=== PATIENT | male | born 1990 | race Caucasian/White ===

== ENCOUNTER 2019-05-28 01:06 | Inpatient (IN) | payer MEDICAID, OTHER ==
[2019-05-28] VITALS (7 sets, daily range): BP systolic 110–136; BP diastolic 67–98
[~2019-05-28] VITALS: Ht 157.5 cm; Wt 55.6 kg
[~2019-05-28 01:06] MED LIST: NOCURR
[2019-05-28 01:55] LABS: BASOPHILS % (AUTO) 0.8 % (0.0-2.0); EOSINOPHILS % (AUTO) 2.9 % (1.0-6.0); HEMATOCRIT 43.3 % (41-53); HEMOGLOBIN 15.1 g/dL (13.5-17.5); LYMPHOCYTES # (AUTO) 4.1 K/uL (1.0-4.8); MEAN CORPUSCULAR HEMOGLOBIN 33.1 pg (26.0-34.0); MEAN CORPUSCULAR HGB CONC 34.8 G/dL (31.0-37.0); MEAN CORPUSCULAR VOLUME 95 fL (80-100); MONOCYTES # (AUTO) 0.7 K/uL (0.1-1.0); MONOCYTES % (AUTO) 7.6 % (2.0-9.0); NEUTROPHILS # (AUTO) 4.2 K/uL (1.8-7.7); NEUTROPHILS % (AUTO) 44.7 % (40.0-70.0); PLATELET COUNT (AUTO) 283 K/uL (150-450); RED BLOOD CELL COUNT(AUTO) 4.55 MIL/uL (4.50-5.90); RED CELL DISTRIBUTION WIDTH 12.2 % (11.5-14.5)
[2019-05-28 01:57] LABS: APPEARANCE,URINE CLEAR (CLEAR); BILIRUBIN,URINE NEGATIVE (NEGATIVE); GLUCOSE, URINE (UA) >=1000 mg/dL (NEGATIVE); KETONES,URINE NEGATIVE (NEGATIVE); LEUKOCYTE ESTERASE ,URINE NEGATIVE (NEGATIVE); NITRATE,URINE NEGATIVE (NEGATIVE); OCCULT BLOOD,URINE NEGATIVE (NEGATIVE); PROTEIN,URINE NEGATIVE (NEGATIVE); UROBILINOGEN,URINE 0.2 mg/dL (<=1.0)
[2019-05-28 02:02] LABS: BACTERIA,URINE None Seen /HPF (None Seen); RBC,URINE 0-2 /HPF (0-2); SQUAMOUS EPITHELIAL CELL,UR Rare /LPF (None Seen); WBC,URINE 0-2 /HPF (0-5)
[2019-05-28 02:11] LABS: ALANINE AMINOTRANSFERASE 86 U/L (12-78); ALKALINE PHOSPHATASE 242 U/L (46-116); ANION GAP 15 mmol/L (8-16); ASPARTATE AMINOTRANSFERASE 95 U/L (15-37); BILIRUBIN,TOTAL 0.5 mg/dL (0.1-1.0); CALCIUM, TOTAL 9.3 mg/dL (8.8-10.5); CARBON DIOXIDE 27 mmol/L (22-29); CHLORIDE 94 mmol/L (98-107); CREATININE 0.71 mg/dL (0.60-1.30); GLOMERULAR FILTR. RATE CALC > 60 mL/min (>60); SODIUM SERUM 136 mmol/L (136-145); TOTAL PROTEIN, SERUM 8.5 g/dL (6.4-8.2); UREA NITROGEN, BLOOD 2 mg/dL (7-18)
[2019-05-28 02:21] LABS: GLUCOSE,RANDOM 516 mg/dL (70-110); POTASSIUM 2.9 mmol/L (3.5-5.1)
[2019-05-28] MEDS ORDERED: SODIUM CHLORIDE 0.9% 1,000 ML IV ONE (02:30)
[2019-05-28] MEDS ORDERED: POTASSIUM CHLORIDE 20 MEQ ER TABLET PO ONE (02:30)
[2019-05-28 02:31] LABS: GLUCOSE,POINT OF CARE 487 MG/DL (70-110)
[2019-05-28] MEDS ORDERED: ASPIRIN 325 MG TABLET PO ONE (02:45)
[2019-05-28] MEDS ORDERED: 0.9% SODIUM CHLORIDE 10 ML SYRINGE IVP PRN ×3 (03:15→06:15)
[2019-05-28] MEDS ORDERED: ACETAMINOPHEN 325 MG TABLET PO PRN ×2 (03:15→06:15)
[2019-05-28] MEDS ORDERED: ONDANSETRON HCL 4 MG/2 ML VIAL IVP PRN ×3 (03:15→06:15)
[2019-05-28] MEDS ORDERED: POTASSIUM CHL 10 MEQ/WATER 50 ML IV PRN ×2 (05:30→06:15)
[2019-05-28] MEDS ORDERED: INFLUENZA VIRUS VACCINE QVS 2019-20 (3YR+)/PF 60 MCG/0.5 ML SYRINGE IM ONE (05:30)
[2019-05-28] MEDS ORDERED: DEXTROSE 50%-WATER 25 GM/50 ML SYRINGE IVP PRN ×2 (05:30→06:30)
[2019-05-28] MEDS ORDERED: POTASSIUM CHLORIDE 20 MEQ ER TABLET PO PRN ×2 (05:30→06:15)
[2019-05-28] MEDS ORDERED: INSULIN LISPRO 100 UNITS/ML SQ PRN (05:30)
[2019-05-28] MEDS ORDERED: OxyCODONE HCL/ACETAMINOPHEN 5-325 MG TABLET PO PRN ×4 (05:45→06:15)
[2019-05-28] MEDS ORDERED: MAGNESIUM HYDROXIDE SUSPENSION 30 ML UDCUP PO PRN ×2 (05:45→06:15)
[2019-05-28] MEDS ORDERED: ChlordiazePOXIDE HCL 25 MG CAPSULE PO PRN (05:45)
[2019-05-28] MEDS: MULTIVITAMINS, THERAPEUTIC TABLET PO SCH (08:10)
[2019-05-28] MEDS: DOCUSATE SODIUM 100 MG CAPSULE PO SCH ×2 (08:10→20:36)
[2019-05-28] MEDS: ASPIRIN 325 MG TABLET PO SCH (08:10)
[2019-05-28] MEDS: FAMOTIDINE 10 MG/ML 2 ML VIAL IVP SCH (08:11)
[2019-05-28] MEDS: THIAMINE HCL 100 MG/ML 2ML VIAL IM SCH (08:12)
[2019-05-28] MEDS: INSULIN GLARGINE,HUM.REC.ANLOG 100 UNITS/ML SQ SCH (08:15)
[2019-05-28] MEDS ORDERED: DOCUSATE SODIUM 100 MG CAPSULE PO SCH (09:00)
[2019-05-28 12:06] LABS: ANION GAP 11 mmol/L (8-16); CALCIUM, TOTAL 8.8 mg/dL (8.8-10.5); CARBON DIOXIDE 27 mmol/L (22-29); CHLORIDE 102 mmol/L (98-107); GLOMERULAR FILTR. RATE CALC > 60 mL/min (>60); GLUCOSE,RANDOM 222 mg/dL (70-110); POTASSIUM 3.9 mmol/L (3.5-5.1); SODIUM SERUM 140 mmol/L (136-145); UREA NITROGEN, BLOOD 3 mg/dL (7-18)
[2019-05-28] MEDS: INSULIN LISPRO 100 UNITS/ML SQ PRN ×3 (12:15→21:36)
[2019-05-28] MEDS: ACETAMINOPHEN 325 MG TABLET PO PRN (17:09)
[2019-05-29] MEDS: ACETAMINOPHEN 325 MG TABLET PO PRN (03:19)
[2019-05-29 04:43] VITALS: BP 114/78
[2019-05-29] MEDS: INSULIN LISPRO 100 UNITS/ML SQ PRN ×4 (05:54→20:55)
[2019-05-29 06:54] LABS: BASOPHILS % (AUTO) 0.5 % (0.0-2.0); EOSINOPHILS % (AUTO) 1.9 % (1.0-6.0); HEMATOCRIT 38.7 % (41-53); HEMOGLOBIN 13.5 g/dL (13.5-17.5); LYMPHOCYTES # (AUTO) 1.7 K/uL (1.0-4.8); LYMPHOCYTES % (AUTO) 20.5 % (22.0-44.0); MEAN CORPUSCULAR HEMOGLOBIN 33.1 pg (26.0-34.0); MEAN CORPUSCULAR HGB CONC 34.8 G/dL (31.0-37.0); MEAN CORPUSCULAR VOLUME 95 fL (80-100); MONOCYTES # (AUTO) 0.8 K/uL (0.1-1.0); MONOCYTES % (AUTO) 9.2 % (2.0-9.0); NEUTROPHILS # (AUTO) 5.7 K/uL (1.8-7.7); NEUTROPHILS % (AUTO) 67.9 % (40.0-70.0); PLATELET COUNT (AUTO) 223 K/uL (150-450); RED BLOOD CELL COUNT(AUTO) 4.07 MIL/uL (4.50-5.90); RED CELL DISTRIBUTION WIDTH 12.4 % (11.5-14.5)
[2019-05-29] MEDS ORDERED: ChlordiazePOXIDE HCL 25 MG CAPSULE PO PRN (07:00)
[2019-05-29 07:25] LABS: ALANINE AMINOTRANSFERASE 62 U/L (12-78); ALBUMIN 3.1 g/dL (3.4-5.0); ALKALINE PHOSPHATASE 167 U/L (46-116); ANION GAP 9 mmol/L (8-16); ASPARTATE AMINOTRANSFERASE 67 U/L (15-37); BILIRUBIN,TOTAL 0.7 mg/dL (0.1-1.0); CALCIUM, TOTAL 8.9 mg/dL (8.8-10.5); CARBON DIOXIDE 29 mmol/L (22-29); CHLORIDE 101 mmol/L (98-107); CREATININE 0.49 mg/dL (0.60-1.30); GLOMERULAR FILTR. RATE CALC > 60 mL/min (>60); GLUCOSE,RANDOM 266 mg/dL (70-110); POTASSIUM 4.2 mmol/L (3.5-5.1); SODIUM SERUM 139 mmol/L (136-145); UREA NITROGEN, BLOOD 14 mg/dL (7-18)
[2019-05-29 07:36] LABS: GLUCOMETER DEV NAME(LOC) 5N.1; GLUCOSE,POINT OF CARE 192 MG/DL (70-110)
[2019-05-29 07:36] LABS: GLUCOMETER DEV NAME(LOC) 5N.2; GLUCOSE,POINT OF CARE 146 MG/DL (70-110)
[2019-05-29 07:36] LABS: GLUCOMETER DEV NAME(LOC) 5N.1; GLUCOSE,POINT OF CARE 297 MG/DL (70-110)
[2019-05-29 07:36] LABS: GLUCOMETER DEV NAME(LOC) 5N.2; GLUCOSE,POINT OF CARE 238 MG/DL (70-110)
[2019-05-29 07:37] LABS: GLUCOMETER DEV NAME(LOC) 5N.2; GLUCOSE,POINT OF CARE 264 MG/DL (70-110)
[2019-05-29 08:01] VITALS: BP_SYST 109; BP_SYST 74; BP_DIAS 109; BP_DIAS 74
[2019-05-29 10:50] LABS: CHOL/HDL RATIO 1.7 (4.2-7.3); CHOLESTEROL 140 mg/dL (131-200); HDL CHOLESTEROL 81 mg/dL (40-60); LDL CHOL (CALC.) 45 mg/dL (0-130); TRIGLYCERIDES 68 mg/dL (15-150)
[2019-05-29] MEDS: FAMOTIDINE 10 MG/ML 2 ML VIAL IVP SCH (11:00)
[2019-05-29] MEDS: DOCUSATE SODIUM 100 MG CAPSULE PO SCH ×2 (11:00→20:11)
[2019-05-29] MEDS: THIAMINE HCL 100 MG/ML 2ML VIAL IM SCH (11:00)
[2019-05-29] MEDS: ChlordiazePOXIDE HCL 25 MG CAPSULE PO SCH ×4 (11:00→20:11)
[2019-05-29] MEDS: MULTIVITAMINS, THERAPEUTIC TABLET PO SCH (11:00)
[2019-05-29] MEDS: ASPIRIN 325 MG TABLET PO SCH (11:01)
[2019-05-29] MEDS: INSULIN GLARGINE,HUM.REC.ANLOG 100 UNITS/ML SQ SCH ×2 (11:03→14:45)
[2019-05-29 11:23] VITALS: BP 125/80
[2019-05-29 11:57] LABS: GLUCOMETER DEV NAME(LOC) 5N.1; GLUCOSE,POINT OF CARE 358 MG/DL (70-110)
[2019-05-29 14:51] LABS: GLUCOMETER DEV NAME(LOC) 5N.2; GLUCOSE,POINT OF CARE 178 MG/DL (70-110)
[2019-05-29 15:08] VITALS: BP 127/84
[2019-05-29 17:01] LABS: GLUCOMETER DEV NAME(LOC) 5N.1; GLUCOSE,POINT OF CARE 215 MG/DL (70-110)
[2019-05-29 20:02] VITALS: BP 112/74
[2019-05-29 22:55] LABS: AMPHET/METH SCREEN,URINE NEGATIVE (NEGATIVE); BARBITURATE SCREEN, URINE NEGATIVE (NEGATIVE); BENZODIAZEPINES SCREEN,URINE NEGATIVE (NEGATIVE); CANNABINOID SCREEN,URINE NEGATIVE (NEGATIVE); COCAINE SCREEN,URINE NEGATIVE (NEGATIVE); METHADONE SCREEN, URINE NEGATIVE (NEGATIVE); OPIATE SCREEN,URINE NEGATIVE (NEGATIVE); PHENCYCLIDINE SCREEN,URINE NEGATIVE (NEGATIVE)
[2019-05-29 23:18] VITALS: BP 119/86
[2019-05-30 01:17] LABS: GLUCOMETER DEV NAME(LOC) 5N.1; GLUCOSE,POINT OF CARE 216 MG/DL (70-110)
[2019-05-30 04:45] VITALS: BP 111/80
[2019-05-30] MEDS: INSULIN LISPRO 100 UNITS/ML SQ PRN ×4 (05:58→23:06)
[2019-05-30 07:20] VITALS: BP 118/64
[2019-05-30 07:55] LABS: GLUCOMETER DEV NAME(LOC) 5N.1; GLUCOSE,POINT OF CARE 165 MG/DL (70-110)
[2019-05-30] MEDS: ChlordiazePOXIDE HCL 25 MG CAPSULE PO SCH ×4 (08:28→20:41)
[2019-05-30] MEDS: MULTIVITAMINS, THERAPEUTIC TABLET PO SCH (08:28)
[2019-05-30] MEDS: THIAMINE HCL 100 MG/ML 2ML VIAL IM SCH (08:28)
[2019-05-30] MEDS: FAMOTIDINE 10 MG/ML 2 ML VIAL IVP SCH (08:28)
[2019-05-30] MEDS: DOCUSATE SODIUM 100 MG CAPSULE PO SCH ×2 (08:29→20:41)
[2019-05-30] MEDS: ASPIRIN 325 MG TABLET PO SCH (08:29)
[2019-05-30] MEDS: INSULIN GLARGINE,HUM.REC.ANLOG 100 UNITS/ML SQ SCH (08:29)
[2019-05-30] MEDS ORDERED: INSULIN GLARGINE,HUM.REC.ANLOG 100 UNITS/ML SQ SCH (09:00)
[2019-05-30 11:24] VITALS: BP 121/81
[2019-05-30 11:52] LABS: GLUCOMETER DEV NAME(LOC) 5N.1; GLUCOSE,POINT OF CARE 245 MG/DL (70-110)
[2019-05-30] MEDS ORDERED: LORazepam 2 MG/ML VIAL IVP PRN (12:00)
[2019-05-30 15:33] VITALS: BP 116/76
[2019-05-30 19:18] VITALS: BP 109/73
[2019-05-31 00:29] VITALS: BP 115/56
[2019-05-31 04:42] VITALS: BP 102/65
[2019-05-31] MEDS: ACETAMINOPHEN 325 MG TABLET PO PRN (04:52)
[2019-05-31] MEDS: INSULIN LISPRO 100 UNITS/ML SQ PRN ×2 (06:27→11:37)
[2019-05-31] MEDS ORDERED: ChlordiazePOXIDE HCL 10 MG CAPSULE PO PRN (07:00)
[2019-05-31 07:46] LABS: ALANINE AMINOTRANSFERASE 52 U/L (12-78); ALBUMIN 3.5 g/dL (3.4-5.0); ALKALINE PHOSPHATASE 163 U/L (46-116); ANION GAP 10 mmol/L (8-16); ASPARTATE AMINOTRANSFERASE 60 U/L (15-37); BILIRUBIN,TOTAL 0.7 mg/dL (0.1-1.0); CALCIUM, TOTAL 9.1 mg/dL (8.8-10.5); CARBON DIOXIDE 26 mmol/L (22-29); CHLORIDE 100 mmol/L (98-107); CREATININE 0.53 mg/dL (0.60-1.30); GLOMERULAR FILTR. RATE CALC > 60 mL/min (>60); GLUCOSE,RANDOM 179 mg/dL (70-110); POTASSIUM 3.8 mmol/L (3.5-5.1); SODIUM SERUM 136 mmol/L (136-145); THYROID STIMULATING HORMONE 2.44 uIU/mL (0.36-3.74); TOTAL PROTEIN, SERUM 7.6 g/dL (6.4-8.2); UREA NITROGEN, BLOOD 10 mg/dL (7-18)
[2019-05-31 08:05] VITALS: BP 100/70
[2019-05-31 08:13] LABS: BASOPHILS % (AUTO) 0.6 % (0.0-2.0); EOSINOPHILS % (AUTO) 2.5 % (1.0-6.0); HEMATOCRIT 38.9 % (41-53); HEMOGLOBIN 13.4 g/dL (13.5-17.5); LYMPHOCYTES # (AUTO) 2.4 K/uL (1.0-4.8); LYMPHOCYTES % (AUTO) 25.7 % (22.0-44.0); MEAN CORPUSCULAR HEMOGLOBIN 33.2 pg (26.0-34.0); MEAN CORPUSCULAR HGB CONC 34.5 G/dL (31.0-37.0); MEAN CORPUSCULAR VOLUME 96 fL (80-100); MONOCYTES # (AUTO) 0.8 K/uL (0.1-1.0); MONOCYTES % (AUTO) 8.4 % (2.0-9.0); NEUTROPHILS # (AUTO) 5.9 K/uL (1.8-7.7); NEUTROPHILS % (AUTO) 62.8 % (40.0-70.0); PLATELET COUNT (AUTO) 239 K/uL (150-450); RED BLOOD CELL COUNT(AUTO) 4.04 MIL/uL (4.50-5.90); RED CELL DISTRIBUTION WIDTH 12.5 % (11.5-14.5)
[2019-05-31] MEDS: DOCUSATE SODIUM 100 MG CAPSULE PO SCH (08:52)
[2019-05-31] MEDS: MULTIVITAMINS, THERAPEUTIC TABLET PO SCH (08:52)
[2019-05-31] MEDS: THIAMINE HCL 100 MG/ML 2ML VIAL IM SCH (08:54)
[2019-05-31] MEDS: FAMOTIDINE 10 MG/ML 2 ML VIAL IVP SCH (08:54)
[2019-05-31] MEDS: INSULIN GLARGINE,HUM.REC.ANLOG 100 UNITS/ML SQ SCH (09:00)
[2019-05-31] MEDS ORDERED: ChlordiazePOXIDE HCL 10 MG CAPSULE PO SCH (09:00)
[2019-05-31] MEDS ORDERED: ASPIRIN 81 MG CHEWABLE TABLET PO SCH (09:00)
[2019-05-31 09:31] LABS: GLUCOMETER DEV NAME(LOC) 5N.1; GLUCOSE,POINT OF CARE 202 MG/DL (70-110)
[2019-05-31 09:31] LABS: GLUCOMETER DEV NAME(LOC) 5N.1; GLUCOSE,POINT OF CARE 194 MG/DL (70-110)
[2019-05-31 09:31] LABS: GLUCOMETER DEV NAME(LOC) 5N.1; GLUCOSE,POINT OF CARE 231 MG/DL (70-110)
[2019-05-31 11:22] LABS: HEMOGLOBIN A1C 11.3 % (4.5-6.2)
[2019-05-31 12:01] VITALS: BP 96/62
[2019-05-31] MEDS ORDERED: INSLAN SQ (14:05)
[2019-05-31] MEDS ORDERED: INSU100V SQ (14:15)
[2019-05-31 17:47] LABS: GLUCOMETER DEV NAME(LOC) 5N.1; GLUCOSE,POINT OF CARE 322 MG/DL (70-110)
[2019-06-01] MEDS ORDERED: ChlordiazePOXIDE HCL 10 MG CAPSULE PO PRN (07:00)
== END 2019-05-31 15:00 | disposition home or self-care (01) | DRG 47 ==
LOC: EMS 01:06 → 5S 03:26
PROVIDERS: ADMIT Internal Medicine; ATTEND Internal Medicine
DX: G45.9 Transient cerebral ischemic attack, unspecified (principal); E11.65 Type 2 diabetes mellitus with hyperglycemia; R81 Glycosuria; E87.6 Hypokalemia; F17.210 Nicotine dependence, cigarettes, uncomplicated; F41.9 Anxiety disorder, unspecified; F10.20 Alcohol dependence, uncomplicated; G43.909 Migraine, unspecified, not intractable, without status migrainosus; R74.8 Abnormal levels of other serum enzymes
CPT/HCPCS: 70450; 70551; 76700; 80307; 82948; 83036; 84439; 84443; 87081; 92523; 93005; 93306; 93880; 93970; 97116; 97161; 97165; 97530; 97535; 99291; J1815; J3411; J3490; J7030

== ENCOUNTER 2019-06-25 15:15 | Emergency (ER) | payer MEDICAID ==
[~2019-06-25] VITALS: Ht 165.1 cm; Wt 59.1 kg
[~2019-06-25 15:15] MED LIST changes: +INSLAN SQ; +INSU100V SQ; -NOCURR
[2019-06-25 16:40] LABS: BASOPHILS % (AUTO) 0.9 % (0.0-2.0); EOSINOPHILS % (AUTO) 3.2 % (1.0-6.0); HEMATOCRIT 41.7 % (41-53); HEMOGLOBIN 14.2 g/dL (13.5-17.5); LYMPHOCYTES # (AUTO) 3.2 K/uL (1.0-4.8); LYMPHOCYTES % (AUTO) 35.4 % (22.0-44.0); MEAN CORPUSCULAR HEMOGLOBIN 32.9 pg (26.0-34.0); MEAN CORPUSCULAR HGB CONC 34.2 G/dL (31.0-37.0); MEAN CORPUSCULAR VOLUME 96 fL (80-100); MONOCYTES # (AUTO) 0.6 K/uL (0.1-1.0); MONOCYTES % (AUTO) 6.1 % (2.0-9.0); NEUTROPHILS % (AUTO) 54.4 % (40.0-70.0); PLATELET COUNT (AUTO) 352 K/uL (150-450); RED BLOOD CELL COUNT(AUTO) 4.33 MIL/uL (4.50-5.90); RED CELL DISTRIBUTION WIDTH 12.7 % (11.5-14.5)
[2019-06-25 16:52] LABS: ANION GAP 12 mmol/L (8-16); CALCIUM, TOTAL 9.2 mg/dL (8.8-10.5); CARBON DIOXIDE 26 mmol/L (22-29); CHLORIDE 105 mmol/L (98-107); CREATININE 0.58 mg/dL (0.60-1.30); GLOMERULAR FILTR. RATE CALC > 60 mL/min (>60); GLUCOSE,RANDOM 169 mg/dL (70-110); POTASSIUM 3.5 mmol/L (3.5-5.1); SODIUM SERUM 143 mmol/L (136-145); UREA NITROGEN, BLOOD 6 mg/dL (7-18)
[2019-06-25 16:59] LABS: ALANINE AMINOTRANSFERASE 40 U/L (12-78); ALBUMIN 3.7 g/dL (3.4-5.0); ALKALINE PHOSPHATASE 173 U/L (46-116); ASPARTATE AMINOTRANSFERASE 41 U/L (15-37); BILIRUBIN,TOTAL 0.2 mg/dL (0.1-1.0); TOTAL PROTEIN, SERUM 8.1 g/dL (6.4-8.2)
[2019-06-25] MEDS ORDERED: SODIUM CHLORIDE 0.9% 1,000 ML IV ONE (17:30)
[2019-06-25 17:55] LABS: AMPHET/METH SCREEN,URINE NEGATIVE (NEGATIVE); BARBITURATE SCREEN, URINE NEGATIVE (NEGATIVE); BENZODIAZEPINES SCREEN,URINE NEGATIVE (NEGATIVE); CANNABINOID SCREEN,URINE NEGATIVE (NEGATIVE); COCAINE SCREEN,URINE NEGATIVE (NEGATIVE); METHADONE SCREEN, URINE NEGATIVE (NEGATIVE); OPIATE SCREEN,URINE NEGATIVE (NEGATIVE)
[2019-06-25 17:56] LABS: PHENCYCLIDINE SCREEN,URINE NEGATIVE (NEGATIVE)
[2019-06-25 19:46] VITALS: BP 103/72
== END 2019-06-25 20:34 | disposition home or self-care (01) ==
LOC: EMS 15:16
DX: F10.129 Alcohol abuse with intoxication, unspecified (principal); E11.9 Type 2 diabetes mellitus without complications; G43.909 Migraine, unspecified, not intractable, without status migrainosus; F41.9 Anxiety disorder, unspecified; Z79.4 Long term (current) use of insulin; Y90.8 Blood alcohol level of 240 mg/100 ml or more
CPT/HCPCS: 36415; 80053; 80307; 85025; 99283; G0480

== ENCOUNTER 2019-10-11 22:39 | Emergency (ER) | payer MEDICAID ==
[~2019-10-11] VITALS: Ht 157.5 cm; Wt 54.5 kg
[2019-10-12] MEDS ORDERED: GELATIN SPONGE,ABSORBABLE 12-7 MM TP ONE (00:45)
[2019-10-12] MEDS ORDERED: PENICILLIN V POTASSIUM 500 MG TABLET PO ONE (00:45)
[2019-10-12] MEDS ORDERED: INSULIN REGULAR, HUMAN 100 UNITS/ML SQ ONE (00:45)
[2019-10-12 01:01] LABS: BASOPHILS % (AUTO) 0.5 % (0.0-2.0); EOSINOPHILS % (AUTO) 1.5 % (1.0-6.0); HEMOGLOBIN 14.9 g/dL (13.5-17.5); LYMPHOCYTES # (AUTO) 2.7 K/uL (1.0-4.8); LYMPHOCYTES % (AUTO) 25.5 % (22.0-44.0); MEAN CORPUSCULAR HEMOGLOBIN 31.3 pg (26.0-34.0); MEAN CORPUSCULAR HGB CONC 33.8 G/dL (31.0-37.0); MEAN CORPUSCULAR VOLUME 93 fL (80-100); MONOCYTES # (AUTO) 0.6 K/uL (0.1-1.0); MONOCYTES % (AUTO) 5.2 % (2.0-9.0); NEUTROPHILS # (AUTO) 7.1 K/uL (1.8-7.7); NEUTROPHILS % (AUTO) 67.3 % (40.0-70.0); PLATELET COUNT (AUTO) 347 K/uL (150-450); RED BLOOD CELL COUNT(AUTO) 4.75 MIL/uL (4.50-5.90); RED CELL DISTRIBUTION WIDTH 13.1 % (11.5-14.5)
[2019-10-12 01:11] LABS: ANION GAP 10 mmol/L (8-16); CARBON DIOXIDE 28 mmol/L (22-29); CHLORIDE 102 mmol/L (98-107); CREATININE 0.66 mg/dL (0.60-1.30); GLOMERULAR FILTR. RATE CALC > 60 mL/min (>60); GLUCOSE,RANDOM 337 mg/dL (70-110); POTASSIUM 3.6 mmol/L (3.5-5.1); SODIUM SERUM 140 mmol/L (136-145); UREA NITROGEN, BLOOD 4 mg/dL (7-18)
[2019-10-12] MEDS ORDERED: GELATIN SPONGE,ABSORBABLE 100 MM TP ONE (02:00)
[2019-10-12 03:00] VITALS: BP 116/78
== END 2019-10-12 03:00 | disposition home or self-care (01) ==
LOC: EMS 22:41
DX: K06.8 Other specified disorders of gingiva and edentulous alveolar ridge (principal); K02.9 Dental caries, unspecified; E11.65 Type 2 diabetes mellitus with hyperglycemia; Z86.73 Personal history of transient ischemic attack (TIA), and cerebral infarction without residual deficits; Z79.899 Other long term (current) drug therapy; Z79.4 Long term (current) use of insulin
CPT/HCPCS: 36415; 80048; 82962; 85025; 96372; 99284; J1815

== ENCOUNTER 2019-10-30 18:36 | Emergency (ER) | payer MEDICAID ==
[~2019-10-30] VITALS: Ht 162.6 cm; Wt 59.1 kg
[2019-10-30 18:41] VITALS: BP 125/75
== END 2019-10-30 21:00 | disposition left against medical advice (07) ==
LOC: EMS 18:36
DX: Z53.21 Procedure and treatment not carried out due to patient leaving prior to being seen by health care provider (principal)

== ENCOUNTER 2019-11-11 15:44 | Emergency (ER) | payer MEDICAID ==
[~2019-11-11] VITALS: Ht 167.6 cm; Wt 75.0 kg
[2019-11-11 16:13] LABS: BASOPHILS % (AUTO) 0.9 % (0.0-2.0); EOSINOPHILS % (AUTO) 1.9 % (1.0-6.0); HEMATOCRIT 44.6 % (41-53); LYMPHOCYTES # (AUTO) 4.6 K/uL (1.0-4.8); LYMPHOCYTES % (AUTO) 49.1 % (22.0-44.0); MEAN CORPUSCULAR HEMOGLOBIN 31.2 pg (26.0-34.0); MEAN CORPUSCULAR HGB CONC 33.6 G/dL (31.0-37.0); MEAN CORPUSCULAR VOLUME 93 fL (80-100); MONOCYTES # (AUTO) 0.7 K/uL (0.1-1.0); MONOCYTES % (AUTO) 7.6 % (2.0-9.0); NEUTROPHILS # (AUTO) 3.8 K/uL (1.8-7.7); NEUTROPHILS % (AUTO) 40.5 % (40.0-70.0); PLATELET COUNT (AUTO) 341 K/uL (150-450); RED BLOOD CELL COUNT(AUTO) 4.81 MIL/uL (4.50-5.90); RED CELL DISTRIBUTION WIDTH 13.2 % (11.5-14.5)
[2019-11-11] MEDS ORDERED: SODIUM CHLORIDE 0.9% 2,000 ML IV ONE (16:15)
[2019-11-11] MEDS ORDERED: INSULIN REGULAR, HUMAN 100 UNITS/ML IVP ONE (16:15)
[2019-11-11 16:29] LABS: ACETONE,BLOOD NEGATIVE (NEGATIVE); ALANINE AMINOTRANSFERASE 105 U/L (12-78); ALBUMIN 4.6 g/dL (3.4-5.0); ALKALINE PHOSPHATASE 273 U/L (46-116); ANION GAP 15 mmol/L (8-16); ASPARTATE AMINOTRANSFERASE 102 U/L (15-37); BILIRUBIN,TOTAL 0.2 mg/dL (0.1-1.0); CALCIUM, TOTAL 9.3 mg/dL (8.8-10.5); CARBON DIOXIDE 26 mmol/L (22-29); CHLORIDE 89 mmol/L (98-107); CREATININE 0.85 mg/dL (0.60-1.30); GLOMERULAR FILTR. RATE CALC > 60 mL/min (>60); LIPASE 87 U/L (73-393); POTASSIUM 3.5 mmol/L (3.5-5.1); SODIUM SERUM 130 mmol/L (136-145); TOTAL PROTEIN, SERUM 9.3 g/dL (6.4-8.2); UREA NITROGEN, BLOOD 1 mg/dL (7-18)
[2019-11-11 16:34] LABS: GLUCOSE,RANDOM 573 mg/dL (70-110)
[2019-11-11 16:42] LABS: B-TYPE NATRIURETIC PEPTIDE 7 pg/mL (0-100); LACTIC ACID 6.6 mmol/L (0.4-2.0)
[2019-11-11 17:05] LABS: GLUCOSE,POINT OF CARE 335 MG/DL (70-110)
[2019-11-11 17:45] LABS: GLUCOSE,POINT OF CARE 162 MG/DL (70-110)
[2019-11-11 20:30] VITALS: BP 121/68
== END 2019-11-11 21:11 | disposition home or self-care (01) ==
LOC: EDUNIT# 15:44 → EDBD 15:48 → EMS 15:48
DX: E11.65 Type 2 diabetes mellitus with hyperglycemia (principal); K70.30 Alcoholic cirrhosis of liver without ascites; F10.129 Alcohol abuse with intoxication, unspecified; Y90.8 Blood alcohol level of 240 mg/100 ml or more; Z79.4 Long term (current) use of insulin; Z79.84 Long term (current) use of oral hypoglycemic drugs
CPT/HCPCS: 36415; 80053; 82009; 82962; 83605; 83690; 83880; 85025; 96361; 96374; 99285; G0480; J1815; J7030

== ENCOUNTER 2019-11-22 12:53 | Emergency (ER) | payer MEDICAID ==
[~2019-11-22] VITALS: Ht 172.7 cm; Wt 70.5 kg
[2019-11-22] MEDS ORDERED: SODIUM CHLORIDE 0.9% 1,000 ML IV ONE ×2 (14:15→16:00)
[2019-11-22 14:38] LABS: BASOPHILS % (AUTO) 0.5 % (0.0-2.0); EOSINOPHILS % (AUTO) 1.7 % (1.0-6.0); HEMATOCRIT 40.9 % (41-53); HEMOGLOBIN 13.9 g/dL (13.5-17.5); LYMPHOCYTES # (AUTO) 2.3 K/uL (1.0-4.8); LYMPHOCYTES % (AUTO) 34.2 % (22.0-44.0); MEAN CORPUSCULAR HEMOGLOBIN 31.4 pg (26.0-34.0); MEAN CORPUSCULAR HGB CONC 33.9 G/dL (31.0-37.0); MEAN CORPUSCULAR VOLUME 93 fL (80-100); MONOCYTES # (AUTO) 0.5 K/uL (0.1-1.0); MONOCYTES % (AUTO) 6.6 % (2.0-9.0); NEUTROPHILS # (AUTO) 3.9 K/uL (1.8-7.7); PLATELET COUNT (AUTO) 333 K/uL (150-450); RED BLOOD CELL COUNT(AUTO) 4.42 MIL/uL (4.50-5.90); RED CELL DISTRIBUTION WIDTH 12.9 % (11.5-14.5)
[2019-11-22 15:00] LABS: ALANINE AMINOTRANSFERASE 95 U/L (12-78); ALBUMIN 3.8 g/dL (3.4-5.0); ALKALINE PHOSPHATASE 205 U/L (46-116); ANION GAP 16 mmol/L (8-16); ASPARTATE AMINOTRANSFERASE 63 U/L (15-37); BILIRUBIN,TOTAL 0.2 mg/dL (0.1-1.0); CALCIUM, TOTAL 9.2 mg/dL (8.8-10.5); CARBON DIOXIDE 24 mmol/L (22-29); CHLORIDE 97 mmol/L (98-107); CREATININE 0.64 mg/dL (0.60-1.30); GLOMERULAR FILTR. RATE CALC > 60 mL/min (>60); POTASSIUM 3.3 mmol/L (3.5-5.1); SODIUM SERUM 137 mmol/L (136-145); TOTAL PROTEIN, SERUM 8.2 g/dL (6.4-8.2); UREA NITROGEN, BLOOD 3 mg/dL (7-18)
[2019-11-22 15:31] LABS: GLUCOSE,RANDOM 483 mg/dL (70-110)
[2019-11-22 15:48] LABS: GLUCOSE,POINT OF CARE 368 MG/DL (70-110)
[2019-11-22 15:51] LABS: ACETONE,BLOOD NEGATIVE (NEGATIVE)
[2019-11-22] MEDS ORDERED: INSULIN REGULAR, HUMAN 100 UNITS/ML SQ ONE (16:00)
[2019-11-22] MEDS ORDERED: POTASSIUM CHLORIDE 20 MEQ ER TABLET PO ONE (16:00)
[2019-11-22 17:09] VITALS: BP 132/109
[2019-11-22 17:16] LABS: GLUCOSE,POINT OF CARE 228 MG/DL (70-110)
== END 2019-11-22 17:51 | disposition home or self-care (01) ==
LOC: EMS 12:58
DX: F10.129 Alcohol abuse with intoxication, unspecified (principal); E11.65 Type 2 diabetes mellitus with hyperglycemia; G40.909 Epilepsy, unspecified, not intractable, without status epilepticus; Z79.4 Long term (current) use of insulin; Z86.73 Personal history of transient ischemic attack (TIA), and cerebral infarction without residual deficits; Z79.899 Other long term (current) drug therapy; Y90.6 Blood alcohol level of 120-199 mg/100 ml
CPT/HCPCS: 36415; 80053; 81002; 82009; 82962; 85025; 96360; 96361; 96372; 99285; G0480; J1815; J7030

== ENCOUNTER 2020-01-17 10:11 | Emergency (ER) | payer MEDICAID ==
[~2020-01-17] VITALS: Ht 162.6 cm; Wt 63.6 kg
[2020-01-17] MEDS ORDERED: SODIUM CHLORIDE 0.9% 1,000 ML IV ONE (10:45)
[2020-01-17 11:10] LABS: BASOPHILS % (AUTO) 1.1 % (0.0-2.0); HEMATOCRIT 32.1 % (41-53); LYMPHOCYTES # (AUTO) 1.8 K/uL (1.0-4.8); LYMPHOCYTES % (AUTO) 37.8 % (22.0-44.0); MEAN CORPUSCULAR HEMOGLOBIN 29.5 pg (26.0-34.0); MEAN CORPUSCULAR HGB CONC 34.2 G/dL (31.0-37.0); MEAN CORPUSCULAR VOLUME 86 fL (80-100); MONOCYTES # (AUTO) 0.5 K/uL (0.1-1.0); MONOCYTES % (AUTO) 9.6 % (2.0-9.0); NEUTROPHILS # (AUTO) 2.4 K/uL (1.8-7.7); NEUTROPHILS % (AUTO) 49.5 % (40.0-70.0); PLATELET COUNT (AUTO) 319 K/uL (150-450); RED BLOOD CELL COUNT(AUTO) 3.72 MIL/uL (4.50-5.90)
[2020-01-17 11:28] LABS: ALANINE AMINOTRANSFERASE 86 U/L (12-78); ALBUMIN 3.8 g/dL (3.4-5.0); ALKALINE PHOSPHATASE 152 U/L (46-116); ANION GAP 17 mmol/L (8-16); ASPARTATE AMINOTRANSFERASE 74 U/L (15-37); BILIRUBIN,TOTAL 0.2 mg/dL (0.1-1.0); CALCIUM, TOTAL 8.8 mg/dL (8.8-10.5); CARBON DIOXIDE 23 mmol/L (22-29); CHLORIDE 100 mmol/L (98-107); GLOMERULAR FILTR. RATE CALC > 60 mL/min (>60); GLUCOSE,RANDOM 376 mg/dL (70-110); SODIUM SERUM 140 mmol/L (136-145); TOTAL PROTEIN, SERUM 7.8 g/dL (6.4-8.2); UREA NITROGEN, BLOOD 3 mg/dL (7-18)
[2020-01-17 11:30] LABS: POTASSIUM 2.6 mmol/L (3.5-5.1)
[2020-01-17] MEDS: POTASSIUM CHL 10 MEQ/WATER 50 ML IV SCH ×4 (12:06→15:00)
[2020-01-17] MEDS ORDERED: SODIUM CHLORIDE 0.9% 500 ML IV ONE ×2 (12:08→13:56)
[2020-01-17] MEDS ORDERED: POTASSIUM CHLORIDE 20 MEQ ER TABLET PO ONE (12:15)
[2020-01-17 13:58] LABS: GLUCOSE,POINT OF CARE 247 MG/DL (70-110)
[2020-01-17 14:57] LABS: GLUCOSE,POINT OF CARE 193 MG/DL (70-110)
[2020-01-17 16:43] LABS: ANION GAP 14 mmol/L (8-16); CALCIUM, TOTAL 7.5 mg/dL (8.8-10.5); CARBON DIOXIDE 23 mmol/L (22-29); CHLORIDE 105 mmol/L (98-107); CREATININE 0.35 mg/dL (0.60-1.30); GLOMERULAR FILTR. RATE CALC > 60 mL/min (>60); GLUCOSE,RANDOM 194 mg/dL (70-110); POTASSIUM 3.1 mmol/L (3.5-5.1); SODIUM SERUM 142 mmol/L (136-145); UREA NITROGEN, BLOOD 4 mg/dL (7-18)
[2020-01-17 16:55] LABS: GLUCOSE,POINT OF CARE 204 MG/DL (70-110)
[2020-01-17] MEDS ORDERED: INSULIN LISPRO 100 UNITS/ML SQ ONE (17:00)
[2020-01-17 17:34] VITALS: BP 100/56
[2020-01-17 19:20] LABS: GLUCOSE,POINT OF CARE 201 MG/DL (70-110)
== END 2020-01-17 17:25 | disposition home or self-care (01) ==
LOC: EMS 10:12
DX: E87.6 Hypokalemia (principal); J02.8 Acute pharyngitis due to other specified organisms; B97.89 Other viral agents as the cause of diseases classified elsewhere; R05 Cough; F10.129 Alcohol abuse with intoxication, unspecified; E11.9 Type 2 diabetes mellitus without complications; G43.909 Migraine, unspecified, not intractable, without status migrainosus; Z20.828 Contact with and (suspected) exposure to other viral communicable diseases; Z86.73 Personal history of transient ischemic attack (TIA), and cerebral infarction without residual deficits; Z79.4 Long term (current) use of insulin; Y90.8 Blood alcohol level of 240 mg/100 ml or more
CPT/HCPCS: 36415; 71045; 80048; 80053; 82962; 85025; 96372; 99285; G0480; J3480; J7040; U0003; J1815

== ENCOUNTER 2020-02-03 17:59 | Emergency (ER) | payer MEDICAID ==
[~2020-02-03] VITALS: Ht 165.1 cm; Wt 59.1 kg
[2020-02-03 18:53] LABS: GLUCOSE,POINT OF CARE 352 MG/DL (70-110)
[2020-02-03] MEDS ORDERED: SODIUM CHLORIDE 0.9% 1,000 ML IV ONE (19:00)
[2020-02-03 19:05] LABS: BASOPHILS % (AUTO) 1.3 % (0.0-2.0); EOSINOPHILS % (AUTO) 2.9 % (1.0-6.0); HEMATOCRIT 31.9 % (41-53); HEMOGLOBIN 10.5 g/dL (13.5-17.5); LYMPHOCYTES # (AUTO) 1.7 K/uL (1.0-4.8); LYMPHOCYTES % (AUTO) 28.1 % (22.0-44.0); MEAN CORPUSCULAR HEMOGLOBIN 27.5 pg (26.0-34.0); MEAN CORPUSCULAR HGB CONC 32.9 G/dL (31.0-37.0); MEAN CORPUSCULAR VOLUME 84 fL (80-100); MONOCYTES # (AUTO) 0.5 K/uL (0.1-1.0); MONOCYTES % (AUTO) 8.2 % (2.0-9.0); NEUTROPHILS # (AUTO) 3.5 K/uL (1.8-7.7); NEUTROPHILS % (AUTO) 59.5 % (40.0-70.0); PLATELET COUNT (AUTO) 321 K/uL (150-450); RED BLOOD CELL COUNT(AUTO) 3.82 MIL/uL (4.50-5.90); RED CELL DISTRIBUTION WIDTH 16.3 % (11.5-14.5)
[2020-02-03 19:22] LABS: ANION GAP 13 mmol/L (8-16); CARBON DIOXIDE 24 mmol/L (22-29); CHLORIDE 103 mmol/L (98-107); GLOMERULAR FILTR. RATE CALC > 60 mL/min (>60); GLUCOSE,RANDOM 370 mg/dL (70-110); POTASSIUM 3.5 mmol/L (3.5-5.1); SODIUM SERUM 140 mmol/L (136-145); UREA NITROGEN, BLOOD 7 mg/dL (7-18)
[2020-02-03 19:29] LABS: ALANINE AMINOTRANSFERASE 85 U/L (12-78); ALBUMIN 3.6 g/dL (3.4-5.0); ALKALINE PHOSPHATASE 151 U/L (46-116); ASPARTATE AMINOTRANSFERASE 151 U/L (15-37); BILIRUBIN,TOTAL 0.2 mg/dL (0.1-1.0); TOTAL PROTEIN, SERUM 7.9 g/dL (6.4-8.2)
[2020-02-03 19:45] LABS: ACETONE,BLOOD NEGATIVE (NEGATIVE)
[2020-02-03 20:30] VITALS: BP 129/74
== END 2020-02-03 20:37 | disposition home or self-care (01) ==
LOC: EMS 18:01
DX: E11.65 Type 2 diabetes mellitus with hyperglycemia (principal); F10.129 Alcohol abuse with intoxication, unspecified; Y90.8 Blood alcohol level of 240 mg/100 ml or more
CPT/HCPCS: 36415; 80053; 82009; 82962; 85025; 96360; 99283; G0480

== ENCOUNTER 2020-02-06 14:54 | Emergency (ER) | payer MEDICAID ==
[~2020-02-06] VITALS: Ht 165.1 cm; Wt 58.5 kg
[2020-02-06 16:13] LABS: BASOPHILS % (AUTO) 0.7 % (0.0-2.0); EOSINOPHILS % (AUTO) 2.1 % (1.0-6.0); HEMATOCRIT 34.4 % (41-53); HEMOGLOBIN 11.2 g/dL (13.5-17.5); LYMPHOCYTES % (AUTO) 27.3 % (22.0-44.0); MEAN CORPUSCULAR HEMOGLOBIN 27.1 pg (26.0-34.0); MEAN CORPUSCULAR HGB CONC 32.5 G/dL (31.0-37.0); MEAN CORPUSCULAR VOLUME 83 fL (80-100); MONOCYTES # (AUTO) 0.5 K/uL (0.1-1.0); NEUTROPHILS # (AUTO) 4.6 K/uL (1.8-7.7); NEUTROPHILS % (AUTO) 62.9 % (40.0-70.0); PLATELET COUNT (AUTO) 315 K/uL (150-450); RED BLOOD CELL COUNT(AUTO) 4.13 MIL/uL (4.50-5.90); RED CELL DISTRIBUTION WIDTH 17.1 % (11.5-14.5)
[2020-02-06 16:23] LABS: ANION GAP 18 mmol/L (8-16); CALCIUM, TOTAL 8.8 mg/dL (8.8-10.5); CARBON DIOXIDE 20 mmol/L (22-29); CHLORIDE 100 mmol/L (98-107); CREATININE 0.57 mg/dL (0.60-1.30); GLOMERULAR FILTR. RATE CALC > 60 mL/min (>60); GLUCOSE,RANDOM 230 mg/dL (70-110); POTASSIUM 3.6 mmol/L (3.5-5.1); SODIUM SERUM 138 mmol/L (136-145); UREA NITROGEN, BLOOD 3 mg/dL (7-18)
[2020-02-06 16:28] LABS: ALANINE AMINOTRANSFERASE 85 U/L (12-78); ALBUMIN 3.7 g/dL (3.4-5.0); ALKALINE PHOSPHATASE 172 U/L (46-116); ASPARTATE AMINOTRANSFERASE 131 U/L (15-37); BILIRUBIN,TOTAL 0.1 mg/dL (0.1-1.0); TOTAL PROTEIN, SERUM 8.4 g/dL (6.4-8.2)
[2020-02-06] MEDS ORDERED: ONDANSETRON HCL 4 MG TABLET PO ONE (17:00)
[2020-02-06] MEDS ORDERED: MAG HYDROX/AL HYDROX/SIMETH ES 30 ML SUSPENSION UDCUP PO ONE (17:00)
[2020-02-06] MEDS ORDERED: ACETAMINOPHEN 500 MG TABLET PO ONE ×2 (17:00→17:45)
[2020-02-06 18:00] VITALS: BP 137/81
== END 2020-02-06 18:09 | disposition home or self-care (01) ==
LOC: EMS 14:55
DX: F10.129 Alcohol abuse with intoxication, unspecified (principal); E11.65 Type 2 diabetes mellitus with hyperglycemia; K70.30 Alcoholic cirrhosis of liver without ascites; R07.89 Other chest pain; Z86.73 Personal history of transient ischemic attack (TIA), and cerebral infarction without residual deficits; Z79.4 Long term (current) use of insulin
CPT/HCPCS: 36415; 80053; 85025; 93005; 99284; G0480; Q0162

== ENCOUNTER 2020-02-08 02:14 | Emergency (ER) | payer MEDICAID ==
[~2020-02-08] VITALS: Ht 165.1 cm; Wt 59.1 kg
[2020-02-08 03:22] LABS: GLUCOSE,POINT OF CARE 271 MG/DL (70-110)
[2020-02-08 04:07] LABS: BASOPHILS % (AUTO) 0.9 % (0.0-2.0); EOSINOPHILS % (AUTO) 1.7 % (1.0-6.0); HEMATOCRIT 35.7 % (41-53); HEMOGLOBIN 11.6 g/dL (13.5-17.5); LYMPHOCYTES % (AUTO) 30.7 % (22.0-44.0); MEAN CORPUSCULAR HEMOGLOBIN 26.9 pg (26.0-34.0); MEAN CORPUSCULAR HGB CONC 32.3 G/dL (31.0-37.0); MEAN CORPUSCULAR VOLUME 83 fL (80-100); MONOCYTES # (AUTO) 0.6 K/uL (0.1-1.0); MONOCYTES % (AUTO) 10.1 % (2.0-9.0); NEUTROPHILS # (AUTO) 3.6 K/uL (1.8-7.7); NEUTROPHILS % (AUTO) 56.6 % (40.0-70.0); PLATELET COUNT (AUTO) 312 K/uL (150-450); RED CELL DISTRIBUTION WIDTH 17.1 % (11.5-14.5)
[2020-02-08 04:17] LABS: ANION GAP 16 mmol/L (8-16); CARBON DIOXIDE 22 mmol/L (22-29); CHLORIDE 100 mmol/L (98-107); CREATININE 0.68 mg/dL (0.60-1.30); GLOMERULAR FILTR. RATE CALC > 60 mL/min (>60); GLUCOSE,RANDOM 251 mg/dL (70-110); POTASSIUM 3.9 mmol/L (3.5-5.1); SODIUM SERUM 138 mmol/L (136-145); UREA NITROGEN, BLOOD 5 mg/dL (7-18)
[2020-02-08 04:23] LABS: ALANINE AMINOTRANSFERASE 69 U/L (12-78); ALBUMIN 3.9 g/dL (3.4-5.0); ALKALINE PHOSPHATASE 193 U/L (46-116); ASPARTATE AMINOTRANSFERASE 80 U/L (15-37); BILIRUBIN,TOTAL 0.2 mg/dL (0.1-1.0)
[2020-02-08 05:52] VITALS: BP 106/66
== END 2020-02-08 07:09 | disposition home or self-care (01) ==
LOC: EMS 02:15
DX: F41.9 Anxiety disorder, unspecified (principal); F32.9 Major depressive disorder, single episode, unspecified; F10.129 Alcohol abuse with intoxication, unspecified; F17.210 Nicotine dependence, cigarettes, uncomplicated; Z86.73 Personal history of transient ischemic attack (TIA), and cerebral infarction without residual deficits; Z79.4 Long term (current) use of insulin; Y90.8 Blood alcohol level of 240 mg/100 ml or more
CPT/HCPCS: 36415; 80053; 82962; 85025; 99284; 99406; G0480

== ENCOUNTER 2020-02-15 23:29 | Emergency (ER) | payer MEDICAID ==
[~2020-02-15] VITALS: Ht 165.1 cm; Wt 5.9 kg
[2020-02-16 02:25] LABS: BASOPHILS % (AUTO) 1.7 % (0.0-2.0); EOSINOPHILS % (AUTO) 4.9 % (1.0-6.0); HEMATOCRIT 31.9 % (41-53); HEMOGLOBIN 10.3 g/dL (13.5-17.5); LYMPHOCYTES # (AUTO) 2.7 K/uL (1.0-4.8); LYMPHOCYTES % (AUTO) 48.1 % (22.0-44.0); MEAN CORPUSCULAR HEMOGLOBIN 26.3 pg (26.0-34.0); MEAN CORPUSCULAR HGB CONC 32.2 G/dL (31.0-37.0); MEAN CORPUSCULAR VOLUME 82 fL (80-100); MONOCYTES # (AUTO) 0.6 K/uL (0.1-1.0); MONOCYTES % (AUTO) 10.7 % (2.0-9.0); NEUTROPHILS # (AUTO) 1.9 K/uL (1.8-7.7); NEUTROPHILS % (AUTO) 34.6 % (40.0-70.0); PLATELET COUNT (AUTO) 336 K/uL (150-450); RED BLOOD CELL COUNT(AUTO) 3.91 MIL/uL (4.50-5.90); RED CELL DISTRIBUTION WIDTH 16.6 % (11.5-14.5)
[2020-02-16 02:34] LABS: ANION GAP 15 mmol/L (8-16); CALCIUM, TOTAL 8.7 mg/dL (8.8-10.5); CARBON DIOXIDE 22 mmol/L (22-29); CHLORIDE 99 mmol/L (98-107); CREATININE 0.66 mg/dL (0.60-1.30); GLOMERULAR FILTR. RATE CALC > 60 mL/min (>60); GLUCOSE,RANDOM 237 mg/dL (70-110); POTASSIUM 3.4 mmol/L (3.5-5.1); SODIUM SERUM 136 mmol/L (136-145); UREA NITROGEN, BLOOD 4 mg/dL (7-18)
[2020-02-16 02:40] LABS: ALANINE AMINOTRANSFERASE 73 U/L (12-78); ALBUMIN 3.5 g/dL (3.4-5.0); ALKALINE PHOSPHATASE 170 U/L (46-116); ASPARTATE AMINOTRANSFERASE 91 U/L (15-37); BILIRUBIN,TOTAL 0.2 mg/dL (0.1-1.0); TOTAL PROTEIN, SERUM 8.1 g/dL (6.4-8.2)
[2020-02-16 03:36] LABS: AMPHET/METH SCREEN,URINE NEGATIVE (NEGATIVE); BARBITURATE SCREEN, URINE NEGATIVE (NEGATIVE); BENZODIAZEPINES SCREEN,URINE NEGATIVE (NEGATIVE); CANNABINOID SCREEN,URINE NEGATIVE (NEGATIVE); COCAINE SCREEN,URINE NEGATIVE (NEGATIVE); METHADONE SCREEN, URINE NEGATIVE (NEGATIVE); OPIATE SCREEN,URINE NEGATIVE (NEGATIVE)
[2020-02-16 03:37] LABS: PHENCYCLIDINE SCREEN,URINE NEGATIVE (NEGATIVE)
[2020-02-16 05:15] VITALS: BP 124/79
== END 2020-02-16 05:30 | disposition home or self-care (01) ==
LOC: EMS 23:29
DX: F32.9 Major depressive disorder, single episode, unspecified (principal); F10.129 Alcohol abuse with intoxication, unspecified; E11.9 Type 2 diabetes mellitus without complications; I10 Essential (primary) hypertension; F17.210 Nicotine dependence, cigarettes, uncomplicated; Z79.899 Other long term (current) drug therapy; Y90.8 Blood alcohol level of 240 mg/100 ml or more
CPT/HCPCS: 36415; 80053; 80307; 82962; 85025; 93005; 99285; G0480

== ENCOUNTER 2020-02-19 22:02 | Emergency (ER) | payer MEDICAID ==
[~2020-02-19] VITALS: Ht 165.1 cm; Wt 59.1 kg
[2020-02-19 23:00] VITALS: BP 110/63
== END 2020-02-20 00:34 | disposition home or self-care (01) ==
LOC: EMS 22:04
DX: S50.01XA Contusion of right elbow, initial encounter (principal); F41.9 Anxiety disorder, unspecified; F32.9 Major depressive disorder, single episode, unspecified; E11.9 Type 2 diabetes mellitus without complications; G43.909 Migraine, unspecified, not intractable, without status migrainosus; F17.210 Nicotine dependence, cigarettes, uncomplicated; Z86.73 Personal history of transient ischemic attack (TIA), and cerebral infarction without residual deficits; Z79.4 Long term (current) use of insulin; X58.XXXA Exposure to other specified factors, initial encounter; Y93.89 Activity, other specified; Y92.89 Other specified places as the place of occurrence of the external cause; Y99.8 Other external cause status
CPT/HCPCS: 99406; Z7502

== ENCOUNTER 2020-11-30 05:28 | Emergency (ER) | payer MEDICAID ==
[~2020-11-30] VITALS: Ht 167.6 cm; Wt 108.0 kg
[~2020-11-30 05:28] MED LIST changes: +LIB10 PO
[2020-11-30] MEDS ORDERED: ACETAMINOPHEN 500 MG TABLET PO ONE (06:30)
[2020-11-30] MEDS ORDERED: IBUPROFEN 600 MG TABLET PO ONE (06:30)
[2020-11-30 06:40] VITALS: BP 115/70
== END 2020-11-30 06:48 | disposition home or self-care (01) ==
LOC: EMS 05:29
DX: S76.112A Strain of left quadriceps muscle, fascia and tendon, initial encounter (principal); F17.210 Nicotine dependence, cigarettes, uncomplicated; F32.9 Major depressive disorder, single episode, unspecified; E11.9 Type 2 diabetes mellitus without complications; X58.XXXA Exposure to other specified factors, initial encounter; Y93.89 Activity, other specified; Y92.89 Other specified places as the place of occurrence of the external cause; Y99.8 Other external cause status
CPT/HCPCS: 99283

== ENCOUNTER 2020-12-02 01:39 | Emergency (ER) | payer MEDICAID ==
[~2020-12-02] VITALS: Ht 165.1 cm; Wt 50.0 kg
[2020-12-02 02:14] LABS: GLUCOSE,POINT OF CARE 355 MG/DL (70-110)
[2020-12-02] MEDS ORDERED: IBUPROFEN 800 MG TABLET PO ONE (03:00)
[2020-12-02 05:30] VITALS: BP 121/70
== END 2020-12-02 06:03 | disposition home or self-care (01) ==
LOC: EMS 01:41
DX: G89.29 Other chronic pain (principal); M79.605 Pain in left leg; F10.10 Alcohol abuse, uncomplicated; F41.9 Anxiety disorder, unspecified; F32.9 Major depressive disorder, single episode, unspecified; E11.9 Type 2 diabetes mellitus without complications; G43.909 Migraine, unspecified, not intractable, without status migrainosus; F17.210 Nicotine dependence, cigarettes, uncomplicated; Z86.73 Personal history of transient ischemic attack (TIA), and cerebral infarction without residual deficits; Z79.4 Long term (current) use of insulin
CPT/HCPCS: 36415; 82962; 99283; G0480

== ENCOUNTER 2020-12-13 05:41 | Emergency (ER) | payer MEDICAID ==
[~2020-12-13] VITALS: Ht 154.9 cm; Wt 55.8 kg
[2020-12-13] MEDS ORDERED: SODIUM CHLORIDE 0.9% 1,000 ML IV ONE (06:30)
[2020-12-13] MEDS ORDERED: INSULIN REGULAR, HUMAN 100 UNITS/ML IVP ONE (06:30)
[2020-12-13 06:43] LABS: EOSINOPHILS % (AUTO) 2.8 % (1.0-6.0); HEMATOCRIT 40.7 % (41-53); HEMOGLOBIN 13.9 g/dL (13.5-17.5); LYMPHOCYTES # (AUTO) 1.3 K/uL (1.0-4.8); LYMPHOCYTES % (AUTO) 33.4 % (22.0-44.0); MEAN CORPUSCULAR HEMOGLOBIN 32.9 pg (26.0-34.0); MEAN CORPUSCULAR HGB CONC 34.3 G/dL (31.0-37.0); MEAN CORPUSCULAR VOLUME 96 fL (80-100); MONOCYTES # (AUTO) 0.5 K/uL (0.1-1.0); MONOCYTES % (AUTO) 11.5 % (2.0-9.0); NEUTROPHILS # (AUTO) 2.1 K/uL (1.8-7.7); NEUTROPHILS % (AUTO) 51.3 % (40.0-70.0); PLATELET COUNT (AUTO) 220 K/uL (150-450); RED BLOOD CELL COUNT(AUTO) 4.24 MIL/uL (4.50-5.90); RED CELL DISTRIBUTION WIDTH 13.4 % (11.5-14.5)
[2020-12-13 07:01] LABS: ALANINE AMINOTRANSFERASE 73 U/L (12-78); ALBUMIN 4.2 g/dL (3.4-5.0); ALKALINE PHOSPHATASE 252 U/L (46-116); ANION GAP 14 mmol/L (8-16); ASPARTATE AMINOTRANSFERASE 66 U/L (15-37); BILIRUBIN,TOTAL 0.3 mg/dL (0.1-1.0); CALCIUM, TOTAL 9.2 mg/dL (8.8-10.5); CARBON DIOXIDE 26 mmol/L (22-29); CHLORIDE 98 mmol/L (98-107); CREATININE 0.64 mg/dL (0.60-1.30); GLOMERULAR FILTR. RATE CALC > 60 mL/min (>60); LIPASE 60 U/L (73-393); POTASSIUM 3.4 mmol/L (3.5-5.1); SODIUM SERUM 138 mmol/L (136-145); TOTAL PROTEIN, SERUM 7.8 g/dL (6.4-8.2); UREA NITROGEN, BLOOD 3 mg/dL (7-18)
[2020-12-13 07:06] LABS: ACETONE,BLOOD NEGATIVE (NEGATIVE)
[2020-12-13 07:19] LABS: GLUCOSE,RANDOM 445 mg/dL (70-110); LACTIC ACID 3.9 mmol/L (0.4-2.0)
[2020-12-13 07:30] LABS: GLUCOSE,POINT OF CARE 316 MG/DL (70-110)
[2020-12-13 08:35] VITALS: BP 103/86
== END 2020-12-13 09:34 | disposition home or self-care (01) ==
LOC: EMS 05:43
DX: E11.65 Type 2 diabetes mellitus with hyperglycemia (principal); F10.129 Alcohol abuse with intoxication, unspecified; E87.6 Hypokalemia; M25.562 Pain in left knee; F41.9 Anxiety disorder, unspecified; F32.9 Major depressive disorder, single episode, unspecified; G43.909 Migraine, unspecified, not intractable, without status migrainosus; F17.210 Nicotine dependence, cigarettes, uncomplicated; Z79.4 Long term (current) use of insulin; Y90.8 Blood alcohol level of 240 mg/100 ml or more
CPT/HCPCS: 36415; 80053; 82009; 82962; 83605; 83690; 84484; 85025; 93005; 96361; 96374; 99284; G0480; J1815; J7030

== ENCOUNTER 2020-12-16 20:30 | Emergency (ER) | payer MEDICAID ==
[~2020-12-16] VITALS: Ht 165.1 cm; Wt 55.4 kg
[~2020-12-16 20:30] MED LIST changes: -LIB10 PO
[2020-12-16] MEDS ORDERED: GABAPENTIN 100 MG CAPSULE PO ONE (22:30)
[2020-12-16] MEDS ORDERED: SODIUM CHLORIDE 0.9% 1,000 ML IV ONE ×2 (22:30→23:00)
[2020-12-16] MEDS ORDERED: ACETAMINOPHEN 500 MG TABLET PO ONE (22:30)
[2020-12-16 22:37] LABS: BASOPHILS % (AUTO) 0.6 % (0.0-2.0); EOSINOPHILS % (AUTO) 1.9 % (1.0-6.0); HEMATOCRIT 43.1 % (41-53); HEMOGLOBIN 14.5 g/dL (13.5-17.5); LYMPHOCYTES # (AUTO) 3.3 K/uL (1.0-4.8); LYMPHOCYTES % (AUTO) 42.4 % (22.0-44.0); MEAN CORPUSCULAR HEMOGLOBIN 32.5 pg (26.0-34.0); MEAN CORPUSCULAR HGB CONC 33.7 G/dL (31.0-37.0); MEAN CORPUSCULAR VOLUME 97 fL (80-100); MONOCYTES # (AUTO) 0.6 K/uL (0.1-1.0); MONOCYTES % (AUTO) 7.2 % (2.0-9.0); NEUTROPHILS # (AUTO) 3.8 K/uL (1.8-7.7); NEUTROPHILS % (AUTO) 47.9 % (40.0-70.0); PLATELET COUNT (AUTO) 273 K/uL (150-450); RED BLOOD CELL COUNT(AUTO) 4.46 MIL/uL (4.50-5.90); RED CELL DISTRIBUTION WIDTH 13.6 % (11.5-14.5)
[2020-12-16 22:47] LABS: ANION GAP 18 mmol/L (8-16); CALCIUM, TOTAL 8.5 mg/dL (8.8-10.5); CARBON DIOXIDE 21 mmol/L (22-29); CHLORIDE 99 mmol/L (98-107); CREATININE 0.66 mg/dL (0.60-1.30); GLOMERULAR FILTR. RATE CALC > 60 mL/min (>60); GLUCOSE,RANDOM 294 mg/dL (70-110); SODIUM SERUM 138 mmol/L (136-145); UREA NITROGEN, BLOOD 8 mg/dL (7-18)
[2020-12-16 22:53] LABS: ALANINE AMINOTRANSFERASE 75 U/L (12-78); ALBUMIN 4.5 g/dL (3.4-5.0); ALKALINE PHOSPHATASE 206 U/L (46-116); ASPARTATE AMINOTRANSFERASE 73 U/L (15-37); BILIRUBIN,TOTAL 0.2 mg/dL (0.1-1.0); TOTAL PROTEIN, SERUM 8.2 g/dL (6.4-8.2)
[2020-12-16 22:56] LABS: LACTIC ACID 2.6 mmol/L (0.4-2.0)
[2020-12-17 00:29] VITALS: BP 102/72
[2020-12-17 00:45] LABS: GLUCOSE,POINT OF CARE 214 MG/DL (70-110)
== END 2020-12-17 01:00 | disposition home or self-care (01) ==
LOC: EMS 20:32
DX: F10.129 Alcohol abuse with intoxication, unspecified (principal); E11.65 Type 2 diabetes mellitus with hyperglycemia; F17.210 Nicotine dependence, cigarettes, uncomplicated; F32.9 Major depressive disorder, single episode, unspecified; F41.9 Anxiety disorder, unspecified; Z79.4 Long term (current) use of insulin; Y90.8 Blood alcohol level of 240 mg/100 ml or more
CPT/HCPCS: 36415; 80053; 82009; 82962; 83605; 83735; 85025; 96360; 96361; 99283; G0480

== ENCOUNTER 2020-12-27 04:25 | Emergency (ER) | payer MEDICAID ==
[~2020-12-27] VITALS: Ht 165.1 cm; Wt 55.4 kg
[2020-12-27 04:50] LABS: GLUCOSE,POINT OF CARE 320 MG/DL (70-110)
[2020-12-27 05:12] LABS: BASOPHILS % (AUTO) 0.8 % (0.0-2.0); EOSINOPHILS % (AUTO) 2.3 % (1.0-6.0); HEMATOCRIT 41.7 % (41-53); HEMOGLOBIN 14.3 g/dL (13.5-17.5); LYMPHOCYTES # (AUTO) 2.7 K/uL (1.0-4.8); LYMPHOCYTES % (AUTO) 42.1 % (22.0-44.0); MEAN CORPUSCULAR HEMOGLOBIN 32.9 pg (26.0-34.0); MEAN CORPUSCULAR HGB CONC 34.2 G/dL (31.0-37.0); MEAN CORPUSCULAR VOLUME 96 fL (80-100); MONOCYTES # (AUTO) 0.5 K/uL (0.1-1.0); MONOCYTES % (AUTO) 8.4 % (2.0-9.0); NEUTROPHILS # (AUTO) 2.9 K/uL (1.8-7.7); NEUTROPHILS % (AUTO) 46.4 % (40.0-70.0); PLATELET COUNT (AUTO) 233 K/uL (150-450); RED BLOOD CELL COUNT(AUTO) 4.34 MIL/uL (4.50-5.90); RED CELL DISTRIBUTION WIDTH 13.1 % (11.5-14.5)
[2020-12-27 05:20] LABS: ANION GAP 17 mmol/L (8-16); CALCIUM, TOTAL 8.8 mg/dL (8.8-10.5); CARBON DIOXIDE 24 mmol/L (22-29); CHLORIDE 99 mmol/L (98-107); CREATININE 0.64 mg/dL (0.60-1.30); GLOMERULAR FILTR. RATE CALC > 60 mL/min (>60); GLUCOSE,RANDOM 309 mg/dL (70-110); POTASSIUM 3.8 mmol/L (3.5-5.1); SODIUM SERUM 140 mmol/L (136-145); UREA NITROGEN, BLOOD 4 mg/dL (7-18)
[2020-12-27 05:26] LABS: ALANINE AMINOTRANSFERASE 104 U/L (12-78); ALBUMIN 4.5 g/dL (3.4-5.0); ALKALINE PHOSPHATASE 214 U/L (46-116); ASPARTATE AMINOTRANSFERASE 152 U/L (15-37); BILIRUBIN,TOTAL 0.3 mg/dL (0.1-1.0); TOTAL PROTEIN, SERUM 8.2 g/dL (6.4-8.2)
[2020-12-27 09:16] VITALS: BP 122/76
== END 2020-12-27 09:18 | disposition home or self-care (01) ==
LOC: EMS 04:27
DX: F10.129 Alcohol abuse with intoxication, unspecified (principal); E11.65 Type 2 diabetes mellitus with hyperglycemia; K70.30 Alcoholic cirrhosis of liver without ascites; R41.82 Altered mental status, unspecified; Y90.8 Blood alcohol level of 240 mg/100 ml or more
CPT/HCPCS: 36415; 80053; 82962; 85025; 99285; G0480

== ENCOUNTER 2021-01-04 19:44 | Emergency (ER) | payer MEDICAID ==
[~2021-01-04] VITALS: Ht 165.1 cm; Wt 49.1 kg
[2021-01-04] MEDS ORDERED: SODIUM CHLORIDE 0.9% 1,000 ML IV ONE (20:15)
[2021-01-04 20:29] LABS: GLUCOSE,POINT OF CARE 387 MG/DL (70-110)
[2021-01-04] MEDS ORDERED: LIB10 PO (20:29)
[2021-01-04] MEDS ORDERED: IBUP-2076 PO (20:29)
[2021-01-04] MEDS ORDERED: HYD25 PO (20:29)
[2021-01-04 20:34] LABS: BASOPHILS % (AUTO) 0.7 % (0.0-2.0); EOSINOPHILS % (AUTO) 1.2 % (1.0-6.0); HEMATOCRIT 37.7 % (41-53); HEMOGLOBIN 12.9 g/dL (13.5-17.5); LYMPHOCYTES # (AUTO) 1.7 K/uL (1.0-4.8); LYMPHOCYTES % (AUTO) 37.8 % (22.0-44.0); MEAN CORPUSCULAR HEMOGLOBIN 32.8 pg (26.0-34.0); MEAN CORPUSCULAR HGB CONC 34.1 G/dL (31.0-37.0); MEAN CORPUSCULAR VOLUME 96 fL (80-100); MONOCYTES # (AUTO) 0.4 K/uL (0.1-1.0); MONOCYTES % (AUTO) 9.6 % (2.0-9.0); NEUTROPHILS # (AUTO) 2.3 K/uL (1.8-7.7); NEUTROPHILS % (AUTO) 50.7 % (40.0-70.0); PLATELET COUNT (AUTO) 197 K/uL (150-450); RED BLOOD CELL COUNT(AUTO) 3.92 MIL/uL (4.50-5.90); RED CELL DISTRIBUTION WIDTH 12.8 % (11.5-14.5)
[2021-01-04 20:43] LABS: ANION GAP 15 mmol/L (8-16); CALCIUM, TOTAL 7.8 mg/dL (8.8-10.5); CARBON DIOXIDE 22 mmol/L (22-29); CHLORIDE 100 mmol/L (98-107); CREATININE 0.67 mg/dL (0.60-1.30); GLOMERULAR FILTR. RATE CALC > 60 mL/min (>60); GLUCOSE,RANDOM 373 mg/dL (70-110); POTASSIUM 3.2 mmol/L (3.5-5.1); SODIUM SERUM 137 mmol/L (136-145); UREA NITROGEN, BLOOD 5 mg/dL (7-18)
[2021-01-04 20:49] LABS: ALANINE AMINOTRANSFERASE 110 U/L (12-78); ALBUMIN 3.9 g/dL (3.4-5.0); ALKALINE PHOSPHATASE 230 U/L (46-116); ASPARTATE AMINOTRANSFERASE 142 U/L (15-37); BILIRUBIN,TOTAL 0.3 mg/dL (0.1-1.0); TOTAL PROTEIN, SERUM 7.4 g/dL (6.4-8.2)
[2021-01-04] MEDS ORDERED: INSULIN REGULAR, HUMAN 100 UNITS/ML IVP ONE (21:00)
[2021-01-04] MEDS ORDERED: POTASSIUM CHLORIDE 20 MEQ ER TABLET PO ONE (21:00)
[2021-01-04] MEDS ORDERED: MAGNESIUM SULFATE 2 GM, MVI, ADULT NO.1 WITH VIT K 10 ML, THIAMINE 100 MG, FOLIC ACID 1... IV ONE ×5 (21:00)
[2021-01-04] MEDS: POTASSIUM CHL 10 MEQ/WATER 50 ML IV SCH ×2 (21:07→22:16)
[2021-01-04 22:06] LABS: AMPHET/METH SCREEN,URINE NEGATIVE (NEGATIVE); BARBITURATE SCREEN, URINE NEGATIVE (NEGATIVE); BENZODIAZEPINES SCREEN,URINE NEGATIVE (NEGATIVE); CANNABINOID SCREEN,URINE NEGATIVE (NEGATIVE); COCAINE SCREEN,URINE NEGATIVE (NEGATIVE); METHADONE SCREEN, URINE NEGATIVE (NEGATIVE); OPIATE SCREEN,URINE NEGATIVE (NEGATIVE)
[2021-01-04 22:10] LABS: PHENCYCLIDINE SCREEN,URINE NEGATIVE (NEGATIVE)
[2021-01-05 03:18] VITALS: BP 121/76
[2021-01-05 03:51] LABS: GLUCOSE,POINT OF CARE 175 MG/DL (70-110)
== END 2021-01-05 03:41 | disposition home or self-care (01) ==
LOC: EMS 19:47
DX: E11.65 Type 2 diabetes mellitus with hyperglycemia (principal); E87.6 Hypokalemia; F10.129 Alcohol abuse with intoxication, unspecified; F41.9 Anxiety disorder, unspecified; F17.210 Nicotine dependence, cigarettes, uncomplicated; G43.909 Migraine, unspecified, not intractable, without status migrainosus; Z86.73 Personal history of transient ischemic attack (TIA), and cerebral infarction without residual deficits
CPT/HCPCS: 36415; 80053; 80307; 82962; 85025; 96361; 96365; 96366 ×2; 96368; 96375; 99285; G0480; J1815; J3411; J3475; J3480; J3490 ×2; J7030

== ENCOUNTER 2021-03-10 05:18 | Inpatient (IN) | payer MEDICAID ==
[~2021-03-10] VITALS: Ht 165.1 cm; Wt 55.1 kg
[~2021-03-10 05:18] MED LIST changes: +HYD25 PO; +IBUP-2076 PO; +LIB10 PO
[2021-03-10] MEDS ORDERED: 0.9% SODIUM CHLORIDE 10 ML SYRINGE IVP PRN ×2 (05:45→06:45)
[2021-03-10] MEDS ORDERED: SODIUM CHLORIDE 0.9% 2,000 ML IV ONE (05:45)
[2021-03-10 05:47] LABS: BASOPHILS % (AUTO) 0.5 % (0.0-2.0); EOSINOPHILS % (AUTO) 0.9 % (1.0-6.0); HEMATOCRIT 40.2 % (41-53); HEMOGLOBIN 13.9 g/dL (13.5-17.5); LYMPHOCYTES # (AUTO) 2.3 K/uL (1.0-4.8); LYMPHOCYTES % (AUTO) 28.4 % (22.0-44.0); MEAN CORPUSCULAR HEMOGLOBIN 33.2 pg (26.0-34.0); MEAN CORPUSCULAR HGB CONC 34.5 G/dL (31.0-37.0); MEAN CORPUSCULAR VOLUME 96 fL (80-100); MONOCYTES % (AUTO) 12.6 % (2.0-9.0); NEUTROPHILS # (AUTO) 4.6 K/uL (1.8-7.7); NEUTROPHILS % (AUTO) 57.6 % (40.0-70.0); PLATELET COUNT (AUTO) 241 K/uL (150-450); RED BLOOD CELL COUNT(AUTO) 4.17 MIL/uL (4.50-5.90); RED CELL DISTRIBUTION WIDTH 12.7 % (11.5-14.5)
[2021-03-10 06:08] LABS: PROTHROMBIN TIME 10.3 SEC (9.4-11.6)
[2021-03-10 06:10] LABS: COVID AG,FIA SOURCE NASOPHARYNGEAL
[2021-03-10 06:22] LABS: ALANINE AMINOTRANSFERASE 83 U/L (12-78); ALBUMIN 3.7 g/dL (3.4-5.0); ALKALINE PHOSPHATASE 209 U/L (46-116); ANION GAP 15 mmol/L (8-16); ASPARTATE AMINOTRANSFERASE 55 U/L (15-37); BILIRUBIN,TOTAL 0.3 mg/dL (0.1-1.0); CALCIUM, TOTAL 9.7 mg/dL (8.8-10.5); CARBON DIOXIDE 24 mmol/L (22-29); CHLORIDE 96 mmol/L (98-107); CREATINE KINASE, TOTAL ONLY 473 U/L (39-308); CREATININE 0.73 mg/dL (0.60-1.30); GLOMERULAR FILTR. RATE CALC > 60 mL/min (>60); SODIUM SERUM 135 mmol/L (136-145); TOTAL PROTEIN, SERUM 7.5 g/dL (6.4-8.2); UREA NITROGEN, BLOOD 3 mg/dL (7-18)
[2021-03-10 06:22] LABS: APPEARANCE,URINE CLEAR (CLEAR); BILIRUBIN,URINE NEGATIVE (NEGATIVE); GLUCOSE, URINE (UA) >=1000 mg/dL (NEGATIVE); KETONES,URINE TRACE mg/dL (NEGATIVE); LEUKOCYTE ESTERASE ,URINE NEGATIVE (NEGATIVE); NITRATE,URINE NEGATIVE (NEGATIVE); OCCULT BLOOD,URINE NEGATIVE (NEGATIVE); PH,URINE 6.5 (5.0-8.0); PROTEIN,URINE NEGATIVE (NEGATIVE); UROBILINOGEN,URINE 0.2 mg/dL (<=1.0)
[2021-03-10 06:24] LABS: POTASSIUM 2.8 mmol/L (3.5-5.1)
[2021-03-10 06:26] LABS: GLUCOSE,RANDOM 619 mg/dL (70-110)
[2021-03-10 06:27] LABS: AMPHET/METH SCREEN,URINE NEGATIVE (NEGATIVE); BARBITURATE SCREEN, URINE NEGATIVE (NEGATIVE); BENZODIAZEPINES SCREEN,URINE NEGATIVE (NEGATIVE); CANNABINOID SCREEN,URINE NEGATIVE (NEGATIVE); COCAINE SCREEN,URINE NEGATIVE (NEGATIVE); METHADONE SCREEN, URINE NEGATIVE (NEGATIVE); OPIATE SCREEN,URINE NEGATIVE (NEGATIVE)
[2021-03-10] MEDS ORDERED: POTASSIUM CHL 10 MEQ/WATER 50 ML IV ONE (06:30)
[2021-03-10] MEDS ORDERED: POTASSIUM CHLORIDE 10% 40 MEQ/30 ML LIQUID UDCUP PO ONE (06:30)
[2021-03-10] MEDS ORDERED: INSULIN REGULAR, HUMAN 100 UNITS/ML IVP ONE (06:30)
[2021-03-10 06:35] LABS: LACTIC ACID 4.1 mmol/L (0.4-2.0)
[2021-03-10 06:36] LABS: PHENCYCLIDINE SCREEN,URINE NEGATIVE (NEGATIVE)
[2021-03-10] MEDS ORDERED: CefTRIAXone 1 GM/DEXTROSE 50 ML IV ONE (06:45)
[2021-03-10] MEDS ORDERED: AZITHROMYCIN 500 MG/NS 250 ML IV ONE (06:45)
[2021-03-10] MEDS ORDERED: ONDANSETRON HCL 4 MG/2 ML VIAL IVP PRN ×2 (06:45→09:45)
[2021-03-10] MEDS ORDERED: ACETAMINOPHEN 325 MG TABLET PO PRN ×2 (06:45→09:45)
[2021-03-10 06:46] LABS: BACTERIA,URINE None Seen /HPF (None Seen); RBC,URINE 0-2 /HPF (0-2); WBC,URINE 0-2 /HPF (0-5)
[2021-03-10 07:02] LABS: ABG A-A DIFF O2 20.2 mmHg (10-20.0); ABG BASE EXCESS -5.1 mmol/L (-2.0-3.0); ABG CARBOXYHEMOGLOBIN 0.3 % (0.0-1.5); ABG HCO3 21.1 mmol/L (22.0-26.0); ABG METHEMOGLOBIN 0.2 % (0.0-1.5); ABG OXYGEN SATURATION 96.5 % (95.0-98.0); ABG PCO2 31 mmHg (35-45); ABG PH 7.414 (7.350-7.450); ABG TOTAL HEMOGLOBIN 13.3 G/dL (12.0-18.0); PO2, ARTERIAL BG 92.2 mmHg (92.0-100.0); SITE, BLOOD GAS RT RADIAL; SOURCE, BLOOD GAS ARTERIAL; TEMPERATURE, FAHRENHEIT, BG 98.6 FAHREN (96.0-98.6)
[2021-03-10 07:04] LABS: GLUCOSE,POINT OF CARE 419 MG/DL (70-110)
[2021-03-10 07:14] LABS: ACETONE,BLOOD NEGATIVE (NEGATIVE)
[2021-03-10 08:50] LABS: GLUCOSE,POINT OF CARE 153 MG/DL (70-110)
[2021-03-10] MEDS ORDERED: POTASSIUM CHLORIDE 20 MEQ ER TABLET PO PRN (09:45)
[2021-03-10] MEDS ORDERED: LORazepam 2 MG/ML VIAL IVP PRN (09:45)
[2021-03-10] MEDS ORDERED: DEXTROSE 50%-WATER 25 GM/50 ML SYRINGE IVP PRN (09:45)
[2021-03-10] MEDS: SODIUM CHLORIDE 0.9% 1,000 ML IV SCH ×2 (09:57→19:57)
[2021-03-10] MEDS: MULTIVITAMINS WITH MINERALS, THERAPEUTIC TABLET PO SCH (09:57)
[2021-03-10 10:11] LABS: ANION GAP 14 mmol/L (8-16); CALCIUM, TOTAL 7.7 mg/dL (8.8-10.5); CARBON DIOXIDE 21 mmol/L (22-29); CHLORIDE 106 mmol/L (98-107); CREATININE 0.39 mg/dL (0.60-1.30); GLOMERULAR FILTR. RATE CALC > 60 mL/min (>60); GLUCOSE,RANDOM 183 mg/dL (70-110); SODIUM SERUM 141 mmol/L (136-145); UREA NITROGEN, BLOOD 3 mg/dL (7-18)
[2021-03-10 10:14] LABS: POTASSIUM 2.9 mmol/L (3.5-5.1)
[2021-03-10 10:20] LABS: GLUCOSE,POINT OF CARE 187 MG/DL (70-110)
[2021-03-10] MEDS: INSULIN GLARGINE,HUM.REC.ANLOG 100 UNITS/ML SQ SCH ×2 (10:39→20:00)
[2021-03-10] MEDS: POTASSIUM CHL 10 MEQ/WATER 50 ML IV PRN ×3 (10:39→13:53)
[2021-03-10 14:52] LABS: GLUCOSE,POINT OF CARE 261 MG/DL (70-110)
[2021-03-10 17:07] LABS: GLUCOSE,POINT OF CARE 211 MG/DL (70-110)
[2021-03-10 19:23] VITALS: BP 123/88
[2021-03-10] MEDS: INSULIN LISPRO 100 UNITS/ML SQ PRN (19:52)
[2021-03-10] MEDS: DOCUSATE SODIUM 100 MG CAPSULE PO SCH (19:57)
[2021-03-10 23:37] VITALS: BP 98/62
[2021-03-10 23:55] LABS: GLUCOMETER DEV NAME(LOC) 5N.3; GLUCOSE,POINT OF CARE 270 MG/DL (70-110)
[2021-03-11 04:18] VITALS: BP 105/71
[2021-03-11] MEDS: INSULIN LISPRO 100 UNITS/ML SQ PRN ×2 (05:12→11:22)
[2021-03-11] MEDS: SODIUM CHLORIDE 0.9% 1,000 ML IV SCH (05:12)
[2021-03-11 06:25] VITALS: BP 111/77
[2021-03-11 06:26] LABS: BASOPHILS % (AUTO) 0.5 % (0.0-2.0); EOSINOPHILS % (AUTO) 1.7 % (1.0-6.0); HEMATOCRIT 42.2 % (41-53); HEMOGLOBIN 14.2 g/dL (13.5-17.5); LYMPHOCYTES # (AUTO) 1.8 K/uL (1.0-4.8); LYMPHOCYTES % (AUTO) 25.3 % (22.0-44.0); MEAN CORPUSCULAR HEMOGLOBIN 32.5 pg (26.0-34.0); MEAN CORPUSCULAR HGB CONC 33.6 G/dL (31.0-37.0); MEAN CORPUSCULAR VOLUME 97 fL (80-100); MONOCYTES # (AUTO) 0.7 K/uL (0.1-1.0); MONOCYTES % (AUTO) 10.3 % (2.0-9.0); NEUTROPHILS # (AUTO) 4.5 K/uL (1.8-7.7); NEUTROPHILS % (AUTO) 62.2 % (40.0-70.0); PLATELET COUNT (AUTO) 239 K/uL (150-450); RED BLOOD CELL COUNT(AUTO) 4.37 MIL/uL (4.50-5.90); RED CELL DISTRIBUTION WIDTH 12.9 % (11.5-14.5)
[2021-03-11 07:09] LABS: ALANINE AMINOTRANSFERASE 69 U/L (12-78); ALBUMIN 3.1 g/dL (3.4-5.0); ALKALINE PHOSPHATASE 143 U/L (46-116); ANION GAP 10 mmol/L (8-16); ASPARTATE AMINOTRANSFERASE 86 U/L (15-37); BILIRUBIN,TOTAL 0.4 mg/dL (0.1-1.0); CALCIUM, TOTAL 8.5 mg/dL (8.8-10.5); CARBON DIOXIDE 23 mmol/L (22-29); CHLORIDE 102 mmol/L (98-107); CREATININE 0.41 mg/dL (0.60-1.30); GLOMERULAR FILTR. RATE CALC > 60 mL/min (>60); GLUCOSE,RANDOM 284 mg/dL (70-110); POTASSIUM 3.6 mmol/L (3.5-5.1); SODIUM SERUM 135 mmol/L (136-145); TOTAL PROTEIN, SERUM 6.7 g/dL (6.4-8.2); UREA NITROGEN, BLOOD 7 mg/dL (7-18)
[2021-03-11] MEDS: DOCUSATE SODIUM 100 MG CAPSULE PO SCH (08:07)
[2021-03-11] MEDS: MULTIVITAMINS WITH MINERALS, THERAPEUTIC TABLET PO SCH (08:08)
[2021-03-11] MEDS: INSULIN GLARGINE,HUM.REC.ANLOG 100 UNITS/ML SQ SCH (08:10)
[2021-03-11 08:16] VITALS: BP 94/61
[2021-03-11] MEDS ORDERED: FAMOTIDINE 20 MG TABLET PO SCH (09:00)
[2021-03-11 11:50] LABS: GLUCOMETER DEV NAME(LOC) 5N.3; GLUCOSE,POINT OF CARE 287 MG/DL (70-110)
[2021-03-11 12:44] LABS: GLUCOMETER DEV NAME(LOC) 6S.1; GLUCOSE,POINT OF CARE 247 MG/DL (70-110)
[2021-03-11] MEDS ORDERED: INSLAN SQ (13:52)
== END 2021-03-11 14:47 | disposition home or self-care (01) | DRG 420 ==
LOC: EMS 05:18 → 5S 16:44 → 6N 03-11 04:50
PROVIDERS: ADMIT Internal Medicine; ATTEND Internal Medicine
DX: E11.65 Type 2 diabetes mellitus with hyperglycemia (principal); N17.9 Acute kidney failure, unspecified; E44.0 Moderate protein-calorie malnutrition; E11.40 Type 2 diabetes mellitus with diabetic neuropathy, unspecified; E11.649 Type 2 diabetes mellitus with hypoglycemia without coma; Z20.822 Contact with and (suspected) exposure to COVID-19; E87.6 Hypokalemia; F41.9 Anxiety disorder, unspecified; F32.9 Major depressive disorder, single episode, unspecified; G43.909 Migraine, unspecified, not intractable, without status migrainosus; F17.210 Nicotine dependence, cigarettes, uncomplicated; F10.139 Alcohol abuse with withdrawal, unspecified; K70.9 Alcoholic liver disease, unspecified; F10.129 Alcohol abuse with intoxication, unspecified; Y90.9 Presence of alcohol in blood, level not specified; Z91.19 Patient's noncompliance with other medical treatment and regimen; Z79.4 Long term (current) use of insulin; Z86.73 Personal history of transient ischemic attack (TIA), and cerebral infarction without residual deficits; Z68.20 Body mass index [BMI] 20.0-20.9, adult; Z91.14 Patient's other noncompliance with medication regimen
CPT/HCPCS: 36600; 71045; 80048; 80053; 81001; 82009; 82550; 82805; 82962; 83605; 83735; 84132; 84484; 85025; 85610; 87040; 93005; 99291; G0378; G0480; J0456; J0696; J1815; J3480; J7030; 36415-L1; 36415-TC

== ENCOUNTER 2021-03-21 18:26 | Emergency (ER) | payer MEDICAID ==
[~2021-03-21] VITALS: Ht 160 cm; Wt 59.2 kg
[~2021-03-21 18:26] MED LIST changes: -HYD25 PO; -IBUP-2076 PO; -LIB10 PO
[2021-03-21] MEDS ORDERED: INSULIN REGULAR, HUMAN 100 UNITS/ML IVP ONE (21:30)
[2021-03-21] MEDS ORDERED: SODIUM CHLORIDE 0.9% 1,000 ML IV ONE (21:30)
[2021-03-21 21:38] LABS: EOSINOPHILS % (AUTO) 1.5 % (1.0-6.0); HEMATOCRIT 41.2 % (41-53); HEMOGLOBIN 14.1 g/dL (13.5-17.5); LYMPHOCYTES # (AUTO) 2.6 K/uL (1.0-4.8); LYMPHOCYTES % (AUTO) 38.9 % (22.0-44.0); MEAN CORPUSCULAR HEMOGLOBIN 32.7 pg (26.0-34.0); MEAN CORPUSCULAR HGB CONC 34.2 G/dL (31.0-37.0); MEAN CORPUSCULAR VOLUME 96 fL (80-100); MONOCYTES # (AUTO) 0.5 K/uL (0.1-1.0); MONOCYTES % (AUTO) 6.8 % (2.0-9.0); NEUTROPHILS # (AUTO) 3.5 K/uL (1.8-7.7); NEUTROPHILS % (AUTO) 51.8 % (40.0-70.0); PLATELET COUNT (AUTO) 330 K/uL (150-450); RED BLOOD CELL COUNT(AUTO) 4.31 MIL/uL (4.50-5.90)
[2021-03-21 22:07] LABS: ANION GAP 14 mmol/L (8-16); CALCIUM, TOTAL 9.1 mg/dL (8.8-10.5); CARBON DIOXIDE 23 mmol/L (22-29); CHLORIDE 100 mmol/L (98-107); CREATININE 0.54 mg/dL (0.60-1.30); GLOMERULAR FILTR. RATE CALC > 60 mL/min (>60); GLUCOSE,RANDOM 322 mg/dL (70-110); POTASSIUM 3.3 mmol/L (3.5-5.1); SODIUM SERUM 137 mmol/L (136-145); UREA NITROGEN, BLOOD 5 mg/dL (7-18)
[2021-03-21 22:13] LABS: ALANINE AMINOTRANSFERASE 69 U/L (12-78); ALKALINE PHOSPHATASE 187 U/L (46-116); ASPARTATE AMINOTRANSFERASE 45 U/L (15-37); BILIRUBIN,TOTAL 0.2 mg/dL (0.1-1.0); LIPASE 67 U/L (73-393)
[2021-03-21 22:52] VITALS: BP 106/59
[2021-03-21 23:15] LABS: GLUCOMETER DEV NAME(LOC) ERT.5; GLUCOSE,POINT OF CARE 181 MG/DL (70-110)
== END 2021-03-21 23:12 | disposition home or self-care (01) ==
LOC: EMS 18:32
DX: E11.65 Type 2 diabetes mellitus with hyperglycemia (principal); M25.551 Pain in right hip; F10.129 Alcohol abuse with intoxication, unspecified; G89.29 Other chronic pain; F41.9 Anxiety disorder, unspecified; F32.9 Major depressive disorder, single episode, unspecified; E11.9 Type 2 diabetes mellitus without complications; G43.909 Migraine, unspecified, not intractable, without status migrainosus; F17.210 Nicotine dependence, cigarettes, uncomplicated; Z86.73 Personal history of transient ischemic attack (TIA), and cerebral infarction without residual deficits; Z79.4 Long term (current) use of insulin; Y90.6 Blood alcohol level of 120-199 mg/100 ml
CPT/HCPCS: 80053; 82962; 83690; 85025; 96361; 96374; 99283; G0480; J1815; J7030

== ENCOUNTER 2021-04-15 15:43 | Emergency (ER) | payer MEDICAID ==
[~2021-04-15] VITALS: Ht 157.5 cm; Wt 52.3 kg
[2021-04-15 19:51] VITALS: BP 118/68
== END 2021-04-15 20:03 | disposition home or self-care (01) ==
LOC: EMS 15:46
DX: F10.129 Alcohol abuse with intoxication, unspecified (principal); F32.9 Major depressive disorder, single episode, unspecified; F41.9 Anxiety disorder, unspecified; E11.9 Type 2 diabetes mellitus without complications; F17.210 Nicotine dependence, cigarettes, uncomplicated; Y90.9 Presence of alcohol in blood, level not specified
CPT/HCPCS: 82962; 99283

== ENCOUNTER 2021-04-16 20:37 | Emergency (ER) | payer MEDICAID ==
[~2021-04-16] VITALS: Ht 149.9 cm; Wt 49.1 kg
[2021-04-16] MEDS ORDERED: KETOROLAC TROMETHAMINE 30 MG/ML VIAL IVP ONE (21:45)
[2021-04-16] MEDS ORDERED: ONDANSETRON HCL 4 MG/2 ML VIAL IVP ONE (21:45)
[2021-04-17 04:45] VITALS: BP 102/54
== END 2021-04-17 04:40 | disposition home or self-care (01) ==
LOC: EMS 20:39
DX: S09.90XA Unspecified injury of head, initial encounter (principal); F10.129 Alcohol abuse with intoxication, unspecified; F32.9 Major depressive disorder, single episode, unspecified; E11.9 Type 2 diabetes mellitus without complications; G43.909 Migraine, unspecified, not intractable, without status migrainosus; F17.210 Nicotine dependence, cigarettes, uncomplicated; W19.XXXA Unspecified fall, initial encounter; Y93.89 Activity, other specified; Y92.89 Other specified places as the place of occurrence of the external cause; Y99.8 Other external cause status
CPT/HCPCS: 36415; 70450; 72125; 82962; 96374; 96375; 99285; G0480; J1885; J2405

== ENCOUNTER 2021-06-13 18:55 | Emergency (ER) | payer MEDICAID ==
[~2021-06-13] VITALS: Ht 165.1 cm; Wt 53.0 kg
[2021-06-13] MEDS ORDERED: SODIUM CHLORIDE 0.9% 1,000 ML IV ONE (21:00)
[2021-06-13] MEDS ORDERED: INSULIN REGULAR, HUMAN 100 UNITS/ML IVP ONE (21:00)
[2021-06-13 21:19] LABS: GLUCOMETER DEV NAME(LOC) ERT.5; GLUCOSE,POINT OF CARE 335 MG/DL (70-110)
[2021-06-13 21:24] LABS: BASOPHILS % (AUTO) 0.8 % (0.0-2.0); EOSINOPHILS % (AUTO) 2.1 % (1.0-6.0); HEMATOCRIT 42.3 % (41-53); HEMOGLOBIN 14.4 g/dL (13.5-17.5); LYMPHOCYTES # (AUTO) 2.3 K/uL (1.0-4.8); LYMPHOCYTES % (AUTO) 43.5 % (22.0-44.0); MEAN CORPUSCULAR HEMOGLOBIN 33.1 pg (26.0-34.0); MEAN CORPUSCULAR HGB CONC 34.1 G/dL (31.0-37.0); MEAN CORPUSCULAR VOLUME 97 fL (80-100); MONOCYTES # (AUTO) 0.3 K/uL (0.1-1.0); MONOCYTES % (AUTO) 6.7 % (2.0-9.0); NEUTROPHILS # (AUTO) 2.5 K/uL (1.8-7.7); NEUTROPHILS % (AUTO) 46.9 % (40.0-70.0); PLATELET COUNT (AUTO) 256 K/uL (150-450); RED BLOOD CELL COUNT(AUTO) 4.36 MIL/uL (4.50-5.90)
[2021-06-13 21:33] LABS: ANION GAP 15 mmol/L (8-16); CALCIUM, TOTAL 9.2 mg/dL (8.8-10.5); CARBON DIOXIDE 26 mmol/L (22-29); CHLORIDE 102 mmol/L (98-107); CREATININE 0.63 mg/dL (0.60-1.30); GLOMERULAR FILTR. RATE CALC > 60 mL/min (>60); GLUCOSE,RANDOM 351 mg/dL (70-110); POTASSIUM 3.6 mmol/L (3.5-5.1); SODIUM SERUM 143 mmol/L (136-145); UREA NITROGEN, BLOOD 4 mg/dL (7-18)
[2021-06-13 22:28] VITALS: BP 104/68
[2021-06-13 22:37] LABS: GLUCOMETER DEV NAME(LOC) ERT.5; GLUCOSE,POINT OF CARE 122 MG/DL (70-110)
[2021-07-01] MEDS ORDERED: INSLAN SQ (12:03)
[2021-07-01] MEDS ORDERED: LEVO750T68 PO (12:07)
== END 2021-06-13 23:10 | disposition home or self-care (01) ==
LOC: EMS 18:55
DX: E11.65 Type 2 diabetes mellitus with hyperglycemia (principal); M54.2 Cervicalgia; F10.129 Alcohol abuse with intoxication, unspecified; Y90.8 Blood alcohol level of 240 mg/100 ml or more
CPT/HCPCS: 36415; 80048; 82962; 85025; 96361; 96374; 99283; G0480; J1815; J7030

== ENCOUNTER 2021-08-31 21:26 | Inpatient (IN) | payer MEDICAID ==
[~2021-08-31] VITALS: Ht 154.9 cm; Wt 47.1 kg
[~2021-08-31 21:26] MED LIST changes: +LEVO750T68 PO
[2021-08-31 22:02] LABS: HEMATOCRIT 40.6 % (41-53); HEMOGLOBIN 13.9 g/dL (13.5-17.5); MEAN CORPUSCULAR HEMOGLOBIN 31.5 pg (26.0-34.0); MEAN CORPUSCULAR HGB CONC 34.2 G/dL (31.0-37.0); MEAN CORPUSCULAR VOLUME 92 fL (80-100); PLATELET COUNT (AUTO) 273 K/uL (150-450); RED BLOOD CELL COUNT(AUTO) 4.41 MIL/uL (4.50-5.90); RED CELL DISTRIBUTION WIDTH 14.7 % (11.5-14.5)
[2021-08-31 22:17] LABS: ALANINE AMINOTRANSFERASE 58 U/L (12-78); ALBUMIN 4.1 g/dL (3.4-5.0); ALKALINE PHOSPHATASE 240 U/L (46-116); ANION GAP 16 mmol/L (8-16); ASPARTATE AMINOTRANSFERASE 38 U/L (15-37); BILIRUBIN,TOTAL 0.2 mg/dL (0.1-1.0); CALCIUM, TOTAL 9.5 mg/dL (8.8-10.5); CARBON DIOXIDE 24 mmol/L (22-29); CHLORIDE 90 mmol/L (98-107); CREATININE 0.74 mg/dL (0.60-1.30); GLOMERULAR FILTR. RATE CALC > 60 mL/min (>60); SODIUM SERUM 130 mmol/L (136-145); TOTAL PROTEIN, SERUM 8.4 g/dL (6.4-8.2); UREA NITROGEN, BLOOD 4 mg/dL (7-18)
[2021-08-31 22:21] LABS: POTASSIUM 2.9 mmol/L (3.5-5.1)
[2021-08-31 22:22] LABS: GLUCOSE,RANDOM 643 mg/dL (70-110)
[2021-08-31] MEDS ORDERED: POTASSIUM CHLORIDE 20 MEQ ER TABLET PO ONE (22:30)
[2021-08-31 23:05] LABS: BAND NEUTROPHILS % (MANUAL) 2 % (0-5); LYMPHOCYTES % (MANUAL) 34 % (22-44); MONOCYTES % (MANUAL) 12 % (2-9); SEGMENTED NEUTROPHILS % 52 % (40-70)
[2021-08-31] MEDS: POTASSIUM CHL 10 MEQ/WATER 50 ML IV SCH (23:14)
[2021-08-31] MEDS ORDERED: DEXTROSE 50%-WATER 25 GM/50 ML SYRINGE IVP PRN (23:15)
[2021-08-31] MEDS ORDERED: ZOLPIDEM TARTRATE 5 MG TABLET PO PRN (23:15)
[2021-08-31] MEDS ORDERED: ONDANSETRON HCL 4 MG/2 ML VIAL IVP PRN (23:15)
[2021-08-31] MEDS ORDERED: SODIUM CHLORIDE 0.9% 1,000 ML IV ONE (23:15)
[2021-08-31] MEDS ORDERED: POTASSIUM CHLORIDE 20 MEQ ER TABLET PO PRN (23:15)
[2021-08-31] MEDS ORDERED: POTASSIUM CHL 10 MEQ/WATER 50 ML IV PRN (23:15)
[2021-08-31] MEDS ORDERED: KETOROLAC TROMETHAMINE 30 MG/ML VIAL IVP ONE (23:15)
[2021-08-31] MEDS ORDERED: ACETAMINOPHEN 500 MG TABLET PO ONE (23:15)
[2021-08-31] MEDS ORDERED: MAGNESIUM HYDROXIDE SUSPENSION 30 ML UDCUP PO PRN (23:15)
[2021-08-31] MEDS ORDERED: ACETAMINOPHEN 325 MG TABLET PO PRN (23:15)
[2021-08-31] MEDS: INSULIN GLARGINE,HUM.REC.ANLOG 100 UNITS/ML SQ SCH (23:37)
[2021-09-01 00:05] LABS: APPEARANCE,URINE CLEAR (CLEAR); BILIRUBIN,URINE NEGATIVE (NEGATIVE); GLUCOSE, URINE (UA) >=1000 mg/dL (NEGATIVE); KETONES,URINE 15 mg/dL (NEGATIVE); LEUKOCYTE ESTERASE ,URINE NEGATIVE (NEGATIVE); NITRATE,URINE NEGATIVE (NEGATIVE); OCCULT BLOOD,URINE NEGATIVE (NEGATIVE); PH,URINE 6.5 (5.0-8.0); PROTEIN,URINE NEGATIVE (NEGATIVE); UROBILINOGEN,URINE 0.2 mg/dL (<=1.0)
[2021-09-01 00:10] LABS: AMPHET/METH SCREEN,URINE NEGATIVE (NEGATIVE); BARBITURATE SCREEN, URINE NEGATIVE (NEGATIVE); BENZODIAZEPINES SCREEN,URINE NEGATIVE (NEGATIVE); CANNABINOID SCREEN,URINE NEGATIVE (NEGATIVE); COCAINE SCREEN,URINE NEGATIVE (NEGATIVE); METHADONE SCREEN, URINE NEGATIVE (NEGATIVE); OPIATE SCREEN,URINE NEGATIVE (NEGATIVE)
[2021-09-01] MEDS: POTASSIUM CHL 10 MEQ/WATER 50 ML IV SCH ×3 (00:17→02:50)
[2021-09-01 00:28] LABS: PHENCYCLIDINE SCREEN,URINE NEGATIVE (NEGATIVE)
[2021-09-01 00:29] LABS: BACTERIA,URINE Rare /HPF (None Seen); RBC,URINE 0-2 /HPF (0-2); WBC,URINE 0-2 /HPF (0-5)
[2021-09-01] MEDS: OxyCODONE HCL/ACETAMINOPHEN 5-325 MG TABLET PO PRN ×2 (02:21→22:49)
[2021-09-01 02:40] LABS: ALANINE AMINOTRANSFERASE 53 U/L (12-78); ALBUMIN 3.5 g/dL (3.4-5.0); ALKALINE PHOSPHATASE 192 U/L (46-116); ANION GAP 13 mmol/L (8-16); ASPARTATE AMINOTRANSFERASE 35 U/L (15-37); BILIRUBIN,TOTAL 0.2 mg/dL (0.1-1.0); CALCIUM, TOTAL 8.7 mg/dL (8.8-10.5); CARBON DIOXIDE 25 mmol/L (22-29); CHLORIDE 97 mmol/L (98-107); CREATININE 0.65 mg/dL (0.60-1.30); GLOMERULAR FILTR. RATE CALC > 60 mL/min (>60); POTASSIUM 3.8 mmol/L (3.5-5.1); SODIUM SERUM 135 mmol/L (136-145); TOTAL PROTEIN, SERUM 6.7 g/dL (6.4-8.2); UREA NITROGEN, BLOOD 5 mg/dL (7-18)
[2021-09-01 02:43] LABS: GLUCOSE,RANDOM 444 mg/dL (70-110)
[2021-09-01 06:56] LABS: GLUCOSE,POINT OF CARE 382 MG/DL (70-110)
[2021-09-01] MEDS: INSULIN LISPRO 100 UNITS/ML SQ PRN ×2 (07:02→22:50)
[2021-09-01] MEDS: FAMOTIDINE 20 MG TABLET PO SCH (08:15)
[2021-09-01] MEDS: INSULIN GLARGINE,HUM.REC.ANLOG 100 UNITS/ML SQ SCH ×2 (09:14→22:51)
[2021-09-01 09:37] LABS: GLUCOSE,POINT OF CARE 342 MG/DL (70-110)
[2021-09-01 09:55] LABS: ALANINE AMINOTRANSFERASE 50 U/L (12-78); ALBUMIN 3.3 g/dL (3.4-5.0); ALKALINE PHOSPHATASE 183 U/L (46-116); ANION GAP 5 mmol/L (8-16); ASPARTATE AMINOTRANSFERASE 48 U/L (15-37); BILIRUBIN,TOTAL 0.2 mg/dL (0.1-1.0); CARBON DIOXIDE 29 mmol/L (22-29); CHLORIDE 98 mmol/L (98-107); CREATININE 0.56 mg/dL (0.60-1.30); GLOMERULAR FILTR. RATE CALC > 60 mL/min (>60); GLUCOSE,RANDOM 237 mg/dL (70-110); POTASSIUM 4.2 mmol/L (3.5-5.1); SODIUM SERUM 132 mmol/L (136-145); TOTAL PROTEIN, SERUM 6.8 g/dL (6.4-8.2); UREA NITROGEN, BLOOD 6 mg/dL (7-18)
[2021-09-01 10:27] LABS: COVID AG,FIA SOURCE NASOPHARYNGEAL
[2021-09-01 17:16] LABS: GLUCOMETER DEV NAME(LOC) ERT.5; GLUCOSE,POINT OF CARE 201 MG/DL (70-110)
[2021-09-01 22:32] VITALS: BP 105/81
[2021-09-02 00:46] LABS: GLUCOMETER DEV NAME(LOC) 6N.2; GLUCOSE,POINT OF CARE 298 MG/DL (70-110)
[2021-09-02 05:10] VITALS: BP_SYST 117; BP_SYST 177; BP_DIAS 72
[2021-09-02 07:55] LABS: GLUCOMETER DEV NAME(LOC) 6N.2; GLUCOSE,POINT OF CARE 115 MG/DL (70-110)
[2021-09-02 08:15] VITALS: BP 100/58
[2021-09-02] MEDS: FAMOTIDINE 20 MG TABLET PO SCH (09:00)
[2021-09-02] MEDS: INSULIN GLARGINE,HUM.REC.ANLOG 100 UNITS/ML SQ SCH (09:07)
[2021-09-02] MEDS: OxyCODONE HCL/ACETAMINOPHEN 5-325 MG TABLET PO PRN (10:58)
[2021-09-02] MEDS: INSULIN LISPRO 100 UNITS/ML SQ PRN (11:18)
[2021-09-02 12:36] LABS: GLUCOMETER DEV NAME(LOC) 6N.1; GLUCOSE,POINT OF CARE 339 MG/DL (70-110)
== END 2021-09-02 13:00 | disposition home or self-care (01) | DRG 420 ==
LOC: EMS 21:28 → 6N 09-01 20:05
PROVIDERS: ADMIT Internal Medicine; ATTEND Internal Medicine
DX: E11.65 Type 2 diabetes mellitus with hyperglycemia (principal); E87.6 Hypokalemia; F10.10 Alcohol abuse, uncomplicated; Z91.19 Patient's noncompliance with other medical treatment and regimen; Z79.4 Long term (current) use of insulin; Z79.899 Other long term (current) drug therapy; Z20.822 Contact with and (suspected) exposure to COVID-19
CPT/HCPCS: 80053; 81001; 82962; 84484; 85007; 85027; 93005; 99285; G0480; J1815; J1885; J2405; J3480; J7030

== ENCOUNTER 2021-09-18 02:02 | Inpatient (IN) | payer MEDICAID ==
[2021-09-18] VITALS (7 sets, daily range): BP systolic 102–137; BP diastolic 62–97
[~2021-09-18] VITALS: Ht 162.6 cm; Wt 51.0 kg
[~2021-09-18 02:02] MED LIST changes: -LEVO750T68 PO
[2021-09-18] MEDS ORDERED: SODIUM CHLORIDE 0.9% 1,000 ML IV ONE (02:30)
[2021-09-18] MEDS ORDERED: ONDANSETRON HCL 4 MG/2 ML VIAL IVP ONE (02:30)
[2021-09-18 02:36] LABS: GLUCOSE,POINT OF CARE 428 MG/DL (70-110)
[2021-09-18 02:43] LABS: BASOPHILS % (AUTO) 0.6 % (0.0-2.0); EOSINOPHILS % (AUTO) 1.2 % (1.0-6.0); HEMATOCRIT 38.4 % (41-53); HEMOGLOBIN 13.1 g/dL (13.5-17.5); LYMPHOCYTES # (AUTO) 2.7 K/uL (1.0-4.8); LYMPHOCYTES % (AUTO) 37.3 % (22.0-44.0); MEAN CORPUSCULAR HEMOGLOBIN 30.8 pg (26.0-34.0); MEAN CORPUSCULAR HGB CONC 34.2 G/dL (31.0-37.0); MEAN CORPUSCULAR VOLUME 90 fL (80-100); MONOCYTES # (AUTO) 0.6 K/uL (0.1-1.0); MONOCYTES % (AUTO) 8.9 % (2.0-9.0); NEUTROPHILS # (AUTO) 3.7 K/uL (1.8-7.7); PLATELET COUNT (AUTO) 256 K/uL (150-450); RED BLOOD CELL COUNT(AUTO) 4.26 MIL/uL (4.50-5.90)
[2021-09-18 02:52] LABS: PROTHROMBIN TIME 10.7 SEC (9.4-11.6)
[2021-09-18 02:53] LABS: ALANINE AMINOTRANSFERASE 68 U/L (12-78); ALBUMIN 3.9 g/dL (3.4-5.0); ALKALINE PHOSPHATASE 215 U/L (46-116); ANION GAP 15 mmol/L (8-16); ASPARTATE AMINOTRANSFERASE 44 U/L (15-37); BILIRUBIN,TOTAL 0.2 mg/dL (0.1-1.0); CALCIUM, TOTAL 8.7 mg/dL (8.8-10.5); CARBON DIOXIDE 20 mmol/L (22-29); CHLORIDE 98 mmol/L (98-107); CREATINE KINASE, TOTAL ONLY 43 U/L (39-308); CREATININE 0.62 mg/dL (0.60-1.30); GLOMERULAR FILTR. RATE CALC > 60 mL/min (>60); LIPASE 71 U/L (73-393); PHOSPHORUS 3.4 mg/dL (2.5-4.9); POTASSIUM 3.4 mmol/L (3.5-5.1); SODIUM SERUM 133 mmol/L (136-145); TOTAL PROTEIN, SERUM 7.7 g/dL (6.4-8.2); UREA NITROGEN, BLOOD 9 mg/dL (7-18)
[2021-09-18 02:56] LABS: GLUCOSE,RANDOM 451 mg/dL (70-110)
[2021-09-18 02:57] LABS: B-TYPE NATRIURETIC PEPTIDE 18 pg/mL (0-100)
[2021-09-18] MEDS ORDERED: INSULIN REGULAR, HUMAN 100 UNITS/ML IVP ONE (03:15)
[2021-09-18 03:18] LABS: APPEARANCE,URINE CLEAR (CLEAR); BILIRUBIN,URINE NEGATIVE (NEGATIVE); GLUCOSE, URINE (UA) >=1000 mg/dL (NEGATIVE); KETONES,URINE 15 mg/dL (NEGATIVE); LEUKOCYTE ESTERASE ,URINE NEGATIVE (NEGATIVE); NITRATE,URINE NEGATIVE (NEGATIVE); OCCULT BLOOD,URINE TRACE (NEGATIVE); PROTEIN,URINE NEGATIVE (NEGATIVE); UROBILINOGEN,URINE 0.2 mg/dL (<=1.0)
[2021-09-18 03:21] LABS: COVID AG,FIA SOURCE NASOPHARYNGEAL
[2021-09-18 03:26] LABS: AMPHET/METH SCREEN,URINE NEGATIVE (NEGATIVE); BARBITURATE SCREEN, URINE NEGATIVE (NEGATIVE); BENZODIAZEPINES SCREEN,URINE NEGATIVE (NEGATIVE); CANNABINOID SCREEN,URINE NEGATIVE (NEGATIVE); COCAINE SCREEN,URINE NEGATIVE (NEGATIVE); METHADONE SCREEN, URINE NEGATIVE (NEGATIVE); OPIATE SCREEN,URINE NEGATIVE (NEGATIVE); PHENCYCLIDINE SCREEN,URINE NEGATIVE (NEGATIVE)
[2021-09-18] MEDS ORDERED: POTASSIUM CHLORIDE 10% 40 MEQ/30 ML LIQUID UDCUP PO ONE ×2 (03:30→06:30)
[2021-09-18] MEDS ORDERED: RINGERS SOLUTION,LACTATED 1,000 ML IV SCH (03:30)
[2021-09-18] MEDS ORDERED: INSULIN REGULAR, HUMAN 100 UNITS/ML SQ ONE (03:30)
[2021-09-18] MEDS ORDERED: ONDANSETRON HCL 4 MG/2 ML VIAL IVP PRN (03:30)
[2021-09-18] MEDS ORDERED: RINGERS SOLUTION,LACTATED 1,500 ML IV ONE (03:30)
[2021-09-18 03:31] LABS: RBC,URINE 0-2 /HPF (0-2)
[2021-09-18 03:32] LABS: BACTERIA,URINE None Seen /HPF (None Seen); SQUAMOUS EPITHELIAL CELL,UR Few /LPF (None Seen); WBC,URINE 0-2 /HPF (0-5); YEAST,URINE Few /HPF (None Seen)
[2021-09-18] MEDS: POTASSIUM CHL 10 MEQ/WATER 50 ML IV SCH ×4 (03:43→07:00)
[2021-09-18 05:16] LABS: GLUCOSE,POINT OF CARE 215 MG/DL (70-110)
[2021-09-18 05:20] LABS: ANION GAP 19 mmol/L (8-16); CALCIUM, TOTAL 7.6 mg/dL (8.8-10.5); CARBON DIOXIDE 18 mmol/L (22-29); CHLORIDE 104 mmol/L (98-107); CREATININE 0.53 mg/dL (0.60-1.30); GLUCOSE,RANDOM 227 mg/dL (70-110); SODIUM SERUM 141 mmol/L (136-145); UREA NITROGEN, BLOOD 7 mg/dL (7-18)
[2021-09-18 05:32] LABS: GLOMERULAR FILTR. RATE CALC > 60 mL/min (>60); POTASSIUM 2.6 mmol/L (3.5-5.1)
[2021-09-18] MEDS ORDERED: POTASSIUM CHLORIDE 20 MEQ ER TABLET PO ONE (05:45)
[2021-09-18] MEDS ORDERED: SODIUM CHLORIDE 0.45% 1,000 ML IV PRN (06:30)
[2021-09-18] MEDS ORDERED: POTASSIUM CHLORIDE 40 MEQ in SODIUM CHLORIDE 0.45% 1,000 ML IV PRN (06:30)
[2021-09-18] MEDS ORDERED: INSULIN REGULAR, HUMAN 100 UNITS/ML IVP PRN (06:30)
[2021-09-18] MEDS ORDERED: INSULIN REGULAR, HUMAN 100 UNITS in SODIUM CHLORIDE 0.9% 99 ML IV PRN ×2 (06:30)
[2021-09-18] MEDS ORDERED: DEXTROSE 5%-0.45% SODIUM CHL 1,000 ML IV PRN (06:30)
[2021-09-18] MEDS ORDERED: POTASSIUM CHL 20 MEQ/0.45% NS 1,000 ML IV PRN (06:30)
[2021-09-18] MEDS ORDERED: DEXTROSE 50%-WATER 25 GM/50 ML SYRINGE IVP PRN ×2 (06:30→11:30)
[2021-09-18] MEDS ORDERED: SODIUM CHLORIDE 0.9% 1,000 ML IV SCH (06:30)
[2021-09-18] MEDS ORDERED: LORazepam 2 MG TABLET PO PRN (06:45)
[2021-09-18 08:36] LABS: GLUCOSE,POINT OF CARE 148 MG/DL (70-110)
[2021-09-18] MEDS: HEPARIN SODIUM,PORCINE 5,000 UNITS/ML VIAL SQ SCH ×2 (08:48→16:59)
[2021-09-18 08:51] LABS: GLUCOSE,POINT OF CARE 103 MG/DL (70-110)
[2021-09-18 09:43] LABS: BASOPHILS % (AUTO) 0.7 % (0.0-2.0); EOSINOPHILS % (AUTO) 1.6 % (1.0-6.0); HEMATOCRIT 39.3 % (41-53); HEMOGLOBIN 13.5 g/dL (13.5-17.5); LYMPHOCYTES # (AUTO) 2.1 K/uL (1.0-4.8); MEAN CORPUSCULAR HEMOGLOBIN 30.7 pg (26.0-34.0); MEAN CORPUSCULAR HGB CONC 34.3 G/dL (31.0-37.0); MEAN CORPUSCULAR VOLUME 89 fL (80-100); MONOCYTES # (AUTO) 0.7 K/uL (0.1-1.0); MONOCYTES % (AUTO) 10.7 % (2.0-9.0); NEUTROPHILS # (AUTO) 3.3 K/uL (1.8-7.7); PLATELET COUNT (AUTO) 269 K/uL (150-450)
[2021-09-18 09:50] LABS: ANION GAP 18 mmol/L (8-16); CALCIUM, TOTAL 7.5 mg/dL (8.8-10.5); CARBON DIOXIDE 20 mmol/L (22-29); CHLORIDE 102 mmol/L (98-107); CREATININE 0.48 mg/dL (0.60-1.30); GLUCOSE,RANDOM 121 mg/dL (70-110); POTASSIUM 3.1 mmol/L (3.5-5.1); SODIUM SERUM 140 mmol/L (136-145); UREA NITROGEN, BLOOD 5 mg/dL (7-18)
[2021-09-18 09:51] LABS: GLOMERULAR FILTR. RATE CALC > 60 mL/min (>60)
[2021-09-18] MEDS ORDERED: POTASSIUM CHL 10 MEQ/WATER 50 ML IV PRN (11:30)
[2021-09-18] MEDS ORDERED: POTASSIUM CHLORIDE 20 MEQ ER TABLET PO PRN (11:30)
[2021-09-18] MEDS: ACETAMINOPHEN 325 MG TABLET PO PRN ×2 (11:42→17:12)
[2021-09-18 11:56] LABS: GLUCOSE,POINT OF CARE 135 MG/DL (70-110)
[2021-09-18] MEDS: INSULIN LISPRO 100 UNITS/ML SQ PRN ×3 (13:04→21:09)
[2021-09-18] MEDS ORDERED: DENTURE ADHESIVE 68 GM CREAM DT PRN (14:00)
[2021-09-18 17:16] LABS: GLUCOSE,POINT OF CARE 159 MG/DL (70-110)
[2021-09-18 17:16] LABS: GLUCOSE,POINT OF CARE 118 MG/DL (70-110)
[2021-09-18 17:21] LABS: GLUCOMETER DEV NAME(LOC) 6N.1; GLUCOSE,POINT OF CARE 399 MG/DL (70-110)
[2021-09-18] MEDS: INSULIN GLARGINE,HUM.REC.ANLOG 100 UNITS/ML SQ SCH (21:07)
[2021-09-18 21:32] LABS: GLUCOMETER DEV NAME(LOC) 6N.1; GLUCOSE,POINT OF CARE 345 MG/DL (70-110)
[2021-09-19 04:52] VITALS: BP 116/88
[2021-09-19] MEDS: INSULIN LISPRO 100 UNITS/ML SQ PRN ×4 (06:44→20:09)
[2021-09-19 06:51] LABS: GLUCOMETER DEV NAME(LOC) 6N.2; GLUCOSE,POINT OF CARE 322 MG/DL (70-110)
[2021-09-19] MEDS ORDERED: LORazepam 2 MG TABLET PO PRN (07:00)
[2021-09-19 07:10] LABS: ALANINE AMINOTRANSFERASE 52 U/L (12-78); ALBUMIN 3.3 g/dL (3.4-5.0); ALKALINE PHOSPHATASE 184 U/L (46-116); ANION GAP 12 mmol/L (8-16); ASPARTATE AMINOTRANSFERASE 43 U/L (15-37); BILIRUBIN,TOTAL 0.2 mg/dL (0.1-1.0); CALCIUM, TOTAL 9.3 mg/dL (8.8-10.5); CARBON DIOXIDE 23 mmol/L (22-29); CHLORIDE 98 mmol/L (98-107); GLUCOSE,RANDOM 370 mg/dL (70-110); POTASSIUM 3.8 mmol/L (3.5-5.1); SODIUM SERUM 133 mmol/L (136-145); TOTAL PROTEIN, SERUM 6.7 g/dL (6.4-8.2); UREA NITROGEN, BLOOD 9 mg/dL (7-18)
[2021-09-19 07:18] LABS: GLOMERULAR FILTR. RATE CALC > 60 mL/min (>60)
[2021-09-19] MEDS: FOLIC ACID 1 MG TABLET PO SCH (07:38)
[2021-09-19] MEDS: THIAMINE 100 MG TABLET PO SCH (07:38)
[2021-09-19] MEDS: HEPARIN SODIUM,PORCINE 5,000 UNITS/ML VIAL SQ SCH ×4 (07:38→23:03)
[2021-09-19] MEDS: LORazepam 2 MG TABLET PO SCH ×4 (07:39→20:06)
[2021-09-19] MEDS: ACETAMINOPHEN 325 MG TABLET PO PRN (07:39)
[2021-09-19 07:57] VITALS: BP 134/67
[2021-09-19] MEDS: INSULIN GLARGINE,HUM.REC.ANLOG 100 UNITS/ML SQ SCH ×2 (09:41→20:08)
[2021-09-19 09:47] LABS: GLUCOMETER DEV NAME(LOC) 4E.2; GLUCOSE,POINT OF CARE 384 MG/DL (70-110)
[2021-09-19 13:21] LABS: GLUCOMETER DEV NAME(LOC) 6N.1; GLUCOSE,POINT OF CARE 325 MG/DL (70-110)
[2021-09-19 17:07] LABS: GLUCOMETER DEV NAME(LOC) 6N.2; GLUCOSE,POINT OF CARE 338 MG/DL (70-110)
[2021-09-19 20:21] LABS: GLUCOMETER DEV NAME(LOC) 4E.2; GLUCOSE,POINT OF CARE 322 MG/DL (70-110)
[2021-09-19 21:00] VITALS: BP 116/72
[2021-09-20] MEDS: ACETAMINOPHEN 325 MG TABLET PO PRN ×3 (03:38→17:46)
[2021-09-20 04:40] VITALS: BP 99/69
[2021-09-20] MEDS: INSULIN LISPRO 100 UNITS/ML SQ PRN ×4 (06:09→21:41)
[2021-09-20 06:21] LABS: GLUCOMETER DEV NAME(LOC) 4E.2; GLUCOSE,POINT OF CARE 320 MG/DL (70-110)
[2021-09-20] MEDS: HEPARIN SODIUM,PORCINE 5,000 UNITS/ML VIAL SQ SCH ×2 (08:06→15:58)
[2021-09-20] MEDS: THIAMINE 100 MG TABLET PO SCH (08:07)
[2021-09-20] MEDS: LORazepam 2 MG TABLET PO SCH (08:07)
[2021-09-20] MEDS: FOLIC ACID 1 MG TABLET PO SCH (08:07)
[2021-09-20] MEDS: INSULIN GLARGINE,HUM.REC.ANLOG 100 UNITS/ML SQ SCH ×2 (08:08→21:40)
[2021-09-20 09:23] VITALS: BP 102/71
[2021-09-20] MEDS ORDERED: LORazepam 2 MG/ML VIAL IVP PRN (11:00)
[2021-09-20 12:01] LABS: GLUCOMETER DEV NAME(LOC) 4E.2; GLUCOSE,POINT OF CARE 298 MG/DL (70-110)
[2021-09-20 17:11] LABS: GLUCOMETER DEV NAME(LOC) 6N.2; GLUCOSE,POINT OF CARE 248 MG/DL (70-110)
[2021-09-20 20:48] VITALS: BP 89/63
[2021-09-20 22:21] LABS: GLUCOMETER DEV NAME(LOC) 6N.2; GLUCOSE,POINT OF CARE 359 MG/DL (70-110)
[2021-09-21] MEDS: ACETAMINOPHEN 325 MG TABLET PO PRN ×2 (00:53→05:21)
[2021-09-21] MEDS: HEPARIN SODIUM,PORCINE 5,000 UNITS/ML VIAL SQ SCH ×2 (00:53→08:13)
[2021-09-21 01:16] LABS: GLUCOMETER DEV NAME(LOC) 6N.2; GLUCOSE,POINT OF CARE 125 MG/DL (70-110)
[2021-09-21 04:56] VITALS: BP 88/63
[2021-09-21] MEDS ORDERED: LORazepam 1 MG TABLET PO PRN (07:00)
[2021-09-21 07:53] VITALS: BP 100/71
[2021-09-21] MEDS: INSULIN GLARGINE,HUM.REC.ANLOG 100 UNITS/ML SQ SCH (08:10)
[2021-09-21] MEDS: INSULIN LISPRO 100 UNITS/ML SQ PRN (08:12)
[2021-09-21] MEDS: THIAMINE 100 MG TABLET PO SCH (08:13)
[2021-09-21] MEDS: FOLIC ACID 1 MG TABLET PO SCH (08:13)
[2021-09-21] MEDS ORDERED: LORazepam 1 MG TABLET PO SCH (09:00)
[2021-09-21 10:51] LABS: GLUCOMETER DEV NAME(LOC) 6N.2; GLUCOSE,POINT OF CARE 189 MG/DL (70-110)
[2021-09-22] MEDS ORDERED: LORazepam 1 MG TABLET PO PRN (07:00)
== END 2021-09-21 11:10 | disposition home or self-care (01) | DRG 420 ==
LOC: EMS 02:08 → 5S 04:16 → ICU 08:35 → 6N 09:32
PROVIDERS: ADMIT Internal Medicine; ATTEND Internal Medicine
DX: E11.10 Type 2 diabetes mellitus with ketoacidosis without coma (principal); G92.8 Other toxic encephalopathy; E43 Unspecified severe protein-calorie malnutrition; E11.40 Type 2 diabetes mellitus with diabetic neuropathy, unspecified; Z20.822 Contact with and (suspected) exposure to COVID-19; F10.129 Alcohol abuse with intoxication, unspecified; Y90.9 Presence of alcohol in blood, level not specified; E87.6 Hypokalemia; F10.139 Alcohol abuse with withdrawal, unspecified; Z79.4 Long term (current) use of insulin; Z91.19 Patient's noncompliance with other medical treatment and regimen; Z68.1 Body mass index [BMI] 19.9 or less, adult
CPT/HCPCS: 71045; 80048; 80053; 81001; 81003; 82009; 82550; 82962; 83690; 83735; 83880; 84100; 84132; 84484; 85025; 85610; 85730; 87081; 93005; 99285; G0480; J1644; J1815; J2405; J3480; J7030; J7050; J7120; 36415-L1; 36415-TC

== ENCOUNTER 2021-09-22 02:02 | Emergency (ER) | payer MEDICAID ==
[~2021-09-22] VITALS: Ht 162.6 cm; Wt 51.0 kg
[2021-09-22 02:31] LABS: GLUCOSE,POINT OF CARE 323 MG/DL (70-110)
[2021-09-22] MEDS ORDERED: MAGNESIUM SULFATE 2 GM, MVI, ADULT NO.1 WITH VIT K 10 ML, THIAMINE 100 MG, FOLIC ACID 1... IV ONE ×5 (03:15)
[2021-09-22] MEDS ORDERED: SODIUM CHLORIDE 0.9% 1,000 ML IV ONE (03:15)
[2021-09-22 03:56] LABS: BASOPHILS % (AUTO) 0.5 % (0.0-2.0); EOSINOPHILS % (AUTO) 0.8 % (1.0-6.0); HEMATOCRIT 41.6 % (41-53); HEMOGLOBIN 13.9 g/dL (13.5-17.5); LYMPHOCYTES # (AUTO) 1.7 K/uL (1.0-4.8); LYMPHOCYTES % (AUTO) 41.6 % (22.0-44.0); MEAN CORPUSCULAR HEMOGLOBIN 31.1 pg (26.0-34.0); MEAN CORPUSCULAR HGB CONC 33.4 G/dL (31.0-37.0); MEAN CORPUSCULAR VOLUME 93 fL (80-100); MONOCYTES # (AUTO) 0.4 K/uL (0.1-1.0); MONOCYTES % (AUTO) 8.8 % (2.0-9.0); NEUTROPHILS % (AUTO) 48.3 % (40.0-70.0); PLATELET COUNT (AUTO) 273 K/uL (150-450); RED BLOOD CELL COUNT(AUTO) 4.47 MIL/uL (4.50-5.90); RED CELL DISTRIBUTION WIDTH 15.3 % (11.5-14.5)
[2021-09-22 04:54] LABS: ANION GAP 14 mmol/L (8-16); CALCIUM, TOTAL 8.8 mg/dL (8.8-10.5); CARBON DIOXIDE 22 mmol/L (22-29); CHLORIDE 107 mmol/L (98-107); CREATININE 0.52 mg/dL (0.60-1.30); GLUCOSE,RANDOM 314 mg/dL (70-110); POTASSIUM 4.1 mmol/L (3.5-5.1); SODIUM SERUM 143 mmol/L (136-145); UREA NITROGEN, BLOOD 7 mg/dL (7-18)
[2021-09-22 04:56] LABS: COVID AG,FIA SOURCE NASOPHARYNGEAL
[2021-09-22 04:57] LABS: GLOMERULAR FILTR. RATE CALC > 60 mL/min (>60)
[2021-09-22 04:59] LABS: ALANINE AMINOTRANSFERASE 61 U/L (12-78); ALBUMIN 3.7 g/dL (3.4-5.0); ALKALINE PHOSPHATASE 144 U/L (46-116); ASPARTATE AMINOTRANSFERASE 60 U/L (15-37); BILIRUBIN,TOTAL 0.1 mg/dL (0.1-1.0); TOTAL PROTEIN, SERUM 7.2 g/dL (6.4-8.2)
[2021-09-22 05:36] LABS: APPEARANCE,URINE CLEAR (CLEAR); BILIRUBIN,URINE NEGATIVE (NEGATIVE); GLUCOSE, URINE (UA) >=1000 mg/dL (NEGATIVE); KETONES,URINE 15 mg/dL (NEGATIVE); LEUKOCYTE ESTERASE ,URINE NEGATIVE (NEGATIVE); NITRATE,URINE NEGATIVE (NEGATIVE); OCCULT BLOOD,URINE MODERATE (NEGATIVE); PROTEIN,URINE NEGATIVE (NEGATIVE); UROBILINOGEN,URINE 0.2 mg/dL (<=1.0)
[2021-09-22 05:37] LABS: BACTERIA,URINE Rare /HPF (None Seen); WBC,URINE 0-2 /HPF (0-5)
[2021-09-22 05:39] VITALS: BP 105/71
[2021-09-22 05:41] LABS: GLUCOSE,POINT OF CARE 231 MG/DL (70-110)
== END 2021-09-22 06:14 | disposition home or self-care (01) ==
LOC: EMS 02:03
DX: E11.65 Type 2 diabetes mellitus with hyperglycemia (principal); F10.229 Alcohol dependence with intoxication, unspecified; R51.9 Headache, unspecified; Z20.822 Contact with and (suspected) exposure to COVID-19; Z79.4 Long term (current) use of insulin; Y90.7 Blood alcohol level of 200-239 mg/100 ml; Z79.899 Other long term (current) drug therapy
CPT/HCPCS: 36415; 70450; 72125; 80053; 81001; 82962; 85025; 87426; 96365; 96366; 99284; G0480; J3411; J3475; J3490 ×2; J7030

== ENCOUNTER 2021-10-07 17:26 | Inpatient (IN) | payer MEDICAID ==
[~2021-10-07] VITALS: Ht 157.5 cm; Wt 53.6 kg
[2021-10-07] MEDS ORDERED: SODIUM CHLORIDE 0.9% 1,000 ML IV ONE ×2 (18:00→19:15)
[2021-10-07] MEDS ORDERED: INSULIN REGULAR, HUMAN 100 UNITS/ML IVP ONE ×2 (18:00→19:00)
[2021-10-07 18:10] LABS: BASOPHILS % (AUTO) 0.8 % (0.0-2.0); EOSINOPHILS % (AUTO) 1.2 % (1.0-6.0); HEMATOCRIT 37.8 % (41-53); HEMOGLOBIN 12.8 g/dL (13.5-17.5); LYMPHOCYTES # (AUTO) 2.6 K/uL (1.0-4.8); LYMPHOCYTES % (AUTO) 41.8 % (22.0-44.0); MEAN CORPUSCULAR HEMOGLOBIN 30.9 pg (26.0-34.0); MEAN CORPUSCULAR VOLUME 91 fL (80-100); MONOCYTES # (AUTO) 0.4 K/uL (0.1-1.0); MONOCYTES % (AUTO) 7.1 % (2.0-9.0); NEUTROPHILS % (AUTO) 49.1 % (40.0-70.0); PLATELET COUNT (AUTO) 313 K/uL (150-450); RED BLOOD CELL COUNT(AUTO) 4.15 MIL/uL (4.50-5.90); RED CELL DISTRIBUTION WIDTH 14.6 % (11.5-14.5)
[2021-10-07 18:32] LABS: LACTIC ACID 6.3 mmol/L (0.4-2.0)
[2021-10-07 18:44] LABS: ALANINE AMINOTRANSFERASE 93 U/L (12-78); ALKALINE PHOSPHATASE 275 U/L (46-116); ANION GAP 18 mmol/L (8-16); ASPARTATE AMINOTRANSFERASE 70 U/L (15-37); BILIRUBIN,TOTAL 0.2 mg/dL (0.1-1.0); CALCIUM, TOTAL 9.1 mg/dL (8.8-10.5); CARBON DIOXIDE 21 mmol/L (22-29); CHLORIDE 88 mmol/L (98-107); CREATINE KINASE, TOTAL ONLY 84 U/L (39-308); CREATININE 0.68 mg/dL (0.60-1.30); GLOMERULAR FILTR. RATE CALC > 60 mL/min (>60); LIPASE 81 U/L (73-393); SODIUM SERUM 127 mmol/L (136-145); TOTAL PROTEIN, SERUM 7.8 g/dL (6.4-8.2); UREA NITROGEN, BLOOD 5 mg/dL (7-18)
[2021-10-07 18:49] LABS: GLUCOSE,RANDOM 736 mg/dL (70-110); POTASSIUM 2.9 mmol/L (3.5-5.1)
[2021-10-07] MEDS: POTASSIUM CHL 10 MEQ/WATER 50 ML IV SCH ×2 (19:03→20:51)
[2021-10-07 19:31] LABS: AMPHET/METH SCREEN,URINE NEGATIVE (NEGATIVE); BARBITURATE SCREEN, URINE NEGATIVE (NEGATIVE); BENZODIAZEPINES SCREEN,URINE NEGATIVE (NEGATIVE); CANNABINOID SCREEN,URINE NEGATIVE (NEGATIVE); COCAINE SCREEN,URINE NEGATIVE (NEGATIVE); METHADONE SCREEN, URINE NEGATIVE (NEGATIVE); OPIATE SCREEN,URINE NEGATIVE (NEGATIVE); PHENCYCLIDINE SCREEN,URINE NEGATIVE (NEGATIVE)
[2021-10-07 19:35] LABS: GLUCOSE,POINT OF CARE 370 MG/DL (70-110)
[2021-10-07 20:53] LABS: APPEARANCE,URINE CLEAR (CLEAR); BILIRUBIN,URINE NEGATIVE (NEGATIVE); GLUCOSE, URINE (UA) >=1000 mg/dL (NEGATIVE); LEUKOCYTE ESTERASE ,URINE NEGATIVE (NEGATIVE); NITRATE,URINE NEGATIVE (NEGATIVE); OCCULT BLOOD,URINE NEGATIVE (NEGATIVE); PH,URINE 6.5 (5.0-8.0); PROTEIN,URINE NEGATIVE (NEGATIVE); SPECIFIC GRAVITIY, URINE 1.021 (1.003-1.030); UROBILINOGEN,URINE <=1.0 mg/dL (<=1.0)
[2021-10-07 21:06] LABS: BACTERIA,URINE None Seen /HPF (None Seen); RBC,URINE None Seen /HPF (0-2); WBC,URINE 0-2 /HPF (0-5)
[2021-10-07 21:07] LABS: YEAST,URINE Rare /HPF (None Seen)
[2021-10-07 21:09] LABS: ANION GAP 16 mmol/L (8-16); CARBON DIOXIDE 23 mmol/L (22-29); CHLORIDE 97 mmol/L (98-107); CREATININE 0.56 mg/dL (0.60-1.30); GLOMERULAR FILTR. RATE CALC > 60 mL/min (>60); GLUCOSE,RANDOM 326 mg/dL (70-110); POTASSIUM 3.4 mmol/L (3.5-5.1); SODIUM SERUM 136 mmol/L (136-145); UREA NITROGEN, BLOOD 4 mg/dL (7-18)
[2021-10-07 21:21] LABS: GLUCOSE,POINT OF CARE 297 MG/DL (70-110)
[2021-10-07] MEDS ORDERED: FAMOTIDINE 10 MG/ML 2 ML VIAL IVP ONE (21:45)
[2021-10-07] MEDS ORDERED: ACETAMINOPHEN 325 MG TABLET PO ONE (22:15)
[2021-10-07 22:39] LABS: COVID AG,FIA SOURCE NASAL SWAB
[2021-10-07 22:40] LABS: GLUCOSE,POINT OF CARE 343 MG/DL (70-110)
[2021-10-07] MEDS ORDERED: MAGNESIUM HYDROXIDE SUSPENSION 30 ML UDCUP PO PRN (23:00)
[2021-10-07] MEDS ORDERED: BISACODYL 10 MG RECTAL RECTAL SUPPOSITORY PR PRN (23:00)
[2021-10-07] MEDS ORDERED: MORPHINE SULFATE 2 MG/ML SYRINGE IVP PRN (23:00)
[2021-10-07] MEDS ORDERED: ACETAMINOPHEN 325 MG TABLET PO PRN (23:00)
[2021-10-07] MEDS ORDERED: MAGNESIUM SULFATE 2 GM, MVI, ADULT NO.1 WITH VIT K 10 ML, THIAMINE 100 MG, FOLIC ACID 1... IV ONE ×5 (23:00)
[2021-10-07] MEDS ORDERED: ZOLPIDEM TARTRATE 5 MG TABLET PO PRN (23:00)
[2021-10-07] MEDS ORDERED: ONDANSETRON HCL 4 MG/2 ML VIAL IVP PRN (23:00)
[2021-10-07] MEDS ORDERED: DEXTROSE 50%-WATER 25 GM/50 ML SYRINGE IVP PRN (23:00)
[2021-10-07 23:30] VITALS: BP 118/80
[2021-10-08] MEDS: HEPARIN SODIUM,PORCINE 5,000 UNITS/ML VIAL SQ SCH ×3 (00:19→15:51)
[2021-10-08] MEDS: GABAPENTIN 300 MG CAPSULE PO SCH ×2 (00:19→20:32)
[2021-10-08 05:17] VITALS: BP 112/77
[2021-10-08] MEDS: INSULIN LISPRO 100 UNITS/ML SQ PRN ×4 (06:31→20:36)
[2021-10-08 06:59] LABS: BASOPHILS % (AUTO) 0.8 % (0.0-2.0); EOSINOPHILS % (AUTO) 0.9 % (1.0-6.0); HEMOGLOBIN 13.7 g/dL (13.5-17.5); LYMPHOCYTES # (AUTO) 1.6 K/uL (1.0-4.8); LYMPHOCYTES % (AUTO) 24.7 % (22.0-44.0); MEAN CORPUSCULAR HEMOGLOBIN 31.1 pg (26.0-34.0); MEAN CORPUSCULAR HGB CONC 34.3 G/dL (31.0-37.0); MEAN CORPUSCULAR VOLUME 91 fL (80-100); MONOCYTES # (AUTO) 0.6 K/uL (0.1-1.0); MONOCYTES % (AUTO) 8.9 % (2.0-9.0); NEUTROPHILS # (AUTO) 4.2 K/uL (1.8-7.7); NEUTROPHILS % (AUTO) 64.7 % (40.0-70.0); PLATELET COUNT (AUTO) 256 K/uL (150-450); RED BLOOD CELL COUNT(AUTO) 4.41 MIL/uL (4.50-5.90); RED CELL DISTRIBUTION WIDTH 14.7 % (11.5-14.5)
[2021-10-08 07:05] LABS: ANION GAP 12 mmol/L (8-16); CALCIUM, TOTAL 7.9 mg/dL (8.8-10.5); CARBON DIOXIDE 22 mmol/L (22-29); CHLORIDE 96 mmol/L (98-107); CREATININE 0.38 mg/dL (0.60-1.30); GLOMERULAR FILTR. RATE CALC > 60 mL/min (>60); GLUCOSE,RANDOM 237 mg/dL (70-110); POTASSIUM 3.1 mmol/L (3.5-5.1); SODIUM SERUM 130 mmol/L (136-145); UREA NITROGEN, BLOOD 3 mg/dL (7-18)
[2021-10-08 07:52] VITALS: BP 118/85
[2021-10-08] MEDS: HYDROCODONE/ACETAMINOPHEN 5-325 MG TABLET PO PRN ×2 (08:20→15:25)
[2021-10-08] MEDS: DOCUSATE SODIUM 100 MG CAPSULE PO SCH ×2 (08:21→20:31)
[2021-10-08] MEDS: PANTOPRAZOLE SODIUM 40 MG DR TABLET PO SCH (08:21)
[2021-10-08 09:16] LABS: GLUCOMETER DEV NAME(LOC) 5S.1B; GLUCOSE,POINT OF CARE 216 MG/DL (70-110)
[2021-10-08 11:32] VITALS: BP 103/74
[2021-10-08] MEDS ORDERED: MAGNESIUM SULFATE 4 GM/WATER 100 ML IV PRN (12:00)
[2021-10-08] MEDS ORDERED: POTASSIUM CHL 10 MEQ/WATER 50 ML IV PRN (12:00)
[2021-10-08] MEDS ORDERED: MAGNESIUM SULFATE 2 GM/WATER 50 ML IV PRN (12:00)
[2021-10-08] MEDS ORDERED: MAGNESIUM OXIDE 400 MG TABLET PO PRN (12:00)
[2021-10-08] MEDS: POTASSIUM CHLORIDE 20 MEQ ER TABLET PO PRN ×2 (12:18→20:32)
[2021-10-08 12:25] LABS: ALBUMIN 3.8 g/dL (3.4-5.0)
[2021-10-08 15:51] LABS: GLUCOMETER DEV NAME(LOC) 5S.2B; GLUCOSE,POINT OF CARE 268 MG/DL (70-110)
[2021-10-08 16:02] VITALS: BP 121/87
[2021-10-08 18:46] LABS: GLUCOMETER DEV NAME(LOC) 5S.2B; GLUCOSE,POINT OF CARE 314 MG/DL (70-110)
[2021-10-08 19:56] LABS: GLUCOMETER DEV NAME(LOC) 5S.2B; GLUCOSE,POINT OF CARE 316 MG/DL (70-110)
[2021-10-08 20:15] VITALS: BP 114/68
[2021-10-08] MEDS: INSULIN GLARGINE,HUM.REC.ANLOG 100 UNITS/ML SQ SCH (20:36)
[2021-10-08] MEDS ORDERED: GABAPENTIN 100 MG CAPSULE PO SCH (21:00)
[2021-10-09] MEDS: HEPARIN SODIUM,PORCINE 5,000 UNITS/ML VIAL SQ SCH ×4 (00:17→23:36)
[2021-10-09 00:30] VITALS: BP 116/72
[2021-10-09 04:20] VITALS: BP 107/78
[2021-10-09] MEDS: LORazepam 2 MG/ML VIAL IVP PRN (04:57)
[2021-10-09 06:17] LABS: BASOPHILS % (AUTO) 0.5 % (0.0-2.0); HEMATOCRIT 40.3 % (41-53); HEMOGLOBIN 13.9 g/dL (13.5-17.5); LYMPHOCYTES # (AUTO) 1.4 K/uL (1.0-4.8); LYMPHOCYTES % (AUTO) 22.6 % (22.0-44.0); MEAN CORPUSCULAR HEMOGLOBIN 31.3 pg (26.0-34.0); MEAN CORPUSCULAR HGB CONC 34.6 G/dL (31.0-37.0); MEAN CORPUSCULAR VOLUME 90 fL (80-100); MONOCYTES # (AUTO) 0.5 K/uL (0.1-1.0); MONOCYTES % (AUTO) 8.1 % (2.0-9.0); NEUTROPHILS # (AUTO) 4.1 K/uL (1.8-7.7); NEUTROPHILS % (AUTO) 67.8 % (40.0-70.0); PLATELET COUNT (AUTO) 249 K/uL (150-450); RED BLOOD CELL COUNT(AUTO) 4.45 MIL/uL (4.50-5.90); RED CELL DISTRIBUTION WIDTH 14.9 % (11.5-14.5)
[2021-10-09 06:19] LABS: HEMOGLOBIN A1C 13.4 % (3.8-5.6)
[2021-10-09 06:25] LABS: ANION GAP 7 mmol/L (8-16); CALCIUM, TOTAL 9.1 mg/dL (8.8-10.5); CARBON DIOXIDE 27 mmol/L (22-29); CHLORIDE 99 mmol/L (98-107); CREATININE 0.44 mg/dL (0.60-1.30); GLUCOSE,RANDOM 124 mg/dL (70-110); POTASSIUM 3.6 mmol/L (3.5-5.1); SODIUM SERUM 133 mmol/L (136-145); UREA NITROGEN, BLOOD 4 mg/dL (7-18)
[2021-10-09 06:39] LABS: GLOMERULAR FILTR. RATE CALC > 60 mL/min (>60)
[2021-10-09] MEDS ORDERED: MAGNESIUM SULFATE 2 GM, MVI, ADULT NO.1 WITH VIT K 10 ML, THIAMINE 100 MG, FOLIC ACID 1... IV SCH ×5 (07:30)
[2021-10-09 08:56] LABS: GLUCOMETER DEV NAME(LOC) 5S.2B; GLUCOSE,POINT OF CARE 113 MG/DL (70-110)
[2021-10-09] MEDS: DOCUSATE SODIUM 100 MG CAPSULE PO SCH ×2 (09:00→20:14)
[2021-10-09] MEDS: PANTOPRAZOLE SODIUM 40 MG DR TABLET PO SCH (09:46)
[2021-10-09] MEDS: HYDROCODONE/ACETAMINOPHEN 5-325 MG TABLET PO PRN (09:46)
[2021-10-09] MEDS: MAGNESIUM OXIDE 400 MG TABLET PO SCH ×3 (09:47→20:14)
[2021-10-09 09:48] VITALS: BP 118/62
[2021-10-09] MEDS: 1: MAGNESIUM SULFATE 2 GM, MVI, ADULT NO.1 WITH VIT K 10 ML, THIAMINE 100 MG, FOLIC ACID IV SCH ×10 (09:48→21:35)
[2021-10-09] MEDS: INSULIN LISPRO 100 UNITS/ML SQ PRN ×3 (11:59→20:14)
[2021-10-09 13:19] VITALS: BP 105/73
[2021-10-09 16:46] VITALS: BP 128/68
[2021-10-09 18:01] LABS: GLUCOMETER DEV NAME(LOC) 5S.2B; GLUCOSE,POINT OF CARE 316 MG/DL (70-110)
[2021-10-09 20:11] LABS: GLUCOMETER DEV NAME(LOC) 5S.2B; GLUCOSE,POINT OF CARE 247 MG/DL (70-110)
[2021-10-09] MEDS: INSULIN GLARGINE,HUM.REC.ANLOG 100 UNITS/ML SQ SCH (20:13)
[2021-10-09] MEDS: GABAPENTIN 300 MG CAPSULE PO SCH (20:14)
[2021-10-09 20:26] VITALS: BP 110/87
[2021-10-10] MEDS: HYDROCODONE/ACETAMINOPHEN 5-325 MG TABLET PO PRN ×2 (02:46→06:50)
[2021-10-10 04:00] VITALS: BP 115/80
[2021-10-10] MEDS: INSULIN LISPRO 100 UNITS/ML SQ PRN ×2 (05:58→11:50)
[2021-10-10 06:06] LABS: GLUCOMETER DEV NAME(LOC) 5S.2B; GLUCOSE,POINT OF CARE 301 MG/DL (70-110)
[2021-10-10 06:56] LABS: BASOPHILS % (AUTO) 0.3 % (0.0-2.0); HEMATOCRIT 39.6 % (41-53); HEMOGLOBIN 13.5 g/dL (13.5-17.5); LYMPHOCYTES # (AUTO) 1.8 K/uL (1.0-4.8); LYMPHOCYTES % (AUTO) 25.7 % (22.0-44.0); MEAN CORPUSCULAR HEMOGLOBIN 31.3 pg (26.0-34.0); MEAN CORPUSCULAR VOLUME 92 fL (80-100); MONOCYTES # (AUTO) 0.5 K/uL (0.1-1.0); MONOCYTES % (AUTO) 7.4 % (2.0-9.0); NEUTROPHILS # (AUTO) 4.7 K/uL (1.8-7.7); NEUTROPHILS % (AUTO) 65.6 % (40.0-70.0); PLATELET COUNT (AUTO) 232 K/uL (150-450); RED CELL DISTRIBUTION WIDTH 14.6 % (11.5-14.5)
[2021-10-10 07:00] LABS: ANION GAP 11 mmol/L (8-16); CALCIUM, TOTAL 9.2 mg/dL (8.8-10.5); CARBON DIOXIDE 29 mmol/L (22-29); CHLORIDE 95 mmol/L (98-107); CREATININE 0.54 mg/dL (0.60-1.30); GLUCOSE,RANDOM 257 mg/dL (70-110); POTASSIUM 4.3 mmol/L (3.5-5.1); SODIUM SERUM 135 mmol/L (136-145); UREA NITROGEN, BLOOD 7 mg/dL (7-18)
[2021-10-10 07:04] LABS: GLOMERULAR FILTR. RATE CALC > 60 mL/min (>60)
[2021-10-10 07:46] LABS: GLUCOMETER DEV NAME(LOC) 5S.1B; GLUCOSE,POINT OF CARE 218 MG/DL (70-110)
[2021-10-10 09:00] VITALS: BP 109/85
[2021-10-10] MEDS: HEPARIN SODIUM,PORCINE 5,000 UNITS/ML VIAL SQ SCH (09:22)
[2021-10-10] MEDS: DOCUSATE SODIUM 100 MG CAPSULE PO SCH (09:22)
[2021-10-10] MEDS: PANTOPRAZOLE SODIUM 40 MG DR TABLET PO SCH (09:22)
[2021-10-10] MEDS: LORazepam 2 MG/ML VIAL IVP PRN (09:22)
[2021-10-10] MEDS ORDERED: GABA-1181 PO (11:25)
[2021-10-10] MEDS ORDERED: INSLAN SQ (11:25)
[2021-10-10 12:26] LABS: GLUCOMETER DEV NAME(LOC) 5S.2B; GLUCOSE,POINT OF CARE 192 MG/DL (70-110)
== END 2021-10-10 13:06 | disposition home or self-care (01) | DRG 420 ==
LOC: EMS 17:41 → 5N 21:50
PROVIDERS: ADMIT Internal Medicine; ATTEND Internal Medicine
DX: E11.10 Type 2 diabetes mellitus with ketoacidosis without coma (principal); G92.8 Other toxic encephalopathy; D64.9 Anemia, unspecified; E11.65 Type 2 diabetes mellitus with hyperglycemia; E86.0 Dehydration; E87.6 Hypokalemia; E11.40 Type 2 diabetes mellitus with diabetic neuropathy, unspecified; F10.129 Alcohol abuse with intoxication, unspecified; Y90.9 Presence of alcohol in blood, level not specified; Z20.822 Contact with and (suspected) exposure to COVID-19
CPT/HCPCS: 80048; 80053; 81001; 81003; 82040; 82550; 82948; 82962; 83036; 83605; 83690; 83735; 84132; 84484; 85025; 93005; 97162; 99291; G0480; J1644; J1815; J2060; J2405; J3411; J3475; J3480; J3490; J7030

== ENCOUNTER 2021-10-11 04:28 | Emergency (ER) | payer MEDICAID ==
[~2021-10-11] VITALS: Ht 162.6 cm; Wt 53.6 kg
[~2021-10-11 04:28] MED LIST changes: +GABA-1181 PO
[2021-10-11] MEDS ORDERED: SODIUM CHLORIDE 0.9% 1,000 ML IV ONE (04:45)
[2021-10-11] MEDS ORDERED: INSULIN REGULAR, HUMAN 100 UNITS/ML IVP ONE (04:45)
[2021-10-11 05:06] LABS: BASOPHILS % (AUTO) 0.2 % (0.0-2.0); EOSINOPHILS % (AUTO) 0.8 % (1.0-6.0); HEMATOCRIT 36.2 % (41-53); LYMPHOCYTES # (AUTO) 1.6 K/uL (1.0-4.8); MEAN CORPUSCULAR HGB CONC 33.1 G/dL (31.0-37.0); MEAN CORPUSCULAR VOLUME 94 fL (80-100); MONOCYTES # (AUTO) 0.4 K/uL (0.1-1.0); MONOCYTES % (AUTO) 11.1 % (2.0-9.0); NEUTROPHILS # (AUTO) 1.9 K/uL (1.8-7.7); NEUTROPHILS % (AUTO) 46.9 % (40.0-70.0); PLATELET COUNT (AUTO) 212 K/uL (150-450); RED BLOOD CELL COUNT(AUTO) 3.85 MIL/uL (4.50-5.90); RED CELL DISTRIBUTION WIDTH 14.4 % (11.5-14.5)
[2021-10-11 05:13] LABS: ALANINE AMINOTRANSFERASE 56 U/L (12-78); ALBUMIN 3.7 g/dL (3.4-5.0); ALKALINE PHOSPHATASE 211 U/L (46-116); ANION GAP 10 mmol/L (8-16); ASPARTATE AMINOTRANSFERASE 31 U/L (15-37); BILIRUBIN,TOTAL 0.2 mg/dL (0.1-1.0); CALCIUM, TOTAL 8.8 mg/dL (8.8-10.5); CARBON DIOXIDE 25 mmol/L (22-29); CHLORIDE 97 mmol/L (98-107); CREATININE 0.67 mg/dL (0.60-1.30); GLOMERULAR FILTR. RATE CALC > 60 mL/min (>60); LIPASE 69 U/L (73-393); POTASSIUM 3.9 mmol/L (3.5-5.1); SODIUM SERUM 132 mmol/L (136-145); TOTAL PROTEIN, SERUM 7.1 g/dL (6.4-8.2); UREA NITROGEN, BLOOD 4 mg/dL (7-18)
[2021-10-11 05:15] LABS: GLUCOSE,RANDOM 637 mg/dL (70-110)
[2021-10-11 05:24] LABS: COVID AG,FIA SOURCE NASAL SWAB
[2021-10-11 05:47] LABS: ACETONE,BLOOD NEGATIVE (NEGATIVE)
[2021-10-11 06:00] LABS: ABG PCO2 39 mmHg (35-45); SITE, BLOOD GAS RT RADIAL; SOURCE, BLOOD GAS ARTERIAL; TEMPERATURE, FAHRENHEIT, BG 98.6 FAHREN (96.0-98.6)
[2021-10-11 06:01] LABS: ABG BASE EXCESS -4.1 mmol/L (-2.0-3.0); ABG HCO3 21.4 mmol/L (22.0-26.0); ABG TOTAL HEMOGLOBIN 12.2 G/dL (12.0-18.0)
[2021-10-11 06:02] LABS: ABG CARBOXYHEMOGLOBIN 0.1 % (0.0-1.5); ABG METHEMOGLOBIN 0.2 % (0.0-1.5); ABG OXYGEN CONTENT 16.2 mL/dL (15.0-23.0)
[2021-10-11 06:05] VITALS: BP 96/67
[2021-10-11] MEDS ORDERED: POTASSIUM CHLORIDE 20 MEQ ER TABLET PO ONE (06:15)
[2021-10-11 06:51] LABS: GLUCOSE,POINT OF CARE 283 MG/DL (70-110)
[2021-10-11] MEDS ORDERED: KETOROLAC TROMETHAMINE 30 MG/ML VIAL IVP ONE (07:00)
[2021-10-11 08:03] LABS: APPEARANCE,URINE CLEAR (CLEAR); BILIRUBIN,URINE NEGATIVE (NEGATIVE); GLUCOSE, URINE (UA) >=1000 mg/dL (NEGATIVE); KETONES,URINE TRACE mg/dL (NEGATIVE); LEUKOCYTE ESTERASE ,URINE NEGATIVE (NEGATIVE); NITRATE,URINE NEGATIVE (NEGATIVE); OCCULT BLOOD,URINE NEGATIVE (NEGATIVE); PH,URINE 5.5 (5.0-8.0); PROTEIN,URINE NEGATIVE (NEGATIVE); SPECIFIC GRAVITIY, URINE 1.026 (1.003-1.030); UROBILINOGEN,URINE <=1.0 mg/dL (<=1.0)
[2021-10-11 08:09] LABS: AMPHET/METH SCREEN,URINE NEGATIVE (NEGATIVE); BARBITURATE SCREEN, URINE NEGATIVE (NEGATIVE); BENZODIAZEPINES SCREEN,URINE NEGATIVE (NEGATIVE); CANNABINOID SCREEN,URINE NEGATIVE (NEGATIVE); COCAINE SCREEN,URINE NEGATIVE (NEGATIVE); METHADONE SCREEN, URINE NEGATIVE (NEGATIVE); OPIATE SCREEN,URINE NEGATIVE (NEGATIVE)
[2021-10-11 08:10] LABS: PHENCYCLIDINE SCREEN,URINE NEGATIVE (NEGATIVE)
[2021-10-11 08:18] LABS: BACTERIA,URINE None Seen /HPF (None Seen); RBC,URINE None Seen /HPF (0-2); WBC,URINE 0-2 /HPF (0-5)
== END 2021-10-11 08:18 | disposition home or self-care (01) ==
LOC: EMS 04:29
DX: F10.229 Alcohol dependence with intoxication, unspecified (principal); E11.65 Type 2 diabetes mellitus with hyperglycemia; Z79.899 Other long term (current) drug therapy; Z79.4 Long term (current) use of insulin; Z20.822 Contact with and (suspected) exposure to COVID-19; Y90.8 Blood alcohol level of 240 mg/100 ml or more
CPT/HCPCS: 36415; 36600; 80053; 80307; 81001; 82009; 82805; 82962; 83690; 85025; 87426; 93005; 96361; 96374; 96375; 99284; G0480; J1815; J1885; 82948

== ENCOUNTER 2021-10-14 01:49 | Inpatient (IN) | payer MEDICAID ==
[~2021-10-14] VITALS: Ht 160 cm; Wt 50.7 kg
[2021-10-14] MEDS ORDERED: SODIUM CHLORIDE 0.9% 1,000 ML IV ONE (02:00)
[2021-10-14 02:15] LABS: BASOPHILS % (AUTO) 0.4 % (0.0-2.0); EOSINOPHILS % (AUTO) 0.9 % (1.0-6.0); HEMATOCRIT 34.4 % (41-53); HEMOGLOBIN 11.7 g/dL (13.5-17.5); LYMPHOCYTES # (AUTO) 3.1 K/uL (1.0-4.8); LYMPHOCYTES % (AUTO) 45.2 % (22.0-44.0); MEAN CORPUSCULAR HEMOGLOBIN 31.2 pg (26.0-34.0); MEAN CORPUSCULAR HGB CONC 34.1 G/dL (31.0-37.0); MEAN CORPUSCULAR VOLUME 92 fL (80-100); MONOCYTES # (AUTO) 0.9 K/uL (0.1-1.0); MONOCYTES % (AUTO) 13.4 % (2.0-9.0); NEUTROPHILS # (AUTO) 2.7 K/uL (1.8-7.7); NEUTROPHILS % (AUTO) 40.1 % (40.0-70.0); PLATELET COUNT (AUTO) 257 K/uL (150-450); RED BLOOD CELL COUNT(AUTO) 3.75 MIL/uL (4.50-5.90); RED CELL DISTRIBUTION WIDTH 14.2 % (11.5-14.5)
[2021-10-14 02:56] LABS: ALANINE AMINOTRANSFERASE 46 U/L (12-78); ALBUMIN 3.8 g/dL (3.4-5.0); ALKALINE PHOSPHATASE 207 U/L (46-116); ANION GAP 21 mmol/L (8-16); ASPARTATE AMINOTRANSFERASE 31 U/L (15-37); BILIRUBIN,TOTAL 0.3 mg/dL (0.1-1.0); CALCIUM, TOTAL 8.8 mg/dL (8.8-10.5); CARBON DIOXIDE 20 mmol/L (22-29); CHLORIDE 91 mmol/L (98-107); CREATINE KINASE, TOTAL ONLY 76 U/L (39-308); CREATININE 0.62 mg/dL (0.60-1.30); GLOMERULAR FILTR. RATE CALC > 60 mL/min (>60); PHOSPHORUS 3.2 mg/dL (2.5-4.9); POTASSIUM 3.4 mmol/L (3.5-5.1); SODIUM SERUM 132 mmol/L (136-145); TOTAL PROTEIN, SERUM 7.5 g/dL (6.4-8.2); UREA NITROGEN, BLOOD 6 mg/dL (7-18)
[2021-10-14] MEDS ORDERED: POTASSIUM CHLORIDE 20 MEQ ER TABLET PO ONE (03:15)
[2021-10-14] MEDS ORDERED: INSULIN REGULAR, HUMAN 100 UNITS/ML IVP ONE ×2 (03:15→04:15)
[2021-10-14] MEDS: POTASSIUM CHL 10 MEQ/WATER 50 ML IV SCH ×2 (03:25→04:21)
[2021-10-14 03:31] LABS: GLUCOSE,POINT OF CARE 538 MG/DL (70-110)
[2021-10-14] MEDS ORDERED: DEXTROSE 50%-WATER 25 GM/50 ML SYRINGE IVP PRN ×4 (03:45→12:00)
[2021-10-14] MEDS ORDERED: POTASSIUM CHL 20 MEQ/0.45% NS 1,000 ML IV PRN ×2 (03:45→04:15)
[2021-10-14] MEDS ORDERED: POTASSIUM CHLORIDE 40 MEQ in SODIUM CHLORIDE 0.45% 1,000 ML IV PRN ×2 (03:45→04:15)
[2021-10-14] MEDS ORDERED: INSULIN REGULAR, HUMAN 100 UNITS in SODIUM CHLORIDE 0.9% 99 ML IV PRN ×4 (03:45→04:15)
[2021-10-14] MEDS ORDERED: INSULIN REGULAR, HUMAN 100 UNITS/ML IVP PRN ×2 (03:45→04:15)
[2021-10-14] MEDS ORDERED: SODIUM CHLORIDE 0.9% 1,000 ML IV SCH ×2 (03:45→04:15)
[2021-10-14] MEDS ORDERED: DEXTROSE 5%-0.45% SODIUM CHL 1,000 ML IV PRN ×2 (03:45→04:15)
[2021-10-14] MEDS ORDERED: SODIUM CHLORIDE 0.45% 1,000 ML IV PRN ×2 (03:45→04:15)
[2021-10-14] MEDS ORDERED: ONDANSETRON HCL 4 MG/2 ML VIAL IVP PRN (04:15)
[2021-10-14 04:16] LABS: GLUCOSE,POINT OF CARE 346 MG/DL (70-110)
[2021-10-14 04:55] LABS: ANION GAP 14 mmol/L (8-16); CARBON DIOXIDE 21 mmol/L (22-29); CHLORIDE 102 mmol/L (98-107); CREATININE 0.57 mg/dL (0.60-1.30); GLUCOSE,RANDOM 331 mg/dL (70-110); POTASSIUM 3.8 mmol/L (3.5-5.1); SODIUM SERUM 137 mmol/L (136-145); UREA NITROGEN, BLOOD 5 mg/dL (7-18)
[2021-10-14 04:59] LABS: GLOMERULAR FILTR. RATE CALC > 60 mL/min (>60); PHOSPHORUS 1.7 mg/dL (2.5-4.9)
[2021-10-14 05:09] LABS: GLUCOSE,RANDOM 587 mg/dL (70-110)
[2021-10-14] MEDS ORDERED: LORazepam 2 MG TABLET PO PRN (05:30)
[2021-10-14] MEDS ORDERED: SODIUM,POTASSIUM PHOSPHATES POWDER PACKET PO ONE (05:30)
[2021-10-14] MEDS ORDERED: MAGNESIUM SULFATE 2 GM/WATER 50 ML IV PRN (05:30)
[2021-10-14] MEDS ORDERED: POTASSIUM CHLORIDE 20 MEQ ER TABLET PO PRN (05:30)
[2021-10-14] MEDS ORDERED: MAGNESIUM SULFATE 4 GM/WATER 100 ML IV PRN (05:30)
[2021-10-14] MEDS ORDERED: POTASSIUM CHL 10 MEQ/WATER 50 ML IV PRN (05:30)
[2021-10-14] MEDS ORDERED: INSULIN GLARGINE,HUM.REC.ANLOG 100 UNITS/ML SQ SCH ×2 (05:30→21:00)
[2021-10-14 05:48] LABS: ALBUMIN 3.5 g/dL (3.4-5.0)
[2021-10-14 06:31] LABS: GLUCOMETER DEV NAME(LOC) ERT.5; GLUCOSE,POINT OF CARE 267 MG/DL (70-110)
[2021-10-14] MEDS: HEPARIN SODIUM,PORCINE 5,000 UNITS/ML VIAL SQ SCH ×2 (07:24→16:13)
[2021-10-14 08:06] LABS: GLUCOSE,POINT OF CARE 311 MG/DL (70-110)
[2021-10-14] MEDS ORDERED: INSULIN LISPRO 100 UNITS/ML SQ PRN (08:15)
[2021-10-14] MEDS: 1: MAGNESIUM SULFATE 2 GM, MVI, ADULT NO.1 WITH VIT K 10 ML, THIAMINE 100 MG, FOLIC ACID IV SCH ×10 (09:22→18:12)
[2021-10-14 09:42] LABS: GLUCOSE,POINT OF CARE 323 MG/DL (70-110)
[2021-10-14] MEDS: ACETAMINOPHEN 325 MG TABLET PO PRN ×2 (10:28→16:13)
[2021-10-14 11:06] LABS: GLUCOSE,POINT OF CARE 308 MG/DL (70-110)
[2021-10-14 13:55] VITALS: BP 122/74
[2021-10-14 14:00] LABS: ANION GAP 11 mmol/L (8-16); CALCIUM, TOTAL 8.2 mg/dL (8.8-10.5); CARBON DIOXIDE 24 mmol/L (22-29); CHLORIDE 94 mmol/L (98-107); CREATININE 0.46 mg/dL (0.60-1.30); GLOMERULAR FILTR. RATE CALC > 60 mL/min (>60); GLUCOSE,RANDOM 254 mg/dL (70-110); POTASSIUM 3.5 mmol/L (3.5-5.1); SODIUM SERUM 129 mmol/L (136-145); UREA NITROGEN, BLOOD 5 mg/dL (7-18)
[2021-10-14] MEDS: INSULIN LISPRO 100 UNITS/ML SQ PRN ×2 (18:07→21:20)
[2021-10-14 20:02] VITALS: BP 119/81
[2021-10-14 20:21] LABS: GLUCOMETER DEV NAME(LOC) 5N.1C; GLUCOSE,POINT OF CARE 177 MG/DL (70-110)
[2021-10-14 20:51] LABS: GLUCOMETER DEV NAME(LOC) 5N.1C; GLUCOSE,POINT OF CARE 293 MG/DL (70-110)
[2021-10-14 22:12] LABS: AMPHET/METH SCREEN,URINE NEGATIVE (NEGATIVE); BARBITURATE SCREEN, URINE NEGATIVE (NEGATIVE); BENZODIAZEPINES SCREEN,URINE NEGATIVE (NEGATIVE); CANNABINOID SCREEN,URINE NEGATIVE (NEGATIVE); COCAINE SCREEN,URINE NEGATIVE (NEGATIVE); METHADONE SCREEN, URINE NEGATIVE (NEGATIVE); OPIATE SCREEN,URINE NEGATIVE (NEGATIVE)
[2021-10-14 22:14] LABS: PHENCYCLIDINE SCREEN,URINE NEGATIVE (NEGATIVE)
[2021-10-15] VITALS (7 sets, daily range): BP systolic 104–113; BP diastolic 66–79
[2021-10-15] MEDS: HEPARIN SODIUM,PORCINE 5,000 UNITS/ML VIAL SQ SCH ×3 (00:17→15:56)
[2021-10-15] MEDS: MAGNESIUM OXIDE 400 MG TABLET PO PRN ×3 (01:30→20:45)
[2021-10-15] MEDS ORDERED: SODIUM CHLORIDE 0.9% 1,000 ML ONE ×2 (01:35→17:53)
[2021-10-15] MEDS: 1: MAGNESIUM SULFATE 2 GM, MVI, ADULT NO.1 WITH VIT K 10 ML, THIAMINE 100 MG, FOLIC ACID IV SCH ×15 (01:41→17:55)
[2021-10-15] MEDS ORDERED: PERMETHRIN 5% 60 GM CREAM TP ONE (05:30)
[2021-10-15 06:42] LABS: BASOPHILS % (AUTO) 0.5 % (0.0-2.0); EOSINOPHILS % (AUTO) 0.7 % (1.0-6.0); HEMATOCRIT 34.2 % (41-53); HEMOGLOBIN 12.1 g/dL (13.5-17.5); LYMPHOCYTES # (AUTO) 1.6 K/uL (1.0-4.8); MEAN CORPUSCULAR HEMOGLOBIN 31.9 pg (26.0-34.0); MEAN CORPUSCULAR HGB CONC 35.3 G/dL (31.0-37.0); MEAN CORPUSCULAR VOLUME 90 fL (80-100); MONOCYTES # (AUTO) 0.6 K/uL (0.1-1.0); NEUTROPHILS # (AUTO) 3.1 K/uL (1.8-7.7); NEUTROPHILS % (AUTO) 57.8 % (40.0-70.0); PLATELET COUNT (AUTO) 248 K/uL (150-450); RED BLOOD CELL COUNT(AUTO) 3.79 MIL/uL (4.50-5.90); RED CELL DISTRIBUTION WIDTH 14.5 % (11.5-14.5)
[2021-10-15] MEDS ORDERED: LORazepam 2 MG TABLET PO PRN (07:00)
[2021-10-15 07:04] LABS: ALANINE AMINOTRANSFERASE 34 U/L (12-78); ALBUMIN 3.1 g/dL (3.4-5.0); ALKALINE PHOSPHATASE 145 U/L (46-116); ANION GAP 8 mmol/L (8-16); ASPARTATE AMINOTRANSFERASE 21 U/L (15-37); BILIRUBIN,TOTAL 0.2 mg/dL (0.1-1.0); CALCIUM, TOTAL 8.6 mg/dL (8.8-10.5); CARBON DIOXIDE 29 mmol/L (22-29); CHLORIDE 102 mmol/L (98-107); CHOL/HDL RATIO 1.4 (4.2-7.3); CHOLESTEROL 148 mg/dL (131-200); CREATININE 0.45 mg/dL (0.60-1.30); GLUCOSE,RANDOM 97 mg/dL (70-110); HDL CHOLESTEROL 105 mg/dL (40-60); LDL CHOL (CALC.) 34 mg/dL (0-130); POTASSIUM 4.1 mmol/L (3.5-5.1); SODIUM SERUM 139 mmol/L (136-145); THYROID STIMULATING HORMONE 1.06 uIU/mL (0.36-3.74); TOTAL PROTEIN, SERUM 6.4 g/dL (6.4-8.2); TRIGLYCERIDES 46 mg/dL (15-150); UREA NITROGEN, BLOOD 5 mg/dL (7-18)
[2021-10-15 07:08] LABS: HEMOGLOBIN A1C 13.5 % (3.8-5.6)
[2021-10-15 07:19] LABS: GLOMERULAR FILTR. RATE CALC > 60 mL/min (>60)
[2021-10-15] MEDS ORDERED: INSULIN GLARGINE,HUM.REC.ANLOG 100 UNITS/ML SQ SCH (09:00)
[2021-10-15] MEDS: LORazepam 2 MG TABLET PO SCH ×4 (09:05→20:45)
[2021-10-15] MEDS: INSULIN LISPRO 100 UNITS/ML SQ PRN ×3 (11:44→21:00)
[2021-10-15 12:16] LABS: GLUCOMETER DEV NAME(LOC) 5S.2B; GLUCOSE,POINT OF CARE 358 MG/DL (70-110)
[2021-10-15 12:16] LABS: GLUCOMETER DEV NAME(LOC) 5S.2B; GLUCOSE,POINT OF CARE 304 MG/DL (70-110)
[2021-10-15 14:07] LABS: GLUCOMETER DEV NAME(LOC) 5N.1C; GLUCOSE,POINT OF CARE 92 MG/DL (70-110)
[2021-10-15 18:21] LABS: GLUCOMETER DEV NAME(LOC) 5N.1C; GLUCOSE,POINT OF CARE 136 MG/DL (70-110)
[2021-10-15 23:11] LABS: GLUCOMETER DEV NAME(LOC) 5S.2B; GLUCOSE,POINT OF CARE 219 MG/DL (70-110)
[2021-10-16] MEDS: HEPARIN SODIUM,PORCINE 5,000 UNITS/ML VIAL SQ SCH ×4 (00:06→23:31)
[2021-10-16] MEDS: 1: MAGNESIUM SULFATE 2 GM, MVI, ADULT NO.1 WITH VIT K 10 ML, THIAMINE 100 MG, FOLIC ACID IV SCH ×15 (01:31→17:24)
[2021-10-16 04:40] VITALS: BP 118/89
[2021-10-16] MEDS: INSULIN LISPRO 100 UNITS/ML SQ PRN ×3 (06:18→20:48)
[2021-10-16 07:30] VITALS: BP 110/80
[2021-10-16 08:33] LABS: BASOPHILS % (AUTO) 0.6 % (0.0-2.0); HEMATOCRIT 35.4 % (41-53); HEMOGLOBIN 12.2 g/dL (13.5-17.5); LYMPHOCYTES # (AUTO) 1.6 K/uL (1.0-4.8); LYMPHOCYTES % (AUTO) 39.6 % (22.0-44.0); MEAN CORPUSCULAR HEMOGLOBIN 31.6 pg (26.0-34.0); MEAN CORPUSCULAR HGB CONC 34.6 G/dL (31.0-37.0); MEAN CORPUSCULAR VOLUME 91 fL (80-100); MONOCYTES # (AUTO) 0.7 K/uL (0.1-1.0); MONOCYTES % (AUTO) 17.1 % (2.0-9.0); NEUTROPHILS # (AUTO) 1.7 K/uL (1.8-7.7); NEUTROPHILS % (AUTO) 41.7 % (40.0-70.0); PLATELET COUNT (AUTO) 245 K/uL (150-450); RED BLOOD CELL COUNT(AUTO) 3.87 MIL/uL (4.50-5.90); RED CELL DISTRIBUTION WIDTH 14.5 % (11.5-14.5)
[2021-10-16 08:41] LABS: ALANINE AMINOTRANSFERASE 41 U/L (12-78); ALBUMIN 3.4 g/dL (3.4-5.0); ALKALINE PHOSPHATASE 159 U/L (46-116); ANION GAP 6 mmol/L (8-16); ASPARTATE AMINOTRANSFERASE 47 U/L (15-37); BILIRUBIN,TOTAL 0.2 mg/dL (0.1-1.0); CALCIUM, TOTAL 9.3 mg/dL (8.8-10.5); CARBON DIOXIDE 27 mmol/L (22-29); CHLORIDE 96 mmol/L (98-107); CREATININE 0.35 mg/dL (0.60-1.30); GLUCOSE,RANDOM 82 mg/dL (70-110); POTASSIUM 3.8 mmol/L (3.5-5.1); SODIUM SERUM 129 mmol/L (136-145); UREA NITROGEN, BLOOD 6 mg/dL (7-18)
[2021-10-16 08:48] LABS: GLOMERULAR FILTR. RATE CALC > 60 mL/min (>60)
[2021-10-16] MEDS ORDERED: INSULIN GLARGINE,HUM.REC.ANLOG 100 UNITS/ML SQ SCH (09:00)
[2021-10-16] MEDS: LORazepam 2 MG TABLET PO SCH ×4 (09:08→20:46)
[2021-10-16 10:01] LABS: GLUCOMETER DEV NAME(LOC) 5N.1C; GLUCOSE,POINT OF CARE 250 MG/DL (70-110)
[2021-10-16 11:07] VITALS: BP 113/83
[2021-10-16 16:30] VITALS: BP 116/90
[2021-10-16 17:27] LABS: GLUCOMETER DEV NAME(LOC) 5N.1C; GLUCOSE,POINT OF CARE 202 MG/DL (70-110)
[2021-10-16 18:12] LABS: GLUCOMETER DEV NAME(LOC) 5S.2B; GLUCOSE,POINT OF CARE 77 MG/DL (70-110)
[2021-10-16 20:27] VITALS: BP 123/82
[2021-10-16] MEDS ORDERED: KETOROLAC TROMETHAMINE 15 MG/ML VIAL IVP ONE (23:00)
[2021-10-17 00:06] VITALS: BP 103/71
[2021-10-17] MEDS ORDERED: SODIUM CHLORIDE 0.9% 1,000 ML ONE (01:17)
[2021-10-17] MEDS: 1: MAGNESIUM SULFATE 2 GM, MVI, ADULT NO.1 WITH VIT K 10 ML, THIAMINE 100 MG, FOLIC ACID IV SCH ×5 (01:20)
[2021-10-17 03:56] VITALS: BP 112/71
[2021-10-17 06:31] LABS: GLUCOMETER DEV NAME(LOC) 5N.1C; GLUCOSE,POINT OF CARE 383 MG/DL (70-110)
[2021-10-17 06:54] LABS: BASOPHILS % (AUTO) 0.6 % (0.0-2.0); EOSINOPHILS % (AUTO) 1.8 % (1.0-6.0); HEMATOCRIT 32.8 % (41-53); HEMOGLOBIN 11.3 g/dL (13.5-17.5); LYMPHOCYTES # (AUTO) 1.5 K/uL (1.0-4.8); LYMPHOCYTES % (AUTO) 35.6 % (22.0-44.0); MEAN CORPUSCULAR HEMOGLOBIN 31.6 pg (26.0-34.0); MEAN CORPUSCULAR HGB CONC 34.3 G/dL (31.0-37.0); MEAN CORPUSCULAR VOLUME 92 fL (80-100); MONOCYTES # (AUTO) 0.6 K/uL (0.1-1.0); MONOCYTES % (AUTO) 15.5 % (2.0-9.0); NEUTROPHILS # (AUTO) 1.9 K/uL (1.8-7.7); NEUTROPHILS % (AUTO) 46.5 % (40.0-70.0); PLATELET COUNT (AUTO) 229 K/uL (150-450); RED BLOOD CELL COUNT(AUTO) 3.57 MIL/uL (4.50-5.90); RED CELL DISTRIBUTION WIDTH 14.5 % (11.5-14.5)
[2021-10-17] MEDS ORDERED: LORazepam 1 MG TABLET PO PRN (07:00)
[2021-10-17 07:06] LABS: GLUCOMETER DEV NAME(LOC) 5S.2B; GLUCOSE,POINT OF CARE 201 MG/DL (70-110)
[2021-10-17 07:15] LABS: ALANINE AMINOTRANSFERASE 55 U/L (12-78); ALBUMIN 3.2 g/dL (3.4-5.0); ALKALINE PHOSPHATASE 149 U/L (46-116); ANION GAP 8 mmol/L (8-16); ASPARTATE AMINOTRANSFERASE 76 U/L (15-37); BILIRUBIN,TOTAL 0.2 mg/dL (0.1-1.0); CALCIUM, TOTAL 8.9 mg/dL (8.8-10.5); CARBON DIOXIDE 26 mmol/L (22-29); CHLORIDE 97 mmol/L (98-107); CREATININE 0.39 mg/dL (0.60-1.30); GLUCOSE,RANDOM 61 mg/dL (70-110); POTASSIUM 4.1 mmol/L (3.5-5.1); SODIUM SERUM 131 mmol/L (136-145); TOTAL PROTEIN, SERUM 6.5 g/dL (6.4-8.2); UREA NITROGEN, BLOOD 5 mg/dL (7-18)
[2021-10-17 07:16] LABS: GLOMERULAR FILTR. RATE CALC > 60 mL/min (>60)
[2021-10-17] MEDS ORDERED: SODIUM CHLORIDE 0.9% 1,000 ML IV SCH (09:00)
[2021-10-17] MEDS ORDERED: INSULIN GLARGINE,HUM.REC.ANLOG 100 UNITS/ML SQ SCH (09:00)
[2021-10-17 09:03] VITALS: BP 102/61
[2021-10-17] MEDS: LORazepam 1 MG TABLET PO SCH ×2 (10:29→15:14)
[2021-10-17] MEDS: HEPARIN SODIUM,PORCINE 5,000 UNITS/ML VIAL SQ SCH (10:29)
[2021-10-17 11:55] VITALS: BP 131/87
[2021-10-17] MEDS ORDERED: INSLAN SQ (12:06)
[2021-10-17] MEDS ORDERED: MULT-1203 PO (12:06)
[2021-10-17] MEDS ORDERED: FOLI0.4T6 PO (12:07)
[2021-10-17] MEDS ORDERED: THIA100V4 PO (12:08)
[2021-10-17 15:11] LABS: GLUCOMETER DEV NAME(LOC) 5S.1B; GLUCOSE,POINT OF CARE 436 MG/DL (70-110)
[2021-10-17] MEDS: INSULIN LISPRO 100 UNITS/ML SQ PRN (15:13)
[2021-10-17 15:45] VITALS: BP 119/85
[2021-10-17 16:21] LABS: GLUCOMETER DEV NAME(LOC) 5S.1B; GLUCOSE,POINT OF CARE 221 MG/DL (70-110)
[2021-10-17 18:06] LABS: GLUCOMETER DEV NAME(LOC) 5S.2B; GLUCOSE,POINT OF CARE 269 MG/DL (70-110)
[2021-10-18] MEDS ORDERED: LORazepam 1 MG TABLET PO PRN (07:00)
[2021-10-18] MEDS ORDERED: INSULIN GLARGINE,HUM.REC.ANLOG 100 UNITS/ML SQ SCH (09:00)
== END 2021-10-17 16:05 | disposition left against medical advice (07) | DRG 420 ==
LOC: EMS 01:49 → ICU 06:37 → 5S 12:41
PROVIDERS: ADMIT Internal Medicine; ATTEND Internal Medicine
DX: E11.10 Type 2 diabetes mellitus with ketoacidosis without coma (principal); G92.8 Other toxic encephalopathy; E83.39 Other disorders of phosphorus metabolism; H57.11 Ocular pain, right eye; E11.40 Type 2 diabetes mellitus with diabetic neuropathy, unspecified; M79.651 Pain in right thigh; E87.6 Hypokalemia; E83.42 Hypomagnesemia; Y90.8 Blood alcohol level of 240 mg/100 ml or more; F10.20 Alcohol dependence, uncomplicated; E86.0 Dehydration; Z79.4 Long term (current) use of insulin; Z91.19 Patient's noncompliance with other medical treatment and regimen
CPT/HCPCS: 73552; 80048; 80053; 80061; 80307; 82009; 82040; 82550; 82962; 83036; 83735; 84100; 84443; 85025; 87081; 93005; 99291; G0378; G0480; J1644; J1815; J1885; J3411; J3475; J3480; J3490; J7030; J7050

== ENCOUNTER 2021-10-18 15:59 | Emergency (ER) | payer MEDICAID ==
[~2021-10-18] VITALS: Ht 170.2 cm; Wt 65.9 kg
[~2021-10-18 15:59] MED LIST changes: +FOLI0.4T6 PO; +MULT-1203 PO; +THIA100V4 PO
[2021-10-18 16:50] LABS: BASOPHILS % (AUTO) 0.6 % (0.0-2.0); EOSINOPHILS % (AUTO) 1.1 % (1.0-6.0); HEMATOCRIT 36.5 % (41-53); HEMOGLOBIN 12.4 g/dL (13.5-17.5); LYMPHOCYTES # (AUTO) 2.2 K/uL (1.0-4.8); LYMPHOCYTES % (AUTO) 38.5 % (22.0-44.0); MEAN CORPUSCULAR HEMOGLOBIN 31.4 pg (26.0-34.0); MEAN CORPUSCULAR HGB CONC 33.9 G/dL (31.0-37.0); MEAN CORPUSCULAR VOLUME 93 fL (80-100); MONOCYTES # (AUTO) 0.7 K/uL (0.1-1.0); NEUTROPHILS # (AUTO) 2.6 K/uL (1.8-7.7); NEUTROPHILS % (AUTO) 46.8 % (40.0-70.0); PLATELET COUNT (AUTO) 305 K/uL (150-450); RED BLOOD CELL COUNT(AUTO) 3.94 MIL/uL (4.50-5.90); RED CELL DISTRIBUTION WIDTH 14.9 % (11.5-14.5)
[2021-10-18 17:06] LABS: ANION GAP 11 mmol/L (8-16); CALCIUM, TOTAL 9.3 mg/dL (8.8-10.5); CARBON DIOXIDE 25 mmol/L (22-29); CHLORIDE 102 mmol/L (98-107); CREATININE 0.51 mg/dL (0.60-1.30); GLUCOSE,RANDOM 365 mg/dL (70-110); POTASSIUM 3.6 mmol/L (3.5-5.1); SODIUM SERUM 138 mmol/L (136-145); UREA NITROGEN, BLOOD 4 mg/dL (7-18)
[2021-10-18 17:09] LABS: GLOMERULAR FILTR. RATE CALC > 60 mL/min (>60)
[2021-10-18 17:12] LABS: AMPHET/METH SCREEN,URINE NEGATIVE (NEGATIVE); BARBITURATE SCREEN, URINE NEGATIVE (NEGATIVE); BENZODIAZEPINES SCREEN,URINE NEGATIVE (NEGATIVE); CANNABINOID SCREEN,URINE NEGATIVE (NEGATIVE); COCAINE SCREEN,URINE NEGATIVE (NEGATIVE); METHADONE SCREEN, URINE NEGATIVE (NEGATIVE); OPIATE SCREEN,URINE NEGATIVE (NEGATIVE)
[2021-10-18 17:12] LABS: ALANINE AMINOTRANSFERASE 72 U/L (12-78); ALBUMIN 4.3 g/dL (3.4-5.0); ALKALINE PHOSPHATASE 212 U/L (46-116); ASPARTATE AMINOTRANSFERASE 70 U/L (15-37); BILIRUBIN,TOTAL 0.2 mg/dL (0.1-1.0); TOTAL PROTEIN, SERUM 8.2 g/dL (6.4-8.2)
[2021-10-18 17:13] LABS: PHENCYCLIDINE SCREEN,URINE NEGATIVE (NEGATIVE)
[2021-10-18 19:41] VITALS: BP 104/72
== END 2021-10-18 20:18 | disposition home or self-care (01) ==
LOC: EMS 16:11
DX: S09.90XA Unspecified injury of head, initial encounter (principal); F10.129 Alcohol abuse with intoxication, unspecified; M54.2 Cervicalgia; E11.9 Type 2 diabetes mellitus without complications; Z79.4 Long term (current) use of insulin; W19.XXXA Unspecified fall, initial encounter; Y93.89 Activity, other specified; Y92.89 Other specified places as the place of occurrence of the external cause; Y99.8 Other external cause status; Y90.8 Blood alcohol level of 240 mg/100 ml or more
CPT/HCPCS: 36415; 70450; 71045; 72125; 80053; 80307; 85025; 99285; G0480

== ENCOUNTER 2021-10-19 19:38 | Emergency (ER) | payer MEDICAID ==
[~2021-10-19] VITALS: Ht 170.2 cm; Wt 65.9 kg
[2021-10-19] MEDS ORDERED: RINGERS SOLUTION,LACTATED 1,000 ML IV ONE (20:30)
[2021-10-19 20:57] LABS: BASOPHILS % (AUTO) 0.7 % (0.0-2.0); EOSINOPHILS % (AUTO) 1.5 % (1.0-6.0); HEMATOCRIT 32.7 % (41-53); LYMPHOCYTES % (AUTO) 35.4 % (22.0-44.0); MEAN CORPUSCULAR HEMOGLOBIN 31.2 pg (26.0-34.0); MEAN CORPUSCULAR HGB CONC 33.8 G/dL (31.0-37.0); MEAN CORPUSCULAR VOLUME 92 fL (80-100); MONOCYTES # (AUTO) 0.6 K/uL (0.1-1.0); MONOCYTES % (AUTO) 11.4 % (2.0-9.0); NEUTROPHILS # (AUTO) 2.9 K/uL (1.8-7.7); PLATELET COUNT (AUTO) 280 K/uL (150-450); RED BLOOD CELL COUNT(AUTO) 3.54 MIL/uL (4.50-5.90); RED CELL DISTRIBUTION WIDTH 14.8 % (11.5-14.5)
[2021-10-19 21:02] LABS: ANION GAP 5 mmol/L (8-16); CALCIUM, TOTAL 9.1 mg/dL (8.8-10.5); CARBON DIOXIDE 30 mmol/L (22-29); CHLORIDE 99 mmol/L (98-107); CREATININE 0.59 mg/dL (0.60-1.30); GLUCOSE,RANDOM 367 mg/dL (70-110); POTASSIUM 4.4 mmol/L (3.5-5.1); SODIUM SERUM 134 mmol/L (136-145); UREA NITROGEN, BLOOD 3 mg/dL (7-18)
[2021-10-19 21:03] LABS: GLOMERULAR FILTR. RATE CALC > 60 mL/min (>60)
[2021-10-19 21:22] LABS: APPEARANCE,URINE CLEAR (CLEAR); BILIRUBIN,URINE NEGATIVE (NEGATIVE); GLUCOSE, URINE (UA) >=1000 mg/dL (NEGATIVE); KETONES,URINE NEGATIVE (NEGATIVE); LEUKOCYTE ESTERASE ,URINE NEGATIVE (NEGATIVE); NITRATE,URINE NEGATIVE (NEGATIVE); OCCULT BLOOD,URINE NEGATIVE (NEGATIVE); PROTEIN,URINE NEGATIVE (NEGATIVE); SPECIFIC GRAVITIY, URINE 1.019 (1.003-1.030); UROBILINOGEN,URINE <=1.0 mg/dL (<=1.0)
[2021-10-19 21:30] LABS: BACTERIA,URINE None Seen /HPF (None Seen); RBC,URINE 0-2 /HPF (0-2); WBC,URINE None Seen /HPF (0-5)
[2021-10-19 21:54] VITALS: BP 121/79
== END 2021-10-19 23:00 | disposition home or self-care (01) ==
LOC: EMS 19:41
DX: E11.65 Type 2 diabetes mellitus with hyperglycemia (principal); F10.10 Alcohol abuse, uncomplicated; R20.0 Anesthesia of skin; Y90.0 Blood alcohol level of less than 20 mg/100 ml
CPT/HCPCS: 36415; 80048; 81001; 82010; 82962; 85025; 96360; 99283; J7120

== ENCOUNTER 2021-10-21 13:19 | Emergency (ER) | payer MEDICAID ==
[~2021-10-21] VITALS: Ht 165.1 cm; Wt 66.0 kg
[2021-10-21 13:51] LABS: GLUCOSE,POINT OF CARE 528 MG/DL (70-110)
[2021-10-21] MEDS ORDERED: THIA100T80 PO (13:56)
[2021-10-21] MEDS ORDERED: SODIUM CHLORIDE 0.9% 2,000 ML IV ONE (14:00)
[2021-10-21] MEDS ORDERED: INSULIN REGULAR, HUMAN 100 UNITS/ML IVP ONE (14:00)
[2021-10-21 14:15] LABS: BASOPHILS % (AUTO) 0.4 % (0.0-2.0); EOSINOPHILS % (AUTO) 0.4 % (1.0-6.0); HEMATOCRIT 35.8 % (41-53); HEMOGLOBIN 12.4 g/dL (13.5-17.5); LYMPHOCYTES # (AUTO) 1.9 K/uL (1.0-4.8); LYMPHOCYTES % (AUTO) 31.2 % (22.0-44.0); MEAN CORPUSCULAR HEMOGLOBIN 31.9 pg (26.0-34.0); MEAN CORPUSCULAR HGB CONC 34.5 G/dL (31.0-37.0); MEAN CORPUSCULAR VOLUME 92 fL (80-100); MONOCYTES # (AUTO) 0.4 K/uL (0.1-1.0); MONOCYTES % (AUTO) 6.6 % (2.0-9.0); NEUTROPHILS # (AUTO) 3.7 K/uL (1.8-7.7); NEUTROPHILS % (AUTO) 61.4 % (40.0-70.0); PLATELET COUNT (AUTO) 348 K/uL (150-450); RED BLOOD CELL COUNT(AUTO) 3.88 MIL/uL (4.50-5.90); RED CELL DISTRIBUTION WIDTH 14.1 % (11.5-14.5)
[2021-10-21 14:51] LABS: ALANINE AMINOTRANSFERASE 54 U/L (12-78); ALBUMIN 3.8 g/dL (3.4-5.0); ALKALINE PHOSPHATASE 178 U/L (46-116); ANION GAP 15 mmol/L (8-16); ASPARTATE AMINOTRANSFERASE 37 U/L (15-37); BILIRUBIN,TOTAL 0.3 mg/dL (0.1-1.0); CALCIUM, TOTAL 9.4 mg/dL (8.8-10.5); CARBON DIOXIDE 23 mmol/L (22-29); CHLORIDE 91 mmol/L (98-107); CREATININE 0.67 mg/dL (0.60-1.30); GLOMERULAR FILTR. RATE CALC > 60 mL/min (>60); LIPASE 52 U/L (73-393); POTASSIUM 3.7 mmol/L (3.5-5.1); SODIUM SERUM 129 mmol/L (136-145); TOTAL PROTEIN, SERUM 7.6 g/dL (6.4-8.2); UREA NITROGEN, BLOOD 8 mg/dL (7-18)
[2021-10-21 14:54] LABS: GLUCOSE,RANDOM 583 mg/dL (70-110)
[2021-10-21 15:09] LABS: LACTIC ACID 6.1 mmol/L (0.4-2.0)
[2021-10-21 15:51] LABS: GLUCOSE,POINT OF CARE 339 MG/DL (70-110)
[2021-10-21 16:00] LABS: APPEARANCE,URINE CLEAR (CLEAR); BILIRUBIN,URINE NEGATIVE (NEGATIVE); GLUCOSE, URINE (UA) >=1000 mg/dL (NEGATIVE); KETONES,URINE NEGATIVE (NEGATIVE); LEUKOCYTE ESTERASE ,URINE NEGATIVE (NEGATIVE); NITRATE,URINE NEGATIVE (NEGATIVE); OCCULT BLOOD,URINE NEGATIVE (NEGATIVE); PROTEIN,URINE NEGATIVE (NEGATIVE); SPECIFIC GRAVITIY, URINE 1.015 (1.003-1.030); UROBILINOGEN,URINE <=1.0 mg/dL (<=1.0)
[2021-10-21 16:01] LABS: AMPHET/METH SCREEN,URINE NEGATIVE (NEGATIVE); BARBITURATE SCREEN, URINE NEGATIVE (NEGATIVE); BENZODIAZEPINES SCREEN,URINE NEGATIVE (NEGATIVE); CANNABINOID SCREEN,URINE NEGATIVE (NEGATIVE); COCAINE SCREEN,URINE NEGATIVE (NEGATIVE); METHADONE SCREEN, URINE NEGATIVE (NEGATIVE); OPIATE SCREEN,URINE NEGATIVE (NEGATIVE)
[2021-10-21 16:03] LABS: PHENCYCLIDINE SCREEN,URINE NEGATIVE (NEGATIVE)
[2021-10-21 16:04] LABS: ACETONE,BLOOD NEGATIVE (NEGATIVE)
[2021-10-21 16:08] LABS: ABG BASE EXCESS -7.9 mmol/L (-2.0-3.0); ABG CARBOXYHEMOGLOBIN 0.2 % (0.0-1.5); ABG HCO3 18.9 mmol/L (22.0-26.0); ABG METHEMOGLOBIN 0.1 % (0.0-1.5); ABG OXYGEN CONTENT 16.7 mL/dL (15.0-23.0); ABG OXYGEN SATURATION 96.7 % (95.0-98.0); ABG OXYHEMOGLOBIN 96.4 % (94.0-100.0); ABG PCO2 32 mmHg (35-45); ABG TOTAL HEMOGLOBIN 12.2 G/dL (12.0-18.0); PO2, ARTERIAL BG 104.5 mmHg (92.0-100.0); SOURCE, BLOOD GAS ARTERIAL; TEMPERATURE, FAHRENHEIT, BG 98.6 FAHREN (96.0-98.6)
[2021-10-21 16:09] LABS: SITE, BLOOD GAS RT RADIAL
[2021-10-21 16:10] LABS: ABG A-A DIFF O2 7.3 mmHg (10-20.0)
[2021-10-21 16:27] LABS: BACTERIA,URINE None Seen /HPF (None Seen); RBC,URINE None Seen /HPF (0-2); SQUAMOUS EPITHELIAL CELL,UR Few /LPF (None Seen); WBC,URINE None Seen /HPF (0-5)
[2021-10-21 17:41] LABS: GLUCOSE,POINT OF CARE 154 MG/DL (70-110)
[2021-10-21 17:44] VITALS: BP 89/51
== END 2021-10-21 17:58 | disposition left against medical advice (07) ==
LOC: EMS 13:25
DX: E11.65 Type 2 diabetes mellitus with hyperglycemia (principal); F10.229 Alcohol dependence with intoxication, unspecified; Z79.4 Long term (current) use of insulin; Z79.899 Other long term (current) drug therapy; Y90.8 Blood alcohol level of 240 mg/100 ml or more
CPT/HCPCS: 36415; 36600; 80053; 80307; 81001; 82009; 82805; 82962; 83605; 83690; 83735; 84484; 85025; 93005; 96361; 96374; 99291; G0480; J1815; J7030

== ENCOUNTER 2021-11-24 14:12 | Inpatient (IN) | payer MEDICAID ==
[~2021-11-24] VITALS: Ht 154.9 cm; Wt 46.7 kg
[~2021-11-24 14:12] MED LIST changes: +THIA100T80 PO; -THIA100V4 PO
[2021-11-24] MEDS ORDERED: SODIUM CHLORIDE 0.9% 1,000 ML IV ONE (15:00)
[2021-11-24] MEDS ORDERED: KETOROLAC TROMETHAMINE 30 MG/ML VIAL IVP ONE (15:00)
[2021-11-24] MEDS ORDERED: INSULIN REGULAR, HUMAN 100 UNITS/ML IVP ONE (15:00)
[2021-11-24 15:27] LABS: BASOPHILS % (AUTO) 0.3 % (0.0-2.0); EOSINOPHILS % (AUTO) 0.4 % (1.0-6.0); HEMATOCRIT 39.7 % (41-53); HEMOGLOBIN 13.8 g/dL (13.5-17.5); LYMPHOCYTES # (AUTO) 1.7 K/uL (1.0-4.8); LYMPHOCYTES % (AUTO) 31.2 % (22.0-44.0); MEAN CORPUSCULAR HGB CONC 34.7 G/dL (31.0-37.0); MEAN CORPUSCULAR VOLUME 92 fL (80-100); MONOCYTES # (AUTO) 0.6 K/uL (0.1-1.0); MONOCYTES % (AUTO) 11.4 % (2.0-9.0); NEUTROPHILS # (AUTO) 3.1 K/uL (1.8-7.7); NEUTROPHILS % (AUTO) 56.7 % (40.0-70.0); PLATELET COUNT (AUTO) 280 K/uL (150-450); RED BLOOD CELL COUNT(AUTO) 4.29 MIL/uL (4.50-5.90); RED CELL DISTRIBUTION WIDTH 13.7 % (11.5-14.5)
[2021-11-24 15:45] LABS: ALANINE AMINOTRANSFERASE 45 U/L (12-78); ALBUMIN 3.9 g/dL (3.4-5.0); ALKALINE PHOSPHATASE 175 U/L (46-116); ANION GAP 14 mmol/L (8-16); ASPARTATE AMINOTRANSFERASE 34 U/L (15-37); BILIRUBIN,TOTAL 0.2 mg/dL (0.1-1.0); CALCIUM, TOTAL 8.6 mg/dL (8.8-10.5); CARBON DIOXIDE 24 mmol/L (22-29); CHLORIDE 100 mmol/L (98-107); CREATININE 0.53 mg/dL (0.60-1.30); SODIUM SERUM 138 mmol/L (136-145); TOTAL PROTEIN, SERUM 7.1 g/dL (6.4-8.2); UREA NITROGEN, BLOOD 2 mg/dL (7-18)
[2021-11-24 15:47] LABS: POTASSIUM 2.5 mmol/L (3.5-5.1)
[2021-11-24 15:48] LABS: GLOMERULAR FILTR. RATE CALC > 60 mL/min (>60); GLUCOSE,RANDOM 510 mg/dL (70-110)
[2021-11-24] MEDS ORDERED: POTASSIUM CHLORIDE 20 MEQ ER TABLET PO PRN (16:00)
[2021-11-24 16:21] LABS: GLUCOMETER DEV NAME(LOC) ERT.5; GLUCOSE,POINT OF CARE 354 MG/DL (70-110)
[2021-11-24] MEDS: POTASSIUM CHL 10 MEQ/WATER 50 ML IV PRN ×3 (16:47→19:56)
[2021-11-24] MEDS ORDERED: POTASSIUM CHLORIDE 20 MEQ ER TABLET PO ONE (17:45)
[2021-11-24] MEDS ORDERED: POTASSIUM CHL 20 MEQ/0.9% NS 1,000 ML IV ONE (18:15)
[2021-11-24] MEDS ORDERED: LIDOCAINE 5% TRANSDERMAL PATCH TD ONE (19:15)
[2021-11-24 19:26] LABS: POTASSIUM 2.5 mmol/L (3.5-5.1)
[2021-11-24 19:36] LABS: COVID AG,FIA SOURCE NASOPHARYNGEAL
[2021-11-24] MEDS ORDERED: ONDANSETRON HCL 4 MG/2 ML VIAL IVP PRN ×2 (19:45)
[2021-11-24] MEDS ORDERED: DEXTROSE 50%-WATER 25 GM/50 ML SYRINGE IVP PRN (19:45)
[2021-11-24] MEDS ORDERED: ACETAMINOPHEN 325 MG TABLET PO PRN (19:45)
[2021-11-24] MEDS: MORPHINE SULFATE 4 MG/ML SYRINGE IVP PRN (19:55)
[2021-11-24] MEDS ORDERED: IOHEXOL 350 MG/ML 100 ML VIAL ONE (20:02)
[2021-11-24] MEDS ORDERED: SODIUM CHLORIDE 0.9% 100 ML ONE (20:02)
[2021-11-24 20:28] LABS: MAGNESIUM 1.6 mg/dL (1.80-2.40)
[2021-11-24] MEDS ORDERED: MAGNESIUM SULFATE 2 GM/WATER 50 ML IV ONE (21:00)
[2021-11-24] MEDS ORDERED: LORazepam 2 MG TABLET PO PRN (21:00)
[2021-11-24 21:12] LABS: ANION GAP 14 mmol/L (8-16); CALCIUM, TOTAL 7.8 mg/dL (8.8-10.5); CARBON DIOXIDE 24 mmol/L (22-29); CHLORIDE 102 mmol/L (98-107); CREATININE 0.37 mg/dL (0.60-1.30); GLUCOSE,RANDOM 261 mg/dL (70-110); SODIUM SERUM 140 mmol/L (136-145); UREA NITROGEN, BLOOD 1 mg/dL (7-18)
[2021-11-24] MEDS: POTASSIUM CHL 20 MEQ/0.9% NS 1,000 ML IV SCH (21:12)
[2021-11-24 21:15] LABS: PHOSPHORUS 2.6 mg/dL (2.5-4.9)
[2021-11-24] MEDS: GABAPENTIN 300 MG CAPSULE PO SCH (21:15)
[2021-11-24] MEDS: ACETAMINOPHEN 325 MG TABLET PO PRN (21:15)
[2021-11-24 21:16] LABS: GLOMERULAR FILTR. RATE CALC > 60 mL/min (>60)
[2021-11-24 22:38] VITALS: BP 126/87
[2021-11-24 22:56] LABS: GLUCOMETER DEV NAME(LOC) 5N.1C; GLUCOSE,POINT OF CARE 284 MG/DL (70-110)
[2021-11-24] MEDS: HEPARIN SODIUM,PORCINE 5,000 UNITS/ML VIAL SQ SCH (23:08)
[2021-11-24] MEDS: INSULIN LISPRO 100 UNITS/ML SQ PRN (23:11)
[2021-11-25] MEDS: ACETAMINOPHEN 325 MG TABLET PO PRN (03:59)
[2021-11-25] MEDS: POTASSIUM CHL 20 MEQ/0.9% NS 1,000 ML IV SCH ×2 (04:02→15:59)
[2021-11-25 04:27] VITALS: BP 118/90
[2021-11-25] MEDS: INSULIN GLARGINE,HUM.REC.ANLOG 100 UNITS/ML SQ SCH ×2 (06:08→20:08)
[2021-11-25] MEDS: INSULIN LISPRO 100 UNITS/ML SQ PRN ×4 (06:09→20:11)
[2021-11-25 06:26] LABS: GLUCOMETER DEV NAME(LOC) 5S.2B; GLUCOSE,POINT OF CARE 249 MG/DL (70-110)
[2021-11-25] MEDS ORDERED: LORazepam 2 MG TABLET PO PRN (07:00)
[2021-11-25 07:05] VITALS: BP 101/71
[2021-11-25 07:10] LABS: CARBON DIOXIDE 28 mmol/L (22-29); CHLORIDE 98 mmol/L (98-107); POTASSIUM 3.2 mmol/L (3.5-5.1); SODIUM SERUM 133 mmol/L (136-145)
[2021-11-25 07:11] LABS: ANION GAP 7 mmol/L (8-16); CALCIUM, TOTAL 8.1 mg/dL (8.8-10.5); CREATININE 0.51 mg/dL (0.60-1.30); GLUCOSE,RANDOM 250 mg/dL (70-110); UREA NITROGEN, BLOOD 3 mg/dL (7-18)
[2021-11-25 07:14] LABS: GLOMERULAR FILTR. RATE CALC > 60 mL/min (>60)
[2021-11-25 08:00] VITALS: BP 101/60
[2021-11-25] MEDS: HEPARIN SODIUM,PORCINE 5,000 UNITS/ML VIAL SQ SCH ×3 (09:59→23:30)
[2021-11-25] MEDS: FOLIC ACID 0.4 MG TABLET PO SCH (09:59)
[2021-11-25] MEDS: THIAMINE 100 MG TABLET PO SCH (09:59)
[2021-11-25] MEDS ORDERED: POTASSIUM CHL 10 MEQ/WATER 50 ML IV PRN (12:00)
[2021-11-25 12:01] LABS: GLUCOMETER DEV NAME(LOC) 5S.2B; GLUCOSE,POINT OF CARE 215 MG/DL (70-110)
[2021-11-25] MEDS: MORPHINE SULFATE 4 MG/ML SYRINGE IVP PRN ×2 (13:17→20:20)
[2021-11-25] MEDS ORDERED: DENTURE ADHESIVE 68 GM CREAM DT PRN (14:30)
[2021-11-25] MEDS ORDERED: POTASSIUM CHLORIDE 20 MEQ ER TABLET PO ONE (15:00)
[2021-11-25 15:02] VITALS: BP 114/80
[2021-11-25 15:22] LABS: CREATINE KINASE, TOTAL ONLY 54 U/L (39-308)
[2021-11-25 17:46] LABS: GLUCOMETER DEV NAME(LOC) 5N.1C; GLUCOSE,POINT OF CARE 202 MG/DL (70-110)
[2021-11-25 19:55] VITALS: BP 114/76
[2021-11-25] MEDS: GABAPENTIN 300 MG CAPSULE PO SCH (20:07)
[2021-11-25] MEDS ORDERED: DiphenhydrAMINE HCL 25 MG CAPSULE PO ONE (22:45)
[2021-11-25 23:24] LABS: SODIUM,URINE RANDOM 84 mmol/l (20-110); UREA NITROGEN,URINE RANDOM 72 mg/dL (350-1000)
[2021-11-25 23:40] VITALS: BP 118/81
[2021-11-26] VITALS (7 sets, daily range): BP systolic 99–120; BP diastolic 58–81
[2021-11-26] MEDS: POTASSIUM CHL 20 MEQ/0.9% NS 1,000 ML IV SCH ×3 (01:44→21:28)
[2021-11-26] MEDS: INSULIN LISPRO 100 UNITS/ML SQ PRN ×4 (05:51→20:07)
[2021-11-26] MEDS: MORPHINE SULFATE 4 MG/ML SYRINGE IVP PRN ×4 (06:00→21:29)
[2021-11-26 06:01] LABS: GLUCOMETER DEV NAME(LOC) 5N.1C; GLUCOSE,POINT OF CARE 282 MG/DL (70-110)
[2021-11-26 07:40] LABS: ANION GAP 6 mmol/L (8-16); CARBON DIOXIDE 30 mmol/L (22-29); CHLORIDE 100 mmol/L (98-107); CREATININE 0.45 mg/dL (0.60-1.30); GLUCOSE,RANDOM 197 mg/dL (70-110); POTASSIUM 4.8 mmol/L (3.5-5.1); SODIUM SERUM 136 mmol/L (136-145); UREA NITROGEN, BLOOD 3 mg/dL (7-18)
[2021-11-26 07:41] LABS: CALCIUM, TOTAL 9.1 mg/dL (8.8-10.5); GLOMERULAR FILTR. RATE CALC > 60 mL/min (>60)
[2021-11-26] MEDS: FOLIC ACID 0.4 MG TABLET PO SCH (09:10)
[2021-11-26] MEDS: THIAMINE 100 MG TABLET PO SCH (09:11)
[2021-11-26] MEDS: HEPARIN SODIUM,PORCINE 5,000 UNITS/ML VIAL SQ SCH ×3 (09:11→23:50)
[2021-11-26] MEDS: INSULIN GLARGINE,HUM.REC.ANLOG 100 UNITS/ML SQ SCH ×2 (09:16→20:07)
[2021-11-26] MEDS: ACETAMINOPHEN 325 MG TABLET PO PRN ×3 (10:11→23:50)
[2021-11-26 18:11] LABS: GLUCOMETER DEV NAME(LOC) 5S.2B; GLUCOSE,POINT OF CARE 417 MG/DL (70-110)
[2021-11-26 18:11] LABS: GLUCOMETER DEV NAME(LOC) 5S.2B; GLUCOSE,POINT OF CARE 380 MG/DL (70-110)
[2021-11-26 18:11] LABS: GLUCOMETER DEV NAME(LOC) 5S.2B; GLUCOSE,POINT OF CARE 211 MG/DL (70-110)
[2021-11-26] MEDS: GABAPENTIN 300 MG CAPSULE PO SCH (20:03)
[2021-11-27] MEDS: MORPHINE SULFATE 4 MG/ML SYRINGE IVP PRN (02:40)
[2021-11-27 04:08] VITALS: BP 105/60
[2021-11-27] MEDS: INSULIN LISPRO 100 UNITS/ML SQ PRN ×3 (06:02→17:56)
[2021-11-27] MEDS ORDERED: LORazepam 1 MG TABLET PO PRN (07:00)
[2021-11-27 07:45] VITALS: BP 106/73
[2021-11-27 08:00] VITALS: BP 106/73
[2021-11-27] MEDS: LORazepam 1 MG TABLET PO SCH ×4 (09:15→20:56)
[2021-11-27] MEDS: ACETAMINOPHEN 325 MG TABLET PO PRN ×2 (09:15→21:04)
[2021-11-27] MEDS: THIAMINE 100 MG TABLET PO SCH (09:15)
[2021-11-27] MEDS: FOLIC ACID 0.4 MG TABLET PO SCH (09:15)
[2021-11-27] MEDS: HEPARIN SODIUM,PORCINE 5,000 UNITS/ML VIAL SQ SCH ×3 (09:15→23:46)
[2021-11-27] MEDS: INSULIN GLARGINE,HUM.REC.ANLOG 100 UNITS/ML SQ SCH ×2 (09:22→21:00)
[2021-11-27 11:55] VITALS: BP 99/61
[2021-11-27] MEDS ORDERED: KETOROLAC TROMETHAMINE 15 MG/ML VIAL IVP ONE (12:00)
[2021-11-27 16:20] VITALS: BP 103/64
[2021-11-27 20:07] VITALS: BP 104/67
[2021-11-27] MEDS: GABAPENTIN 300 MG CAPSULE PO SCH (20:57)
[2021-11-27 22:31] LABS: GLUCOMETER DEV NAME(LOC) 5S.1B; GLUCOSE,POINT OF CARE 248 MG/DL (70-110)
[2021-11-28 00:22] VITALS: BP 111/71
[2021-11-28] MEDS: ACETAMINOPHEN 325 MG TABLET PO PRN ×2 (03:09→10:17)
[2021-11-28 04:57] VITALS: BP 92/62
[2021-11-28] MEDS: INSULIN LISPRO 100 UNITS/ML SQ PRN ×2 (06:16→11:55)
[2021-11-28] MEDS ORDERED: LORazepam 1 MG TABLET PO PRN (07:00)
[2021-11-28 07:34] VITALS: BP 97/67
[2021-11-28] MEDS: HEPARIN SODIUM,PORCINE 5,000 UNITS/ML VIAL SQ SCH (08:42)
[2021-11-28] MEDS: THIAMINE 100 MG TABLET PO SCH (08:42)
[2021-11-28] MEDS: FOLIC ACID 0.4 MG TABLET PO SCH (08:42)
[2021-11-28] MEDS: INSULIN GLARGINE,HUM.REC.ANLOG 100 UNITS/ML SQ SCH (08:43)
[2021-11-28] MEDS ORDERED: GADOTERATE MEGLUMINE 10 MMOL/20 ML VIAL IVP ONE (09:35)
[2021-11-28 10:01] LABS: GLUCOMETER DEV NAME(LOC) 5N.3; GLUCOSE,POINT OF CARE 226 MG/DL (70-110)
[2021-11-28 10:37] VITALS: BP 115/79
[2021-11-28 12:16] LABS: GLUCOMETER DEV NAME(LOC) 5N.3; GLUCOSE,POINT OF CARE 247 MG/DL (70-110)
[2021-11-28 12:16] LABS: GLUCOMETER DEV NAME(LOC) 5N.3; GLUCOSE,POINT OF CARE 325 MG/DL (70-110)
[2021-11-28 12:17] LABS: GLUCOMETER DEV NAME(LOC) 5N.3; GLUCOSE,POINT OF CARE 292 MG/DL (70-110)
[2021-11-28 12:17] LABS: GLUCOMETER DEV NAME(LOC) 5N.3; GLUCOSE,POINT OF CARE 290 MG/DL (70-110)
[2021-11-28 12:17] LABS: GLUCOMETER DEV NAME(LOC) 5N.3; GLUCOSE,POINT OF CARE 287 MG/DL (70-110)
[2021-11-28 12:17] LABS: GLUCOMETER DEV NAME(LOC) 5N.3; GLUCOSE,POINT OF CARE 299 MG/DL (70-110)
[2021-11-28 13:01] LABS: GLUCOMETER DEV NAME(LOC) 5S.2B; GLUCOSE,POINT OF CARE 262 MG/DL (70-110)
[2021-11-28] MEDS ORDERED: BARIUM SULFATE 0.1% SUSPENSION 450 ML BOTTLE ONE (13:43)
[2021-11-28] MEDS ORDERED: SODIUM CHLORIDE 0.9% 100 ML ONE (13:43)
[2021-11-28] MEDS ORDERED: IOHEXOL 350 MG/ML 100 ML VIAL ONE (13:43)
[2021-11-28 14:41] VITALS: BP 101/60
[2021-11-28] MEDS ORDERED: INSULIN GLARGINE,HUM.REC.ANLOG 100 UNITS/ML SQ SCH (21:00)
== END 2021-11-28 15:05 | disposition left against medical advice (07) | DRG 420 ==
LOC: EMS 14:32 → 5S 19:42
PROVIDERS: ADMIT Internal Medicine; ATTEND Internal Medicine
DX: E11.10 Type 2 diabetes mellitus with ketoacidosis without coma (principal); N17.9 Acute kidney failure, unspecified; E43 Unspecified severe protein-calorie malnutrition; G62.1 Alcoholic polyneuropathy; E11.42 Type 2 diabetes mellitus with diabetic polyneuropathy; E11.21 Type 2 diabetes mellitus with diabetic nephropathy; E87.1 Hypo-osmolality and hyponatremia; E87.6 Hypokalemia; E83.42 Hypomagnesemia; F10.229 Alcohol dependence with intoxication, unspecified; Z20.822 Contact with and (suspected) exposure to COVID-19; Z53.29 Procedure and treatment not carried out because of patient's decision for other reasons; E11.65 Type 2 diabetes mellitus with hyperglycemia; M54.41 Lumbago with sciatica, right side; G89.29 Other chronic pain; Z79.4 Long term (current) use of insulin; Z91.14 Patient's other noncompliance with medication regimen; Z68.1 Body mass index [BMI] 19.9 or less, adult
CPT/HCPCS: 72132; 72158; 80048; 80053; 82043; 82550; 82570; 82948; 82962; 83735; 84100; 84132; 84300; 84540; 85025; 93005; 99285; G0378; G0480; J1644; J1815; J1885; J2270; J2405; J3475; J3480; J7030; J7050; Q9967

== ENCOUNTER 2021-12-05 22:01 | Inpatient (IN) | payer MEDICAID ==
[~2021-12-05] VITALS: Ht 157.5 cm; Wt 49.5 kg
[2021-12-05 23:05] LABS: BASOPHILS % (AUTO) 1.2 % (0.0-2.0); EOSINOPHILS % (AUTO) 1.1 % (1.0-6.0); HEMATOCRIT 36.3 % (41-53); HEMOGLOBIN 12.6 g/dL (13.5-17.5); LYMPHOCYTES # (AUTO) 2.6 K/uL (1.0-4.8); LYMPHOCYTES % (AUTO) 43.4 % (22.0-44.0); MEAN CORPUSCULAR HEMOGLOBIN 32.3 pg (26.0-34.0); MEAN CORPUSCULAR HGB CONC 34.7 G/dL (31.0-37.0); MEAN CORPUSCULAR VOLUME 93 fL (80-100); MONOCYTES # (AUTO) 0.4 K/uL (0.1-1.0); MONOCYTES % (AUTO) 6.6 % (2.0-9.0); NEUTROPHILS # (AUTO) 2.8 K/uL (1.8-7.7); NEUTROPHILS % (AUTO) 47.7 % (40.0-70.0); PLATELET COUNT (AUTO) 354 K/uL (150-450); RED CELL DISTRIBUTION WIDTH 13.2 % (11.5-14.5)
[2021-12-05] MEDS ORDERED: SODIUM CHLORIDE 0.9% 1,000 ML IV ONE ×2 (23:15→23:45)
[2021-12-05 23:20] LABS: ALANINE AMINOTRANSFERASE 62 U/L (12-78); ALKALINE PHOSPHATASE 168 U/L (46-116); ANION GAP 17 mmol/L (8-16); ASPARTATE AMINOTRANSFERASE 32 U/L (15-37); BILIRUBIN,TOTAL 0.2 mg/dL (0.1-1.0); CALCIUM, TOTAL 8.8 mg/dL (8.8-10.5); CARBON DIOXIDE 22 mmol/L (22-29); CHLORIDE 94 mmol/L (98-107); CREATINE KINASE, TOTAL ONLY 56 U/L (39-308); CREATININE 0.56 mg/dL (0.60-1.30); PHOSPHORUS 2.9 mg/dL (2.5-4.9); POTASSIUM 3.2 mmol/L (3.5-5.1); SODIUM SERUM 133 mmol/L (136-145); TOTAL PROTEIN, SERUM 7.4 g/dL (6.4-8.2); UREA NITROGEN, BLOOD 4 mg/dL (7-18)
[2021-12-05 23:21] LABS: COVID AG,FIA SOURCE NASOPHARYNGEAL
[2021-12-05 23:21] LABS: GLOMERULAR FILTR. RATE CALC > 60 mL/min (>60)
[2021-12-05 23:22] LABS: GLUCOSE,RANDOM 496 mg/dL (70-110)
[2021-12-05 23:23] LABS: B-TYPE NATRIURETIC PEPTIDE 10 pg/mL (0-100)
[2021-12-05 23:30] LABS: APPEARANCE,URINE CLEAR (CLEAR); BILIRUBIN,URINE NEGATIVE (NEGATIVE); GLUCOSE, URINE (UA) >=1000 mg/dL (NEGATIVE); KETONES,URINE TRACE mg/dL (NEGATIVE); LEUKOCYTE ESTERASE ,URINE NEGATIVE (NEGATIVE); NITRATE,URINE NEGATIVE (NEGATIVE); OCCULT BLOOD,URINE NEGATIVE (NEGATIVE); PROTEIN,URINE NEGATIVE (NEGATIVE); SPECIFIC GRAVITIY, URINE 1.035 (1.003-1.030); UROBILINOGEN,URINE <=1.0 mg/dL (<=1.0)
[2021-12-05] MEDS ORDERED: KETOROLAC TROMETHAMINE 30 MG/ML VIAL IVP ONE (23:30)
[2021-12-05 23:32] LABS: ACETONE,BLOOD NEGATIVE (NEGATIVE)
[2021-12-05 23:37] LABS: AMPHET/METH SCREEN,URINE NEGATIVE (NEGATIVE); BARBITURATE SCREEN, URINE NEGATIVE (NEGATIVE); BENZODIAZEPINES SCREEN,URINE NEGATIVE (NEGATIVE); CANNABINOID SCREEN,URINE NEGATIVE (NEGATIVE); COCAINE SCREEN,URINE NEGATIVE (NEGATIVE); METHADONE SCREEN, URINE NEGATIVE (NEGATIVE); OPIATE SCREEN,URINE NEGATIVE (NEGATIVE)
[2021-12-05 23:39] LABS: PHENCYCLIDINE SCREEN,URINE NEGATIVE (NEGATIVE)
[2021-12-05] MEDS ORDERED: POTASSIUM CHL 10 MEQ/WATER 50 ML IV PRN (23:45)
[2021-12-05] MEDS ORDERED: DEXTROSE 50%-WATER 25 GM/50 ML SYRINGE IVP PRN (23:45)
[2021-12-05] MEDS ORDERED: ONDANSETRON HCL 4 MG/2 ML VIAL IVP PRN (23:45)
[2021-12-05] MEDS ORDERED: MAGNESIUM HYDROXIDE SUSPENSION 30 ML UDCUP PO PRN (23:45)
[2021-12-05] MEDS ORDERED: POTASSIUM CHLORIDE 20 MEQ ER TABLET PO PRN (23:45)
[2021-12-05] MEDS ORDERED: MAGNESIUM SULFATE 2 GM/WATER 50 ML IV PRN (23:45)
[2021-12-05] MEDS ORDERED: MAGNESIUM OXIDE 400 MG TABLET PO PRN (23:45)
[2021-12-05] MEDS ORDERED: MAGNESIUM SULFATE 4 GM/WATER 100 ML IV PRN (23:45)
[2021-12-05] MEDS ORDERED: INSULIN GLARGINE,HUM.REC.ANLOG 100 UNITS/ML SQ SCH (23:45)
[2021-12-05 23:51] LABS: GLUCOMETER DEV NAME(LOC) ERT.5; GLUCOSE,POINT OF CARE 437 MG/DL (70-110)
[2021-12-05 23:51] LABS: BACTERIA,URINE None Seen /HPF (None Seen); RBC,URINE 0-2 /HPF (0-2); WBC,URINE 0-2 /HPF (0-5)
[2021-12-06] MEDS ORDERED: INSULIN REGULAR, HUMAN 100 UNITS/ML IVP ONE (00:30)
[2021-12-06] MEDS: POTASSIUM CHL 10 MEQ/WATER 50 ML IV SCH ×3 (00:46→11:25)
[2021-12-06 02:03] LABS: ANION GAP 10 mmol/L (8-16); CALCIUM, TOTAL 8.2 mg/dL (8.8-10.5); CARBON DIOXIDE 27 mmol/L (22-29); CHLORIDE 101 mmol/L (98-107); CREATININE 0.49 mg/dL (0.60-1.30); GLUCOSE,RANDOM 310 mg/dL (70-110); POTASSIUM 3.2 mmol/L (3.5-5.1); SODIUM SERUM 138 mmol/L (136-145); UREA NITROGEN, BLOOD 4 mg/dL (7-18)
[2021-12-06 02:05] LABS: GLOMERULAR FILTR. RATE CALC > 60 mL/min (>60)
[2021-12-06 02:06] LABS: ALBUMIN 3.8 g/dL (3.4-5.0); PHOSPHORUS 1.8 mg/dL (2.5-4.9)
[2021-12-06] MEDS ORDERED: POTASSIUM PHOS,M-BASIC-D-BASIC 30 MMOL in DEXTROSE 5%-WATER 250 ML IV ONE (02:30)
[2021-12-06 05:08] VITALS: BP 126/76
[2021-12-06] MEDS: ACETAMINOPHEN 325 MG TABLET PO PRN ×3 (05:44→18:03)
[2021-12-06] MEDS: INSULIN LISPRO 100 UNITS/ML SQ PRN ×4 (05:46→20:51)
[2021-12-06 07:36] VITALS: BP 111/81
[2021-12-06] MEDS: LORazepam 2 MG/ML VIAL IVP PRN ×2 (08:38→18:03)
[2021-12-06] MEDS: MULTIVITAMINS WITH MINERALS, THERAPEUTIC TABLET PO SCH (08:38)
[2021-12-06] MEDS: FAMOTIDINE 20 MG TABLET PO SCH ×2 (08:38→20:49)
[2021-12-06 11:08] VITALS: BP 123/86
[2021-12-06 13:41] LABS: GLUCOMETER DEV NAME(LOC) 5S.1B; GLUCOSE,POINT OF CARE 376 MG/DL (70-110)
[2021-12-06] MEDS ORDERED: DEXTROSE 50%-WATER 25 GM/50 ML SYRINGE IVP PRN (14:45)
[2021-12-06 15:26] VITALS: BP 119/84
[2021-12-06] MEDS ORDERED: POTASSIUM PHOS,M-BASIC-D-BASIC 30 MEQ in DEXTROSE 5%-WATER 150 ML IV ONE (19:15)
[2021-12-06 20:03] VITALS: BP 105/68
[2021-12-07 00:27] VITALS: BP 118/77
[2021-12-07 04:22] VITALS: BP 109/71
[2021-12-07] MEDS: ACETAMINOPHEN 325 MG TABLET PO PRN ×3 (05:30→17:13)
[2021-12-07 05:32] LABS: GLUCOMETER DEV NAME(LOC) 5N.1C; GLUCOSE,POINT OF CARE 283 MG/DL (70-110)
[2021-12-07 05:32] LABS: GLUCOMETER DEV NAME(LOC) 5N.1C; GLUCOSE,POINT OF CARE 279 MG/DL (70-110)
[2021-12-07 05:32] LABS: GLUCOMETER DEV NAME(LOC) 5N.1C; GLUCOSE,POINT OF CARE 320 MG/DL (70-110)
[2021-12-07] MEDS: INSULIN LISPRO 100 UNITS/ML SQ PRN ×3 (05:36→17:41)
[2021-12-07 07:19] LABS: ANION GAP 8 mmol/L (8-16); CALCIUM, TOTAL 9.2 mg/dL (8.8-10.5); CARBON DIOXIDE 26 mmol/L (22-29); CHLORIDE 99 mmol/L (98-107); CREATININE 0.61 mg/dL (0.60-1.30); GLOMERULAR FILTR. RATE CALC > 60 mL/min (>60); GLUCOSE,RANDOM 365 mg/dL (70-110); POTASSIUM 4.2 mmol/L (3.5-5.1); SODIUM SERUM 133 mmol/L (136-145); UREA NITROGEN, BLOOD 9 mg/dL (7-18)
[2021-12-07 07:31] VITALS: BP 125/69
[2021-12-07 08:07] LABS: GLUCOMETER DEV NAME(LOC) 5N.1C; GLUCOSE,POINT OF CARE 394 MG/DL (70-110)
[2021-12-07] MEDS: MULTIVITAMINS WITH MINERALS, THERAPEUTIC TABLET PO SCH (09:28)
[2021-12-07] MEDS: FAMOTIDINE 20 MG TABLET PO SCH (09:40)
[2021-12-07] MEDS: LORazepam 2 MG/ML VIAL IVP PRN ×2 (09:41→17:41)
[2021-12-07 10:47] VITALS: BP 114/78
[2021-12-07] MEDS ORDERED: FOLIC ACID 1 MG TABLET PO SCH (11:30)
[2021-12-07] MEDS ORDERED: THIAMINE 100 MG TABLET PO SCH (11:30)
[2021-12-07 16:03] VITALS: BP 117/89
[2021-12-07 20:26] LABS: GLUCOMETER DEV NAME(LOC) 5S.1B; GLUCOSE,POINT OF CARE 271 MG/DL (70-110)
[2021-12-07 20:27] LABS: GLUCOMETER DEV NAME(LOC) 5S.1B; GLUCOSE,POINT OF CARE 278 MG/DL (70-110)
== END 2021-12-07 18:35 | disposition left against medical advice (07) | DRG 52 ==
LOC: EMS 22:10 → 5S 12-06 01:28
PROVIDERS: ADMIT Internal Medicine; ATTEND Internal Medicine
DX: G92.9 Unspecified toxic encephalopathy (principal); E11.65 Type 2 diabetes mellitus with hyperglycemia; E87.6 Hypokalemia; F10.129 Alcohol abuse with intoxication, unspecified; Z20.822 Contact with and (suspected) exposure to COVID-19; G62.9 Polyneuropathy, unspecified; Z91.19 Patient's noncompliance with other medical treatment and regimen; Z91.14 Patient's other noncompliance with medication regimen; Z79.899 Other long term (current) drug therapy; Z79.4 Long term (current) use of insulin
CPT/HCPCS: 71045; 80048; 80053; 81001; 81003; 82009; 82040; 82550; 82962; 83735; 83880; 83930; 84100; 84132; 84484; 85025; 87081; 93005; 99291; G0378; G0480; J1815; J1885; J2060; J3475; J3480; J3490; J7030; J7060; 36415-L1; 36415-TC

== ENCOUNTER 2022-01-27 21:40 | Emergency (ER) | payer MEDICAID ==
[~2022-01-27] VITALS: Ht 154.9 cm; Wt 54.5 kg
[2022-01-28 01:22] LABS: BASOPHILS % (AUTO) 0.9 % (0.0-2.0); EOSINOPHILS % (AUTO) 2.3 % (1.0-6.0); HEMATOCRIT 39.4 % (41-53); HEMOGLOBIN 13.6 g/dL (13.5-17.5); LYMPHOCYTES # (AUTO) 2.2 K/uL (1.0-4.8); LYMPHOCYTES % (AUTO) 38.3 % (22.0-44.0); MEAN CORPUSCULAR HEMOGLOBIN 32.5 pg (26.0-34.0); MEAN CORPUSCULAR HGB CONC 34.5 G/dL (31.0-37.0); MEAN CORPUSCULAR VOLUME 94 fL (80-100); MONOCYTES # (AUTO) 0.7 K/uL (0.1-1.0); NEUTROPHILS # (AUTO) 2.6 K/uL (1.8-7.7); NEUTROPHILS % (AUTO) 45.5 % (40.0-70.0); PLATELET COUNT (AUTO) 375 K/uL (150-450); RED BLOOD CELL COUNT(AUTO) 4.18 MIL/uL (4.50-5.90); RED CELL DISTRIBUTION WIDTH 13.4 % (11.5-14.5)
[2022-01-28 01:32] LABS: ANION GAP 7 mmol/L (8-16); CALCIUM, TOTAL 8.8 mg/dL (8.8-10.5); CARBON DIOXIDE 29 mmol/L (22-29); CHLORIDE 104 mmol/L (98-107); CREATININE 0.46 mg/dL (0.60-1.30); GLUCOSE,RANDOM 183 mg/dL (70-110); POTASSIUM 3.3 mmol/L (3.5-5.1); SODIUM SERUM 140 mmol/L (136-145); UREA NITROGEN, BLOOD 7 mg/dL (7-18)
[2022-01-28 01:39] LABS: ALANINE AMINOTRANSFERASE 39 U/L (12-78); ALBUMIN 3.9 g/dL (3.4-5.0); ALKALINE PHOSPHATASE 148 U/L (46-116); ASPARTATE AMINOTRANSFERASE 39 U/L (15-37); BILIRUBIN,TOTAL 0.3 mg/dL (0.1-1.0); TOTAL PROTEIN, SERUM 7.4 g/dL (6.4-8.2)
[2022-01-28 01:41] LABS: GLOMERULAR FILTR. RATE CALC > 60 mL/min (>60)
[2022-01-28 02:55] VITALS: BP 95/55
[2022-01-28] MEDS ORDERED: IBUPROFEN 600 MG TABLET PO ONE (04:00)
== END 2022-01-28 04:52 | disposition home or self-care (01) ==
LOC: EMS 21:45
DX: E11.65 Type 2 diabetes mellitus with hyperglycemia (principal); F10.20 Alcohol dependence, uncomplicated; G62.9 Polyneuropathy, unspecified; Z86.69 Personal history of other diseases of the nervous system and sense organs
CPT/HCPCS: 80053; 85025; 99283

== ENCOUNTER 2022-02-05 21:40 | Emergency (ER) | payer MEDICAID ==
[~2022-02-05] VITALS: Ht 160 cm; Wt 49.5 kg
[2022-02-05] MEDS ORDERED: IBUP-1554 PO (22:45)
[2022-02-05] MEDS ORDERED: IBUPROFEN 600 MG TABLET PO ONE (22:45)
[2022-02-06 00:01] VITALS: BP 129/71
== END 2022-02-06 00:09 | disposition home or self-care (01) ==
LOC: EMS 21:41
DX: S63.692A Other sprain of right middle finger, initial encounter (principal); F10.229 Alcohol dependence with intoxication, unspecified; E11.9 Type 2 diabetes mellitus without complications; G62.9 Polyneuropathy, unspecified; Z86.69 Personal history of other diseases of the nervous system and sense organs; W23.0XXA Caught, crushed, jammed, or pinched between moving objects, initial encounter; Y93.89 Activity, other specified; Y92.89 Other specified places as the place of occurrence of the external cause; Y99.8 Other external cause status
CPT/HCPCS: 29280; 99283

== ENCOUNTER 2022-04-21 10:26 | Emergency (ER) | payer MEDICAID ==
[~2022-04-21] VITALS: Ht 152.4 cm; Wt 50.0 kg
[~2022-04-21 10:26] MED LIST changes: +IBUP-1554 PO
[2022-04-21 11:11] LABS: GLUCOMETER DEV NAME(LOC) ERT.5; GLUCOSE,POINT OF CARE 502 MG/DL (70-110)
[2022-04-21] MEDS ORDERED: SODIUM CHLORIDE 0.9% 1,000 ML IV ONE (11:15)
[2022-04-21 11:36] LABS: EOSINOPHILS % (AUTO) 0.4 % (1.0-6.0); HEMATOCRIT 38.1 % (41-53); HEMOGLOBIN 13.1 g/dL (13.5-17.5); LYMPHOCYTES # (AUTO) 1.6 K/uL (1.0-4.8); LYMPHOCYTES % (AUTO) 37.9 % (22.0-44.0); MEAN CORPUSCULAR HEMOGLOBIN 33.8 pg (26.0-34.0); MEAN CORPUSCULAR HGB CONC 34.4 G/dL (31.0-37.0); MEAN CORPUSCULAR VOLUME 98 fL (80-100); MONOCYTES # (AUTO) 0.4 K/uL (0.1-1.0); MONOCYTES % (AUTO) 9.6 % (2.0-9.0); NEUTROPHILS # (AUTO) 2.1 K/uL (1.8-7.7); NEUTROPHILS % (AUTO) 51.1 % (40.0-70.0); PLATELET COUNT (AUTO) 325 K/uL (150-450); RED BLOOD CELL COUNT(AUTO) 3.88 MIL/uL (4.50-5.90); RED CELL DISTRIBUTION WIDTH 14.7 % (11.5-14.5)
[2022-04-21 12:07] LABS: MAGNESIUM 2.1 mg/dL (1.80-2.40); PHOSPHORUS 3.8 mg/dL (2.5-4.9)
[2022-04-21 12:11] LABS: ALANINE AMINOTRANSFERASE 56 U/L (12-78); ALBUMIN 3.9 g/dL (3.4-5.0); ALKALINE PHOSPHATASE 167 U/L (46-116); ANION GAP 14 mmol/L (8-16); ASPARTATE AMINOTRANSFERASE 86 U/L (15-37); BILIRUBIN,TOTAL 0.7 mg/dL (0.1-1.0); CALCIUM, TOTAL 9.1 mg/dL (8.8-10.5); CARBON DIOXIDE 27 mmol/L (22-29); CHLORIDE 96 mmol/L (98-107); CREATININE 0.53 mg/dL (0.60-1.30); POTASSIUM 3.6 mmol/L (3.5-5.1); SODIUM SERUM 137 mmol/L (136-145); TOTAL PROTEIN, SERUM 7.4 g/dL (6.4-8.2); UREA NITROGEN, BLOOD 2 mg/dL (7-18)
[2022-04-21 12:12] LABS: GLOMERULAR FILTR. RATE CALC > 60 mL/min (>60)
[2022-04-21 12:13] LABS: GLUCOSE,RANDOM 498 mg/dL (70-110)
[2022-04-21] MEDS ORDERED: MAGNESIUM SULFATE 2 GM, MVI, ADULT NO.1 WITH VIT K 10 ML, THIAMINE 100 MG, FOLIC ACID 1... IV ONE ×5 (12:30)
[2022-04-21] MEDS ORDERED: INSULIN REGULAR, HUMAN 100 UNITS/ML SQ ONE (12:30)
[2022-04-21 13:53] VITALS: BP 114/82
[2022-04-21 14:11] LABS: GLUCOMETER DEV NAME(LOC) ERT.5; GLUCOSE,POINT OF CARE 333 MG/DL (70-110)
[2022-04-21] MEDS ORDERED: IBUPROFEN 600 MG TABLET PO ONE (14:30)
== END 2022-04-21 15:34 | disposition home or self-care (01) ==
LOC: EMS 10:43
DX: F10.229 Alcohol dependence with intoxication, unspecified (principal); E11.65 Type 2 diabetes mellitus with hyperglycemia; G62.9 Polyneuropathy, unspecified; Z86.69 Personal history of other diseases of the nervous system and sense organs; Z86.79 Personal history of other diseases of the circulatory system; Z20.822 Contact with and (suspected) exposure to COVID-19; Y90.8 Blood alcohol level of 240 mg/100 ml or more
CPT/HCPCS: 99284; 96365; 96361; 80053; 82009; 82962; 83735; 84100; 85025; 36415; 96372; G0480; J3490 ×2; J3411; J3475; J7030; J1815

== ENCOUNTER 2022-04-26 16:55 | Inpatient (IN) | payer MEDICAID ==
[~2022-04-26] VITALS: Ht 162.6 cm; Wt 45.5 kg
[2022-04-26] MEDS ORDERED: SODIUM CHLORIDE 0.9% 2,000 ML IV ONE (17:30)
[2022-04-26] MEDS ORDERED: BACITRACIN 28 GM OINTMENT TP ONE (17:30)
[2022-04-26] MEDS ORDERED: INSULIN REGULAR, HUMAN 100 UNITS/ML IVP ONE (17:30)
[2022-04-26 17:40] LABS: GLUCOMETER DEV NAME(LOC) ERT.5; GLUCOSE,POINT OF CARE 354 MG/DL (70-110)
[2022-04-26 18:05] LABS: BASOPHILS % (AUTO) 0.6 % (0.0-2.0); EOSINOPHILS % (AUTO) 0.7 % (1.0-6.0); HEMOGLOBIN 14.2 g/dL (13.5-17.5); LYMPHOCYTES # (AUTO) 1.5 K/uL (1.0-4.8); LYMPHOCYTES % (AUTO) 19.5 % (22.0-44.0); MEAN CORPUSCULAR HEMOGLOBIN 33.8 pg (26.0-34.0); MEAN CORPUSCULAR HGB CONC 34.6 G/dL (31.0-37.0); MEAN CORPUSCULAR VOLUME 98 fL (80-100); MONOCYTES # (AUTO) 0.4 K/uL (0.1-1.0); MONOCYTES % (AUTO) 5.9 % (2.0-9.0); NEUTROPHILS # (AUTO) 5.5 K/uL (1.8-7.7); NEUTROPHILS % (AUTO) 73.3 % (40.0-70.0); PLATELET COUNT (AUTO) 327 K/uL (150-450); RED CELL DISTRIBUTION WIDTH 14.8 % (11.5-14.5)
[2022-04-26 18:14] LABS: APPEARANCE,URINE CLEAR (CLEAR); BILIRUBIN,URINE NEGATIVE (NEGATIVE); GLUCOSE, URINE (UA) >=1000 mg/dL (NEGATIVE); KETONES,URINE 40-60 mg/dL (NEGATIVE); LEUKOCYTE ESTERASE ,URINE NEGATIVE (NEGATIVE); NITRATE,URINE NEGATIVE (NEGATIVE); OCCULT BLOOD,URINE NEGATIVE (NEGATIVE); PH,URINE 6.5 (5.0-8.0); PROTEIN,URINE NEGATIVE (NEGATIVE); SPECIFIC GRAVITIY, URINE 1.036 (1.003-1.030); UROBILINOGEN,URINE <=1.0 mg/dL (<=1.0)
[2022-04-26 18:18] LABS: ALANINE AMINOTRANSFERASE 55 U/L (12-78); ALBUMIN 4.4 g/dL (3.4-5.0); ALKALINE PHOSPHATASE 184 U/L (46-116); ANION GAP 17 mmol/L (8-16); ASPARTATE AMINOTRANSFERASE 60 U/L (15-37); BILIRUBIN,TOTAL 0.5 mg/dL (0.1-1.0); CALCIUM, TOTAL 9.1 mg/dL (8.8-10.5); CARBON DIOXIDE 24 mmol/L (22-29); CHLORIDE 100 mmol/L (98-107); CREATININE 0.63 mg/dL (0.60-1.30); GLUCOSE,RANDOM 382 mg/dL (70-110); LIPASE 25 U/L (73-393); SODIUM SERUM 141 mmol/L (136-145); TOTAL PROTEIN, SERUM 8.2 g/dL (6.4-8.2); UREA NITROGEN, BLOOD 5 mg/dL (7-18)
[2022-04-26 18:21] LABS: AMORPHOUS SEDIMENT,UR Few /LPF (None Seen); BACTERIA,URINE Few /HPF (None Seen); RBC,URINE 0-2 /HPF (0-2); SQUAMOUS EPITHELIAL CELL,UR Few /LPF (None Seen); WBC,URINE 0-2 /HPF (0-5)
[2022-04-26 18:26] LABS: GLUCOMETER DEV NAME(LOC) ERT.5; GLUCOSE,POINT OF CARE 346 MG/DL (70-110)
[2022-04-26 18:26] LABS: GLOMERULAR FILTR. RATE CALC > 60 mL/min (>60)
[2022-04-26 18:29] LABS: POTASSIUM 2.3 mmol/L (3.5-5.1)
[2022-04-26 18:30] LABS: LACTIC ACID 4.7 mmol/L (0.4-2.0)
[2022-04-26] MEDS ORDERED: ACETAMINOPHEN 325 MG TABLET PO ONE (19:00)
[2022-04-26 19:07] LABS: ABG BASE EXCESS -2.6 mmol/L (-2.0-3.0); ABG CARBOXYHEMOGLOBIN 0.3 % (0.0-1.5); ABG HCO3 22.8 mmol/L (22.0-26.0); ABG METHEMOGLOBIN 0.4 % (0.0-1.5); ABG OXYGEN CONTENT 17.7 mL/dL (15.0-23.0); ABG OXYGEN SATURATION 96.3 % (95.0-98.0); ABG OXYHEMOGLOBIN 95.6 % (94.0-100.0); ABG PCO2 33 mmHg (35-45); ABG PH 7.436 (7.350-7.450); ABG TOTAL HEMOGLOBIN 13.1 G/dL (12.0-18.0); PO2, ARTERIAL BG 89.8 mmHg (92.0-100.0); SOURCE, BLOOD GAS ARTERIAL; TEMPERATURE, FAHRENHEIT, BG 97.5 FAHREN (96.0-98.6)
[2022-04-26 19:08] LABS: SITE, BLOOD GAS RT BRACHIAL
[2022-04-26] MEDS ORDERED: POTASSIUM CHLORIDE 10% 40 MEQ/30 ML LIQUID UDCUP PO ONE ×2 (19:45→20:15)
[2022-04-26] MEDS ORDERED: PERTUSS(ACELL),DIPH,TET VAC/PF 0.5 ML SYRINGE IM. ONE (19:45)
[2022-04-26] MEDS ORDERED: POTASSIUM CHLORIDE 20 MEQ ER TABLET PO PRN (20:00)
[2022-04-26] MEDS ORDERED: ONDANSETRON HCL 4 MG/2 ML VIAL IVP PRN (20:00)
[2022-04-26] MEDS ORDERED: DEXTROSE 50%-WATER 25 GM/50 ML SYRINGE IVP PRN (20:00)
[2022-04-26] MEDS ORDERED: ACETAMINOPHEN 325 MG TABLET PO PRN (20:00)
[2022-04-26] MEDS ORDERED: MAGNESIUM SULFATE 2 GM/WATER 50 ML IV PRN (20:00)
[2022-04-26] MEDS ORDERED: MAGNESIUM OXIDE 400 MG TABLET PO PRN (20:00)
[2022-04-26] MEDS ORDERED: MAGNESIUM SULFATE 4 GM/WATER 100 ML IV PRN (20:00)
[2022-04-26] MEDS ORDERED: SODIUM CHLORIDE 0.9% 1,000 ML IV ONE (20:00)
[2022-04-26] MEDS ORDERED: ZOLPIDEM TARTRATE 5 MG TABLET PO PRN (20:00)
[2022-04-26 20:40] LABS: ACETONE,BLOOD TRACE (NEGATIVE)
[2022-04-26 21:09] LABS: ALBUMIN 4.2 g/dL (3.4-5.0); ANION GAP 16 mmol/L (8-16); CALCIUM, TOTAL 8.8 mg/dL (8.8-10.5); CARBON DIOXIDE 25 mmol/L (22-29); CHLORIDE 100 mmol/L (98-107); CREATININE 0.42 mg/dL (0.60-1.30); GLOMERULAR FILTR. RATE CALC > 60 mL/min (>60); GLUCOSE,RANDOM 331 mg/dL (70-110); SODIUM SERUM 141 mmol/L (136-145); UREA NITROGEN, BLOOD 5 mg/dL (7-18)
[2022-04-26 21:10] LABS: POTASSIUM 2.4 mmol/L (3.5-5.1)
[2022-04-26] MEDS: DOCUSATE SODIUM 100 MG CAPSULE PO SCH (21:22)
[2022-04-26] MEDS: INSULIN GLARGINE,HUM.REC.ANLOG 100 UNITS/ML SQ SCH (21:22)
[2022-04-26] MEDS: FAMOTIDINE 20 MG TABLET PO SCH (21:22)
[2022-04-26 21:33] LABS: COVID AG,FIA SOURCE NASAL SWAB
[2022-04-26] MEDS: OxyCODONE HCL/ACETAMINOPHEN 5-325 MG TABLET PO PRN (22:17)
[2022-04-26 23:15] VITALS: BP 135/95
[2022-04-27] MEDS ORDERED: PNEUMOCOCCAL VACCINE POLYVALENT 0.5 ML VIAL [PPSV23] IM. ONE (01:15)
[2022-04-27] MEDS: OxyCODONE HCL/ACETAMINOPHEN 5-325 MG TABLET PO PRN ×4 (02:35→17:57)
[2022-04-27 04:22] VITALS: BP 125/94
[2022-04-27] MEDS: LORazepam 2 MG/ML VIAL IVP PRN ×2 (04:29→20:30)
[2022-04-27 05:04] VITALS: BP 130/90
[2022-04-27 06:01] LABS: MAGNESIUM 1.4 mg/dL (1.80-2.40)
[2022-04-27] MEDS: INSULIN LISPRO 100 UNITS/ML SQ PRN ×4 (06:07→20:32)
[2022-04-27 06:11] LABS: POTASSIUM 2.9 mmol/L (3.5-5.1)
[2022-04-27] MEDS ORDERED: SODIUM CHLORIDE 0.9% 250 ML IV ONE (07:33)
[2022-04-27 07:36] LABS: GLUCOMETER DEV NAME(LOC) 6N.1; GLUCOSE,POINT OF CARE 280 MG/DL (70-110)
[2022-04-27] MEDS: DOCUSATE SODIUM 100 MG CAPSULE PO SCH ×2 (07:57→20:30)
[2022-04-27] MEDS: MULTIVITAMINS WITH MINERALS, THERAPEUTIC TABLET PO SCH (07:57)
[2022-04-27] MEDS: FAMOTIDINE 20 MG TABLET PO SCH ×2 (07:57→20:30)
[2022-04-27 08:08] VITALS: BP 126/69
[2022-04-27 12:16] LABS: GLUCOMETER DEV NAME(LOC) 6N.1; GLUCOSE,POINT OF CARE 214 MG/DL (70-110)
[2022-04-27] MEDS ORDERED: SODIUM CHLORIDE 0.9% 500 ML IV ONE (12:50)
[2022-04-27] MEDS: POTASSIUM CHL 10 MEQ/WATER 50 ML IV PRN ×4 (13:23→18:17)
[2022-04-27] MEDS: CEPHALEXIN MONOHYDRATE 500 MG CAPSULE PO SCH ×2 (16:05→23:48)
[2022-04-27 16:26] VITALS: BP 124/99
[2022-04-27 19:21] LABS: GLUCOMETER DEV NAME(LOC) 6N.2B; GLUCOSE,POINT OF CARE 268 MG/DL (70-110)
[2022-04-27 19:40] VITALS: BP 126/80
[2022-04-27] MEDS: GABAPENTIN 300 MG CAPSULE PO SCH (20:29)
[2022-04-27] MEDS: SULFAMETHOX/TRIMETH DS 800-160 MG/TABLET PO SCH (20:30)
[2022-04-27] MEDS: INSULIN GLARGINE,HUM.REC.ANLOG 100 UNITS/ML SQ SCH (20:32)
[2022-04-27 22:16] LABS: GLUCOMETER DEV NAME(LOC) 6N.2B; GLUCOSE,POINT OF CARE 166 MG/DL (70-110)
[2022-04-28 04:20] VITALS: BP 108/78
[2022-04-28] MEDS: INSULIN LISPRO 100 UNITS/ML SQ PRN ×4 (06:20→20:17)
[2022-04-28 07:06] LABS: ALANINE AMINOTRANSFERASE 44 U/L (12-78); ALBUMIN 3.3 g/dL (3.4-5.0); ALKALINE PHOSPHATASE 159 U/L (46-116); ANION GAP 4 mmol/L (8-16); ASPARTATE AMINOTRANSFERASE 53 U/L (15-37); BILIRUBIN,TOTAL 0.6 mg/dL (0.1-1.0); CALCIUM, TOTAL 9.2 mg/dL (8.8-10.5); CARBON DIOXIDE 31 mmol/L (22-29); CHLORIDE 98 mmol/L (98-107); CREATININE 0.48 mg/dL (0.60-1.30); GLUCOSE,RANDOM 144 mg/dL (70-110); POTASSIUM 4.1 mmol/L (3.5-5.1); SODIUM SERUM 133 mmol/L (136-145); TOTAL PROTEIN, SERUM 6.8 g/dL (6.4-8.2); UREA NITROGEN, BLOOD 7 mg/dL (7-18)
[2022-04-28 07:07] LABS: GLOMERULAR FILTR. RATE CALC > 60 mL/min (>60)
[2022-04-28 07:15] LABS: GLUCOMETER DEV NAME(LOC) 6N.1; GLUCOSE,POINT OF CARE 135 MG/DL (70-110)
[2022-04-28 08:17] VITALS: BP 122/85
[2022-04-28] MEDS: DOCUSATE SODIUM 100 MG CAPSULE PO SCH ×2 (08:26→20:18)
[2022-04-28] MEDS: FOLIC ACID 1 MG TABLET PO SCH (08:26)
[2022-04-28] MEDS: FAMOTIDINE 20 MG TABLET PO SCH ×2 (08:26→20:18)
[2022-04-28] MEDS: SULFAMETHOX/TRIMETH DS 800-160 MG/TABLET PO SCH ×2 (08:26→20:17)
[2022-04-28] MEDS: THIAMINE 100 MG TABLET PO SCH (08:26)
[2022-04-28] MEDS: MULTIVITAMINS WITH MINERALS, THERAPEUTIC TABLET PO SCH (08:26)
[2022-04-28] MEDS: CEPHALEXIN MONOHYDRATE 500 MG CAPSULE PO SCH ×3 (08:26→23:46)
[2022-04-28] MEDS: INSULIN GLARGINE,HUM.REC.ANLOG 100 UNITS/ML SQ SCH ×2 (08:33→20:16)
[2022-04-28] MEDS ORDERED: THIAMINE 100 MG TABLET PO SCH (09:00)
[2022-04-28] MEDS: OxyCODONE HCL/ACETAMINOPHEN 5-325 MG TABLET PO PRN ×3 (10:23→20:25)
[2022-04-28] MEDS ORDERED: SODIUM CHLORIDE 0.9% IRRIG BTL 1,000 ML IRRIG ONE (13:36)
[2022-04-28 14:01] LABS: GLUCOMETER DEV NAME(LOC) 6N.2B; GLUCOSE,POINT OF CARE 186 MG/DL (70-110)
[2022-04-28 15:00] VITALS: BP 114/76
[2022-04-28 18:16] LABS: GLUCOMETER DEV NAME(LOC) 6N.1; GLUCOSE,POINT OF CARE 131 MG/DL (70-110)
[2022-04-28 20:00] VITALS: BP 113/82
[2022-04-28] MEDS: GABAPENTIN 300 MG CAPSULE PO SCH (20:18)
[2022-04-28 21:21] LABS: GLUCOMETER DEV NAME(LOC) 6N.1; GLUCOSE,POINT OF CARE 200 MG/DL (70-110)
[2022-04-29 04:02] VITALS: BP 116/82
[2022-04-29] MEDS: OxyCODONE HCL/ACETAMINOPHEN 5-325 MG TABLET PO PRN ×3 (04:53→19:53)
[2022-04-29] MEDS: INSULIN LISPRO 100 UNITS/ML SQ PRN ×4 (05:48→20:36)
[2022-04-29 08:05] VITALS: BP 101/69
[2022-04-29] MEDS: SULFAMETHOX/TRIMETH DS 800-160 MG/TABLET PO SCH ×2 (08:10→20:32)
[2022-04-29] MEDS: CEPHALEXIN MONOHYDRATE 500 MG CAPSULE PO SCH ×3 (08:10→23:50)
[2022-04-29 08:11] LABS: GLUCOMETER DEV NAME(LOC) 6N.1; GLUCOSE,POINT OF CARE 179 MG/DL (70-110)
[2022-04-29] MEDS: FAMOTIDINE 20 MG TABLET PO SCH ×2 (08:11→19:53)
[2022-04-29] MEDS: ASCORBIC ACID 500 MG TABLET PO SCH (08:11)
[2022-04-29] MEDS: THIAMINE 100 MG TABLET PO SCH (08:11)
[2022-04-29] MEDS: FOLIC ACID 1 MG TABLET PO SCH (08:11)
[2022-04-29] MEDS: DOCUSATE SODIUM 100 MG CAPSULE PO SCH ×2 (08:11→19:52)
[2022-04-29] MEDS: INSULIN GLARGINE,HUM.REC.ANLOG 100 UNITS/ML SQ SCH ×2 (08:21→20:32)
[2022-04-29] MEDS: MULTIVITAMINS WITH MINERALS, THERAPEUTIC TABLET PO SCH (12:12)
[2022-04-29 13:06] LABS: GLUCOMETER DEV NAME(LOC) 6N.1; GLUCOSE,POINT OF CARE 194 MG/DL (70-110)
[2022-04-29 19:15] VITALS: BP 123/56
[2022-04-29] MEDS: GABAPENTIN 300 MG CAPSULE PO SCH (19:53)
[2022-04-29 23:06] LABS: GLUCOMETER DEV NAME(LOC) 6N.1; GLUCOSE,POINT OF CARE 121 MG/DL (70-110)
[2022-04-30 00:01] LABS: GLUCOMETER DEV NAME(LOC) 6N.2B; GLUCOSE,POINT OF CARE 277 MG/DL (70-110)
[2022-04-30 04:11] VITALS: BP 105/71
[2022-04-30] MEDS: INSULIN LISPRO 100 UNITS/ML SQ PRN ×2 (05:40→11:40)
[2022-04-30] MEDS: OxyCODONE HCL/ACETAMINOPHEN 5-325 MG TABLET PO PRN (06:10)
[2022-04-30 07:16] VITALS: BP 112/82
[2022-04-30 08:11] LABS: GLUCOMETER DEV NAME(LOC) 6N.1; GLUCOSE,POINT OF CARE 187 MG/DL (70-110)
[2022-04-30] MEDS: THIAMINE 100 MG TABLET PO SCH (08:49)
[2022-04-30] MEDS: CEPHALEXIN MONOHYDRATE 500 MG CAPSULE PO SCH (08:49)
[2022-04-30] MEDS: SULFAMETHOX/TRIMETH DS 800-160 MG/TABLET PO SCH (08:49)
[2022-04-30] MEDS: FOLIC ACID 1 MG TABLET PO SCH (08:49)
[2022-04-30] MEDS: MULTIVITAMINS WITH MINERALS, THERAPEUTIC TABLET PO SCH (08:49)
[2022-04-30] MEDS: ASCORBIC ACID 500 MG TABLET PO SCH (08:49)
[2022-04-30] MEDS: FAMOTIDINE 20 MG TABLET PO SCH (08:49)
[2022-04-30] MEDS: DOCUSATE SODIUM 100 MG CAPSULE PO SCH (08:50)
[2022-04-30] MEDS ORDERED: INSULIN GLARGINE,HUM.REC.ANLOG 100 UNITS/ML SQ SCH (09:00)
[2022-04-30 11:20] VITALS: BP 133/74
[2022-04-30 12:16] LABS: GLUCOMETER DEV NAME(LOC) 6N.1; GLUCOSE,POINT OF CARE 376 MG/DL (70-110)
[2022-04-30] MEDS: LORazepam 2 MG/ML VIAL IVP PRN (12:17)
[2022-04-30] MEDS ORDERED: SULF-261 PO (13:13)
[2022-04-30] MEDS ORDERED: KEFLEX PO (13:13)
[2022-04-30] MEDS ORDERED: INSLAN SQ ×2 (13:18)
[2022-04-30] MEDS ORDERED: ASCO500C6 PO (13:21)
[2022-04-30] MEDS ORDERED: GABA PO (13:25)
[2022-04-30] MEDS ORDERED: FOLIC PO (13:25)
[2022-04-30] MEDS ORDERED: GABAPENTIN PO (13:28)
[2022-04-30 14:10] VITALS: BP 90/63
== END 2022-04-30 14:00 | disposition home health service (06) | DRG 844 ==
LOC: EMS 16:55 → 6N 21:58
PROVIDERS: ADMIT Internal Medicine; ATTEND Internal Medicine
DX: T25.221A Burn of second degree of right foot, initial encounter (principal); J18.9 Pneumonia, unspecified organism; K70.30 Alcoholic cirrhosis of liver without ascites; E11.65 Type 2 diabetes mellitus with hyperglycemia; E83.42 Hypomagnesemia; E87.6 Hypokalemia; F10.229 Alcohol dependence with intoxication, unspecified; F10.239 Alcohol dependence with withdrawal, unspecified; X12.XXXA Contact with other hot fluids, initial encounter; Z20.822 Contact with and (suspected) exposure to COVID-19; Z59.00 Homelessness unspecified; Z79.4 Long term (current) use of insulin; Z91.14 Patient's other noncompliance with medication regimen; Z86.73 Personal history of transient ischemic attack (TIA), and cerebral infarction without residual deficits; Z91.19 Patient's noncompliance with other medical treatment and regimen; Y93.89 Activity, other specified; Y92.89 Other specified places as the place of occurrence of the external cause; Y99.8 Other external cause status
CPT/HCPCS: 16020; 36600; 80048; 80053; 81001; 82009; 82040; 82805; 82962; 83605; 83690; 83735; 84132; 85025; 87070; 87081; 87186; 87205; 90715; 90732; 97162; 97530; 99291; G0480; J1815; J2060; J2405; J3475; J3480; J7030; J7040; J7050

== ENCOUNTER 2022-05-11 19:05 | Emergency (ER) | payer MEDICAID ==
[~2022-05-11] VITALS: Ht 162.6 cm; Wt 51.0 kg
[~2022-05-11 19:05] MED LIST changes: +ASCO500C6 PO; +FOLIC PO; +GABAPENTIN PO; -IBUP-1554 PO; -INSU100V SQ; +KEFLEX PO; +SULF-261 PO
[2022-05-11 20:51] VITALS: BP 156/72
== END 2022-05-11 22:00 | disposition home or self-care (01) ==
LOC: EMS 19:05
DX: F10.129 Alcohol abuse with intoxication, unspecified (principal); E11.65 Type 2 diabetes mellitus with hyperglycemia
CPT/HCPCS: 82962; 99283

== ENCOUNTER 2022-05-26 07:21 | Emergency (ER) | payer MEDICAID ==
[~2022-05-26] VITALS: Ht 154.9 cm; Wt 44.9 kg
[~2022-05-26 07:21] MED LIST changes: +ASCO500 PO; -ASCO500C6 PO; +FOLI-130 PO; -FOLI0.4T6 PO; -FOLIC PO; -GABAPENTIN PO; -KEFLEX PO; +METF-445 PO; -SULF-261 PO
[2022-05-26] MEDS ORDERED: SODIUM CHLORIDE 0.9% 1,000 ML IV ONE (07:30)
[2022-05-26 07:32] VITALS: BP 121/77
[2022-05-26 07:41] LABS: BASOPHILS % (AUTO) 0.6 % (0.0-2.0); EOSINOPHILS % (AUTO) 1.7 % (1.0-6.0); HEMATOCRIT 37.8 % (41-53); HEMOGLOBIN 13.1 g/dL (13.5-17.5); LYMPHOCYTES # (AUTO) 1.6 K/uL (1.0-4.8); LYMPHOCYTES % (AUTO) 38.6 % (22.0-44.0); MEAN CORPUSCULAR HEMOGLOBIN 33.5 pg (26.0-34.0); MEAN CORPUSCULAR HGB CONC 34.6 G/dL (31.0-37.0); MEAN CORPUSCULAR VOLUME 97 fL (80-100); MONOCYTES # (AUTO) 0.6 K/uL (0.1-1.0); MONOCYTES % (AUTO) 13.3 % (2.0-9.0); NEUTROPHILS # (AUTO) 1.9 K/uL (1.8-7.7); NEUTROPHILS % (AUTO) 45.8 % (40.0-70.0); PLATELET COUNT (AUTO) 294 K/uL (150-450); RED BLOOD CELL COUNT(AUTO) 3.91 MIL/uL (4.50-5.90); RED CELL DISTRIBUTION WIDTH 13.5 % (11.5-14.5)
[2022-05-26 08:01] LABS: ALANINE AMINOTRANSFERASE 40 U/L (12-78); ALBUMIN 3.8 g/dL (3.4-5.0); ALKALINE PHOSPHATASE 109 U/L (46-116); ANION GAP 12 mmol/L (8-16); ASPARTATE AMINOTRANSFERASE 45 U/L (15-37); BILIRUBIN,TOTAL 0.3 mg/dL (0.1-1.0); CALCIUM, TOTAL 9.2 mg/dL (8.8-10.5); CARBON DIOXIDE 26 mmol/L (22-29); CHLORIDE 102 mmol/L (98-107); CREATININE 0.48 mg/dL (0.60-1.30); GLUCOSE,RANDOM 365 mg/dL (70-110); SODIUM SERUM 140 mmol/L (136-145); TOTAL PROTEIN, SERUM 7.1 g/dL (6.4-8.2); UREA NITROGEN, BLOOD 3 mg/dL (7-18)
[2022-05-26 08:03] LABS: GLOMERULAR FILTR. RATE CALC > 60 mL/min (>60); POTASSIUM 2.8 mmol/L (3.5-5.1)
[2022-05-26 08:04] LABS: APPEARANCE,URINE CLEAR (CLEAR); BILIRUBIN,URINE NEGATIVE (NEGATIVE); GLUCOSE, URINE (UA) >=1000 mg/dL (NEGATIVE); KETONES,URINE NEGATIVE (NEGATIVE); LEUKOCYTE ESTERASE ,URINE NEGATIVE (NEGATIVE); NITRATE,URINE NEGATIVE (NEGATIVE); OCCULT BLOOD,URINE NEGATIVE (NEGATIVE); PROTEIN,URINE NEGATIVE (NEGATIVE); SPECIFIC GRAVITIY, URINE 1.026 (1.003-1.030); UROBILINOGEN,URINE <=1.0 mg/dL (<=1.0)
[2022-05-26] MEDS ORDERED: ALUMINUM HYDROX CHEW ONE (08:15)
[2022-05-26] MEDS ORDERED: INSULIN REGULAR, HUMAN 100 UNITS/ML IVP ONE (08:15)
[2022-05-26] MEDS ORDERED: MAGNESIUM CARB CHEW ONE (08:15)
[2022-05-26] MEDS ORDERED: GABAPENTIN 300 MG CAPSULE PO ONE (08:15)
[2022-05-26] MEDS ORDERED: KETOROLAC TROMETHAMINE 30 MG/ML VIAL IVP ONE (08:15)
[2022-05-26] MEDS ORDERED: POTASSIUM CHLORIDE 20 MEQ ER TABLET PO ONE ×2 (08:15→09:30)
[2022-05-26 08:18] LABS: ACETONE,BLOOD NEGATIVE (NEGATIVE)
[2022-05-26 08:27] LABS: BACTERIA,URINE None Seen /HPF (None Seen); RBC,URINE None Seen /HPF (0-2); SQUAMOUS EPITHELIAL CELL,UR Few /LPF (None Seen); WBC,URINE None Seen /HPF (0-5)
[2022-05-26] MEDS ORDERED: ALUMINUM HYDROX PO ONE (09:00)
[2022-05-26] MEDS ORDERED: MAG CARB PO ONE (09:00)
[2022-05-26] MEDS ORDERED: ALGIN PO ONE (09:00)
[2022-05-26 09:06] LABS: GLUCOSE,POINT OF CARE 168 MG/DL (70-110)
== END 2022-05-26 09:45 | disposition home or self-care (01) ==
LOC: EMS 07:23
DX: G89.29 Other chronic pain (principal); M79.662 Pain in left lower leg; M79.661 Pain in right lower leg; E11.65 Type 2 diabetes mellitus with hyperglycemia; E11.40 Type 2 diabetes mellitus with diabetic neuropathy, unspecified; E87.6 Hypokalemia; F10.20 Alcohol dependence, uncomplicated; Z86.69 Personal history of other diseases of the nervous system and sense organs; Z86.79 Personal history of other diseases of the circulatory system
CPT/HCPCS: 99284; 96374; 96361; 96375; 80053; 81001; 82009; 82962; 85025; 36415; G0480; J1815; J1885; J7030

== ENCOUNTER 2022-06-05 18:37 | Emergency (ER) | payer MEDICAID ==
[~2022-06-05] VITALS: Ht 154.9 cm; Wt 46.0 kg
[2022-06-05] MEDS ORDERED: SODIUM CHLORIDE 0.9% 1,000 ML IV ONE ×3 (19:15→20:45)
[2022-06-05 19:23] LABS: HEMATOCRIT 39.3 % (41-53); HEMOGLOBIN 13.6 g/dL (13.5-17.5); LYMPHOCYTES # (AUTO) 2.4 K/uL (1.0-4.8); LYMPHOCYTES % (AUTO) 44.5 % (22.0-44.0); MEAN CORPUSCULAR HEMOGLOBIN 33.3 pg (26.0-34.0); MEAN CORPUSCULAR HGB CONC 34.6 G/dL (31.0-37.0); MEAN CORPUSCULAR VOLUME 96 fL (80-100); MONOCYTES # (AUTO) 0.4 K/uL (0.1-1.0); NEUTROPHILS # (AUTO) 2.4 K/uL (1.8-7.7); NEUTROPHILS % (AUTO) 45.5 % (40.0-70.0); PLATELET COUNT (AUTO) 342 K/uL (150-450); RED CELL DISTRIBUTION WIDTH 13.7 % (11.5-14.5)
[2022-06-05 19:46] LABS: ALANINE AMINOTRANSFERASE 35 U/L (12-78); ALBUMIN 4.2 g/dL (3.4-5.0); ALKALINE PHOSPHATASE 155 U/L (46-116); ANION GAP 17 mmol/L (8-16); ASPARTATE AMINOTRANSFERASE 34 U/L (15-37); BILIRUBIN,TOTAL 0.4 mg/dL (0.1-1.0); CALCIUM, TOTAL 9.6 mg/dL (8.8-10.5); CARBON DIOXIDE 25 mmol/L (22-29); CHLORIDE 95 mmol/L (98-107); CREATININE 0.81 mg/dL (0.60-1.30); SODIUM SERUM 137 mmol/L (136-145); UREA NITROGEN, BLOOD 8 mg/dL (7-18)
[2022-06-05 19:51] LABS: GLOMERULAR FILTR. RATE CALC > 60 mL/min (>60); GLUCOSE,RANDOM 499 mg/dL (70-110); POTASSIUM 2.8 mmol/L (3.5-5.1)
[2022-06-05] MEDS ORDERED: POTASSIUM CHLORIDE 20 MEQ ER TABLET PO ONE (20:00)
[2022-06-05] MEDS ORDERED: ACETAMINOPHEN 500 MG TABLET PO ONE (22:00)
[2022-06-05 22:48] LABS: ANION GAP 13 mmol/L (8-16); CALCIUM, TOTAL 9.2 mg/dL (8.8-10.5); CARBON DIOXIDE 27 mmol/L (22-29); CHLORIDE 100 mmol/L (98-107); CREATININE 0.63 mg/dL (0.60-1.30); GLOMERULAR FILTR. RATE CALC > 60 mL/min (>60); GLUCOSE,RANDOM 303 mg/dL (70-110); SODIUM SERUM 140 mmol/L (136-145); UREA NITROGEN, BLOOD 6 mg/dL (7-18)
[2022-06-05 22:54] LABS: ALANINE AMINOTRANSFERASE 35 U/L (12-78); ALBUMIN 4.3 g/dL (3.4-5.0); ALKALINE PHOSPHATASE 150 U/L (46-116); ASPARTATE AMINOTRANSFERASE 31 U/L (15-37); BILIRUBIN,TOTAL 0.4 mg/dL (0.1-1.0)
[2022-06-05 23:18] VITALS: BP 135/75
== END 2022-06-05 23:45 | disposition home or self-care (01) ==
LOC: EMS 20:27
DX: E11.65 Type 2 diabetes mellitus with hyperglycemia (principal); F10.229 Alcohol dependence with intoxication, unspecified; E87.6 Hypokalemia; G62.9 Polyneuropathy, unspecified; Z86.69 Personal history of other diseases of the nervous system and sense organs; Z86.79 Personal history of other diseases of the circulatory system
CPT/HCPCS: 99284; 96360; 96361; 85025; 36415; 80053; J7030; 99283

== ENCOUNTER 2022-06-30 06:40 | Emergency (ER) | payer MEDICAID ==
[~2022-06-30] VITALS: Ht 154.9 cm; Wt 46.0 kg
[2022-06-30] MEDS ORDERED: SODIUM CHLORIDE 0.9% 1,000 ML IV ONE ×2 (07:00)
[2022-06-30] MEDS ORDERED: KETOROLAC TROMETHAMINE 30 MG/ML VIAL IVP ONE (07:30)
[2022-06-30 07:50] LABS: BASOPHILS % (AUTO) 0.4 % (0.0-2.0); EOSINOPHILS % (AUTO) 0.1 % (1.0-6.0); HEMATOCRIT 44.1 % (41-53); HEMOGLOBIN 15.3 g/dL (13.5-17.5); LYMPHOCYTES # (AUTO) 1.4 K/uL (1.0-4.8); MEAN CORPUSCULAR HEMOGLOBIN 32.2 pg (26.0-34.0); MEAN CORPUSCULAR HGB CONC 34.6 G/dL (31.0-37.0); MEAN CORPUSCULAR VOLUME 93 fL (80-100); MONOCYTES # (AUTO) 0.6 K/uL (0.1-1.0); MONOCYTES % (AUTO) 7.2 % (2.0-9.0); NEUTROPHILS # (AUTO) 5.8 K/uL (1.8-7.7); NEUTROPHILS % (AUTO) 74.3 % (40.0-70.0); PLATELET COUNT (AUTO) 347 K/uL (150-450); RED BLOOD CELL COUNT(AUTO) 4.74 MIL/uL (4.50-5.90); RED CELL DISTRIBUTION WIDTH 13.2 % (11.5-14.5)
[2022-06-30 08:11] LABS: ALANINE AMINOTRANSFERASE 27 U/L (12-78); ALBUMIN 4.2 g/dL (3.4-5.0); ALKALINE PHOSPHATASE 144 U/L (46-116); ANION GAP 19 mmol/L (8-16); ASPARTATE AMINOTRANSFERASE 36 U/L (15-37); BILIRUBIN,TOTAL 0.4 mg/dL (0.1-1.0); CALCIUM, TOTAL 9.5 mg/dL (8.8-10.5); CARBON DIOXIDE 25 mmol/L (22-29); CHLORIDE 94 mmol/L (98-107); CREATININE 0.75 mg/dL (0.60-1.30); GLUCOSE,RANDOM 385 mg/dL (70-110); SODIUM SERUM 138 mmol/L (136-145); TOTAL PROTEIN, SERUM 8.5 g/dL (6.4-8.2); UREA NITROGEN, BLOOD 11 mg/dL (7-18)
[2022-06-30 08:16] LABS: GLOMERULAR FILTR. RATE CALC > 60 mL/min (>60); POTASSIUM 2.9 mmol/L (3.5-5.1)
[2022-06-30 08:28] LABS: HEMOGLOBIN A1C 10.3 % (3.8-5.6)
[2022-06-30] MEDS ORDERED: POTASSIUM CHLORIDE 10% 40 MEQ/30 ML LIQUID UDCUP PO ONE (08:45)
[2022-06-30] MEDS ORDERED: INSULIN REGULAR, HUMAN 100 UNITS/ML IVP ONE (09:00)
[2022-06-30 09:13] LABS: APPEARANCE,URINE CLEAR (CLEAR); BILIRUBIN,URINE NEGATIVE (NEGATIVE); GLUCOSE, URINE (UA) >=1000 mg/dL (NEGATIVE); KETONES,URINE 40-60 mg/dL (NEGATIVE); LEUKOCYTE ESTERASE ,URINE NEGATIVE (NEGATIVE); NITRATE,URINE NEGATIVE (NEGATIVE); OCCULT BLOOD,URINE NEGATIVE (NEGATIVE); PH,URINE 6.5 (5.0-8.0); PROTEIN,URINE TRACE mg/dL (NEGATIVE); UROBILINOGEN,URINE <=1.0 mg/dL (<=1.0)
[2022-06-30 09:19] LABS: AMPHET/METH SCREEN,URINE NEGATIVE (NEGATIVE); BARBITURATE SCREEN, URINE NEGATIVE (NEGATIVE); BENZODIAZEPINES SCREEN,URINE NEGATIVE (NEGATIVE); CANNABINOID SCREEN,URINE NEGATIVE (NEGATIVE); COCAINE SCREEN,URINE NEGATIVE (NEGATIVE); METHADONE SCREEN, URINE NEGATIVE (NEGATIVE); OPIATE SCREEN,URINE NEGATIVE (NEGATIVE)
[2022-06-30 09:24] LABS: PHENCYCLIDINE SCREEN,URINE NEGATIVE (NEGATIVE)
[2022-06-30 09:35] LABS: BACTERIA,URINE None Seen /HPF (None Seen); RBC,URINE None Seen /HPF (0-2); WBC,URINE None Seen /HPF (0-5)
[2022-06-30] MEDS ORDERED: ONDANSETRON HCL 4 MG/2 ML VIAL IVP ONE (09:45)
[2022-06-30] MEDS ORDERED: POTASSIUM CHL 10 MEQ/WATER 50 ML IV ONE (10:30)
[2022-06-30 10:46] LABS: COVID AG,FIA SOURCE NASAL SWAB
[2022-06-30 13:19] VITALS: BP 125/86
[2022-06-30] MEDS ORDERED: ChlordiazePOXIDE HCL 25 MG CAPSULE PO PRN (13:45)
[2022-06-30] MEDS ORDERED: INSULIN LISPRO 100 UNITS/ML SQ PRN (13:45)
[2022-06-30] MEDS ORDERED: LORazepam 2 MG/ML VIAL IVP PRN (13:45)
[2022-06-30] MEDS ORDERED: MORPHINE SULFATE 4 MG/ML SYRINGE IVP PRN (13:45)
[2022-06-30] MEDS ORDERED: IPRATROPIUM BROMIDE 0.5 MG/2.5 ML NEB SOLUTION NEB PRN (13:45)
[2022-06-30] MEDS ORDERED: ONDANSETRON HCL 4 MG/2 ML VIAL IVP PRN (13:45)
[2022-06-30] MEDS ORDERED: DOCUSATE SODIUM 100 MG CAPSULE PO PRN (13:45)
[2022-06-30] MEDS ORDERED: 1: MAGNESIUM SULFATE 2 GM, MVI, ADULT NO.1 WITH VIT K 10 ML, THIAMINE 100 MG, FOLIC ACID IV SCH ×5 (13:45)
[2022-06-30] MEDS ORDERED: BISACODYL 10 MG RECTAL RECTAL SUPPOSITORY PR PRN (13:45)
[2022-06-30] MEDS ORDERED: PANTOPRAZOLE SODIUM 40 MG DR TABLET PO SCH (13:45)
[2022-06-30] MEDS ORDERED: ACETAMINOPHEN 325 MG TABLET PO PRN (13:45)
[2022-06-30] MEDS ORDERED: DEXTROSE 50%-WATER 25 GM/50 ML SYRINGE IVP PRN (13:45)
[2022-06-30] MEDS ORDERED: ALBUTEROL SULFATE 2.5 MG/0.5 ML NEB SOLUTION NEB PRN (13:45)
[2022-06-30] MEDS ORDERED: HYDROCODONE/ACETAMINOPHEN 5-325 MG TABLET PO PRN (13:45)
[2022-06-30] MEDS ORDERED: INSULIN GLARGINE,HUM.REC.ANLOG 100 UNITS/ML SQ SCH (21:00)
== END 2022-06-30 14:08 | disposition left against medical advice (07) ==
LOC: EMS 06:42
DX: E11.65 Type 2 diabetes mellitus with hyperglycemia (principal); F10.129 Alcohol abuse with intoxication, unspecified; E87.6 Hypokalemia; Z20.822 Contact with and (suspected) exposure to COVID-19
CPT/HCPCS: 99285; 96365; 96375; 71045; 96361; 87426; 80053; 81001; 82009; 83036; 85025; 36415; 93005; 80307; G0480; J1815; J1885; J2405; J3480; J7030; 99284; J3411; J3475; J3490

== ENCOUNTER 2022-07-07 21:50 | Emergency (ER) | payer MEDICAID ==
[~2022-07-07] VITALS: Ht 154.9 cm; Wt 46.0 kg
[2022-07-07] MEDS ORDERED: MAGNESIUM SULFATE 2 GM, MVI, ADULT NO.1 WITH VIT K 10 ML, THIAMINE 100 MG, FOLIC ACID 1... IV ONE ×5 (22:15)
[2022-07-07] MEDS ORDERED: SODIUM CHLORIDE 0.9% 1,000 ML IV ONE (22:15)
[2022-07-07 22:52] LABS: BASOPHILS % (AUTO) 0.7 % (0.0-2.0); EOSINOPHILS % (AUTO) 1.2 % (1.0-6.0); HEMATOCRIT 33.2 % (41-53); HEMOGLOBIN 11.3 g/dL (13.5-17.5); LYMPHOCYTES # (AUTO) 2.5 K/uL (1.0-4.8); LYMPHOCYTES % (AUTO) 41.9 % (22.0-44.0); MEAN CORPUSCULAR HEMOGLOBIN 32.2 pg (26.0-34.0); MEAN CORPUSCULAR HGB CONC 34.2 G/dL (31.0-37.0); MEAN CORPUSCULAR VOLUME 94 fL (80-100); MONOCYTES % (AUTO) 17.7 % (2.0-9.0); NEUTROPHILS # (AUTO) 2.3 K/uL (1.8-7.7); NEUTROPHILS % (AUTO) 38.5 % (40.0-70.0); PLATELET COUNT (AUTO) 341 K/uL (150-450); RED BLOOD CELL COUNT(AUTO) 3.53 MIL/uL (4.50-5.90); RED CELL DISTRIBUTION WIDTH 13.4 % (11.5-14.5)
[2022-07-07 23:03] LABS: ANION GAP 11 mmol/L (8-16); CALCIUM, TOTAL 8.9 mg/dL (8.8-10.5); CARBON DIOXIDE 25 mmol/L (22-29); CHLORIDE 102 mmol/L (98-107); GLUCOSE,RANDOM 303 mg/dL (70-110); POTASSIUM 3.1 mmol/L (3.5-5.1); SODIUM SERUM 138 mmol/L (136-145); UREA NITROGEN, BLOOD 4 mg/dL (7-18)
[2022-07-07 23:09] LABS: ALANINE AMINOTRANSFERASE 27 U/L (12-78); ALBUMIN 3.2 g/dL (3.4-5.0); ALKALINE PHOSPHATASE 162 U/L (46-116); ASPARTATE AMINOTRANSFERASE 24 U/L (15-37); BILIRUBIN,TOTAL 0.1 mg/dL (0.1-1.0); TOTAL PROTEIN, SERUM 7.1 g/dL (6.4-8.2)
[2022-07-07 23:10] LABS: GLOMERULAR FILTR. RATE CALC > 60 mL/min (>60)
[2022-07-07 23:39] LABS: ACETONE,BLOOD NEGATIVE (NEGATIVE)
[2022-07-08 04:10] VITALS: BP 124/73
== END 2022-07-08 04:59 | disposition home or self-care (01) ==
LOC: EMS 21:51
DX: F10.129 Alcohol abuse with intoxication, unspecified (principal); E11.65 Type 2 diabetes mellitus with hyperglycemia; G62.9 Polyneuropathy, unspecified; Z59.00 Homelessness unspecified
CPT/HCPCS: 99284; 96365; 80053; 82009; 85025; 36415; G0480; J3490 ×2; J3411; J3475; J7030

== ENCOUNTER 2022-08-19 03:41 | Inpatient (IN) | payer MEDICAID ==
[~2022-08-19] VITALS: Ht 165.1 cm; Wt 42.0 kg
[2022-08-19 04:11] LABS: GLUCOMETER DEV NAME(LOC) ERT.5; GLUCOSE,POINT OF CARE 415 MG/DL (70-110)
[2022-08-19] MEDS ORDERED: ONDANSETRON HCL 4 MG/2 ML VIAL IVP ONE (04:15)
[2022-08-19] MEDS ORDERED: SODIUM CHLORIDE 0.9% 1,000 ML IV ONE ×3 (04:15→07:15)
[2022-08-19 05:02] LABS: COVID AG,FIA SOURCE NASOPHARYNGEAL
[2022-08-19 05:03] LABS: ABG CARBOXYHEMOGLOBIN 1.1 % (0.0-1.5); ABG HCO3 24.6 mmol/L (22.0-26.0); ABG OXYGEN CONTENT 19.6 mL/dL (15.0-23.0); ABG OXYGEN SATURATION 96.7 % (95.0-98.0); ABG OXYHEMOGLOBIN 95.6 % (94.0-100.0); ABG PCO2 37 mmHg (35-45); ABG TOTAL HEMOGLOBIN 14.5 G/dL (12.0-18.0); PO2, ARTERIAL BG 88.6 mmHg (92.0-100.0); SITE, BLOOD GAS LFT RADIAL; SOURCE, BLOOD GAS ARTERIAL; TEMPERATURE, FAHRENHEIT, BG 97.7 FAHREN (96.0-98.6)
[2022-08-19 05:04] LABS: ABG A-A DIFF O2 16.7 mmHg (10-20.0); O2 DEVICE,BLOOD GAS ROOM AIR (ROOM AIR)
[2022-08-19 05:11] LABS: BASOPHILS % (AUTO) 1.4 % (0.0-2.0); HEMATOCRIT 44.4 % (41-53); HEMOGLOBIN 15.1 g/dL (13.5-17.5); LYMPHOCYTES # (AUTO) 1.8 K/uL (1.0-4.8); LYMPHOCYTES % (AUTO) 45.6 % (22.0-44.0); MEAN CORPUSCULAR HEMOGLOBIN 32.5 pg (26.0-34.0); MEAN CORPUSCULAR HGB CONC 33.9 G/dL (31.0-37.0); MEAN CORPUSCULAR VOLUME 96 fL (80-100); MONOCYTES # (AUTO) 0.3 K/uL (0.1-1.0); MONOCYTES % (AUTO) 7.6 % (2.0-9.0); NEUTROPHILS # (AUTO) 1.7 K/uL (1.8-7.7); NEUTROPHILS % (AUTO) 44.4 % (40.0-70.0); PLATELET COUNT (AUTO) 300 K/uL (150-450); RED BLOOD CELL COUNT(AUTO) 4.63 MIL/uL (4.50-5.90); RED CELL DISTRIBUTION WIDTH 14.8 % (11.5-14.5)
[2022-08-19] MEDS ORDERED: INSULIN REGULAR, HUMAN 100 UNITS/ML IVP ONE (05:15)
[2022-08-19 05:18] LABS: ACETONE,BLOOD NEGATIVE (NEGATIVE)
[2022-08-19 05:20] LABS: ALANINE AMINOTRANSFERASE 59 U/L (12-78); ALBUMIN 4.5 g/dL (3.4-5.0); ALKALINE PHOSPHATASE 215 U/L (46-116); ANION GAP 16 mmol/L (8-16); ASPARTATE AMINOTRANSFERASE 53 U/L (15-37); BILIRUBIN,TOTAL 0.3 mg/dL (0.1-1.0); CALCIUM, TOTAL 9.3 mg/dL (8.8-10.5); CARBON DIOXIDE 30 mmol/L (22-29); CHLORIDE 96 mmol/L (98-107); CREATININE 0.66 mg/dL (0.60-1.30); LIPASE 33 U/L (73-393); SODIUM SERUM 142 mmol/L (136-145); TOTAL PROTEIN, SERUM 8.4 g/dL (6.4-8.2); UREA NITROGEN, BLOOD 7 mg/dL (7-18)
[2022-08-19 05:21] LABS: GLOMERULAR FILTR. RATE CALC > 60 mL/min (>60)
[2022-08-19 05:26] LABS: GLUCOSE,RANDOM 442 mg/dL (70-110); POTASSIUM 2.9 mmol/L (3.5-5.1)
[2022-08-19] MEDS ORDERED: MAGNESIUM SULFATE 2 GM, MVI, ADULT NO.1 WITH VIT K 10 ML, THIAMINE 100 MG, FOLIC ACID 1... IV ONE ×5 (05:30)
[2022-08-19 05:31] LABS: LACTIC ACID 3.5 mmol/L (0.4-2.0)
[2022-08-19] MEDS ORDERED: ONDANSETRON HCL 4 MG/2 ML VIAL IVP PRN ×2 (06:00→07:15)
[2022-08-19] MEDS ORDERED: LORazepam 2 MG/ML VIAL IVP ONE (06:00)
[2022-08-19] MEDS ORDERED: ACETAMINOPHEN 325 MG TABLET PO PRN (06:00)
[2022-08-19] MEDS ORDERED: POTASSIUM CHLORIDE 10% 40 MEQ/30 ML LIQUID UDCUP PO ONE (06:00)
[2022-08-19] MEDS ORDERED: 0.9% SODIUM CHLORIDE 10 ML SYRINGE IVP PRN (06:00)
[2022-08-19] MEDS ORDERED: POTASSIUM CHLORIDE 20 MEQ ER TABLET PO PRN (07:15)
[2022-08-19] MEDS ORDERED: MAGNESIUM HYDROXIDE SUSPENSION 30 ML UDCUP PO PRN (07:15)
[2022-08-19] MEDS ORDERED: DEXTROSE 50%-WATER 25 GM/50 ML SYRINGE IVP PRN (07:15)
[2022-08-19] MEDS ORDERED: POTASSIUM CHL 10 MEQ/WATER 50 ML IV PRN (07:15)
[2022-08-19 07:36] LABS: GLUCOSE,POINT OF CARE 237 MG/DL (70-110)
[2022-08-19 08:30] VITALS: BP 107/72
[2022-08-19] MEDS: MULTIVITAMINS WITH MINERALS, THERAPEUTIC TABLET PO SCH (09:58)
[2022-08-19] MEDS: PANTOPRAZOLE SODIUM 40 MG DR TABLET PO SCH (09:59)
[2022-08-19] MEDS: INSULIN GLARGINE,HUM.REC.ANLOG 100 UNITS/ML SQ SCH (10:01)
[2022-08-19] MEDS ORDERED: PNEUMOCOCCAL VACCINE POLYVALENT 0.5 ML VIAL [PPSV23] IM. ONE (11:15)
[2022-08-19] MEDS: INSULIN LISPRO 100 UNITS/ML SQ PRN ×3 (11:31→20:22)
[2022-08-19] MEDS: LORazepam 2 MG/ML VIAL IVP PRN ×2 (14:48→19:56)
[2022-08-19 15:19] VITALS: BP 125/90
[2022-08-19 16:26] LABS: GLUCOMETER DEV NAME(LOC) 6N.1; GLUCOSE,POINT OF CARE 232 MG/DL (70-110)
[2022-08-19 18:36] LABS: GLUCOMETER DEV NAME(LOC) 6N.2B; GLUCOSE,POINT OF CARE 206 MG/DL (70-110)
[2022-08-19 20:36] VITALS: BP 149/83
[2022-08-20 03:16] LABS: GLUCOMETER DEV NAME(LOC) 6N.2B; GLUCOSE,POINT OF CARE 272 MG/DL (70-110)
[2022-08-20] MEDS: LORazepam 2 MG/ML VIAL IVP PRN (03:29)
[2022-08-20] MEDS: ACETAMINOPHEN 325 MG TABLET PO PRN ×3 (03:35→23:39)
[2022-08-20 04:09] LABS: APPEARANCE,URINE CLEAR (CLEAR); BILIRUBIN,URINE NEGATIVE (NEGATIVE); GLUCOSE, URINE (UA) >=1000 mg/dL (NEGATIVE); KETONES,URINE NEGATIVE (NEGATIVE); LEUKOCYTE ESTERASE ,URINE MODERATE (NEGATIVE); NITRATE,URINE NEGATIVE (NEGATIVE); OCCULT BLOOD,URINE NEGATIVE (NEGATIVE); PROTEIN,URINE NEGATIVE (NEGATIVE); SPECIFIC GRAVITIY, URINE 1.004 (1.003-1.030); UROBILINOGEN,URINE <=1.0 mg/dL (<=1.0)
[2022-08-20 04:16] LABS: AMPHET/METH SCREEN,URINE NEGATIVE (NEGATIVE); BARBITURATE SCREEN, URINE NEGATIVE (NEGATIVE); BENZODIAZEPINES SCREEN,URINE NEGATIVE (NEGATIVE); CANNABINOID SCREEN,URINE NEGATIVE (NEGATIVE); COCAINE SCREEN,URINE NEGATIVE (NEGATIVE); METHADONE SCREEN, URINE NEGATIVE (NEGATIVE); OPIATE SCREEN,URINE NEGATIVE (NEGATIVE)
[2022-08-20 04:17] LABS: PHENCYCLIDINE SCREEN,URINE NEGATIVE (NEGATIVE)
[2022-08-20 04:19] LABS: BACTERIA,URINE None Seen /HPF (None Seen); RBC,URINE None Seen /HPF (0-2); YEAST,URINE Few /HPF (None Seen)
[2022-08-20 05:00] VITALS: BP 102/75
[2022-08-20] MEDS: INSULIN LISPRO 100 UNITS/ML SQ PRN ×4 (05:25→21:02)
[2022-08-20 05:51] LABS: GLUCOMETER DEV NAME(LOC) 6N.1; GLUCOSE,POINT OF CARE 200 MG/DL (70-110)
[2022-08-20 06:41] LABS: GLUCOMETER DEV NAME(LOC) 6N.2B; GLUCOSE,POINT OF CARE 175 MG/DL (70-110)
[2022-08-20 07:54] VITALS: BP 94/56
[2022-08-20] MEDS: INSULIN GLARGINE,HUM.REC.ANLOG 100 UNITS/ML SQ SCH (08:42)
[2022-08-20] MEDS: MULTIVITAMINS WITH MINERALS, THERAPEUTIC TABLET PO SCH (08:43)
[2022-08-20] MEDS: PANTOPRAZOLE SODIUM 40 MG DR TABLET PO SCH (08:43)
[2022-08-20 12:07] LABS: GLUCOMETER DEV NAME(LOC) 6N.2B; GLUCOSE,POINT OF CARE 210 MG/DL (70-110)
[2022-08-20 15:57] VITALS: BP 98/73
[2022-08-20 18:21] LABS: GLUCOMETER DEV NAME(LOC) 6N.2B; GLUCOSE,POINT OF CARE 182 MG/DL (70-110)
[2022-08-20 19:54] VITALS: BP 122/73
[2022-08-20 22:56] LABS: GLUCOMETER DEV NAME(LOC) 6N.2B; GLUCOSE,POINT OF CARE 337 MG/DL (70-110)
[2022-08-21 04:59] VITALS: BP 102/68
[2022-08-21] MEDS: INSULIN LISPRO 100 UNITS/ML SQ PRN ×4 (05:58→21:02)
[2022-08-21] MEDS: ACETAMINOPHEN 325 MG TABLET PO PRN ×3 (06:50→23:08)
[2022-08-21 07:23] LABS: BASOPHILS % (AUTO) 0.6 % (0.0-2.0); EOSINOPHILS % (AUTO) 0.9 % (1.0-6.0); HEMATOCRIT 41.8 % (41-53); HEMOGLOBIN 14.1 g/dL (13.5-17.5); LYMPHOCYTES # (AUTO) 1.4 K/uL (1.0-4.8); LYMPHOCYTES % (AUTO) 36.5 % (22.0-44.0); MEAN CORPUSCULAR HGB CONC 33.6 G/dL (31.0-37.0); MEAN CORPUSCULAR VOLUME 95 fL (80-100); MONOCYTES # (AUTO) 0.4 K/uL (0.1-1.0); MONOCYTES % (AUTO) 10.9 % (2.0-9.0); NEUTROPHILS % (AUTO) 51.1 % (40.0-70.0); PLATELET COUNT (AUTO) 221 K/uL (150-450); RED CELL DISTRIBUTION WIDTH 14.7 % (11.5-14.5)
[2022-08-21 07:37] LABS: ALANINE AMINOTRANSFERASE 39 U/L (12-78); ALBUMIN 3.5 g/dL (3.4-5.0); ALKALINE PHOSPHATASE 171 U/L (46-116); ANION GAP 5 mmol/L (8-16); ASPARTATE AMINOTRANSFERASE 47 U/L (15-37); BILIRUBIN,TOTAL 0.5 mg/dL (0.1-1.0); CALCIUM, TOTAL 8.8 mg/dL (8.8-10.5); CARBON DIOXIDE 30 mmol/L (22-29); CHLORIDE 93 mmol/L (98-107); CREATININE 0.57 mg/dL (0.60-1.30); GLOMERULAR FILTR. RATE CALC > 60 mL/min (>60); GLUCOSE,RANDOM 318 mg/dL (70-110); POTASSIUM 3.9 mmol/L (3.5-5.1); SODIUM SERUM 128 mmol/L (136-145); TOTAL PROTEIN, SERUM 6.8 g/dL (6.4-8.2); UREA NITROGEN, BLOOD 5 mg/dL (7-18)
[2022-08-21 08:29] VITALS: BP 99/77
[2022-08-21] MEDS: INSULIN GLARGINE,HUM.REC.ANLOG 100 UNITS/ML SQ SCH (08:45)
[2022-08-21] MEDS: PANTOPRAZOLE SODIUM 40 MG DR TABLET PO SCH (08:46)
[2022-08-21] MEDS: MULTIVITAMINS WITH MINERALS, THERAPEUTIC TABLET PO SCH (08:46)
[2022-08-21] MEDS ORDERED: SODIUM CHLORIDE 0.9% 500 ML IV ONE (09:15)
[2022-08-21 16:42] VITALS: BP 100/77
[2022-08-21 18:56] LABS: GLUCOMETER DEV NAME(LOC) 6N.1; GLUCOSE,POINT OF CARE 204 MG/DL (70-110)
[2022-08-21 18:56] LABS: GLUCOMETER DEV NAME(LOC) 6N.1; GLUCOSE,POINT OF CARE 383 MG/DL (70-110)
[2022-08-21 18:56] LABS: GLUCOMETER DEV NAME(LOC) 6N.2B; GLUCOSE,POINT OF CARE 276 MG/DL (70-110)
[2022-08-21 20:10] VITALS: BP 106/73
[2022-08-22 05:00] VITALS: BP 96/66
[2022-08-22] MEDS: INSULIN LISPRO 100 UNITS/ML SQ PRN (05:00)
[2022-08-22 05:41] LABS: GLUCOMETER DEV NAME(LOC) 6N.2B; GLUCOSE,POINT OF CARE 267 MG/DL (70-110)
[2022-08-22 06:32] LABS: GLUCOMETER DEV NAME(LOC) 6N.1; GLUCOSE,POINT OF CARE 287 MG/DL (70-110)
[2022-08-22 07:47] VITALS: BP 93/60
[2022-08-22] MEDS: PANTOPRAZOLE SODIUM 40 MG DR TABLET PO SCH (07:48)
[2022-08-22] MEDS: MULTIVITAMINS WITH MINERALS, THERAPEUTIC TABLET PO SCH (07:48)
[2022-08-22] MEDS: ACETAMINOPHEN 325 MG TABLET PO PRN (07:49)
[2022-08-22] MEDS: INSULIN GLARGINE,HUM.REC.ANLOG 100 UNITS/ML SQ SCH (08:01)
== END 2022-08-22 11:46 | disposition home or self-care (01) | DRG 52 ==
LOC: EMS 03:42 → 6S 06:53
PROVIDERS: ADMIT Internal Medicine; ATTEND Internal Medicine
DX: G92.9 Unspecified toxic encephalopathy (principal); E43 Unspecified severe protein-calorie malnutrition; E11.40 Type 2 diabetes mellitus with diabetic neuropathy, unspecified; K70.30 Alcoholic cirrhosis of liver without ascites; E87.6 Hypokalemia; I10 Essential (primary) hypertension; F10.139 Alcohol abuse with withdrawal, unspecified; F10.129 Alcohol abuse with intoxication, unspecified; E11.65 Type 2 diabetes mellitus with hyperglycemia; Z20.822 Contact with and (suspected) exposure to COVID-19; Z59.00 Homelessness unspecified; Z79.4 Long term (current) use of insulin; Z68.1 Body mass index [BMI] 19.9 or less, adult; Z79.899 Other long term (current) drug therapy; Z99.3 Dependence on wheelchair; Z86.73 Personal history of transient ischemic attack (TIA), and cerebral infarction without residual deficits; Z91.199 Patient's noncompliance with other medical treatment and regimen due to unspecified reason
CPT/HCPCS: 80053; 80307; 81001; 82009; 82805; 82962; 83605; 83690; 83735; 84132; 84484; 85025; 87086; 87186; 99285; G0480; J1815; J2060; J2405; J3411; J3475; J3490; J7030

== ENCOUNTER 2022-10-22 20:37 | Emergency (ER) | payer MEDICAID ==
[~2022-10-22] VITALS: Ht 160 cm; Wt 56.8 kg
[~2022-10-22 20:37] MED LIST changes: -ASCO500 PO; -METF-445 PO
[2022-10-22 21:23] LABS: BASOPHILS % (AUTO) 1.4 % (0.0-2.0); EOSINOPHILS % (AUTO) 0.8 % (1.0-6.0); HEMATOCRIT 32.2 % (41-53); LYMPHOCYTES # (AUTO) 2.2 K/uL (1.0-4.8); LYMPHOCYTES % (AUTO) 44.4 % (22.0-44.0); MEAN CORPUSCULAR HEMOGLOBIN 33.7 pg (26.0-34.0); MEAN CORPUSCULAR HGB CONC 34.3 G/dL (31.0-37.0); MEAN CORPUSCULAR VOLUME 98 fL (80-100); MONOCYTES # (AUTO) 0.9 K/uL (0.1-1.0); NEUTROPHILS # (AUTO) 1.7 K/uL (1.8-7.7); NEUTROPHILS % (AUTO) 35.4 % (40.0-70.0); PLATELET COUNT (AUTO) 231 K/uL (150-450); RED BLOOD CELL COUNT(AUTO) 3.28 MIL/uL (4.50-5.90); RED CELL DISTRIBUTION WIDTH 14.5 % (11.5-14.5)
[2022-10-22] MEDS ORDERED: GABAPENTIN 300 MG CAPSULE PO ONE (21:30)
[2022-10-22 21:35] LABS: ALANINE AMINOTRANSFERASE 40 U/L (12-78); ALBUMIN 3.7 g/dL (3.4-5.0); ALKALINE PHOSPHATASE 163 U/L (46-116); ANION GAP 10 mmol/L (8-16); ASPARTATE AMINOTRANSFERASE 64 U/L (15-37); BILIRUBIN,TOTAL 0.3 mg/dL (0.1-1.0); CALCIUM, TOTAL 9.2 mg/dL (8.8-10.5); CARBON DIOXIDE 28 mmol/L (22-29); CHLORIDE 102 mmol/L (98-107); CREATININE 0.44 mg/dL (0.60-1.30); GLOMERULAR FILTR. RATE CALC > 60 mL/min (>60); GLUCOSE,RANDOM 80 mg/dL (70-110); SODIUM SERUM 140 mmol/L (136-145); TOTAL PROTEIN, SERUM 6.7 g/dL (6.4-8.2); UREA NITROGEN, BLOOD 4 mg/dL (7-18)
[2022-10-22 21:41] LABS: POTASSIUM 2.3 mmol/L (3.5-5.1)
[2022-10-22] MEDS ORDERED: POTASSIUM CHLORIDE 20 MEQ ER TABLET PO ONE (22:30)
[2022-10-22 22:31] LABS: MAGNESIUM 1.9 mg/dL (1.80-2.40); PHOSPHORUS 2.4 mg/dL (2.5-4.9)
[2022-10-22] MEDS ORDERED: SODIUM CHLORIDE 0.9% 1,000 ML IV ONE (22:45)
[2022-10-22] MEDS ORDERED: ONDANSETRON HCL 4 MG/2 ML VIAL IVP ONE (22:45)
[2022-10-22] MEDS: POTASSIUM CHL 10 MEQ/WATER 50 ML IV SCH ×2 (22:49→23:50)
[2022-10-22 23:00] LABS: COVID AG,FIA SOURCE NASAL SWAB
[2022-10-22] MEDS ORDERED: MAGNESIUM SULFATE 2 GM, MVI, ADULT NO.1 WITH VIT K 10 ML, THIAMINE 100 MG, FOLIC ACID 1... IV ONE ×5 (23:15)
[2022-10-22] MEDS ORDERED: CALCIUM ACETATE 667 MG CAPSULE PO ONE (23:45)
[2022-10-23] MEDS: POTASSIUM CHL 10 MEQ/WATER 50 ML IV SCH ×2 (00:46→02:20)
[2022-10-23] MEDS ORDERED: DIAZEPAM 5 MG/ML 2 ML SYRINGE IVP ONE (09:00)
[2022-10-23 09:29] VITALS: BP 121/84
== END 2022-10-23 09:33 | disposition home or self-care (01) ==
LOC: EMS 20:38
DX: F10.129 Alcohol abuse with intoxication, unspecified (principal); E87.6 Hypokalemia; E11.9 Type 2 diabetes mellitus without complications; M54.30 Sciatica, unspecified side; F17.210 Nicotine dependence, cigarettes, uncomplicated; Z20.822 Contact with and (suspected) exposure to COVID-19; Y90.9 Presence of alcohol in blood, level not specified
CPT/HCPCS: 99285; 96365; 96361; 87426; 80053; 83735; 84100; 85025; 36415; 93005; 96367; G0480; J3490 ×2; J2405; J3411; J3480; J3475; J7030; J1885

== ENCOUNTER 2022-10-28 14:15 | Emergency (ER) | payer MEDICAID ==
[~2022-10-28] VITALS: Ht 170.2 cm; Wt 61.4 kg
[2022-10-28 15:25] LABS: BASOPHILS % (AUTO) 1.9 % (0.0-2.0); EOSINOPHILS % (AUTO) 0.7 % (1.0-6.0); HEMATOCRIT 36.4 % (41-53); HEMOGLOBIN 12.4 g/dL (13.5-17.5); LYMPHOCYTES # (AUTO) 2.9 K/uL (1.0-4.8); LYMPHOCYTES % (AUTO) 41.2 % (22.0-44.0); MEAN CORPUSCULAR HEMOGLOBIN 33.7 pg (26.0-34.0); MEAN CORPUSCULAR VOLUME 99 fL (80-100); MONOCYTES # (AUTO) 0.6 K/uL (0.1-1.0); MONOCYTES % (AUTO) 9.4 % (2.0-9.0); NEUTROPHILS # (AUTO) 3.2 K/uL (1.8-7.7); NEUTROPHILS % (AUTO) 46.8 % (40.0-70.0); PLATELET COUNT (AUTO) 354 K/uL (150-450); RED BLOOD CELL COUNT(AUTO) 3.67 MIL/uL (4.50-5.90); RED CELL DISTRIBUTION WIDTH 14.2 % (11.5-14.5)
[2022-10-28] MEDS ORDERED: MAGNESIUM SULFATE 2 GM, MVI, ADULT NO.1 WITH VIT K 10 ML, THIAMINE 100 MG, FOLIC ACID 1... IV ONE ×5 (15:45)
[2022-10-28] MEDS ORDERED: SODIUM CHLORIDE 0.9% 1,000 ML IV ONE (15:45)
[2022-10-28 15:46] LABS: GLUCOMETER DEV NAME(LOC) ERT.5; GLUCOSE,POINT OF CARE 585 MG/DL (70-110)
[2022-10-28 15:53] LABS: ALANINE AMINOTRANSFERASE 88 U/L (12-78); ALBUMIN 4.1 g/dL (3.4-5.0); ALKALINE PHOSPHATASE 252 U/L (46-116); ANION GAP 16 mmol/L (8-16); ASPARTATE AMINOTRANSFERASE 200 U/L (15-37); BILIRUBIN,TOTAL 0.4 mg/dL (0.1-1.0); CALCIUM, TOTAL 9.7 mg/dL (8.8-10.5); CARBON DIOXIDE 27 mmol/L (22-29); CHLORIDE 92 mmol/L (98-107); GLOMERULAR FILTR. RATE CALC > 60 mL/min (>60); PHOSPHORUS 3.9 mg/dL (2.5-4.9); POTASSIUM 3.2 mmol/L (3.5-5.1); SODIUM SERUM 135 mmol/L (136-145); TOTAL PROTEIN, SERUM 7.6 g/dL (6.4-8.2); UREA NITROGEN, BLOOD 8 mg/dL (7-18)
[2022-10-28 15:56] LABS: GLUCOSE,RANDOM 596 mg/dL (70-110)
[2022-10-28] MEDS ORDERED: INSULIN REGULAR, HUMAN 100 UNITS/ML IVP ONE (16:15)
[2022-10-28 16:16] LABS: ACETONE,BLOOD NEGATIVE (NEGATIVE)
[2022-10-28 18:40] VITALS: BP 116/71
[2022-10-28 18:51] LABS: GLUCOSE,POINT OF CARE 214 MG/DL (70-110)
== END 2022-10-28 20:51 | disposition home or self-care (01) ==
LOC: EMS 14:17
DX: R53.1 Weakness (principal); R42 Dizziness and giddiness; R11.0 Nausea; F10.20 Alcohol dependence, uncomplicated; E11.9 Type 2 diabetes mellitus without complications; F17.210 Nicotine dependence, cigarettes, uncomplicated
CPT/HCPCS: 99283; 96374; 96361; 80053; 82009; 82962; 83735; 84100; 85025; 36415; G0480; J1815; J7030; J3411; J3475; J3490

== ENCOUNTER 2022-11-02 17:15 | Emergency (ER) | payer MEDICAID ==
[~2022-11-02] VITALS: Ht 162.6 cm; Wt 56.0 kg
[2022-11-02] MEDS ORDERED: GABAPENTIN 300 MG CAPSULE PO ONE (18:00)
[2022-11-02 18:21] LABS: GLUCOSE,POINT OF CARE 423 MG/DL (70-110)
[2022-11-02 18:57] VITALS: BP 120/78
== END 2022-11-02 19:07 | disposition home or self-care (01) ==
LOC: EMS 17:32
DX: E11.65 Type 2 diabetes mellitus with hyperglycemia (principal); E11.40 Type 2 diabetes mellitus with diabetic neuropathy, unspecified; F10.20 Alcohol dependence, uncomplicated; F17.210 Nicotine dependence, cigarettes, uncomplicated
CPT/HCPCS: 82948; 82962; 99283

== ENCOUNTER 2022-11-03 22:51 | Inpatient (IN) | payer MEDICAID ==
[~2022-11-03] VITALS: Ht 165.1 cm; Wt 50.9 kg
[2022-11-03 23:25] LABS: GLUCOSE,POINT OF CARE 400 MG/DL (70-110)
[2022-11-04] MEDS ORDERED: KETOROLAC TROMETHAMINE 30 MG/ML VIAL IVP ONE (01:45)
[2022-11-04] MEDS ORDERED: SODIUM CHLORIDE 0.9% 1,000 ML IV ONE (01:45)
[2022-11-04] MEDS ORDERED: ONDANSETRON HCL 4 MG/2 ML VIAL IVP ONE (01:45)
[2022-11-04 02:43] LABS: BASOPHILS % (AUTO) 0.7 % (0.0-2.0); EOSINOPHILS % (AUTO) 0.7 % (1.0-6.0); HEMATOCRIT 37.5 % (41-53); HEMOGLOBIN 12.9 g/dL (13.5-17.5); LYMPHOCYTES # (AUTO) 1.9 K/uL (1.0-4.8); LYMPHOCYTES % (AUTO) 38.3 % (22.0-44.0); MEAN CORPUSCULAR HEMOGLOBIN 33.8 pg (26.0-34.0); MEAN CORPUSCULAR HGB CONC 34.4 G/dL (31.0-37.0); MEAN CORPUSCULAR VOLUME 98 fL (80-100); MONOCYTES # (AUTO) 0.5 K/uL (0.1-1.0); MONOCYTES % (AUTO) 10.8 % (2.0-9.0); NEUTROPHILS # (AUTO) 2.5 K/uL (1.8-7.7); NEUTROPHILS % (AUTO) 49.5 % (40.0-70.0); PLATELET COUNT (AUTO) 262 K/uL (150-450); RED BLOOD CELL COUNT(AUTO) 3.82 MIL/uL (4.50-5.90); RED CELL DISTRIBUTION WIDTH 13.8 % (11.5-14.5)
[2022-11-04 02:52] LABS: ALANINE AMINOTRANSFERASE 84 U/L (12-78); ALKALINE PHOSPHATASE 400 U/L (46-116); ANION GAP 17 mmol/L (8-16); ASPARTATE AMINOTRANSFERASE 93 U/L (15-37); BILIRUBIN,TOTAL 0.7 mg/dL (0.1-1.0); CALCIUM, TOTAL 8.8 mg/dL (8.8-10.5); CARBON DIOXIDE 26 mmol/L (22-29); CHLORIDE 90 mmol/L (98-107); CREATININE 0.47 mg/dL (0.60-1.30); GLOMERULAR FILTR. RATE CALC > 60 mL/min (>60); GLUCOSE,RANDOM 301 mg/dL (70-110); SODIUM SERUM 133 mmol/L (136-145); TOTAL PROTEIN, SERUM 7.4 g/dL (6.4-8.2); UREA NITROGEN, BLOOD 1 mg/dL (7-18)
[2022-11-04 03:00] LABS: POTASSIUM 2.2 mmol/L (3.5-5.1)
[2022-11-04] MEDS ORDERED: ACETAMINOPHEN 325 MG TABLET PO PRN ×2 (03:15→22:00)
[2022-11-04] MEDS ORDERED: POTASSIUM CHLORIDE 20 MEQ ER TABLET PO PRN ×3 (03:15→22:30)
[2022-11-04] MEDS ORDERED: ONDANSETRON HCL 4 MG/2 ML VIAL IVP PRN (03:15)
[2022-11-04] MEDS ORDERED: POTASSIUM CHL 10 MEQ/WATER 50 ML IV PRN ×3 (03:15→22:30)
[2022-11-04 04:56] LABS: COVID AG,FIA SOURCE NASOPHARYNGEAL
[2022-11-04 06:16] LABS: GLUCOSE,POINT OF CARE 324 MG/DL (70-110)
[2022-11-04] MEDS ORDERED: POTASSIUM CHLORIDE 20 MEQ ER TABLET PO ONE ×2 (06:30→10:00)
[2022-11-04] MEDS ORDERED: DIAZEPAM 5 MG TABLET PO ONE (06:30)
[2022-11-04] MEDS ORDERED: LORazepam 2 MG/ML VIAL IVP PRN (06:30)
[2022-11-04] MEDS ORDERED: MAGNESIUM OXIDE 400 MG TABLET PO PRN (06:30)
[2022-11-04] MEDS ORDERED: MAGNESIUM SULFATE 2 GM/WATER 50 ML IV PRN (06:30)
[2022-11-04] MEDS ORDERED: MAGNESIUM SULFATE 4 GM/WATER 100 ML IV PRN (06:30)
[2022-11-04] MEDS: POTASSIUM CHL 10 MEQ/WATER 50 ML IV PRN ×2 (06:30→07:27)
[2022-11-04] MEDS ORDERED: DEXTROSE 50%-WATER 25 GM/50 ML SYRINGE IVP PRN ×2 (06:45→22:00)
[2022-11-04] MEDS ORDERED: SODIUM CHLORIDE 0.45% 1,000 ML IV PRN (06:45)
[2022-11-04] MEDS ORDERED: DEXTROSE 5%-0.45% SODIUM CHL 1,000 ML IV PRN (06:45)
[2022-11-04] MEDS ORDERED: POTASSIUM CHLORIDE 40 MEQ in SODIUM CHLORIDE 0.45% 1,000 ML IV PRN (06:45)
[2022-11-04] MEDS ORDERED: INSULIN REGULAR, HUMAN 100 UNITS/ML IVP PRN (06:45)
[2022-11-04] MEDS ORDERED: INSULIN REGULAR, HUMAN 100 UNITS in SODIUM CHLORIDE 0.9% 99 ML IV PRN ×2 (06:45)
[2022-11-04] MEDS ORDERED: POTASSIUM CHL 20 MEQ/0.45% NS 1,000 ML IV PRN (06:45)
[2022-11-04] MEDS ORDERED: INSULIN REGULAR, HUMAN 100 UNITS/ML IVP ONE (06:45)
[2022-11-04] MEDS ORDERED: SODIUM CHLORIDE 0.9% 1,000 ML IV SCH (06:45)
[2022-11-04 07:02] LABS: BASOPHILS % (AUTO) 0.7 % (0.0-2.0); EOSINOPHILS % (AUTO) 0.8 % (1.0-6.0); HEMATOCRIT 36.4 % (41-53); HEMOGLOBIN 12.9 g/dL (13.5-17.5); LYMPHOCYTES # (AUTO) 1.3 K/uL (1.0-4.8); LYMPHOCYTES % (AUTO) 35.2 % (22.0-44.0); MEAN CORPUSCULAR HEMOGLOBIN 34.5 pg (26.0-34.0); MEAN CORPUSCULAR HGB CONC 35.4 G/dL (31.0-37.0); MEAN CORPUSCULAR VOLUME 98 fL (80-100); MONOCYTES # (AUTO) 0.3 K/uL (0.1-1.0); MONOCYTES % (AUTO) 8.5 % (2.0-9.0); NEUTROPHILS % (AUTO) 54.8 % (40.0-70.0); PLATELET COUNT (AUTO) 270 K/uL (150-450); RED BLOOD CELL COUNT(AUTO) 3.73 MIL/uL (4.50-5.90)
[2022-11-04 07:25] LABS: ALBUMIN 4.2 g/dL (3.4-5.0); ANION GAP 14 mmol/L (8-16); CALCIUM, TOTAL 8.3 mg/dL (8.8-10.5); CARBON DIOXIDE 26 mmol/L (22-29); CHLORIDE 92 mmol/L (98-107); CREATININE 0.55 mg/dL (0.60-1.30); GLOMERULAR FILTR. RATE CALC > 60 mL/min (>60); GLUCOSE,RANDOM 322 mg/dL (70-110); PHOSPHORUS 2.7 mg/dL (2.5-4.9); SODIUM SERUM 132 mmol/L (136-145); UREA NITROGEN, BLOOD 1 mg/dL (7-18)
[2022-11-04] MEDS: 1: MAGNESIUM SULFATE 2 GM, MVI, ADULT NO.1 WITH VIT K 10 ML, THIAMINE 100 MG, FOLIC ACID IV SCH ×10 (07:26→21:50)
[2022-11-04 07:31] LABS: POTASSIUM 2.7 mmol/L (3.5-5.1)
[2022-11-04 07:35] LABS: GLUCOSE,POINT OF CARE 376 MG/DL (70-110)
[2022-11-04] MEDS ORDERED: INSULIN GLARGINE,HUM.REC.ANLOG 100 UNITS/ML SQ ONE ×2 (07:45→22:00)
[2022-11-04] MEDS: ChlordiazePOXIDE HCL 25 MG CAPSULE PO SCH ×5 (08:10→23:52)
[2022-11-04] MEDS ORDERED: CHLO5CAP4 PO (10:51)
[2022-11-04 11:03] LABS: ANION GAP 12 mmol/L (8-16); CALCIUM, TOTAL 8.4 mg/dL (8.8-10.5); CARBON DIOXIDE 27 mmol/L (22-29); CHLORIDE 94 mmol/L (98-107); CREATININE 0.48 mg/dL (0.60-1.30); GLOMERULAR FILTR. RATE CALC > 60 mL/min (>60); GLUCOSE,RANDOM 377 mg/dL (70-110); POTASSIUM 3.1 mmol/L (3.5-5.1); SODIUM SERUM 133 mmol/L (136-145); UREA NITROGEN, BLOOD 1 mg/dL (7-18)
[2022-11-04 19:45] LABS: ANION GAP 12 mmol/L (8-16); CALCIUM, TOTAL 8.8 mg/dL (8.8-10.5); CARBON DIOXIDE 26 mmol/L (22-29); CHLORIDE 98 mmol/L (98-107); CREATININE 0.64 mg/dL (0.60-1.30); GLOMERULAR FILTR. RATE CALC > 60 mL/min (>60); GLUCOSE,RANDOM 194 mg/dL (70-110); POTASSIUM 3.5 mmol/L (3.5-5.1); SODIUM SERUM 136 mmol/L (136-145); UREA NITROGEN, BLOOD 4 mg/dL (7-18)
[2022-11-04 20:00] VITALS: BP 142/106
[2022-11-04] MEDS ORDERED: SODIUM CHLORIDE 0.9% 1,000 ML ONE (21:36)
[2022-11-04] MEDS ORDERED: INSULIN LISPRO 100 UNITS/ML SQ PRN (22:00)
[2022-11-04] MEDS: POTASSIUM CHLORIDE 20 MEQ ER TABLET PO PRN (22:52)
[2022-11-05] VITALS: BP 118/86
[2022-11-05 02:21] LABS: GLUCOMETER DEV NAME(LOC) 5N.2C; GLUCOSE,POINT OF CARE 177 MG/DL (70-110)
[2022-11-05 04:00] VITALS: BP 123/94
[2022-11-05] MEDS: ChlordiazePOXIDE HCL 25 MG CAPSULE PO SCH ×3 (04:30→12:21)
[2022-11-05 06:00] LABS: MAGNESIUM 2.2 mg/dL (1.80-2.40); POTASSIUM 3.1 mmol/L (3.5-5.1)
[2022-11-05 08:22] LABS: GLUCOMETER DEV NAME(LOC) 5S.2C; GLUCOSE,POINT OF CARE 100 MG/DL (70-110)
[2022-11-05 08:53] VITALS: BP 132/94
[2022-11-05] MEDS ORDERED: INSULIN GLARGINE,HUM.REC.ANLOG 100 UNITS/ML SQ SCH (09:00)
[2022-11-05] MEDS: POTASSIUM CHLORIDE 20 MEQ ER TABLET PO PRN (09:19)
[2022-11-05] MEDS ORDERED: POTASSIUM CHLORIDE 20 MEQ ER TABLET PO ONE (10:15)
[2022-11-05 11:31] VITALS: BP 99/73
[2022-11-05 12:01] LABS: GLUCOMETER DEV NAME(LOC) 5S.2C; GLUCOSE,POINT OF CARE 202 MG/DL (70-110)
== END 2022-11-05 16:00 | disposition home or self-care (01) | DRG 425 ==
LOC: EMS 22:52 → AHU 11-04 15:21 → 5N 11-04 19:19
PROVIDERS: ADMIT Hospitalist; ATTEND Hospitalist
DX: E87.6 Hypokalemia (principal); E10.10 Type 1 diabetes mellitus with ketoacidosis without coma; E43 Unspecified severe protein-calorie malnutrition; E83.42 Hypomagnesemia; Y90.8 Blood alcohol level of 240 mg/100 ml or more; F10.129 Alcohol abuse with intoxication, unspecified; Z20.822 Contact with and (suspected) exposure to COVID-19; Z68.1 Body mass index [BMI] 19.9 or less, adult; Z72.0 Tobacco use; Z79.4 Long term (current) use of insulin; Z86.73 Personal history of transient ischemic attack (TIA), and cerebral infarction without residual deficits; Z91.199 Patient's noncompliance with other medical treatment and regimen due to unspecified reason
CPT/HCPCS: 80048; 80053; 82040; 82962; 83735; 84100; 84132; 85025; 87081; 99291; G0480; J1815; J1885; J2405; J3411; J3475; J3480; J3490; J7030; J7050

== ENCOUNTER 2022-11-22 22:01 | Inpatient (IN) | payer MEDICAID ==
[~2022-11-22] VITALS: Ht 165.1 cm; Wt 53.0 kg
[~2022-11-22 22:01] MED LIST changes: +CHLO5CAP4 PO
[2022-11-22 23:48] LABS: BASOPHILS % (AUTO) 0.7 % (0.0-2.0); EOSINOPHILS % (AUTO) 0.7 % (1.0-6.0); HEMATOCRIT 38.3 % (41-53); HEMOGLOBIN 13.4 g/dL (13.5-17.5); LYMPHOCYTES # (AUTO) 2.5 K/uL (1.0-4.8); LYMPHOCYTES % (AUTO) 30.8 % (22.0-44.0); MEAN CORPUSCULAR HEMOGLOBIN 33.5 pg (26.0-34.0); MEAN CORPUSCULAR HGB CONC 35.1 G/dL (31.0-37.0); MEAN CORPUSCULAR VOLUME 96 fL (80-100); MONOCYTES # (AUTO) 0.8 K/uL (0.1-1.0); MONOCYTES % (AUTO) 9.1 % (2.0-9.0); NEUTROPHILS # (AUTO) 4.8 K/uL (1.8-7.7); NEUTROPHILS % (AUTO) 58.7 % (40.0-70.0); PLATELET COUNT (AUTO) 355 K/uL (150-450); RED BLOOD CELL COUNT(AUTO) 4.01 MIL/uL (4.50-5.90); RED CELL DISTRIBUTION WIDTH 13.9 % (11.5-14.5)
[2022-11-23 00:05] LABS: APPEARANCE,URINE CLEAR (CLEAR); BILIRUBIN,URINE NEGATIVE (NEGATIVE); GLUCOSE, URINE (UA) >=1000 mg/dL (NEGATIVE); KETONES,URINE TRACE mg/dL (NEGATIVE); LEUKOCYTE ESTERASE ,URINE NEGATIVE (NEGATIVE); NITRATE,URINE NEGATIVE (NEGATIVE); OCCULT BLOOD,URINE NEGATIVE (NEGATIVE); PROTEIN,URINE NEGATIVE (NEGATIVE); SPECIFIC GRAVITIY, URINE 1.028 (1.003-1.030); UROBILINOGEN,URINE <=1.0 mg/dL (<=1.0)
[2022-11-23 00:25] LABS: ACETONE,BLOOD TRACE (NEGATIVE)
[2022-11-23 00:25] LABS: AMPHET/METH SCREEN,URINE NEGATIVE (NEGATIVE); BARBITURATE SCREEN, URINE NEGATIVE (NEGATIVE); BENZODIAZEPINES SCREEN,URINE POSITIVE (NEGATIVE); CANNABINOID SCREEN,URINE NEGATIVE (NEGATIVE); COCAINE SCREEN,URINE NEGATIVE (NEGATIVE); METHADONE SCREEN, URINE NEGATIVE (NEGATIVE); OPIATE SCREEN,URINE NEGATIVE (NEGATIVE); PHENCYCLIDINE SCREEN,URINE NEGATIVE (NEGATIVE)
[2022-11-23 00:29] LABS: BACTERIA,URINE None Seen /HPF (None Seen); RBC,URINE None Seen /HPF (0-2); SQUAMOUS EPITHELIAL CELL,UR Few /LPF (None Seen); WBC,URINE None Seen /HPF (0-5)
[2022-11-23 00:31] LABS: ALANINE AMINOTRANSFERASE 36 U/L (12-78); ALBUMIN 4.4 g/dL (3.4-5.0); ALKALINE PHOSPHATASE 312 U/L (46-116); ANION GAP 17 mmol/L (8-16); ASPARTATE AMINOTRANSFERASE 26 U/L (15-37); BILIRUBIN,TOTAL 0.3 mg/dL (0.1-1.0); CALCIUM, TOTAL 9.6 mg/dL (8.8-10.5); CARBON DIOXIDE 28 mmol/L (22-29); CHLORIDE 95 mmol/L (98-107); CREATINE KINASE, TOTAL ONLY 103 U/L (39-308); CREATININE 0.68 mg/dL (0.60-1.30); GLOMERULAR FILTR. RATE CALC > 60 mL/min (>60); SODIUM SERUM 140 mmol/L (136-145); TOTAL PROTEIN, SERUM 8.1 g/dL (6.4-8.2); UREA NITROGEN, BLOOD 2 mg/dL (7-18)
[2022-11-23 00:33] LABS: GLUCOSE,RANDOM 413 mg/dL (70-110); POTASSIUM 2.5 mmol/L (3.5-5.1)
[2022-11-23 00:41] LABS: B-TYPE NATRIURETIC PEPTIDE 15 pg/mL (0-100)
[2022-11-23] MEDS: POTASSIUM CHL 10 MEQ/WATER 50 ML IV SCH ×2 (00:45→01:45)
[2022-11-23] MEDS ORDERED: POTASSIUM CHLORIDE 20 MEQ ER TABLET PO ONE (00:45)
[2022-11-23] MEDS ORDERED: 0.9% SODIUM CHLORIDE 10 ML SYRINGE IVP PRN (02:30)
[2022-11-23] MEDS ORDERED: ACETAMINOPHEN 325 MG TABLET PO PRN (02:30)
[2022-11-23] MEDS ORDERED: ONDANSETRON HCL 4 MG/2 ML VIAL IVP PRN ×2 (02:30→07:45)
[2022-11-23 05:16] LABS: ANION GAP 14 mmol/L (8-16); CARBON DIOXIDE 27 mmol/L (22-29); CHLORIDE 103 mmol/L (98-107); CREATININE 0.49 mg/dL (0.60-1.30); GLOMERULAR FILTR. RATE CALC > 60 mL/min (>60); GLUCOSE,RANDOM 387 mg/dL (70-110); SODIUM SERUM 144 mmol/L (136-145); UREA NITROGEN, BLOOD 2 mg/dL (7-18)
[2022-11-23] MEDS ORDERED: MAGNESIUM HYDROXIDE SUSPENSION 30 ML UDCUP PO PRN (07:45)
[2022-11-23] MEDS ORDERED: ZOLPIDEM TARTRATE 5 MG TABLET PO PRN (07:45)
[2022-11-23] MEDS ORDERED: SODIUM CHLORIDE 0.9% 1,000 ML IV ONE (07:45)
[2022-11-23] MEDS ORDERED: DEXTROSE 50%-WATER 25 GM/50 ML SYRINGE IVP PRN (07:45)
[2022-11-23] MEDS: MULTIVITAMINS WITH MINERALS, THERAPEUTIC TABLET PO SCH (08:04)
[2022-11-23] MEDS: FAMOTIDINE 20 MG TABLET PO SCH ×2 (08:04→20:42)
[2022-11-23] MEDS: INSULIN LISPRO 100 UNITS/ML SQ PRN ×2 (08:09→16:31)
[2022-11-23] MEDS ORDERED: INSULIN GLARGINE,HUM.REC.ANLOG 100 UNITS/ML SQ SCH (09:00)
[2022-11-23] MEDS: LORazepam 2 MG/ML VIAL IVP PRN ×2 (09:09→17:15)
[2022-11-23 10:57] VITALS: BP 117/91
[2022-11-23 11:47] LABS: GLUCOMETER DEV NAME(LOC) 5S.1B; GLUCOSE,POINT OF CARE 92 MG/DL (70-110)
[2022-11-23] MEDS: POTASSIUM CHLORIDE 20 MEQ ER TABLET PO PRN ×2 (14:07→20:42)
[2022-11-23] MEDS: OxyCODONE HCL/ACETAMINOPHEN 5-325 MG TABLET PO PRN ×2 (14:07→20:42)
[2022-11-23 15:35] VITALS: BP 119/91
[2022-11-23 19:31] LABS: GLUCOMETER DEV NAME(LOC) ERT.5; GLUCOSE,POINT OF CARE 313 MG/DL (70-110)
[2022-11-23 19:53] VITALS: BP 114/75
[2022-11-23] MEDS: INSULIN GLARGINE,HUM.REC.ANLOG 100 UNITS/ML SQ SCH (20:44)
[2022-11-23 21:06] LABS: GLUCOMETER DEV NAME(LOC) 5N.1C; GLUCOSE,POINT OF CARE 356 MG/DL (70-110)
[2022-11-23 21:46] LABS: GLUCOMETER DEV NAME(LOC) 5S.1B; GLUCOSE,POINT OF CARE 167 MG/DL (70-110)
[2022-11-24 03:44] VITALS: BP 112/79
[2022-11-24] MEDS: LORazepam 2 MG/ML VIAL IVP PRN (05:24)
[2022-11-24] MEDS: INSULIN LISPRO 100 UNITS/ML SQ PRN ×3 (05:25→17:24)
[2022-11-24 05:30] LABS: BASOPHILS % (AUTO) 0.5 % (0.0-2.0); EOSINOPHILS % (AUTO) 1.2 % (1.0-6.0); HEMOGLOBIN 12.1 g/dL (13.5-17.5); LYMPHOCYTES % (AUTO) 23.3 % (22.0-44.0); MEAN CORPUSCULAR HGB CONC 35.5 G/dL (31.0-37.0); MEAN CORPUSCULAR VOLUME 96 fL (80-100); MONOCYTES # (AUTO) 0.6 K/uL (0.1-1.0); NEUTROPHILS # (AUTO) 5.7 K/uL (1.8-7.7); PLATELET COUNT (AUTO) 269 K/uL (150-450); RED BLOOD CELL COUNT(AUTO) 3.54 MIL/uL (4.50-5.90); RED CELL DISTRIBUTION WIDTH 13.6 % (11.5-14.5)
[2022-11-24 05:37] LABS: GLUCOMETER DEV NAME(LOC) 5N.2C; GLUCOSE,POINT OF CARE 264 MG/DL (70-110)
[2022-11-24 05:46] LABS: ALANINE AMINOTRANSFERASE 24 U/L (12-78); ALBUMIN 3.1 g/dL (3.4-5.0); ALKALINE PHOSPHATASE 223 U/L (46-116); ANION GAP 8 mmol/L (8-16); ASPARTATE AMINOTRANSFERASE 29 U/L (15-37); BILIRUBIN,TOTAL 0.5 mg/dL (0.1-1.0); CALCIUM, TOTAL 8.3 mg/dL (8.8-10.5); CARBON DIOXIDE 28 mmol/L (22-29); CHLORIDE 96 mmol/L (98-107); CREATININE 0.49 mg/dL (0.60-1.30); GLOMERULAR FILTR. RATE CALC > 60 mL/min (>60); GLUCOSE,RANDOM 285 mg/dL (70-110); POTASSIUM 3.1 mmol/L (3.5-5.1); SODIUM SERUM 132 mmol/L (136-145); TOTAL PROTEIN, SERUM 5.9 g/dL (6.4-8.2); UREA NITROGEN, BLOOD 7 mg/dL (7-18)
[2022-11-24 08:08] VITALS: BP 121/66
[2022-11-24] MEDS: FAMOTIDINE 20 MG TABLET PO SCH ×2 (09:16→20:07)
[2022-11-24] MEDS: MULTIVITAMINS WITH MINERALS, THERAPEUTIC TABLET PO SCH (09:16)
[2022-11-24] MEDS: POTASSIUM CHL 10 MEQ/WATER 50 ML IV PRN ×3 (09:17→11:23)
[2022-11-24] MEDS: INSULIN GLARGINE,HUM.REC.ANLOG 100 UNITS/ML SQ SCH ×2 (09:17→20:08)
[2022-11-24] MEDS ORDERED: MAGNESIUM SULFATE 2 GM/WATER 50 ML IV PRN (10:45)
[2022-11-24] MEDS ORDERED: MAGNESIUM OXIDE 400 MG TABLET PO PRN (10:45)
[2022-11-24] MEDS ORDERED: MAGNESIUM SULFATE 4 GM/WATER 100 ML IV PRN (10:45)
[2022-11-24 11:33] LABS: ALBUMIN 3.1 g/dL (3.4-5.0); MAGNESIUM 1.3 mg/dL (1.80-2.40)
[2022-11-24 11:37] VITALS: BP 112/82
[2022-11-24] MEDS: OxyCODONE HCL/ACETAMINOPHEN 5-325 MG TABLET PO PRN (11:50)
[2022-11-24 15:33] VITALS: BP 103/78
[2022-11-24 16:28] LABS: APPEARANCE,URINE CLEAR (CLEAR); BILIRUBIN,URINE NEGATIVE (NEGATIVE); GLUCOSE, URINE (UA) NEGATIVE (NEGATIVE); KETONES,URINE NEGATIVE (NEGATIVE); LEUKOCYTE ESTERASE ,URINE NEGATIVE (NEGATIVE); NITRATE,URINE NEGATIVE (NEGATIVE); OCCULT BLOOD,URINE NEGATIVE (NEGATIVE); PROTEIN,URINE NEGATIVE (NEGATIVE); SPECIFIC GRAVITIY, URINE 1.006 (1.003-1.030); UROBILINOGEN,URINE <=1.0 mg/dL (<=1.0)
[2022-11-24 20:00] VITALS: BP 101/71
[2022-11-24 20:06] LABS: GLUCOMETER DEV NAME(LOC) 5S.1B; GLUCOSE,POINT OF CARE 166 MG/DL (70-110)
[2022-11-24 20:06] LABS: GLUCOMETER DEV NAME(LOC) 5S.1B; GLUCOSE,POINT OF CARE 82 MG/DL (70-110)
[2022-11-24 20:07] LABS: GLUCOMETER DEV NAME(LOC) 5S.1B; GLUCOSE,POINT OF CARE 169 MG/DL (70-110)
[2022-11-24] MEDS: ACETAMINOPHEN 325 MG TABLET PO PRN (20:07)
[2022-11-25 00:16] VITALS: BP 118/73
[2022-11-25] MEDS: LORazepam 2 MG/ML VIAL IVP PRN ×2 (00:16→11:24)
[2022-11-25] MEDS: ACETAMINOPHEN 325 MG TABLET PO PRN (02:44)
[2022-11-25 03:55] VITALS: BP 95/61
[2022-11-25 07:46] VITALS: BP 108/84
[2022-11-25 08:56] LABS: GLUCOMETER DEV NAME(LOC) 5N.1C; GLUCOSE,POINT OF CARE 204 MG/DL (70-110)
[2022-11-25] MEDS: INSULIN GLARGINE,HUM.REC.ANLOG 100 UNITS/ML SQ SCH (09:05)
[2022-11-25] MEDS: MULTIVITAMINS WITH MINERALS, THERAPEUTIC TABLET PO SCH (09:05)
[2022-11-25] MEDS: FAMOTIDINE 20 MG TABLET PO SCH (09:06)
[2022-11-25] MEDS ORDERED: MAGN200T8 PO (09:18)
[2022-11-25] MEDS ORDERED: INSLAN SQ (09:19)
[2022-11-25 11:20] VITALS: BP 104/77
[2022-11-25] MEDS: OxyCODONE HCL/ACETAMINOPHEN 5-325 MG TABLET PO PRN (11:22)
[2022-11-25] MEDS: INSULIN LISPRO 100 UNITS/ML SQ PRN (12:24)
[2022-11-25 16:07] VITALS: BP 100/72
[2022-11-25 21:21] LABS: GLUCOMETER DEV NAME(LOC) 5N.2C; GLUCOSE,POINT OF CARE 214 MG/DL (70-110)
[2022-11-27 20:16] LABS: GLUCOMETER DEV NAME(LOC) 5S.2C; GLUCOSE,POINT OF CARE 81 MG/DL (70-110)
== END 2022-11-25 17:00 | disposition home or self-care (01) | DRG 425 ==
LOC: EMS 22:04 → 5S 11-23 03:00
PROVIDERS: ADMIT Internal Medicine; ATTEND Internal Medicine
DX: E87.6 Hypokalemia (principal); E43 Unspecified severe protein-calorie malnutrition; D63.8 Anemia in other chronic diseases classified elsewhere; E11.65 Type 2 diabetes mellitus with hyperglycemia; F10.129 Alcohol abuse with intoxication, unspecified; Z79.4 Long term (current) use of insulin; Z87.891 Personal history of nicotine dependence; Z86.73 Personal history of transient ischemic attack (TIA), and cerebral infarction without residual deficits; Z91.199 Patient's noncompliance with other medical treatment and regimen due to unspecified reason; Z68.1 Body mass index [BMI] 19.9 or less, adult
CPT/HCPCS: 80048; 80053; 80307; 81001; 81003; 82009; 82040; 82550; 82962; 83735; 83880; 84132; 84484; 85025; 93005; 99291; G0378; G0480; J1815; J2060; J2405; J3480

== ENCOUNTER 2022-11-26 05:17 | Emergency (ER) | payer MEDICAID ==
[~2022-11-26] VITALS: Ht 154.9 cm; Wt 49.1 kg
[~2022-11-26 05:17] MED LIST changes: -CHLO5CAP4 PO; +MAGN200T8 PO
[2022-11-26 05:46] VITALS: BP 103/64
[2022-11-26] MEDS ORDERED: KETOROLAC TROMETHAMINE 60 MG/2 ML VIAL IM ONE (06:30)
== END 2022-11-26 07:30 | disposition home or self-care (01) ==
LOC: EMS 05:18
DX: M54.32 Sciatica, left side (principal); F10.20 Alcohol dependence, uncomplicated; E11.9 Type 2 diabetes mellitus without complications; F17.210 Nicotine dependence, cigarettes, uncomplicated; Y90.9 Presence of alcohol in blood, level not specified
CPT/HCPCS: 99283; 96372; J1885

== ENCOUNTER 2022-12-07 02:02 | Emergency (ER) | payer MEDICAID ==
[~2022-12-07] VITALS: Ht 157.5 cm; Wt 62.0 kg
[2022-12-07 02:36] LABS: BASOPHILS % (AUTO) 0.8 % (0.0-2.0); EOSINOPHILS % (AUTO) 0.6 % (1.0-6.0); HEMATOCRIT 37.1 % (41-53); LYMPHOCYTES # (AUTO) 2.6 K/uL (1.0-4.8); MEAN CORPUSCULAR HEMOGLOBIN 33.9 pg (26.0-34.0); MEAN CORPUSCULAR VOLUME 97 fL (80-100); MONOCYTES # (AUTO) 0.6 K/uL (0.1-1.0); MONOCYTES % (AUTO) 6.6 % (2.0-9.0); NEUTROPHILS # (AUTO) 5.2 K/uL (1.8-7.7); PLATELET COUNT (AUTO) 348 K/uL (150-450); RED BLOOD CELL COUNT(AUTO) 3.84 MIL/uL (4.50-5.90); RED CELL DISTRIBUTION WIDTH 13.9 % (11.5-14.5)
[2022-12-07 03:03] LABS: ALANINE AMINOTRANSFERASE 28 U/L (12-78); ALBUMIN 3.8 g/dL (3.4-5.0); ALKALINE PHOSPHATASE 234 U/L (46-116); ANION GAP 10 mmol/L (8-16); ASPARTATE AMINOTRANSFERASE 21 U/L (15-37); BILIRUBIN,TOTAL 0.2 mg/dL (0.1-1.0); CALCIUM, TOTAL 9.6 mg/dL (8.8-10.5); CARBON DIOXIDE 30 mmol/L (22-29); CHLORIDE 98 mmol/L (98-107); CREATININE 0.61 mg/dL (0.60-1.30); GLOMERULAR FILTR. RATE CALC > 60 mL/min (>60); SODIUM SERUM 138 mmol/L (136-145); TOTAL PROTEIN, SERUM 7.7 g/dL (6.4-8.2); UREA NITROGEN, BLOOD 2 mg/dL (7-18)
[2022-12-07 03:04] LABS: GLUCOSE,RANDOM 422 mg/dL (70-110); POTASSIUM 2.5 mmol/L (3.5-5.1)
[2022-12-07] MEDS ORDERED: SODIUM CHLORIDE 0.9% 1,000 ML IV ONE (03:15)
[2022-12-07] MEDS ORDERED: INSULIN REGULAR, HUMAN 100 UNITS/ML SQ ONE (03:15)
[2022-12-07] MEDS ORDERED: POTASSIUM CHLORIDE 20 MEQ ER TABLET PO ONE (03:15)
[2022-12-07] MEDS: POTASSIUM CHL 10 MEQ/WATER 50 ML IV SCH ×2 (04:36→04:41)
[2022-12-07 06:00] VITALS: BP 124/69
== END 2022-12-07 10:56 | disposition home or self-care (01) ==
LOC: EMS 02:04
DX: F10.129 Alcohol abuse with intoxication, unspecified (principal); E11.65 Type 2 diabetes mellitus with hyperglycemia; E87.6 Hypokalemia; F17.210 Nicotine dependence, cigarettes, uncomplicated
CPT/HCPCS: 99284; 96365; 96361; 80053; 85025; 93005; G0480; J3480; J7030; J1815

== ENCOUNTER 2022-12-19 13:48 | Emergency (ER) | payer MEDICAID ==
[~2022-12-19] VITALS: Ht 157.5 cm; Wt 45.7 kg
[2022-12-19] MEDS ORDERED: INSU100V SQ (14:17)
[2022-12-19] MEDS ORDERED: METF-1211 PO (14:17)
[2022-12-19] MEDS ORDERED: GABA-1181 PO (14:29)
[2022-12-19] MEDS ORDERED: CHLO5CAP3 PO (14:29)
[2022-12-19] MEDS ORDERED: SODIUM CHLORIDE 0.9% 1,000 ML IV ONE (14:30)
[2022-12-19 15:11] LABS: BASOPHILS % (AUTO) 0.6 % (0.0-2.0); EOSINOPHILS % (AUTO) 1.2 % (1.0-6.0); HEMATOCRIT 31.3 % (41-53); HEMOGLOBIN 10.8 g/dL (13.5-17.5); LYMPHOCYTES # (AUTO) 1.5 K/uL (1.0-4.8); LYMPHOCYTES % (AUTO) 27.9 % (22.0-44.0); MEAN CORPUSCULAR HEMOGLOBIN 32.8 pg (26.0-34.0); MEAN CORPUSCULAR HGB CONC 34.5 G/dL (31.0-37.0); MEAN CORPUSCULAR VOLUME 95 fL (80-100); MONOCYTES % (AUTO) 18.6 % (2.0-9.0); NEUTROPHILS # (AUTO) 2.9 K/uL (1.8-7.7); NEUTROPHILS % (AUTO) 51.7 % (40.0-70.0); PLATELET COUNT (AUTO) 255 K/uL (150-450); RED BLOOD CELL COUNT(AUTO) 3.29 MIL/uL (4.50-5.90); RED CELL DISTRIBUTION WIDTH 13.6 % (11.5-14.5)
[2022-12-19 15:26] LABS: ANION GAP 9 mmol/L (8-16); CALCIUM, TOTAL 9.5 mg/dL (8.8-10.5); CARBON DIOXIDE 28 mmol/L (22-29); CHLORIDE 101 mmol/L (98-107); CREATININE 0.59 mg/dL (0.60-1.30); GLOMERULAR FILTR. RATE CALC > 60 mL/min (>60); POTASSIUM 3.6 mmol/L (3.5-5.1); SODIUM SERUM 138 mmol/L (136-145)
[2022-12-19 15:45] LABS: GLUCOSE,RANDOM 415 mg/dL (70-110)
[2022-12-19] MEDS ORDERED: INSULIN REGULAR, HUMAN 100 UNITS/ML IVP ONE (16:00)
[2022-12-19 17:40] VITALS: BP 108/72
== END 2022-12-19 20:45 | disposition left against medical advice (07) ==
LOC: EMS 13:52
DX: R41.82 Altered mental status, unspecified (principal); F10.129 Alcohol abuse with intoxication, unspecified; E11.65 Type 2 diabetes mellitus with hyperglycemia; F17.210 Nicotine dependence, cigarettes, uncomplicated; Y90.9 Presence of alcohol in blood, level not specified
CPT/HCPCS: 99284; 96374; 96361; 80048; 82962; 85025; 36415; G0480; J1815; J7030

== ENCOUNTER 2022-12-27 18:46 | Emergency (ER) | payer MEDICAID ==
[~2022-12-27] VITALS: Ht 152.4 cm; Wt 45.5 kg
[~2022-12-27 18:46] MED LIST changes: +CHLO5CAP3 PO; +INSU100V SQ; +METF-1211 PO
[2022-12-27] MEDS ORDERED: SODIUM CHLORIDE 0.9% 1,000 ML IV ONE (19:00)
[2022-12-27 19:23] LABS: BASOPHILS % (AUTO) 0.9 % (0.0-2.0); EOSINOPHILS % (AUTO) 0.4 % (1.0-6.0); HEMATOCRIT 41.1 % (41-53); HEMOGLOBIN 13.9 g/dL (13.5-17.5); LYMPHOCYTES # (AUTO) 1.3 K/uL (1.0-4.8); LYMPHOCYTES % (AUTO) 11.3 % (22.0-44.0); MEAN CORPUSCULAR HEMOGLOBIN 31.4 pg (26.0-34.0); MEAN CORPUSCULAR HGB CONC 33.8 G/dL (31.0-37.0); MEAN CORPUSCULAR VOLUME 93 fL (80-100); MONOCYTES # (AUTO) 0.4 K/uL (0.1-1.0); MONOCYTES % (AUTO) 3.1 % (2.0-9.0); NEUTROPHILS # (AUTO) 9.6 K/uL (1.8-7.7); NEUTROPHILS % (AUTO) 84.3 % (40.0-70.0); PLATELET COUNT (AUTO) 480 K/uL (150-450); RED BLOOD CELL COUNT(AUTO) 4.42 MIL/uL (4.50-5.90); RED CELL DISTRIBUTION WIDTH 13.7 % (11.5-14.5)
[2022-12-27 19:29] LABS: ANION GAP 19 mmol/L (8-16); CARBON DIOXIDE 29 mmol/L (22-29); CHLORIDE 92 mmol/L (98-107); CREATININE 0.66 mg/dL (0.60-1.30); GLUCOSE,RANDOM 369 mg/dL (70-110); SODIUM SERUM 140 mmol/L (136-145)
[2022-12-27 19:30] LABS: CALCIUM, TOTAL 9.2 mg/dL (8.8-10.5); GLOMERULAR FILTR. RATE CALC > 60 mL/min (>60)
[2022-12-27 19:31] LABS: POTASSIUM 2.5 mmol/L (3.5-5.1)
[2022-12-27] MEDS ORDERED: POTASSIUM CHLORIDE 20 MEQ ER TABLET PO PRN (19:45)
[2022-12-27] MEDS: POTASSIUM CHL 10 MEQ/WATER 50 ML IV PRN ×4 (20:12→23:05)
[2022-12-28 03:38] LABS: APPEARANCE,URINE CLEAR (CLEAR); BILIRUBIN,URINE NEGATIVE (NEGATIVE); GLUCOSE, URINE (UA) >=1000 mg/dL (NEGATIVE); LEUKOCYTE ESTERASE ,URINE NEGATIVE (NEGATIVE); NITRATE,URINE NEGATIVE (NEGATIVE); OCCULT BLOOD,URINE NEGATIVE (NEGATIVE); PH,URINE 6.5 (5.0-8.0); PROTEIN,URINE 30-70 mg/dL (NEGATIVE); SPECIFIC GRAVITIY, URINE 1.032 (1.003-1.030); UROBILINOGEN,URINE <=1.0 mg/dL (<=1.0)
[2022-12-28 03:48] LABS: BACTERIA,URINE None Seen /HPF (None Seen); RBC,URINE None Seen /HPF (0-2); SQUAMOUS EPITHELIAL CELL,UR Moderate /LPF (None Seen); WBC,URINE None Seen /HPF (0-5)
[2022-12-28] MEDS ORDERED: LORazepam 2 MG/ML VIAL IVP ONE (05:15)
[2022-12-28 06:31] VITALS: BP 122/84
== END 2022-12-28 06:46 | disposition home or self-care (01) ==
LOC: EMS 18:46
DX: E87.6 Hypokalemia (principal); E11.40 Type 2 diabetes mellitus with diabetic neuropathy, unspecified; F10.229 Alcohol dependence with intoxication, unspecified; F17.210 Nicotine dependence, cigarettes, uncomplicated; Z79.4 Long term (current) use of insulin; Y90.9 Presence of alcohol in blood, level not specified
CPT/HCPCS: 99285; 96365; 96361; 80048; 81001; 82962; 83735; 84132; 85025; 36415; 96375; G0480; J3480; J7030; J2060

== ENCOUNTER 2023-01-28 23:06 | Emergency (ER) | payer MEDICAID ==
[~2023-01-28] VITALS: Ht 167.6 cm; Wt 47.7 kg
[~2023-01-28 23:06] MED LIST changes: -CHLO5CAP3 PO; -INSLAN SQ; -INSU100V SQ
[2023-01-28 23:18] VITALS: TEMP 98
[2023-01-28] MEDS ORDERED: SODIUM CHLORIDE 0.9% 1,000 ML IV ONE (23:30)
[2023-01-28 23:40] LABS: ABG BASE EXCESS 0.7 mmol/L (-2.0-3.0); ABG CARBOXYHEMOGLOBIN 0.3 % (0.0-1.5); ABG HCO3 25.6 mmol/L (22.0-26.0); ABG METHEMOGLOBIN 0.2 % (0.0-1.5); ABG OXYGEN CONTENT 14.7 mL/dL (15.0-23.0); ABG OXYGEN SATURATION 94.2 % (95.0-98.0); ABG OXYHEMOGLOBIN 93.7 % (94.0-100.0); ABG PCO2 30 mmHg (35-45); ABG PH 7.514 (7.350-7.450); ABG TOTAL HEMOGLOBIN 11.1 G/dL (12.0-18.0); PO2, ARTERIAL BG 78.6 mmHg (92.0-100.0); SITE, BLOOD GAS RT RADIAL; SOURCE, BLOOD GAS ARTERIAL; TEMPERATURE, FAHRENHEIT, BG 98.6 FAHREN (96.0-98.6)
[2023-01-28] MEDS ORDERED: ONDANSETRON HCL 4 MG/2 ML VIAL IVP ONE (23:45)
[2023-01-28] MEDS ORDERED: FAMOTIDINE 20 MG/2 ML VIAL IVP ONE (23:45)
[2023-01-28 23:48] LABS: BASOPHILS % (AUTO) 0.3 % (0.0-2.0); EOSINOPHILS % (AUTO) 0.8 % (1.0-6.0); HEMATOCRIT 29.8 % (41-53); HEMOGLOBIN 10.5 g/dL (13.5-17.5); LYMPHOCYTES # (AUTO) 2.2 K/uL (1.0-4.8); LYMPHOCYTES % (AUTO) 41.6 % (22.0-44.0); MEAN CORPUSCULAR HGB CONC 35.2 G/dL (31.0-37.0); MEAN CORPUSCULAR VOLUME 91 fL (80-100); MONOCYTES # (AUTO) 0.4 K/uL (0.1-1.0); MONOCYTES % (AUTO) 7.8 % (2.0-9.0); NEUTROPHILS # (AUTO) 2.7 K/uL (1.8-7.7); NEUTROPHILS % (AUTO) 49.5 % (40.0-70.0); PLATELET COUNT (AUTO) 262 K/uL (150-450); RED BLOOD CELL COUNT(AUTO) 3.28 MIL/uL (4.50-5.90); RED CELL DISTRIBUTION WIDTH 13.9 % (11.5-14.5)
[2023-01-29 00:07] LABS: ALANINE AMINOTRANSFERASE 22 U/L (12-78); ALKALINE PHOSPHATASE 127 U/L (46-116); ANION GAP 11 mmol/L (8-16); ASPARTATE AMINOTRANSFERASE 27 U/L (15-37); BILIRUBIN,TOTAL 0.1 mg/dL (0.1-1.0); CALCIUM, TOTAL 8.4 mg/dL (8.8-10.5); CARBON DIOXIDE 27 mmol/L (22-29); CHLORIDE 101 mmol/L (98-107); CREATINE KINASE, TOTAL ONLY 79 U/L (39-308); CREATININE 0.44 mg/dL (0.60-1.30); GLOMERULAR FILTR. RATE CALC > 60 mL/min (>60); GLUCOSE,RANDOM 271 mg/dL (70-110); SODIUM SERUM 139 mmol/L (136-145); TOTAL PROTEIN, SERUM 6.5 g/dL (6.4-8.2)
[2023-01-29 00:11] LABS: POTASSIUM 2.5 mmol/L (3.5-5.1)
[2023-01-29 00:15] LABS: B-TYPE NATRIURETIC PEPTIDE 72 pg/mL (0-100)
[2023-01-29 00:18] LABS: ACETONE,BLOOD NEGATIVE (NEGATIVE)
[2023-01-29] MEDS: POTASSIUM CHL 10 MEQ/WATER 50 ML IV SCH ×4 (00:55→03:57)
[2023-01-29 01:21] LABS: GLUCOMETER DEV NAME(LOC) ERT.5; GLUCOSE,POINT OF CARE 281 MG/DL (70-110)
[2023-01-29 01:24] LABS: APPEARANCE,URINE CLEAR (CLEAR); BILIRUBIN,URINE NEGATIVE (NEGATIVE); GLUCOSE, URINE (UA) >=1000 mg/dL (NEGATIVE); KETONES,URINE NEGATIVE (NEGATIVE); LEUKOCYTE ESTERASE ,URINE NEGATIVE (NEGATIVE); NITRATE,URINE NEGATIVE (NEGATIVE); OCCULT BLOOD,URINE NEGATIVE (NEGATIVE); PROTEIN,URINE NEGATIVE (NEGATIVE); UROBILINOGEN,URINE <=1.0 mg/dL (<=1.0)
[2023-01-29 01:29] LABS: AMPHET/METH SCREEN,URINE NEGATIVE (NEGATIVE); BARBITURATE SCREEN, URINE NEGATIVE (NEGATIVE); BENZODIAZEPINES SCREEN,URINE NEGATIVE (NEGATIVE); CANNABINOID SCREEN,URINE NEGATIVE (NEGATIVE); COCAINE SCREEN,URINE NEGATIVE (NEGATIVE); METHADONE SCREEN, URINE NEGATIVE (NEGATIVE); OPIATE SCREEN,URINE NEGATIVE (NEGATIVE); PHENCYCLIDINE SCREEN,URINE NEGATIVE (NEGATIVE)
[2023-01-29 01:39] LABS: BACTERIA,URINE None Seen /HPF (None Seen); RBC,URINE None Seen /HPF (0-2); SQUAMOUS EPITHELIAL CELL,UR Rare /LPF (None Seen); WBC,URINE None Seen /HPF (0-5)
[2023-01-29 05:24] VITALS: BP 115/75; PULSE 78; RESP 16
[2023-01-30] MEDS ORDERED: NALT50TA PO (00:47)
[2023-01-30] MEDS ORDERED: MELA1TAB28 PO (00:48)
[2023-01-30] MEDS ORDERED: INSLAN SQ (00:48)
[2023-01-30] MEDS ORDERED: TOPI-255 PO (00:59)
[2023-01-30] MEDS ORDERED: PANT-31 PO (00:59)
[2023-01-30] MEDS ORDERED: METF-1185 PO (00:59)
== END 2023-01-29 05:24 | disposition home or self-care (01) ==
LOC: EMS 23:07
DX: E11.65 Type 2 diabetes mellitus with hyperglycemia (principal); F10.129 Alcohol abuse with intoxication, unspecified; E87.6 Hypokalemia; M54.30 Sciatica, unspecified side; I63.9 Cerebral infarction, unspecified; G62.9 Polyneuropathy, unspecified; F17.210 Nicotine dependence, cigarettes, uncomplicated
CPT/HCPCS: 99285; 71045; 96375; 96361; 80053; 82009; 82550; 82962; 83735; 83880; 84484; 85025; 36415; 82805; 36600; 93005; 81001; 96365; 80307 ×2; G0480; J3490; J2405; J7030; J3480

== ENCOUNTER 2023-02-07 15:23 | Emergency (ER) | payer MEDICAID ==
[~2023-02-07] VITALS: Ht 152.4 cm; Wt 44.0 kg
[~2023-02-07 15:23] MED LIST changes: +INSLAN SQ; +MELA1TAB28 PO; +METF-1185 PO; +NALT50TA PO; +PANT-31 PO; +TOPI-255 PO
[2023-02-07 17:01] LABS: HEMATOCRIT 34.4 % (41-53); HEMOGLOBIN 11.7 g/dL (13.5-17.5); MEAN CORPUSCULAR VOLUME 91 fL (80-100); RED BLOOD CELL COUNT(AUTO) 3.78 MIL/uL (4.50-5.90)
[2023-02-07 17:02] LABS: BASOPHILS % (AUTO) 1.6 % (0.0-2.0); EOSINOPHILS % (AUTO) 0.2 % (1.0-6.0); LYMPHOCYTES # (AUTO) 1.6 K/uL (1.0-4.8); LYMPHOCYTES % (AUTO) 43.1 % (22.0-44.0); MEAN CORPUSCULAR HEMOGLOBIN 30.8 pg (26.0-34.0); MEAN CORPUSCULAR HGB CONC 33.9 G/dL (31.0-37.0); MONOCYTES # (AUTO) 0.3 K/uL (0.1-1.0); MONOCYTES % (AUTO) 7.5 % (2.0-9.0); NEUTROPHILS # (AUTO) 1.8 K/uL (1.8-7.7); NEUTROPHILS % (AUTO) 47.6 % (40.0-70.0); PLATELET COUNT (AUTO) 260 K/uL (150-450); RED CELL DISTRIBUTION WIDTH 15.5 % (11.5-14.5)
[2023-02-07 17:10] LABS: ANION GAP 12 mmol/L (8-16); CALCIUM, TOTAL 8.2 mg/dL (8.8-10.5); CARBON DIOXIDE 28 mmol/L (22-29); CHLORIDE 101 mmol/L (98-107); CREATININE 0.56 mg/dL (0.60-1.30); GLOMERULAR FILTR. RATE CALC > 60 mL/min (>60); GLUCOSE,RANDOM 291 mg/dL (70-110); POTASSIUM 3.1 mmol/L (3.5-5.1); SODIUM SERUM 141 mmol/L (136-145)
[2023-02-07 17:16] LABS: ALANINE AMINOTRANSFERASE 32 U/L (12-78); ALBUMIN 3.5 g/dL (3.4-5.0); ALKALINE PHOSPHATASE 262 U/L (46-116); ASPARTATE AMINOTRANSFERASE 37 U/L (15-37); BILIRUBIN,TOTAL 0.3 mg/dL (0.1-1.0); TOTAL PROTEIN, SERUM 7.2 g/dL (6.4-8.2)
[2023-02-07 17:17] LABS: PLATELET MORPHOLOGY COMMENT LARGE PLTS PRESENT
[2023-02-07 21:30] VITALS: BP 127/74; PULSE 89; RESP 16; TEMP 98.3
[2023-02-07] MEDS ORDERED: POTASSIUM CHLORIDE 20 MEQ ER TABLET PO ONE (21:30)
== END 2023-02-07 21:30 | disposition home or self-care (01) ==
LOC: EMS 15:24
DX: F10.229 Alcohol dependence with intoxication, unspecified (principal); E87.6 Hypokalemia; F31.9 Bipolar disorder, unspecified; E11.40 Type 2 diabetes mellitus with diabetic neuropathy, unspecified; Y90.9 Presence of alcohol in blood, level not specified
CPT/HCPCS: 99283; 80053; 85025; 36415; G0480

== ENCOUNTER 2023-03-03 12:48 | Emergency (ER) | payer MEDICAID ==
[~2023-03-03] VITALS: Ht 152.4 cm; Wt 47.3 kg
[~2023-03-03 12:48] MED LIST changes: -METF-1211 PO; -TOPI-255 PO; +TOPI100T37 PO
[2023-03-03 12:54] VITALS: TEMP 98.7
[2023-03-03] MEDS ORDERED: METF-1211 PO (13:07)
[2023-03-03] MEDS ORDERED: SODIUM CHLORIDE 0.9% 1,000 ML IV ONE (13:15)
[2023-03-03 16:15] VITALS: BP 154/58; PULSE 98; RESP 17
== END 2023-03-03 16:40 | disposition home or self-care (01) ==
LOC: EMS 12:52
DX: F10.229 Alcohol dependence with intoxication, unspecified (principal); F31.9 Bipolar disorder, unspecified; E11.65 Type 2 diabetes mellitus with hyperglycemia; E11.40 Type 2 diabetes mellitus with diabetic neuropathy, unspecified; Y90.8 Blood alcohol level of 240 mg/100 ml or more
CPT/HCPCS: 99283; 96360; 82962; 36415; G0480; J7030

== ENCOUNTER 2023-03-14 22:07 | Inpatient (IN) | payer MEDICAID ==
[~2023-03-14] VITALS: Ht 165.1 cm; Wt 47.3 kg
[~2023-03-14 22:07] MED LIST changes: -METF-1185 PO; +METF-1211 PO
[2023-03-14] MEDS ORDERED: SODIUM CHLORIDE 0.9% 1,000 ML IV ONE ×2 (22:15→23:30)
[2023-03-14 22:30] LABS: GLUCOMETER DEV NAME(LOC) ER.6
[2023-03-14 22:39] LABS: BASOPHILS % (AUTO) 2.1 % (0.0-2.0); EOSINOPHILS % (AUTO) 0.5 % (1.0-6.0); HEMATOCRIT 33.4 % (41-53); HEMOGLOBIN 11.3 g/dL (13.5-17.5); LYMPHOCYTES # (AUTO) 1.9 K/uL (1.0-4.8); MEAN CORPUSCULAR HEMOGLOBIN 30.1 pg (26.0-34.0); MEAN CORPUSCULAR HGB CONC 33.8 G/dL (31.0-37.0); MEAN CORPUSCULAR VOLUME 89 fL (80-100); MONOCYTES # (AUTO) 0.5 K/uL (0.1-1.0); NEUTROPHILS # (AUTO) 1.5 K/uL (1.8-7.7); NEUTROPHILS % (AUTO) 37.4 % (40.0-70.0); PLATELET COUNT (AUTO) 241 K/uL (150-450); RED BLOOD CELL COUNT(AUTO) 3.74 MIL/uL (4.50-5.90); RED CELL DISTRIBUTION WIDTH 16.4 % (11.5-14.5)
[2023-03-14 23:00] LABS: COVID AG,FIA SOURCE NASOPHARYNGEAL
[2023-03-14 23:02] LABS: ALANINE AMINOTRANSFERASE 164 U/L (12-78); ALBUMIN 3.3 g/dL (3.4-5.0); ALKALINE PHOSPHATASE 286 U/L (46-116); ANION GAP 17 mmol/L (8-16); ASPARTATE AMINOTRANSFERASE 451 U/L (15-37); BILIRUBIN,TOTAL 0.4 mg/dL (0.1-1.0); CARBON DIOXIDE 30 mmol/L (22-29); CHLORIDE 93 mmol/L (98-107); CREATININE 0.52 mg/dL (0.60-1.30); GLOMERULAR FILTR. RATE CALC > 60 mL/min (>60); GLUCOSE,RANDOM 398 mg/dL (70-110); PHOSPHORUS 3.3 mg/dL (2.5-4.9); SODIUM SERUM 140 mmol/L (136-145); TOTAL PROTEIN, SERUM 6.7 g/dL (6.4-8.2)
[2023-03-14 23:04] LABS: ACETONE,BLOOD NEGATIVE (NEGATIVE)
[2023-03-14 23:07] LABS: POTASSIUM 2.3 mmol/L (3.5-5.1)
[2023-03-14] MEDS ORDERED: MAGNESIUM SULFATE 1 GM in DEXTROSE 5%-WATER 50 ML IV ONE (23:15)
[2023-03-14] MEDS ORDERED: POTASSIUM CHLORIDE 20 MEQ ER TABLET PO ONE (23:15)
[2023-03-14] MEDS ORDERED: INSULIN GLARGINE,HUM.REC.ANLOG 100 UNITS/ML SQ SCH (23:30)
[2023-03-14] MEDS ORDERED: ONDANSETRON HCL 4 MG/2 ML VIAL IVP PRN (23:30)
[2023-03-14] MEDS ORDERED: MAGNESIUM HYDROXIDE SUSPENSION 30 ML UDCUP PO PRN (23:30)
[2023-03-14] MEDS ORDERED: DEXTROSE 50%-WATER 25 GM/50 ML SYRINGE IVP PRN (23:30)
[2023-03-14] MEDS ORDERED: POTASSIUM CHL 10 MEQ/WATER 50 ML IV PRN (23:30)
[2023-03-14] MEDS ORDERED: MAGNESIUM OXIDE 400 MG TABLET PO PRN (23:30)
[2023-03-14] MEDS ORDERED: LORazepam 2 MG/ML VIAL IVP PRN (23:30)
[2023-03-14] MEDS ORDERED: MAGNESIUM SULFATE 4 GM/WATER 100 ML IV PRN (23:30)
[2023-03-14] MEDS ORDERED: MAGNESIUM SULFATE 2 GM/WATER 50 ML IV PRN (23:30)
[2023-03-14] MEDS ORDERED: ZOLPIDEM TARTRATE 5 MG TABLET PO PRN (23:30)
[2023-03-15] MEDS: POTASSIUM CHL 10 MEQ/WATER 50 ML IV SCH ×3 (00:07→04:41)
[2023-03-15 01:43] LABS: APPEARANCE,URINE CLEAR (CLEAR); BILIRUBIN,URINE NEGATIVE (NEGATIVE); GLUCOSE, URINE (UA) >=1000 mg/dL (NEGATIVE); KETONES,URINE NEGATIVE (NEGATIVE); LEUKOCYTE ESTERASE ,URINE SMALL (NEGATIVE); NITRATE,URINE NEGATIVE (NEGATIVE); OCCULT BLOOD,URINE NEGATIVE (NEGATIVE); PROTEIN,URINE NEGATIVE (NEGATIVE); SPECIFIC GRAVITIY, URINE 1.034 (1.003-1.030); UROBILINOGEN,URINE <=1.0 mg/dL (<=1.0)
[2023-03-15] MEDS: HEPARIN SODIUM,PORCINE 5,000 UNITS/ML VIAL SQ SCH ×4 (01:45→21:56)
[2023-03-15 01:48] LABS: AMPHET/METH SCREEN,URINE NEGATIVE (NEGATIVE); BARBITURATE SCREEN, URINE NEGATIVE (NEGATIVE); BENZODIAZEPINES SCREEN,URINE POSITIVE (NEGATIVE); CANNABINOID SCREEN,URINE NEGATIVE (NEGATIVE); COCAINE SCREEN,URINE NEGATIVE (NEGATIVE); METHADONE SCREEN, URINE NEGATIVE (NEGATIVE); OPIATE SCREEN,URINE NEGATIVE (NEGATIVE); PHENCYCLIDINE SCREEN,URINE NEGATIVE (NEGATIVE)
[2023-03-15 02:03] LABS: BACTERIA,URINE None Seen /HPF (None Seen); RBC,URINE None Seen /HPF (0-2); SQUAMOUS EPITHELIAL CELL,UR Moderate /LPF (None Seen); YEAST,URINE Few /HPF (None Seen)
[2023-03-15 05:06] LABS: GLUCOMETER DEV NAME(LOC) ER.6
[2023-03-15 05:06] LABS: GLUCOMETER DEV NAME(LOC) ER.6
[2023-03-15 05:06] LABS: GLUCOMETER DEV NAME(LOC) ER.6
[2023-03-15] MEDS ORDERED: SODIUM CHLORIDE 0.9% 1,000 ML IV ONE (05:15)
[2023-03-15 07:35] LABS: ANION GAP 10 mmol/L (8-16); CALCIUM, TOTAL 7.4 mg/dL (8.8-10.5); CARBON DIOXIDE 29 mmol/L (22-29); CHLORIDE 99 mmol/L (98-107); CREATININE 0.42 mg/dL (0.60-1.30); GLOMERULAR FILTR. RATE CALC > 60 mL/min (>60); GLUCOSE,RANDOM 245 mg/dL (70-110); POTASSIUM 3.3 mmol/L (3.5-5.1); SODIUM SERUM 138 mmol/L (136-145)
[2023-03-15 07:44] LABS: ALANINE AMINOTRANSFERASE 162 U/L (12-78); ALBUMIN 3.6 g/dL (3.4-5.0); ALKALINE PHOSPHATASE 295 U/L (46-116); ASPARTATE AMINOTRANSFERASE 271 U/L (15-37); BILIRUBIN,TOTAL 0.5 mg/dL (0.1-1.0); TOTAL PROTEIN, SERUM 7.3 g/dL (6.4-8.2)
[2023-03-15 09:14] VITALS: BP 132/92; PULSE 88; RESP 19; TEMP 98.2
[2023-03-15] MEDS: MULTIVITAMINS WITH MINERALS, THERAPEUTIC TABLET PO SCH (10:37)
[2023-03-15] MEDS: FAMOTIDINE 20 MG TABLET PO SCH ×2 (10:37→21:28)
[2023-03-15 11:21] VITALS: BP 128/86; PULSE 100; RESP 17; TEMP 98.6; O2SAT 100
[2023-03-15] MEDS: INSULIN LISPRO 100 UNITS/ML SQ PRN ×3 (11:40→21:33)
[2023-03-15 12:26] LABS: GLUCOMETER DEV NAME(LOC) 5N.1C
[2023-03-15 15:07] VITALS: BP 123/93; PULSE 92; RESP 16; TEMP 98.9; O2SAT 100
[2023-03-15] MEDS: POTASSIUM CHLORIDE 20 MEQ ER TABLET PO PRN (15:42)
[2023-03-15] MEDS: MORPHINE SULFATE 2 MG/ML SYRINGE IVP PRN (15:43)
[2023-03-15 19:40] VITALS: BP 121/87; PULSE 101; RESP 19; TEMP 98
[2023-03-15 20:11] LABS: GLUCOMETER DEV NAME(LOC) 5N.2C
[2023-03-15] MEDS: INSULIN GLARGINE,HUM.REC.ANLOG 100 UNITS/ML SQ SCH (21:32)
[2023-03-15 21:51] LABS: GLUCOMETER DEV NAME(LOC) 5N.2C
[2023-03-16 00:09] VITALS: BP 117/86; PULSE 98; RESP 18; TEMP 98.6
[2023-03-16 04:09] VITALS: BP 111/84; PULSE 92; RESP 18; TEMP 98.6
[2023-03-16] MEDS: MORPHINE SULFATE 2 MG/ML SYRINGE IVP PRN ×3 (05:49→20:57)
[2023-03-16] MEDS: INSULIN LISPRO 100 UNITS/ML SQ PRN ×4 (05:52→20:56)
[2023-03-16 06:56] LABS: GLUCOMETER DEV NAME(LOC) 5N.1C
[2023-03-16 07:37] VITALS: BP 112/88; PULSE 109; RESP 18; TEMP 98; O2SAT 99
[2023-03-16 07:45] LABS: MAGNESIUM 1.7 mg/dL (1.80-2.40); POTASSIUM 3.4 mmol/L (3.5-5.1)
[2023-03-16] MEDS: HEPARIN SODIUM,PORCINE 5,000 UNITS/ML VIAL SQ SCH ×2 (08:34→15:53)
[2023-03-16] MEDS: MULTIVITAMINS WITH MINERALS, THERAPEUTIC TABLET PO SCH (08:34)
[2023-03-16] MEDS: FAMOTIDINE 20 MG TABLET PO SCH ×2 (08:34→20:56)
[2023-03-16] MEDS: INSULIN GLARGINE,HUM.REC.ANLOG 100 UNITS/ML SQ SCH ×2 (08:38→20:55)
[2023-03-16] MEDS: ACETAMINOPHEN 325 MG TABLET PO PRN (08:50)
[2023-03-16 12:07] VITALS: BP 119/90; PULSE 85; RESP 19; TEMP 98.4; O2SAT 99
[2023-03-16 12:47] LABS: GLUCOMETER DEV NAME(LOC) 5N.1C
[2023-03-16 12:47] LABS: GLUCOMETER DEV NAME(LOC) 5N.1C
[2023-03-16 14:59] VITALS: BP 114/80; PULSE 84; RESP 18; TEMP 98; O2SAT 98
[2023-03-16] MEDS: POTASSIUM CHLORIDE 20 MEQ ER TABLET PO PRN (15:52)
[2023-03-16 20:05] VITALS: BP 108/70; PULSE 101; RESP 18; TEMP 98.6
[2023-03-16 23:16] LABS: GLUCOMETER DEV NAME(LOC) 5S.1B
[2023-03-16 23:16] LABS: GLUCOMETER DEV NAME(LOC) 5N.2C
[2023-03-17 00:15] VITALS: BP 91/73; PULSE 106; RESP 18; TEMP 98.4
[2023-03-17] MEDS: HEPARIN SODIUM,PORCINE 5,000 UNITS/ML VIAL SQ SCH ×2 (00:19→08:36)
[2023-03-17] MEDS: ACETAMINOPHEN 325 MG TABLET PO PRN (02:46)
[2023-03-17 05:20] VITALS: BP 112/78; PULSE 79; RESP 18; TEMP 98.3
[2023-03-17] MEDS: INSULIN LISPRO 100 UNITS/ML SQ PRN (06:26)
[2023-03-17 07:45] VITALS: BP 103/83; PULSE 82; RESP 17; TEMP 98.3
[2023-03-17] MEDS: FAMOTIDINE 20 MG TABLET PO SCH (08:35)
[2023-03-17] MEDS: INSULIN GLARGINE,HUM.REC.ANLOG 100 UNITS/ML SQ SCH (08:36)
[2023-03-17] MEDS: MORPHINE SULFATE 2 MG/ML SYRINGE IVP PRN (08:37)
[2023-03-17] MEDS: MULTIVITAMINS WITH MINERALS, THERAPEUTIC TABLET PO SCH (08:38)
[2023-03-17 12:03] VITALS: BP 108/76; PULSE 88; RESP 16; TEMP 98.5
[2023-03-17 15:56] LABS: GLUCOMETER DEV NAME(LOC) 5N.2C
[2023-03-17 15:56] LABS: GLUCOMETER DEV NAME(LOC) 5N.2C
== END 2023-03-17 15:01 | disposition home or self-care (01) | DRG 425 ==
LOC: EMS 22:08 → 5S 03-15 01:00
PROVIDERS: ADMIT Internal Medicine; ATTEND Internal Medicine
DX: E87.6 Hypokalemia (principal); E43 Unspecified severe protein-calorie malnutrition; R45.851 Suicidal ideations; K70.9 Alcoholic liver disease, unspecified; E11.40 Type 2 diabetes mellitus with diabetic neuropathy, unspecified; D63.8 Anemia in other chronic diseases classified elsewhere; E11.65 Type 2 diabetes mellitus with hyperglycemia; F10.130 Alcohol abuse with withdrawal, uncomplicated; F32.9 Major depressive disorder, single episode, unspecified; Z20.822 Contact with and (suspected) exposure to COVID-19; Z91.199 Patient's noncompliance with other medical treatment and regimen due to unspecified reason; Z68.1 Body mass index [BMI] 19.9 or less, adult; Z83.3 Family history of diabetes mellitus; Z79.4 Long term (current) use of insulin
CPT/HCPCS: 70450; 72125; 80053; 80307; 81001; 82009; 82962; 83735; 84100; 84132; 84484; 85025; 93005; 99291; G0480; J1644; J1815; J2060; J2270; J2405; J3475; J3480; J7030; J7060

== ENCOUNTER 2023-03-20 00:56 | Inpatient (IN) | payer MEDICAID ==
[~2023-03-20] VITALS: Ht 154.9 cm; Wt 44.1 kg
[~2023-03-20 00:56] MED LIST changes: -INSLAN SQ; -METF-1211 PO; -NALT50TA PO; -TOPI100T37 PO
[2023-03-20 01:59] LABS: BASOPHILS % (AUTO) 1.1 % (0.0-2.0); EOSINOPHILS % (AUTO) 0.8 % (1.0-6.0); HEMATOCRIT 33.4 % (41-53); HEMOGLOBIN 11.2 g/dL (13.5-17.5); LYMPHOCYTES # (AUTO) 2.6 K/uL (1.0-4.8); LYMPHOCYTES % (AUTO) 39.9 % (22.0-44.0); MEAN CORPUSCULAR HGB CONC 33.6 G/dL (31.0-37.0); MEAN CORPUSCULAR VOLUME 93 fL (80-100); MONOCYTES # (AUTO) 0.8 K/uL (0.1-1.0); MONOCYTES % (AUTO) 13.2 % (2.0-9.0); NEUTROPHILS # (AUTO) 2.9 K/uL (1.8-7.7); PLATELET COUNT (AUTO) 261 K/uL (150-450); RED BLOOD CELL COUNT(AUTO) 3.61 MIL/uL (4.50-5.90); RED CELL DISTRIBUTION WIDTH 17.9 % (11.5-14.5)
[2023-03-20 02:09] LABS: ANION GAP 16 mmol/L (8-16); CALCIUM, TOTAL 8.5 mg/dL (8.8-10.5); CARBON DIOXIDE 24 mmol/L (22-29); CHLORIDE 98 mmol/L (98-107); CREATININE 0.57 mg/dL (0.60-1.30); GLOMERULAR FILTR. RATE CALC > 60 mL/min (>60); GLUCOSE,RANDOM 334 mg/dL (70-110); POTASSIUM 4.1 mmol/L (3.5-5.1); SODIUM SERUM 138 mmol/L (136-145)
[2023-03-20 02:15] LABS: ALANINE AMINOTRANSFERASE 94 U/L (12-78); ALBUMIN 3.4 g/dL (3.4-5.0); ALKALINE PHOSPHATASE 229 U/L (46-116); ASPARTATE AMINOTRANSFERASE 118 U/L (15-37); BILIRUBIN,TOTAL 0.3 mg/dL (0.1-1.0)
[2023-03-20] MEDS ORDERED: INSULIN REGULAR, HUMAN 100 UNITS/ML SQ ONE (02:30)
[2023-03-20] MEDS ORDERED: SODIUM CHLORIDE 0.9% 1,000 ML IV ONE (03:00)
[2023-03-20] MEDS ORDERED: LORazepam 1 MG TABLET PO ONE (03:00)
[2023-03-20 03:46] LABS: GLUCOMETER DEV NAME(LOC) ER.6
[2023-03-20] MEDS ORDERED: OLANZapine 5 MG RAPDIS TABLET PO PRN (09:15)
[2023-03-20 10:02] LABS: COVID AG,FIA SOURCE NASOPHARYNGEAL
[2023-03-20 18:51] LABS: GLUCOMETER DEV NAME(LOC) ER.6
[2023-03-20 20:22] LABS: GLUCOMETER DEV NAME(LOC) ER.6
[2023-03-21] VITALS (15 sets, daily range): BP systolic 106–161; BP diastolic 75–103; PULSE 78–102; RESP 7–19; TEMP 97–98.6; O2SAT 98–100
[2023-03-21] MEDS ORDERED: INSULIN REGULAR, HUMAN 100 UNITS/ML IVP ONE
[2023-03-21 02:41] LABS: GLUCOMETER DEV NAME(LOC) ER.6
[2023-03-21 02:56] LABS: GLUCOMETER DEV NAME(LOC) ER.6
[2023-03-21] MEDS: LORazepam 2 MG TABLET PO PRN (03:26)
[2023-03-21] MEDS ORDERED: GLUCAGON,HUMAN RECOMBINANT 1 MG VIAL IM PRN (07:00)
[2023-03-21] MEDS ORDERED: DEXTROSE 50%-WATER 25 GM/50 ML SYRINGE IVP PRN ×2 (07:15→15:00)
[2023-03-21] MEDS: MAGNESIUM OXIDE 400 MG TABLET PO SCH (08:21)
[2023-03-21] MEDS: FOLIC ACID 1 MG TABLET PO SCH (08:21)
[2023-03-21] MEDS: MULTIVITAMINS WITH MINERALS, THERAPEUTIC TABLET PO SCH (08:21)
[2023-03-21] MEDS: PANTOPRAZOLE SODIUM 40 MG DR TABLET PO SCH (08:23)
[2023-03-21] MEDS: MetFORMIN HCL 500 MG TABLET PO SCH ×3 (08:23→16:34)
[2023-03-21] MEDS ORDERED: GABAPENTIN 300 MG CAPSULE PO SCH (09:00)
[2023-03-21] MEDS ORDERED: GuaiFENesin/D-METHORPHAN [SUGAR-FREE] 200-20MG/10 ML SYRUP UDCUP PO PRN (11:00)
[2023-03-21] MEDS ORDERED: DIAZEPAM 10 MG TABLET PO PRN (11:00)
[2023-03-21] MEDS ORDERED: CYANOCOBALAMIN 1,000 MCG/ML VIAL IM ONE (11:00)
[2023-03-21] MEDS ORDERED: PROMETHAZINE HCL 25 MG TABLET PO PRN (11:00)
[2023-03-21] MEDS ORDERED: MAGNESIUM HYDROXIDE SUSPENSION 30 ML UDCUP PO PRN (11:00)
[2023-03-21] MEDS ORDERED: MAG HYDROX/AL HYDROX/SIMETH ES 30 ML SUSPENSION UDCUP PO PRN (11:00)
[2023-03-21] MEDS ORDERED: TUBERCULIN, PURIFIED PROTEIN DERIVATIVE 5 TU/0.1 ML SYRINGE ID ONE (11:00)
[2023-03-21] MEDS ORDERED: LOPERAMIDE HCL 2 MG CAPSULE PO PRN ×2 (11:00)
[2023-03-21] MEDS ORDERED: HydrOXYzine PAMOATE 50 MG CAPSULE PO PRN (11:00)
[2023-03-21] MEDS: ACAMPROSATE CALCIUM 333 MG DR TABLET PO SCH ×2 (14:40→16:35)
[2023-03-21] MEDS: GABAPENTIN 300 MG CAPSULE PO SCH ×3 (14:40→20:45)
[2023-03-21 15:06] LABS: GLUCOMETER DEV NAME(LOC) 3E.C
[2023-03-21] MEDS ORDERED: INSULIN LISPRO 100 UNITS/ML SQ ONE (15:30)
[2023-03-21] MEDS: THIAMINE 100 MG TABLET PO SCH (16:34)
[2023-03-21] MEDS: INSULIN LISPRO 100 UNITS/ML SQ PRN ×2 (17:26→21:55)
[2023-03-21] MEDS: ACETAMINOPHEN 325 MG TABLET PO PRN (17:50)
[2023-03-21 18:22] LABS: GLUCOMETER DEV NAME(LOC) 3E.C
[2023-03-21] MEDS: MELATONIN 5 MG TABLET PO SCH (20:45)
[2023-03-21] MEDS: ZOLPIDEM TARTRATE 10 MG TABLET PO PRN (21:29)
[2023-03-22] VITALS (13 sets, daily range): BP systolic 102–116; BP diastolic 75–90; PULSE 87–111; RESP 18–19; TEMP 97–98.4; O2SAT 97–100
[2023-03-22 01:11] LABS: GLUCOMETER DEV NAME(LOC) 3E.C
[2023-03-22 05:51] LABS: GLUCOMETER DEV NAME(LOC) 3E.C
[2023-03-22] MEDS: ACETAMINOPHEN 325 MG TABLET PO PRN (05:58)
[2023-03-22] MEDS: MetFORMIN HCL 500 MG TABLET PO SCH ×2 (06:37→16:33)
[2023-03-22] MEDS: INSULIN LISPRO 100 UNITS/ML SQ PRN ×4 (06:38→21:12)
[2023-03-22] MEDS ORDERED: DIAZEPAM 10 MG TABLET PO PRN (07:00)
[2023-03-22 07:06] LABS: CHOL/HDL RATIO 1.5 (4.2-7.3)
[2023-03-22 07:15] LABS: FREE T4 (FREE THYROXINE) 0.85 ng/dL (0.76-1.46); THYROID STIMULATING HORMONE 1.31 uIU/mL (0.36-3.74)
[2023-03-22 08:14] LABS: HEMOGLOBIN A1C 8.5 % (3.8-5.6)
[2023-03-22] MEDS ORDERED: MULTIVITAMINS WITH MINERALS, THERAPEUTIC TABLET PO SCH (09:00)
[2023-03-22] MEDS ORDERED: DULoxetine HCL 20 MG CAPSULE PO SCH (09:00)
[2023-03-22] MEDS ORDERED: FOLIC ACID 1 MG TABLET PO SCH (09:00)
[2023-03-22] MEDS: PANTOPRAZOLE SODIUM 40 MG DR TABLET PO SCH (09:04)
[2023-03-22] MEDS: NALTREXONE HCL 50 MG TABLET PO SCH (09:04)
[2023-03-22] MEDS: DIAZEPAM 10 MG TABLET PO SCH ×4 (09:04→20:54)
[2023-03-22] MEDS: ACAMPROSATE CALCIUM 333 MG DR TABLET PO SCH ×3 (09:04→16:34)
[2023-03-22] MEDS: GABAPENTIN 300 MG CAPSULE PO SCH ×3 (09:04→16:34)
[2023-03-22] MEDS: FOLIC ACID 1 MG TABLET PO SCH (09:05)
[2023-03-22] MEDS: MAGNESIUM OXIDE 400 MG TABLET PO SCH (09:06)
[2023-03-22] MEDS: THIAMINE 100 MG TABLET PO SCH ×2 (09:06→16:33)
[2023-03-22] MEDS: MULTIVITAMINS WITH MINERALS, THERAPEUTIC TABLET PO SCH (09:06)
[2023-03-22] MEDS: OMEGA-3/DHA/EPA/FISH OIL 1,000 MG CAPSULE PO SCH (09:11)
[2023-03-22 11:31] LABS: GLUCOMETER DEV NAME(LOC) 3E.C
[2023-03-22 16:45] LABS: GLUCOMETER DEV NAME(LOC) 3E.C
[2023-03-22] MEDS: MELATONIN 5 MG TABLET PO SCH (20:54)
[2023-03-22] MEDS: MIRTAZAPINE 15 MG TABLET PO SCH (20:54)
[2023-03-22] MEDS: GABAPENTIN 400 MG CAPSULE PO SCH (20:54)
[2023-03-22 21:31] LABS: GLUCOMETER DEV NAME(LOC) 3E.C
[2023-03-22] MEDS: ZOLPIDEM TARTRATE 10 MG TABLET PO PRN (21:40)
[2023-03-23 06:36] LABS: GLUCOMETER DEV NAME(LOC) 3E.C
[2023-03-23] MEDS: MetFORMIN HCL 500 MG TABLET PO SCH ×2 (06:41→17:09)
[2023-03-23] MEDS: INSULIN LISPRO 100 UNITS/ML SQ PRN ×3 (06:43→17:18)
[2023-03-23 08:30] VITALS: BP_SYST 112; BP_SYST 12; BP_DIAS 82; PULSE 92; RESP 18; TEMP 97.7; O2SAT 98
[2023-03-23] MEDS: OMEGA-3/DHA/EPA/FISH OIL 1,000 MG CAPSULE PO SCH (09:22)
[2023-03-23] MEDS: ACAMPROSATE CALCIUM 333 MG DR TABLET PO SCH ×3 (09:22→17:09)
[2023-03-23] MEDS: THIAMINE 100 MG TABLET PO SCH ×2 (09:22→17:09)
[2023-03-23] MEDS: DULoxetine HCL 30 MG CAPSULE PO SCH (09:23)
[2023-03-23] MEDS: NALTREXONE HCL 50 MG TABLET PO SCH (09:23)
[2023-03-23] MEDS: MULTIVITAMINS WITH MINERALS, THERAPEUTIC TABLET PO SCH (09:23)
[2023-03-23] MEDS: FOLIC ACID 1 MG TABLET PO SCH (09:23)
[2023-03-23] MEDS: DIAZEPAM 10 MG TABLET PO SCH ×4 (09:24→20:27)
[2023-03-23] MEDS: PANTOPRAZOLE SODIUM 40 MG DR TABLET PO SCH (09:24)
[2023-03-23] MEDS: MAGNESIUM OXIDE 400 MG TABLET PO SCH (09:24)
[2023-03-23] MEDS: GABAPENTIN 400 MG CAPSULE PO SCH ×4 (09:25→20:27)
[2023-03-23 09:26] LABS: COVID AG,FIA SOURCE NASAL SWAB
[2023-03-23 12:02] LABS: GLUCOMETER DEV NAME(LOC) 3E.C
[2023-03-23 12:30] VITALS: BP 130/86
[2023-03-23 17:06] LABS: GLUCOMETER DEV NAME(LOC) 3E.C
[2023-03-23] MEDS: MIRTAZAPINE 15 MG TABLET PO SCH (20:27)
[2023-03-23] MEDS: MELATONIN 5 MG TABLET PO SCH (20:27)
[2023-03-23 20:57] VITALS: BP 106/67; PULSE 104; RESP 18; TEMP 98.1; O2SAT 97
[2023-03-23 21:00] VITALS: BP 106/67; PULSE 104; RESP 18; TEMP 98.1; O2SAT 97
[2023-03-23] MEDS: LORazepam 2 MG TABLET PO PRN (21:15)
[2023-03-23 21:31] LABS: GLUCOMETER DEV NAME(LOC) 3E.C
[2023-03-24] VITALS (7 sets, daily range): BP systolic 97–112; BP diastolic 60–75; PULSE 75–107; RESP 17–18; TEMP 97.1–99.8; O2SAT 95–99
[2023-03-24] MEDS: MetFORMIN HCL 500 MG TABLET PO SCH ×2 (06:38→16:46)
[2023-03-24] MEDS: INSULIN LISPRO 100 UNITS/ML SQ PRN ×3 (06:43→21:11)
[2023-03-24] MEDS ORDERED: DIAZEPAM 5 MG TABLET PO PRN (07:00)
[2023-03-24 07:01] LABS: GLUCOMETER DEV NAME(LOC) 3E.C
[2023-03-24] MEDS: ACAMPROSATE CALCIUM 333 MG DR TABLET PO SCH ×3 (08:44→16:46)
[2023-03-24] MEDS: PANTOPRAZOLE SODIUM 40 MG DR TABLET PO SCH (08:45)
[2023-03-24] MEDS: MULTIVITAMINS WITH MINERALS, THERAPEUTIC TABLET PO SCH (08:45)
[2023-03-24] MEDS: NALTREXONE HCL 50 MG TABLET PO SCH (08:45)
[2023-03-24] MEDS: OMEGA-3/DHA/EPA/FISH OIL 1,000 MG CAPSULE PO SCH (08:45)
[2023-03-24] MEDS: FOLIC ACID 1 MG TABLET PO SCH (08:45)
[2023-03-24] MEDS: MAGNESIUM OXIDE 400 MG TABLET PO SCH (08:46)
[2023-03-24] MEDS: THIAMINE 100 MG TABLET PO SCH ×2 (08:47→16:46)
[2023-03-24] MEDS: GABAPENTIN 400 MG CAPSULE PO SCH ×4 (08:47→20:15)
[2023-03-24] MEDS: DULoxetine HCL 30 MG CAPSULE PO SCH (08:47)
[2023-03-24] MEDS: DIAZEPAM 5 MG TABLET PO SCH ×4 (08:48→20:15)
[2023-03-24 11:51] LABS: GLUCOMETER DEV NAME(LOC) 3E.C
[2023-03-24 16:36] LABS: GLUCOMETER DEV NAME(LOC) 3E.C
[2023-03-24] MEDS: MIRTAZAPINE 15 MG TABLET PO SCH (20:15)
[2023-03-24] MEDS: MELATONIN 5 MG TABLET PO SCH (20:15)
[2023-03-24] MEDS: LORazepam 2 MG TABLET PO PRN (20:45)
[2023-03-24 21:20] LABS: GLUCOMETER DEV NAME(LOC) 3E.C
[2023-03-25] VITALS (7 sets, daily range): BP systolic 98–115; BP diastolic 60–72; PULSE 82–105; RESP 17–18; TEMP 97.8–99.6; O2SAT 97–100
[2023-03-25] MEDS: INSULIN LISPRO 100 UNITS/ML SQ PRN ×4 (06:48→22:05)
[2023-03-25] MEDS: MetFORMIN HCL 500 MG TABLET PO SCH ×2 (06:48→17:57)
[2023-03-25] MEDS ORDERED: DIAZEPAM 5 MG TABLET PO PRN (07:00)
[2023-03-25 07:11] LABS: GLUCOMETER DEV NAME(LOC) 3E.C
[2023-03-25] MEDS: ACAMPROSATE CALCIUM 333 MG DR TABLET PO SCH ×3 (09:03→17:57)
[2023-03-25] MEDS: PANTOPRAZOLE SODIUM 40 MG DR TABLET PO SCH (09:03)
[2023-03-25] MEDS: OMEGA-3/DHA/EPA/FISH OIL 1,000 MG CAPSULE PO SCH (09:03)
[2023-03-25] MEDS: NALTREXONE HCL 50 MG TABLET PO SCH (09:03)
[2023-03-25] MEDS: MULTIVITAMINS WITH MINERALS, THERAPEUTIC TABLET PO SCH (09:03)
[2023-03-25] MEDS: GABAPENTIN 400 MG CAPSULE PO SCH ×4 (09:04→21:31)
[2023-03-25] MEDS: THIAMINE 100 MG TABLET PO SCH ×2 (09:04→17:56)
[2023-03-25] MEDS: MAGNESIUM OXIDE 400 MG TABLET PO SCH (09:04)
[2023-03-25] MEDS: FOLIC ACID 1 MG TABLET PO SCH (09:04)
[2023-03-25] MEDS: DULoxetine HCL 30 MG CAPSULE PO SCH (09:04)
[2023-03-25] MEDS: ACETAMINOPHEN 325 MG TABLET PO PRN (12:10)
[2023-03-25] MEDS: LORazepam 2 MG TABLET PO PRN (12:10)
[2023-03-25 12:51] LABS: GLUCOMETER DEV NAME(LOC) 3E.C
[2023-03-25 16:41] LABS: GLUCOMETER DEV NAME(LOC) 3E.C
[2023-03-25] MEDS: MELATONIN 5 MG TABLET PO SCH (21:31)
[2023-03-25] MEDS: MIRTAZAPINE 15 MG TABLET PO SCH (21:32)
[2023-03-25 22:26] LABS: GLUCOMETER DEV NAME(LOC) 3E.C
[2023-03-26] VITALS (10 sets, daily range): BP systolic 110–121; BP diastolic 64–87; PULSE 83–96; RESP 17–20; TEMP 97–98.5; O2SAT 96–100
[2023-03-26] MEDS: ACETAMINOPHEN 325 MG TABLET PO PRN (06:07)
[2023-03-26] MEDS: MetFORMIN HCL 500 MG TABLET PO SCH ×2 (06:32→17:15)
[2023-03-26] MEDS: INSULIN LISPRO 100 UNITS/ML SQ PRN ×6 (06:36→22:00)
[2023-03-26 07:11] LABS: GLUCOMETER DEV NAME(LOC) 3E.C
[2023-03-26] MEDS: GABAPENTIN 400 MG CAPSULE PO SCH ×4 (11:11→21:58)
[2023-03-26] MEDS: ACAMPROSATE CALCIUM 333 MG DR TABLET PO SCH ×3 (11:11→17:15)
[2023-03-26] MEDS: OMEGA-3/DHA/EPA/FISH OIL 1,000 MG CAPSULE PO SCH (11:11)
[2023-03-26] MEDS: PANTOPRAZOLE SODIUM 40 MG DR TABLET PO SCH (11:12)
[2023-03-26] MEDS: THIAMINE 100 MG TABLET PO SCH ×2 (11:12→17:16)
[2023-03-26] MEDS: FOLIC ACID 1 MG TABLET PO SCH (11:12)
[2023-03-26] MEDS: NALTREXONE HCL 50 MG TABLET PO SCH (11:12)
[2023-03-26] MEDS: MAGNESIUM OXIDE 400 MG TABLET PO SCH (11:13)
[2023-03-26] MEDS: MULTIVITAMINS WITH MINERALS, THERAPEUTIC TABLET PO SCH (11:13)
[2023-03-26] MEDS: DULoxetine HCL 30 MG CAPSULE PO SCH (11:13)
[2023-03-26 19:11] LABS: GLUCOMETER DEV NAME(LOC) 3E.I 2
[2023-03-26] MEDS: MELATONIN 5 MG TABLET PO SCH (21:57)
[2023-03-26] MEDS: MIRTAZAPINE 15 MG TABLET PO SCH (21:58)
[2023-03-26 22:26] LABS: GLUCOMETER DEV NAME(LOC) 3E.C
[2023-03-27] VITALS (10 sets, daily range): BP systolic 93–119; BP diastolic 70–87; PULSE 10–100; RESP 16–18; TEMP 97.3–98.5; O2SAT 98–100
[2023-03-27] MEDS: ACETAMINOPHEN 325 MG TABLET PO PRN (03:36)
[2023-03-27] MEDS: MetFORMIN HCL 500 MG TABLET PO SCH ×2 (06:32→17:25)
[2023-03-27] MEDS: INSULIN LISPRO 100 UNITS/ML SQ PRN ×4 (06:38→22:14)
[2023-03-27 07:16] LABS: GLUCOMETER DEV NAME(LOC) 3E.C
[2023-03-27] MEDS ORDERED: DULoxetine HCL 30 MG CAPSULE PO SCH (09:00)
[2023-03-27] MEDS: OMEGA-3/DHA/EPA/FISH OIL 1,000 MG CAPSULE PO SCH (09:37)
[2023-03-27] MEDS: ACAMPROSATE CALCIUM 333 MG DR TABLET PO SCH ×3 (09:37→17:24)
[2023-03-27] MEDS: NALTREXONE HCL 50 MG TABLET PO SCH (09:37)
[2023-03-27] MEDS: GABAPENTIN 400 MG CAPSULE PO SCH ×4 (09:38→21:16)
[2023-03-27] MEDS: PANTOPRAZOLE SODIUM 40 MG DR TABLET PO SCH (09:38)
[2023-03-27] MEDS: THIAMINE 100 MG TABLET PO SCH ×2 (09:38→17:25)
[2023-03-27] MEDS: MULTIVITAMINS WITH MINERALS, THERAPEUTIC TABLET PO SCH (09:40)
[2023-03-27] MEDS: FOLIC ACID 1 MG TABLET PO SCH (09:40)
[2023-03-27] MEDS: MAGNESIUM OXIDE 400 MG TABLET PO SCH (09:46)
[2023-03-27] MEDS: DULoxetine HCL 20 MG CAPSULE PO SCH (10:45)
[2023-03-27 12:36] LABS: GLUCOMETER DEV NAME(LOC) 3E.C
[2023-03-27 18:17] LABS: GLUCOMETER DEV NAME(LOC) 3E.C
[2023-03-27] MEDS ORDERED: MIRTAZAPINE 15 MG TABLET PO SCH (21:00)
[2023-03-27] MEDS: MELATONIN 5 MG TABLET PO SCH (21:16)
[2023-03-27 22:16] LABS: GLUCOMETER DEV NAME(LOC) 3E.C
[2023-03-28] VITALS (7 sets, daily range): BP systolic 101–120; BP diastolic 76–93; PULSE 65–100; RESP 18; TEMP 97.1–97.7; O2SAT 98–100
[2023-03-28 05:51] LABS: GLUCOMETER DEV NAME(LOC) 3E.C
[2023-03-28] MEDS: MetFORMIN HCL 500 MG TABLET PO SCH ×2 (06:55→17:15)
[2023-03-28] MEDS: INSULIN LISPRO 100 UNITS/ML SQ PRN ×4 (07:07→21:38)
[2023-03-28] MEDS: MULTIVITAMINS WITH MINERALS, THERAPEUTIC TABLET PO SCH (09:14)
[2023-03-28] MEDS: OMEGA-3/DHA/EPA/FISH OIL 1,000 MG CAPSULE PO SCH (09:14)
[2023-03-28] MEDS: NALTREXONE HCL 50 MG TABLET PO SCH (09:14)
[2023-03-28] MEDS: ACAMPROSATE CALCIUM 333 MG DR TABLET PO SCH ×3 (09:14→17:15)
[2023-03-28] MEDS: DULoxetine HCL 20 MG CAPSULE PO SCH (09:14)
[2023-03-28] MEDS: PANTOPRAZOLE SODIUM 40 MG DR TABLET PO SCH (09:14)
[2023-03-28] MEDS: THIAMINE 100 MG TABLET PO SCH ×2 (09:15→17:15)
[2023-03-28] MEDS: GABAPENTIN 400 MG CAPSULE PO SCH ×4 (09:15→21:06)
[2023-03-28] MEDS: FOLIC ACID 1 MG TABLET PO SCH (09:15)
[2023-03-28] MEDS: MAGNESIUM OXIDE 400 MG TABLET PO SCH (09:15)
[2023-03-28 12:26] LABS: GLUCOMETER DEV NAME(LOC) 3E.C
[2023-03-28 17:06] LABS: GLUCOMETER DEV NAME(LOC) 3E.C
[2023-03-28] MEDS: MELATONIN 5 MG TABLET PO SCH (21:06)
[2023-03-28] MEDS: MIRTAZAPINE 15 MG TABLET PO SCH (21:06)
[2023-03-28] MEDS: ZOLPIDEM TARTRATE 10 MG TABLET PO PRN (21:07)
[2023-03-28 21:11] LABS: GLUCOMETER DEV NAME(LOC) 3E.I 2
[2023-03-29 00:31] VITALS: RESP 18
[2023-03-29 04:17] VITALS: RESP 18
[2023-03-29 05:46] LABS: GLUCOMETER DEV NAME(LOC) 3E.C
[2023-03-29] MEDS: MetFORMIN HCL 500 MG TABLET PO SCH ×2 (06:56→18:07)
[2023-03-29] MEDS: INSULIN LISPRO 100 UNITS/ML SQ PRN ×4 (07:04→21:29)
[2023-03-29 08:00] VITALS: BP 115/74; PULSE 87; RESP 18; TEMP 97.8; O2SAT 98
[2023-03-29 12:00] VITALS: BP 119/92; PULSE 99; RESP 18; TEMP 98; O2SAT 98
[2023-03-29] MEDS: ACAMPROSATE CALCIUM 333 MG DR TABLET PO SCH ×3 (12:07→18:06)
[2023-03-29] MEDS: MULTIVITAMINS WITH MINERALS, THERAPEUTIC TABLET PO SCH (12:07)
[2023-03-29] MEDS: OMEGA-3/DHA/EPA/FISH OIL 1,000 MG CAPSULE PO SCH (12:07)
[2023-03-29] MEDS: FOLIC ACID 1 MG TABLET PO SCH (12:08)
[2023-03-29] MEDS: DULoxetine HCL 20 MG CAPSULE PO SCH (12:08)
[2023-03-29] MEDS: GABAPENTIN 400 MG CAPSULE PO SCH ×4 (12:08→20:42)
[2023-03-29] MEDS: PANTOPRAZOLE SODIUM 40 MG DR TABLET PO SCH (12:08)
[2023-03-29] MEDS: MAGNESIUM OXIDE 400 MG TABLET PO SCH (12:08)
[2023-03-29] MEDS: NALTREXONE HCL 50 MG TABLET PO SCH (12:09)
[2023-03-29] MEDS: THIAMINE 100 MG TABLET PO SCH ×2 (12:09→18:07)
[2023-03-29 12:41] LABS: GLUCOMETER DEV NAME(LOC) 3E.C
[2023-03-29 16:00] VITALS: BP 118/91; PULSE 100; RESP 18; TEMP 97.5; O2SAT 99
[2023-03-29 17:46] LABS: GLUCOMETER DEV NAME(LOC) 3EX.2
[2023-03-29] MEDS: MELATONIN 5 MG TABLET PO SCH (20:42)
[2023-03-29] MEDS: MIRTAZAPINE 15 MG TABLET PO SCH (20:42)
[2023-03-29] MEDS ORDERED: QUEtiapine FUMARATE 100 MG TABLET PO SCH (21:00)
[2023-03-29] MEDS: ZOLPIDEM TARTRATE 10 MG TABLET PO PRN (21:30)
[2023-03-29 21:41] LABS: GLUCOMETER DEV NAME(LOC) 3E.C
[2023-03-30] MEDS: MetFORMIN HCL 500 MG TABLET PO SCH ×2 (07:00→19:04)
[2023-03-30] MEDS: INSULIN LISPRO 100 UNITS/ML SQ PRN ×4 (07:01→21:34)
[2023-03-30 07:06] LABS: GLUCOMETER DEV NAME(LOC) 3E.C
[2023-03-30 08:27] VITALS: BP 114/69; PULSE 66; RESP 19; TEMP 97.3; O2SAT 98
[2023-03-30] MEDS: ACAMPROSATE CALCIUM 333 MG DR TABLET PO SCH ×3 (11:44→19:03)
[2023-03-30] MEDS: THIAMINE 100 MG TABLET PO SCH ×2 (11:47→19:04)
[2023-03-30] MEDS: NALTREXONE HCL 50 MG TABLET PO SCH (11:47)
[2023-03-30] MEDS: FOLIC ACID 1 MG TABLET PO SCH (11:47)
[2023-03-30] MEDS: MULTIVITAMINS WITH MINERALS, THERAPEUTIC TABLET PO SCH (11:47)
[2023-03-30] MEDS: PANTOPRAZOLE SODIUM 40 MG DR TABLET PO SCH (11:47)
[2023-03-30] MEDS: GABAPENTIN 400 MG CAPSULE PO SCH ×4 (11:47→20:55)
[2023-03-30] MEDS: DULoxetine HCL 20 MG CAPSULE PO SCH (11:47)
[2023-03-30] MEDS: MAGNESIUM OXIDE 400 MG TABLET PO SCH (11:48)
[2023-03-30] MEDS: OMEGA-3/DHA/EPA/FISH OIL 1,000 MG CAPSULE PO SCH (11:49)
[2023-03-30] MEDS: ACETAMINOPHEN 325 MG TABLET PO PRN (11:52)
[2023-03-30 12:11] LABS: GLUCOMETER DEV NAME(LOC) 3E.C
[2023-03-30 12:39] VITALS: BP 137/83; PULSE 86; RESP 18; TEMP 97.5; O2SAT 100
[2023-03-30] MEDS: LORazepam 2 MG TABLET PO PRN (15:17)
[2023-03-30 16:15] VITALS: BP 129/100; PULSE 88; RESP 18; TEMP 98; O2SAT 98
[2023-03-30 17:16] LABS: GLUCOMETER DEV NAME(LOC) 3E.C
[2023-03-30 20:29] VITALS: BP 112/78; PULSE 115; RESP 18; TEMP 98.8; O2SAT 99
[2023-03-30] MEDS: QUEtiapine FUMARATE 200 MG TABLET PO SCH (20:55)
[2023-03-30] MEDS: MIRTAZAPINE 15 MG TABLET PO SCH (20:55)
[2023-03-30] MEDS: MELATONIN 5 MG TABLET PO SCH (20:56)
[2023-03-30 21:01] LABS: GLUCOMETER DEV NAME(LOC) 3E.C
[2023-03-31] VITALS (7 sets, daily range): BP systolic 97; BP diastolic 75; PULSE 100; RESP 16–18; TEMP 97.3–97.8; O2SAT 99
[2023-03-31] MEDS: MetFORMIN HCL 500 MG TABLET PO SCH ×2 (07:02→16:57)
[2023-03-31] MEDS: INSULIN LISPRO 100 UNITS/ML SQ PRN ×4 (07:09→21:11)
[2023-03-31] MEDS: FOLIC ACID 1 MG TABLET PO SCH (09:45)
[2023-03-31] MEDS: MAGNESIUM OXIDE 400 MG TABLET PO SCH (09:45)
[2023-03-31] MEDS: PANTOPRAZOLE SODIUM 40 MG DR TABLET PO SCH (09:45)
[2023-03-31] MEDS: OMEGA-3/DHA/EPA/FISH OIL 1,000 MG CAPSULE PO SCH (09:45)
[2023-03-31] MEDS: MULTIVITAMINS WITH MINERALS, THERAPEUTIC TABLET PO SCH (09:45)
[2023-03-31] MEDS: GABAPENTIN 400 MG CAPSULE PO SCH ×4 (09:45→20:47)
[2023-03-31] MEDS: THIAMINE 100 MG TABLET PO SCH (09:45)
[2023-03-31] MEDS: DULoxetine HCL 20 MG CAPSULE PO SCH (09:46)
[2023-03-31] MEDS: NALTREXONE HCL 50 MG TABLET PO SCH (09:46)
[2023-03-31] MEDS: ACAMPROSATE CALCIUM 333 MG DR TABLET PO SCH ×3 (09:46→16:57)
[2023-03-31 10:41] LABS: GLUCOMETER DEV NAME(LOC) 3E.C
[2023-03-31] MEDS: ACETAMINOPHEN 325 MG TABLET PO PRN (12:03)
[2023-03-31 12:21] LABS: GLUCOMETER DEV NAME(LOC) 3E.C
[2023-03-31 16:51] LABS: GLUCOMETER DEV NAME(LOC) 3E.C
[2023-03-31] MEDS: LORazepam 2 MG TABLET PO PRN (20:45)
[2023-03-31] MEDS: MIRTAZAPINE 15 MG TABLET PO SCH (20:46)
[2023-03-31] MEDS: QUEtiapine FUMARATE 200 MG TABLET PO SCH (20:47)
[2023-03-31] MEDS: MELATONIN 5 MG TABLET PO SCH (20:47)
[2023-03-31 21:41] LABS: GLUCOMETER DEV NAME(LOC) 3E.C
[2023-04-01] VITALS (7 sets, daily range): BP systolic 102–124; BP diastolic 68–76; PULSE 70–98; RESP 17–18; TEMP 97.1–98; O2SAT 97–100
[2023-04-01] MEDS: ACETAMINOPHEN 325 MG TABLET PO PRN (06:07)
[2023-04-01] MEDS: MetFORMIN HCL 500 MG TABLET PO SCH ×2 (06:32→17:24)
[2023-04-01] MEDS: INSULIN LISPRO 100 UNITS/ML SQ PRN ×4 (06:33→21:24)
[2023-04-01 07:01] LABS: GLUCOMETER DEV NAME(LOC) 3E.C
[2023-04-01] MEDS: NALTREXONE HCL 50 MG TABLET PO SCH (09:11)
[2023-04-01] MEDS: MULTIVITAMINS WITH MINERALS, THERAPEUTIC TABLET PO SCH (09:12)
[2023-04-01] MEDS: OMEGA-3/DHA/EPA/FISH OIL 1,000 MG CAPSULE PO SCH (09:12)
[2023-04-01] MEDS: MAGNESIUM OXIDE 400 MG TABLET PO SCH (09:12)
[2023-04-01] MEDS: PANTOPRAZOLE SODIUM 40 MG DR TABLET PO SCH (09:12)
[2023-04-01] MEDS: GABAPENTIN 400 MG CAPSULE PO SCH ×4 (09:14→21:01)
[2023-04-01] MEDS: DULoxetine HCL 20 MG CAPSULE PO SCH (09:15)
[2023-04-01] MEDS: FOLIC ACID 1 MG TABLET PO SCH (09:15)
[2023-04-01] MEDS: ACAMPROSATE CALCIUM 333 MG DR TABLET PO SCH ×3 (09:16→17:24)
[2023-04-01] MEDS: LORazepam 2 MG TABLET PO PRN (10:50)
[2023-04-01 11:41] LABS: GLUCOMETER DEV NAME(LOC) 3E.C
[2023-04-01 17:05] LABS: GLUCOMETER DEV NAME(LOC) 3E.C
[2023-04-01] MEDS: MIRTAZAPINE 15 MG TABLET PO SCH (21:01)
[2023-04-01] MEDS: ZOLPIDEM TARTRATE 10 MG TABLET PO PRN (21:01)
[2023-04-01] MEDS: MELATONIN 5 MG TABLET PO SCH (21:01)
[2023-04-01] MEDS: QUEtiapine FUMARATE 200 MG TABLET PO SCH (21:01)
[2023-04-01 21:46] LABS: GLUCOMETER DEV NAME(LOC) 3E.C
[2023-04-02] VITALS (8 sets, daily range): BP systolic 95–113; BP diastolic 65–84; PULSE 60–80; RESP 17–18; TEMP 97.6–98; O2SAT 83–98
[2023-04-02] MEDS: MetFORMIN HCL 500 MG TABLET PO SCH ×2 (06:31→17:14)
[2023-04-02] MEDS: INSULIN LISPRO 100 UNITS/ML SQ PRN ×4 (06:37→21:48)
[2023-04-02 07:01] LABS: GLUCOMETER DEV NAME(LOC) 3E.C
[2023-04-02] MEDS: MULTIVITAMINS WITH MINERALS, THERAPEUTIC TABLET PO SCH (09:03)
[2023-04-02] MEDS: OMEGA-3/DHA/EPA/FISH OIL 1,000 MG CAPSULE PO SCH (09:03)
[2023-04-02] MEDS: MAGNESIUM OXIDE 400 MG TABLET PO SCH (09:04)
[2023-04-02] MEDS: GABAPENTIN 400 MG CAPSULE PO SCH ×4 (09:04→21:25)
[2023-04-02] MEDS: PANTOPRAZOLE SODIUM 40 MG DR TABLET PO SCH (09:04)
[2023-04-02] MEDS: NALTREXONE HCL 50 MG TABLET PO SCH (09:04)
[2023-04-02] MEDS: FOLIC ACID 1 MG TABLET PO SCH (09:04)
[2023-04-02] MEDS: ACAMPROSATE CALCIUM 333 MG DR TABLET PO SCH ×3 (09:04→17:14)
[2023-04-02] MEDS: DULoxetine HCL 20 MG CAPSULE PO SCH (09:05)
[2023-04-02] MEDS: ACETAMINOPHEN 325 MG TABLET PO PRN (10:29)
[2023-04-02 11:46] LABS: GLUCOMETER DEV NAME(LOC) 3E.C
[2023-04-02 16:51] LABS: GLUCOMETER DEV NAME(LOC) 3E.C
[2023-04-02 21:22] LABS: GLUCOMETER DEV NAME(LOC) 3E.C
[2023-04-02] MEDS: MELATONIN 5 MG TABLET PO SCH (21:25)
[2023-04-02] MEDS: MIRTAZAPINE 15 MG TABLET PO SCH (21:25)
[2023-04-02] MEDS: QUEtiapine FUMARATE 200 MG TABLET PO SCH (21:26)
[2023-04-03 00:10] VITALS: RESP 18; TEMP 97.3
[2023-04-03 04:04] VITALS: RESP 18
[2023-04-03 05:24] VITALS: RESP 18; TEMP 97.8
[2023-04-03 06:16] LABS: GLUCOMETER DEV NAME(LOC) 3E.C
[2023-04-03] MEDS: INSULIN LISPRO 100 UNITS/ML SQ PRN ×4 (06:40→21:45)
[2023-04-03] MEDS: MetFORMIN HCL 500 MG TABLET PO SCH ×2 (07:03→17:17)
[2023-04-03 08:00] VITALS: BP 106/75; PULSE 110; RESP 18; TEMP 97.9; O2SAT 97
[2023-04-03] MEDS: OMEGA-3/DHA/EPA/FISH OIL 1,000 MG CAPSULE PO SCH (09:00)
[2023-04-03] MEDS: PANTOPRAZOLE SODIUM 40 MG DR TABLET PO SCH (09:55)
[2023-04-03] MEDS: FOLIC ACID 1 MG TABLET PO SCH (09:55)
[2023-04-03] MEDS: GABAPENTIN 400 MG CAPSULE PO SCH ×4 (09:55→21:04)
[2023-04-03] MEDS: MULTIVITAMINS WITH MINERALS, THERAPEUTIC TABLET PO SCH (09:56)
[2023-04-03] MEDS: DULoxetine HCL 20 MG CAPSULE PO SCH (09:57)
[2023-04-03] MEDS: ACAMPROSATE CALCIUM 333 MG DR TABLET PO SCH ×3 (09:57→17:18)
[2023-04-03] MEDS: MAGNESIUM OXIDE 400 MG TABLET PO SCH (10:01)
[2023-04-03] MEDS: NALTREXONE HCL 50 MG TABLET PO SCH (10:01)
[2023-04-03 12:11] LABS: GLUCOMETER DEV NAME(LOC) 3E.C
[2023-04-03] MEDS: LORazepam 2 MG TABLET PO PRN ×2 (12:18→21:52)
[2023-04-03 17:47] LABS: GLUCOMETER DEV NAME(LOC) 3E.C
[2023-04-03] MEDS ORDERED: QUEtiapine FUMARATE 200 MG TABLET PO SCH (21:00)
[2023-04-03] MEDS: MIRTAZAPINE 15 MG TABLET PO SCH (21:03)
[2023-04-03] MEDS: MELATONIN 5 MG TABLET PO SCH (21:03)
[2023-04-03 21:06] LABS: GLUCOMETER DEV NAME(LOC) 3E.C
[2023-04-03] MEDS: ZOLPIDEM TARTRATE 10 MG TABLET PO PRN (21:52)
[2023-04-03 22:26] VITALS: BP 106/76; PULSE 91; RESP 18; TEMP 98.2; O2SAT 99
[2023-04-04 06:11] LABS: GLUCOMETER DEV NAME(LOC) 3E.C
[2023-04-04] MEDS: INSULIN LISPRO 100 UNITS/ML SQ PRN ×2 (06:40→12:06)
[2023-04-04] MEDS: MetFORMIN HCL 500 MG TABLET PO SCH (06:47)
[2023-04-04 08:21] VITALS: BP 108/78; PULSE 86; RESP 16; TEMP 97.7; O2SAT 98
[2023-04-04] MEDS: ACAMPROSATE CALCIUM 333 MG DR TABLET PO SCH ×2 (08:40→13:01)
[2023-04-04] MEDS: PANTOPRAZOLE SODIUM 40 MG DR TABLET PO SCH (08:41)
[2023-04-04] MEDS: OMEGA-3/DHA/EPA/FISH OIL 1,000 MG CAPSULE PO SCH (08:41)
[2023-04-04] MEDS: MULTIVITAMINS WITH MINERALS, THERAPEUTIC TABLET PO SCH (08:41)
[2023-04-04] MEDS: GABAPENTIN 400 MG CAPSULE PO SCH ×2 (08:41→13:01)
[2023-04-04] MEDS: MAGNESIUM OXIDE 400 MG TABLET PO SCH (08:42)
[2023-04-04] MEDS: NALTREXONE HCL 50 MG TABLET PO SCH (08:42)
[2023-04-04] MEDS: FOLIC ACID 1 MG TABLET PO SCH (08:42)
[2023-04-04] MEDS ORDERED: DULoxetine HCL 60 MG CAPSULE PO SCH (09:00)
[2023-04-04] MEDS: LORazepam 2 MG TABLET PO PRN (09:30)
[2023-04-04 12:01] LABS: GLUCOMETER DEV NAME(LOC) 3E.C
[2023-04-04] MEDS ORDERED: MELA5TAB40 PO (12:15)
[2023-04-04] MEDS ORDERED: QUET200T30 PO (12:15)
[2023-04-04] MEDS ORDERED: ACAM333T7 PO (12:15)
[2023-04-04] MEDS ORDERED: OMEG-135 PO (12:15)
[2023-04-04] MEDS ORDERED: GABA-1201 PO (12:15)
[2023-04-04] MEDS ORDERED: NALT50TA PO (12:15)
[2023-04-04] MEDS ORDERED: MIRT-89 PO (12:15)
[2023-04-04] MEDS ORDERED: DULO-113 PO (12:15)
[2023-04-04] MEDS ORDERED: FERR325T27 PO (14:10)
[2023-04-04] MEDS ORDERED: MAGN200T8 PO (14:10)
[2023-04-04] MEDS ORDERED: METF-1211 PO (14:18)
[2023-04-05] MEDS ORDERED: FERROUS SULFATE 325 MG EC TABLET PO SCH (07:30)
== END 2023-04-04 14:35 | disposition home or self-care (01) | DRG 751 ==
LOC: EMS 01:00 → 3EI 19:09
PROVIDERS: ADMIT Psychiatry & Neurology Psychiatry; ATTEND Psychiatry & Neurology Psychiatry
DX: F33.2 Major depressive disorder, recurrent severe without psychotic features (principal); U07.1 COVID-19; R45.851 Suicidal ideations; E11.42 Type 2 diabetes mellitus with diabetic polyneuropathy; F17.200 Nicotine dependence, unspecified, uncomplicated; E87.6 Hypokalemia; K21.9 Gastro-esophageal reflux disease without esophagitis; J44.9 Chronic obstructive pulmonary disease, unspecified; F10.229 Alcohol dependence with intoxication, unspecified; G89.29 Other chronic pain; F41.9 Anxiety disorder, unspecified; Z79.899 Other long term (current) drug therapy; Z79.4 Long term (current) use of insulin; Z86.73 Personal history of transient ischemic attack (TIA), and cerebral infarction without residual deficits
CPT/HCPCS: 80053; 80061; 82962; 83036; 83735; 84439; 84443; 85025; 86592; 93005; 99291; G0480; J1815; J3420; J7030; Q9967

== ENCOUNTER 2023-05-19 14:47 | Emergency (ER) | payer MEDICAID ==
[~2023-05-19] VITALS: Ht 165.1 cm; Wt 44.3 kg
[~2023-05-19 14:47] MED LIST changes: +ACAM333T7 PO; +DULO-113 PO; +FERR325T27 PO; -FOLI-130 PO; -GABA-1181 PO; +GABA-1201 PO; -MELA1TAB28 PO; +MELA5TAB40 PO; +METF-1211 PO; +MIRT-89 PO; -MULT-1203 PO; +NALT50TA PO; +OMEG-135 PO; +QUET200T30 PO; -THIA100T80 PO
[2023-05-19 14:58] VITALS: TEMP 98.9
[2023-05-19] MEDS ORDERED: SODIUM CHLORIDE 0.9% 1,000 ML IV ONE (15:00)
[2023-05-19 15:30] LABS: BASOPHILS % (AUTO) 0.5 % (0.0-2.0); EOSINOPHILS % (AUTO) 0.1 % (1.0-6.0); LYMPHOCYTES % (AUTO) 23.4 % (22.0-44.0); MEAN CORPUSCULAR HEMOGLOBIN 31.7 pg (26.0-34.0); MEAN CORPUSCULAR HGB CONC 34.4 G/dL (31.0-37.0); MEAN CORPUSCULAR VOLUME 92 fL (80-100); MONOCYTES # (AUTO) 0.5 K/uL (0.1-1.0); MONOCYTES % (AUTO) 10.9 % (2.0-9.0); NEUTROPHILS # (AUTO) 2.8 K/uL (1.8-7.7); NEUTROPHILS % (AUTO) 65.1 % (40.0-70.0); PLATELET COUNT (AUTO) 191 K/uL (150-450); RED BLOOD CELL COUNT(AUTO) 3.47 MIL/uL (4.50-5.90); RED CELL DISTRIBUTION WIDTH 17.2 % (11.5-14.5); WHITE BLOOD COUNT (AUTO) 4.3 K/uL (4.5-11.0)
[2023-05-19 15:44] LABS: ALANINE AMINOTRANSFERASE 74 U/L (12-78); ALBUMIN 2.5 g/dL (3.4-5.0); ALKALINE PHOSPHATASE 443 U/L (46-116); ASPARTATE AMINOTRANSFERASE 236 U/L (15-37); BILIRUBIN,TOTAL 0.4 mg/dL (0.1-1.0); CALCIUM, TOTAL 7.5 mg/dL (8.8-10.5); CARBON DIOXIDE 19 mmol/L (22-29); CHLORIDE 98 mmol/L (98-107); CREATININE 0.56 mg/dL (0.60-1.30); GLOMERULAR FILTR. RATE CALC > 60 mL/min (>60); LIPASE < 10 U/L (16-77); TOTAL PROTEIN, SERUM 5.8 g/dL (6.4-8.2); UREA NITROGEN, BLOOD 4 mg/dL (7-18)
[2023-05-19] MEDS ORDERED: INSULIN REGULAR, HUMAN 100 UNITS/ML IVP ONE (15:45)
[2023-05-19 15:46] LABS: GLUCOSE,RANDOM 565 mg/dL (70-110)
[2023-05-19 15:55] LABS: ANION GAP 17 mmol/L (8-16); SODIUM SERUM 134 mmol/L (136-145)
[2023-05-19 15:59] LABS: ALCOHOL, BLOOD (SERUM) 387 mg/dL (0-10)
[2023-05-19 16:28] LABS: APPEARANCE,URINE CLEAR (CLEAR); BILIRUBIN,URINE NEGATIVE (NEGATIVE); COLOR,URINE COLORLESS (YELLOW); GLUCOSE, URINE (UA) >=1000 mg/dL (NEGATIVE); KETONES,URINE NEGATIVE (NEGATIVE); LEUKOCYTE ESTERASE ,URINE NEGATIVE (NEGATIVE); NITRATE,URINE NEGATIVE (NEGATIVE); OCCULT BLOOD,URINE NEGATIVE (NEGATIVE); PH,URINE 6.5 (5.0-8.0); PH,URINE DRUG SCREEN 6.5 (5.0-8.0); PROTEIN,URINE NEGATIVE (NEGATIVE); SPECIFIC GRAVITIY, URINE 1.017 (1.003-1.030); UROBILINOGEN,URINE <=1.0 mg/dL (<=1.0)
[2023-05-19 16:35] LABS: AMPHET/METH SCREEN,URINE NEGATIVE (NEGATIVE); BARBITURATE SCREEN, URINE NEGATIVE (NEGATIVE); BENZODIAZEPINES SCREEN,URINE POSITIVE (NEGATIVE); CANNABINOID SCREEN,URINE NEGATIVE (NEGATIVE); COCAINE SCREEN,URINE NEGATIVE (NEGATIVE); METHADONE SCREEN, URINE NEGATIVE (NEGATIVE); OPIATE SCREEN,URINE NEGATIVE (NEGATIVE); PHENCYCLIDINE SCREEN,URINE NEGATIVE (NEGATIVE)
[2023-05-19 16:38] LABS: ALCOHOL, URINE DRUG SCREEN POSITIVE (NEGATIVE)
[2023-05-19 16:44] LABS: RBC,URINE None Seen /HPF (0-2)
[2023-05-19 17:02] LABS: SQUAMOUS EPITHELIAL CELL,UR Rare /LPF (None Seen)
[2023-05-19 17:05] LABS: BACTERIA,URINE None Seen /HPF (None Seen); YEAST,URINE Rare /HPF (None Seen)
[2023-05-19 18:36] LABS: GLUCOMETER DEV NAME(LOC) ERT.5; GLUCOSE,POINT OF CARE 259 MG/DL (70-110)
[2023-05-19 18:36] LABS: GLUCOMETER DEV NAME(LOC) ERT.5; GLUCOSE,POINT OF CARE 465 MG/DL (70-110)
[2023-05-19 18:36] LABS: GLUCOMETER DEV NAME(LOC) ERT.5; GLUCOSE,POINT OF CARE 156 MG/DL (70-110)
[2023-05-19 21:08] VITALS: BP 137/98; PULSE 100; RESP 18
== END 2023-05-19 21:20 | disposition home or self-care (01) ==
LOC: EMS 14:48
DX: F10.129 Alcohol abuse with intoxication, unspecified (principal); E86.0 Dehydration; E11.65 Type 2 diabetes mellitus with hyperglycemia; E87.6 Hypokalemia; F17.210 Nicotine dependence, cigarettes, uncomplicated; F31.9 Bipolar disorder, unspecified
CPT/HCPCS: 99284; 96374; 96361; 80053; 82009; 83690; 85025; 36415; 93005; 80307; 81001; 82962; G0480; J1815

== ENCOUNTER 2023-06-08 15:49 | Emergency (ER) | payer MEDICAID ==
[~2023-06-08] VITALS: Ht 160 cm; Wt 50.0 kg
[2023-06-08 16:07] VITALS: TEMP 98.8
[2023-06-08 16:11] VITALS: BP 102/167; PULSE 113; RESP 18
[2023-06-08] MEDS ORDERED: SODIUM CHLORIDE 0.9% 1,000 ML IV ONE (18:15)
== END 2023-06-08 18:31 | disposition still patient (30) ==
LOC: EMS 15:51
DX: F10.229 Alcohol dependence with intoxication, unspecified (principal); Z53.21 Procedure and treatment not carried out due to patient leaving prior to being seen by health care provider; Y90.9 Presence of alcohol in blood, level not specified
CPT/HCPCS: 99281; Z7502

== ENCOUNTER 2023-07-06 11:18 | Inpatient (IN) | payer MEDICAID ==
[~2023-07-06] VITALS: Ht 152.4 cm; Wt 44.1 kg
[2023-07-07 13:54] VITALS: BP 92/69; PULSE 82; RESP 16; TEMP 97.6; O2SAT 100
[2023-07-07] MEDS ORDERED: HALOPERIDOL 5 MG TABLET PO PRN (14:45)
[2023-07-07 20:27] VITALS: RESP 16
[2023-07-07] MEDS: QUEtiapine FUMARATE 300 MG TABLET PO SCH ×2 (21:00→21:37)
[2023-07-07] MEDS ORDERED: DEXTROSE 50%-WATER 25 GM/50 ML SYRINGE IVP PRN (21:30)
[2023-07-07 22:31] LABS: GLUCOMETER DEV NAME(LOC) 3E.C; GLUCOSE,POINT OF CARE 575 MG/DL (70-110)
[2023-07-07] MEDS: INSULIN LISPRO 100 UNITS/ML SQ PRN (23:04)
[2023-07-08 00:30] LABS: GLUCOMETER DEV NAME(LOC) 3E.C; GLUCOSE,POINT OF CARE 439 MG/DL (70-110)
[2023-07-08 05:45] VITALS: BP 121/86; PULSE 112; RESP 18; TEMP 97.4; O2SAT 98
[2023-07-08 06:32] LABS: GLUCOMETER DEV NAME(LOC) 3E.C; GLUCOSE,POINT OF CARE 222 MG/DL (70-110)
[2023-07-08] MEDS ORDERED: DOCUSATE SODIUM 100 MG CAPSULE PO PRN (06:45)
[2023-07-08] MEDS ORDERED: OMEPRAZOLE 20 MG CAPSULE PO PRN (06:45)
[2023-07-08] MEDS ORDERED: MAGNESIUM HYDROXIDE SUSPENSION 30 ML UDCUP PO PRN (06:45)
[2023-07-08] MEDS ORDERED: ACETAMINOPHEN 325 MG TABLET PO PRN (06:45)
[2023-07-08] MEDS ORDERED: PETROLATUM,WHITE 28 GM JELLY TP PRN (06:45)
[2023-07-08] MEDS ORDERED: CloNIDine HCL 0.1 MG TABLET PO PRN (06:45)
[2023-07-08] MEDS ORDERED: ONDANSETRON HCL 4 MG TABLET PO PRN (06:45)
[2023-07-08] MEDS ORDERED: BACITRACIN 28 GM OINTMENT TP PRN (06:45)
[2023-07-08] MEDS ORDERED: BENZOCAINE/MENTHOL LOZENGE PO PRN (06:45)
[2023-07-08] MEDS ORDERED: ALBUTEROL SULFATE HFA 90 MCG/PUFF 8 GM INHALER IH PRN (06:45)
[2023-07-08] MEDS ORDERED: LOPERAMIDE HCL 2 MG CAPSULE PO PRN (06:45)
[2023-07-08] MEDS ORDERED: MAG HYDROX/ALUMINUM HYD/SIMETH ES 30 ML SUSPENSION UDCUP PO PRN (06:45)
[2023-07-08] MEDS: INSULIN LISPRO 100 UNITS/ML SQ PRN ×4 (06:53→21:44)
[2023-07-08] MEDS: MetFORMIN HCL 500 MG TABLET PO SCH ×2 (07:06→17:52)
[2023-07-08] MEDS: PANTOPRAZOLE SODIUM 40 MG DR TABLET PO SCH (09:00)
[2023-07-08 09:07] VITALS: BP 94/61; PULSE 100; RESP 17; TEMP 97.8; O2SAT 99
[2023-07-08 12:56] LABS: GLUCOMETER DEV NAME(LOC) 3E.C; GLUCOSE,POINT OF CARE 309 MG/DL (70-110)
[2023-07-08 17:47] LABS: GLUCOMETER DEV NAME(LOC) 3E.C; GLUCOSE,POINT OF CARE 193 MG/DL (70-110)
[2023-07-08 21:10] VITALS: BP 107/75; PULSE 109; RESP 18; TEMP 97.4; O2SAT 100
[2023-07-08] MEDS: IBUPROFEN 600 MG TABLET PO PRN (21:13)
[2023-07-08] MEDS: QUEtiapine FUMARATE 300 MG TABLET PO SCH (21:25)
[2023-07-08 21:46] LABS: GLUCOMETER DEV NAME(LOC) 3E.C; GLUCOSE,POINT OF CARE 202 MG/DL (70-110)
[2023-07-08 22:13] VITALS: RESP 18
[2023-07-08] MEDS: ZOLPIDEM TARTRATE 10 MG TABLET PO PRN (23:48)
[2023-07-09] MEDS: MetFORMIN HCL 500 MG TABLET PO SCH ×2 (06:27→17:34)
[2023-07-09] MEDS: INSULIN LISPRO 100 UNITS/ML SQ PRN ×4 (06:42→21:19)
[2023-07-09 07:11] LABS: GLUCOMETER DEV NAME(LOC) 3E.C; GLUCOSE,POINT OF CARE 223 MG/DL (70-110)
[2023-07-09] MEDS: PANTOPRAZOLE SODIUM 40 MG DR TABLET PO SCH (11:19)
[2023-07-09 11:21] VITALS: BP 86/50; PULSE 120; RESP 18; TEMP 98.1
[2023-07-09] MEDS: IBUPROFEN 600 MG TABLET PO PRN (11:21)
[2023-07-09 12:21] VITALS: BP 100/61; PULSE 71; RESP 18; TEMP 97.8
[2023-07-09 12:26] LABS: GLUCOMETER DEV NAME(LOC) 3E.C; GLUCOSE,POINT OF CARE 164 MG/DL (70-110)
[2023-07-09] MEDS: LORazepam 1 MG TABLET PO PRN (12:51)
[2023-07-09 17:46] LABS: GLUCOMETER DEV NAME(LOC) 3E.C; GLUCOSE,POINT OF CARE 344 MG/DL (70-110)
[2023-07-09] MEDS: QUEtiapine FUMARATE 300 MG TABLET PO SCH (21:01)
[2023-07-09 21:19] VITALS: BP 110/69; PULSE 78; RESP 18; TEMP 97.8
[2023-07-09 21:25] LABS: GLUCOMETER DEV NAME(LOC) 3E.C; GLUCOSE,POINT OF CARE 145 MG/DL (70-110)
[2023-07-10] MEDS: ZOLPIDEM TARTRATE 10 MG TABLET PO PRN (01:26)
[2023-07-10] MEDS: MetFORMIN HCL 500 MG TABLET PO SCH ×2 (06:28→17:32)
[2023-07-10] MEDS: INSULIN LISPRO 100 UNITS/ML SQ PRN ×3 (06:36→17:29)
[2023-07-10 07:01] LABS: GLUCOMETER DEV NAME(LOC) 3E.C; GLUCOSE,POINT OF CARE 304 MG/DL (70-110)
[2023-07-10 09:43] VITALS: BP 110/73; PULSE 102; RESP 20; TEMP 97.4; O2SAT 100
[2023-07-10] MEDS: PANTOPRAZOLE SODIUM 40 MG DR TABLET PO SCH (10:15)
[2023-07-10] MEDS: MULTIVITAMINS WITH MINERALS, THERAPEUTIC TABLET PO SCH (10:16)
[2023-07-10] MEDS: THIAMINE 100 MG TABLET PO SCH (10:16)
[2023-07-10] MEDS: LORazepam 1 MG TABLET PO PRN (11:26)
[2023-07-10] MEDS: IBUPROFEN 600 MG TABLET PO PRN (11:27)
[2023-07-10 11:28] VITALS: BP 80/50; PULSE 102; RESP 20; TEMP 97.4
[2023-07-10 11:41] LABS: GLUCOMETER DEV NAME(LOC) 3E.C; GLUCOSE,POINT OF CARE 280 MG/DL (70-110)
[2023-07-10 12:28] VITALS: BP 101/61; PULSE 89; RESP 20; TEMP 98
[2023-07-10 17:31] LABS: GLUCOMETER DEV NAME(LOC) 3E.C; GLUCOSE,POINT OF CARE 317 MG/DL (70-110)
[2023-07-10 20:25] VITALS: BP 101/71; PULSE 100; RESP 18; TEMP 99.6
[2023-07-10 20:36] LABS: GLUCOMETER DEV NAME(LOC) 3E.C; GLUCOSE,POINT OF CARE 119 MG/DL (70-110)
[2023-07-10] MEDS: QUEtiapine FUMARATE 300 MG TABLET PO SCH (20:41)
[2023-07-11 05:51] LABS: GLUCOMETER DEV NAME(LOC) 3E.C; GLUCOSE,POINT OF CARE 291 MG/DL (70-110)
[2023-07-11] MEDS: MetFORMIN HCL 500 MG TABLET PO SCH ×2 (07:01→16:31)
[2023-07-11] MEDS: INSULIN LISPRO 100 UNITS/ML SQ PRN ×3 (07:05→17:01)
[2023-07-11] MEDS: THIAMINE 100 MG TABLET PO SCH (08:51)
[2023-07-11] MEDS: PANTOPRAZOLE SODIUM 40 MG DR TABLET PO SCH (08:51)
[2023-07-11] MEDS: MULTIVITAMINS WITH MINERALS, THERAPEUTIC TABLET PO SCH (08:51)
[2023-07-11 08:53] VITALS: BP 100/64; PULSE 79; RESP 18; TEMP 97; O2SAT 100
[2023-07-11] MEDS: IBUPROFEN 600 MG TABLET PO PRN (08:53)
[2023-07-11 09:48] LABS: ALANINE AMINOTRANSFERASE 47 U/L (12-78); ALBUMIN 2.5 g/dL (3.4-5.0); ALKALINE PHOSPHATASE 286 U/L (46-116); ANION GAP 5 mmol/L (8-16); ASPARTATE AMINOTRANSFERASE 54 U/L (15-37); BILIRUBIN,TOTAL 0.4 mg/dL (0.1-1.0); CARBON DIOXIDE 29 mmol/L (22-29); CHLORIDE 99 mmol/L (98-107); CREATININE 0.47 mg/dL (0.60-1.30); GLOMERULAR FILTR. RATE CALC > 60 mL/min (>60); GLUCOSE,RANDOM 68 mg/dL (70-110); PHOSPHORUS 3.5 mg/dL (2.5-4.9); POTASSIUM 4.7 mmol/L (3.5-5.1); SODIUM SERUM 133 mmol/L (136-145); TOTAL PROTEIN, SERUM 6.7 g/dL (6.4-8.2); UREA NITROGEN, BLOOD 5 mg/dL (7-18)
[2023-07-11 09:50] LABS: HEMOGLOBIN A1C 8.3 % (3.8-5.6)
[2023-07-11 11:14] VITALS: BP 100/64; PULSE 100; RESP 18; TEMP 97; O2SAT 100
[2023-07-11 12:01] LABS: GLUCOMETER DEV NAME(LOC) 3E.C; GLUCOSE,POINT OF CARE 184 MG/DL (70-110)
[2023-07-11 13:12] VITALS: BP 100/64; PULSE 79; RESP 18; TEMP 97; O2SAT 100
[2023-07-11] MEDS: LORazepam 1 MG TABLET PO PRN (14:58)
[2023-07-11 17:01] LABS: GLUCOMETER DEV NAME(LOC) 3E.C; GLUCOSE,POINT OF CARE 322 MG/DL (70-110)
[2023-07-11] MEDS: MAGNESIUM OXIDE 400 MG TABLET PO SCH (18:10)
[2023-07-11 20:14] VITALS: BP 112/78; PULSE 100; RESP 18; TEMP 99.1; O2SAT 97
[2023-07-11] MEDS: QUEtiapine FUMARATE 300 MG TABLET PO SCH (20:51)
[2023-07-11 21:02] LABS: GLUCOMETER DEV NAME(LOC) 3E.C; GLUCOSE,POINT OF CARE 77 MG/DL (70-110)
[2023-07-11 23:15] LABS: GLUCOMETER DEV NAME(LOC) 3E.C; GLUCOSE,POINT OF CARE 166 MG/DL (70-110)
[2023-07-12 05:36] LABS: GLUCOMETER DEV NAME(LOC) 3E.C; GLUCOSE,POINT OF CARE 197 MG/DL (70-110)
[2023-07-12] MEDS: MetFORMIN HCL 500 MG TABLET PO SCH ×2 (06:53→16:35)
[2023-07-12] MEDS: INSULIN LISPRO 100 UNITS/ML SQ PRN ×3 (07:00→17:00)
[2023-07-12] MEDS: THIAMINE 100 MG TABLET PO SCH (08:26)
[2023-07-12] MEDS: MULTIVITAMINS WITH MINERALS, THERAPEUTIC TABLET PO SCH (08:26)
[2023-07-12] MEDS: PANTOPRAZOLE SODIUM 40 MG DR TABLET PO SCH (08:26)
[2023-07-12] MEDS: MAGNESIUM OXIDE 400 MG TABLET PO SCH (08:27)
[2023-07-12 08:52] VITALS: BP 109/80; PULSE 100; RESP 17; TEMP 97.9; O2SAT 98
[2023-07-12 11:56] LABS: GLUCOMETER DEV NAME(LOC) 3E.C; GLUCOSE,POINT OF CARE 261 MG/DL (70-110)
[2023-07-12] MEDS: LORazepam 1 MG TABLET PO PRN (15:42)
[2023-07-12 20:33] VITALS: BP 101/71; PULSE 76; RESP 18; TEMP 98.1; O2SAT 97
[2023-07-12 20:56] LABS: GLUCOMETER DEV NAME(LOC) 3E.C; GLUCOSE,POINT OF CARE 89 MG/DL (70-110)
[2023-07-12] MEDS: QUEtiapine FUMARATE 300 MG TABLET PO SCH (21:04)
[2023-07-13 05:37] LABS: GLUCOMETER DEV NAME(LOC) 3E.C; GLUCOSE,POINT OF CARE 198 MG/DL (70-110)
[2023-07-13] MEDS: INSULIN LISPRO 100 UNITS/ML SQ PRN ×2 (06:35→12:07)
[2023-07-13] MEDS: MetFORMIN HCL 500 MG TABLET PO SCH ×2 (06:35→16:51)
[2023-07-13 10:22] VITALS: BP 96/59; PULSE 120; RESP 17; TEMP 96.5; O2SAT 100
[2023-07-13] MEDS: PANTOPRAZOLE SODIUM 40 MG DR TABLET PO SCH (11:13)
[2023-07-13] MEDS: THIAMINE 100 MG TABLET PO SCH (11:13)
[2023-07-13] MEDS: MULTIVITAMINS WITH MINERALS, THERAPEUTIC TABLET PO SCH (11:13)
[2023-07-13 11:51] LABS: GLUCOMETER DEV NAME(LOC) 3E.C; GLUCOSE,POINT OF CARE 262 MG/DL (70-110)
[2023-07-13] MEDS ORDERED: QUET300T2 PO (14:23)
[2023-07-13] MEDS ORDERED: MULT-1239 PO (14:28)
[2023-07-13] MEDS ORDERED: THIA100T80 PO (14:29)
[2023-07-13] MEDS ORDERED: METF-1211 PO (14:29)
== END 2023-07-13 16:00 | disposition home or self-care (01) | DRG 750 ==
LOC: 3EI 07-07 09:45
PROVIDERS: ADMIT Psychiatry & Neurology Psychiatry; ATTEND Psychiatry & Neurology Psychiatry
DX: F25.9 Schizoaffective disorder, unspecified (principal); E11.9 Type 2 diabetes mellitus without complications; I10 Essential (primary) hypertension; M54.9 Dorsalgia, unspecified; G47.00 Insomnia, unspecified; F41.9 Anxiety disorder, unspecified; K59.00 Constipation, unspecified; F10.90 Alcohol use, unspecified, uncomplicated; K21.9 Gastro-esophageal reflux disease without esophagitis
CPT/HCPCS: 80053; 82962; 83036; 83735; 84100; 87081

== ENCOUNTER 2024-04-03 04:47 | Inpatient (IN) | payer MEDICAID ==
[~2024-04-03] VITALS: Ht 157.5 cm; Wt 40.2 kg
[~2024-04-03 04:47] MED LIST changes: -ACAM333T7 PO; +CHLO25CA6 PO; -DULO-113 PO; -FERR325T27 PO; -GABA-1201 PO; +INSU3INS3 SQ; -MAGN200T8 PO; -MELA5TAB40 PO; -MIRT-89 PO; +MULT-1239 PO; -NALT50TA PO; +NEED-462 SQ; -OMEG-135 PO; -QUET200T30 PO; +QUET300T2 PO; +THIA100T80 PO
[2024-04-03 06:04] LABS: BASOPHILS % (AUTO) 1.4 % (0.0-2.0); EOSINOPHILS % (AUTO) 1.3 % (1.0-6.0); HEMATOCRIT 30.8 % (41-53); HEMOGLOBIN 10.6 g/dL (13.5-17.5); LYMPHOCYTES # (AUTO) 1.6 K/uL (1.0-4.8); MEAN CORPUSCULAR HEMOGLOBIN 34.2 pg (26.0-34.0); MEAN CORPUSCULAR HGB CONC 34.4 G/dL (31.0-37.0); MEAN CORPUSCULAR VOLUME 99 fL (80-100); MONOCYTES # (AUTO) 0.4 K/uL (0.1-1.0); MONOCYTES % (AUTO) 8.5 % (2.0-9.0); NEUTROPHILS # (AUTO) 2.4 K/uL (1.8-7.7); NEUTROPHILS % (AUTO) 52.8 % (40.0-70.0); PLATELET COUNT (AUTO) 382 K/uL (150-450); RED BLOOD CELL COUNT(AUTO) 3.09 MIL/uL (4.50-5.90); WHITE BLOOD COUNT (AUTO) 4.5 K/uL (4.5-11.0)
[2024-04-03 06:05] LABS: APPEARANCE,URINE CLEAR (CLEAR); BILIRUBIN,URINE NEGATIVE (NEGATIVE); COLOR,URINE LIGHT YELLOW (YELLOW); GLUCOSE, URINE (UA) >=1000 mg/dL (NEGATIVE); KETONES,URINE NEGATIVE (NEGATIVE); LEUKOCYTE ESTERASE ,URINE TRACE (NEGATIVE); NITRATE,URINE NEGATIVE (NEGATIVE); OCCULT BLOOD,URINE MODERATE (NEGATIVE); PH,URINE 5.5 (5.0-8.0); PH,URINE DRUG SCREEN 5.5 (5.0-8.0); PROTEIN,URINE NEGATIVE (NEGATIVE); SPECIFIC GRAVITIY, URINE 1.034 (1.003-1.030); UROBILINOGEN,URINE <=1.0 mg/dL (<=1.0)
[2024-04-03 06:10] LABS: ALCOHOL, URINE DRUG SCREEN POSITIVE (NEGATIVE)
[2024-04-03 06:15] LABS: ALCOHOL, BLOOD (SERUM) 147 mg/dL (0-10)
[2024-04-03 06:22] LABS: AMPHET/METH SCREEN,URINE NEGATIVE (NEGATIVE); BARBITURATE SCREEN, URINE NEGATIVE (NEGATIVE); BENZODIAZEPINES SCREEN,URINE NEGATIVE (NEGATIVE); CANNABINOID SCREEN,URINE NEGATIVE (NEGATIVE); COCAINE SCREEN,URINE NEGATIVE (NEGATIVE); METHADONE SCREEN, URINE NEGATIVE (NEGATIVE); OPIATE SCREEN,URINE NEGATIVE (NEGATIVE); PHENCYCLIDINE SCREEN,URINE NEGATIVE (NEGATIVE)
[2024-04-03 06:22] LABS: ANION GAP 11 mmol/L (8-16); CALCIUM, TOTAL 8.4 mg/dL (8.8-10.5); CARBON DIOXIDE 23 mmol/L (22-29); CHLORIDE 100 mmol/L (98-107); CREATININE 0.62 mg/dL (0.60-1.30); GLOMERULAR FILTR. RATE CALC > 60 mL/min (>60); GLUCOSE,RANDOM 392 mg/dL (70-110); POTASSIUM 3.2 mmol/L (3.5-5.1); SODIUM SERUM 134 mmol/L (136-145); UREA NITROGEN, BLOOD 4 mg/dL (7-18)
[2024-04-03 06:29] LABS: ALANINE AMINOTRANSFERASE 49 U/L (12-78); ALBUMIN 2.9 g/dL (3.4-5.0); ALKALINE PHOSPHATASE 478 U/L (46-116); ASPARTATE AMINOTRANSFERASE 44 U/L (15-37); BILIRUBIN,TOTAL 0.4 mg/dL (0.1-1.0); TOTAL PROTEIN, SERUM 7.4 g/dL (6.4-8.2)
[2024-04-03 06:30] LABS: BACTERIA,URINE None Seen /HPF (None Seen); SQUAMOUS EPITHELIAL CELL,UR Few /LPF (None Seen); WBC,URINE 0-2 /HPF (0-5)
[2024-04-03 06:33] LABS: ACETONE,BLOOD NEGATIVE (NEGATIVE)
[2024-04-03] MEDS: SODIUM CHLORIDE 0.9% 1,000 ML IV ONE (07:01)
[2024-04-03] MEDS: THIAMINE 100 MG/ML 2 ML VIAL IVP ONE (08:34)
[2024-04-03] MEDS: POTASSIUM CHLORIDE 10% 40 MEQ/30 ML LIQUID UDCUP PO ONE (08:35)
[2024-04-03] MEDS: INSULIN REGULAR, HUMAN 100 UNITS/ML IVP ONE (08:36)
[2024-04-03] MEDS: ASPIRIN 81 MG CHEWABLE TABLET PO ONE (09:39)
[2024-04-03] MEDS ORDERED: MAGNESIUM HYDROXIDE SUSPENSION 30 ML UDCUP PO PRN (12:30)
[2024-04-03] MEDS ORDERED: ACETAMINOPHEN 325 MG TABLET PO PRN (12:30)
[2024-04-03] MEDS ORDERED: BISACODYL 10 MG RECTAL RECTAL SUPPOSITORY PR PRN (12:30)
[2024-04-03] MEDS ORDERED: ONDANSETRON HCL 4 MG/2 ML VIAL IVP PRN (12:30)
[2024-04-03 13:18] VITALS: BP 101/74; PULSE 79; RESP 16; TEMP 97.7; O2SAT 100
[2024-04-03] MEDS: 1: MAGNESIUM SULFATE 2 GM, MVI, ADULT NO.1 WITH VIT K 10 ML, THIAMINE 100 MG, FOLIC ACID IV SCH (14:34)
[2024-04-03 15:38] VITALS: BP 120/78; PULSE 83; RESP 16; TEMP 97.9; O2SAT 100
[2024-04-03 16:01] LABS: GLUCOMETER DEV NAME(LOC) ERT.5; GLUCOSE,POINT OF CARE 179 MG/DL (70-110)
[2024-04-03] MEDS: MetFORMIN HCL 500 MG TABLET PO SCH (17:09)
[2024-04-03] MEDS: HEPARIN SODIUM,PORCINE 5,000 UNITS/ML VIAL SQ SCH (17:09)
[2024-04-03] MEDS: MORPHINE SULFATE 2 MG/ML SYRINGE IVP PRN (17:53)
[2024-04-03 20:14] VITALS: BP 108/76; PULSE 84; RESP 18; TEMP 98.7; O2SAT 100
[2024-04-03] MEDS: DOCUSATE SODIUM 100 MG CAPSULE PO SCH (21:00)
[2024-04-03] MEDS: ZOLPIDEM TARTRATE 5 MG TABLET PO PRN (21:05)
[2024-04-03] MEDS: QUEtiapine FUMARATE 300 MG TABLET PO SCH (21:05)
[2024-04-03] MEDS ORDERED: DEXTROSE 50%-WATER 25 GM/50 ML SYRINGE IVP PRN (21:30)
[2024-04-03] MEDS: INSULIN GLARGINE,HUM.REC.ANLOG 100 UNITS/ML SQ SCH (21:41)
[2024-04-03] MEDS: INSULIN LISPRO 100 UNITS/ML SQ ONE (21:42)
[2024-04-03 21:46] LABS: GLUCOMETER DEV NAME(LOC) 5S.2D; GLUCOSE,POINT OF CARE 458 MG/DL (70-110)
[2024-04-04 00:48] VITALS: BP 110/78; PULSE 86; RESP 18; TEMP 98.5; O2SAT 99
[2024-04-04] MEDS ORDERED: SODIUM CHLORIDE 0.9% 1,000 ML ONE (03:13)
[2024-04-04 03:20] VITALS: BP 106/74; PULSE 87; RESP 17; TEMP 98.5; O2SAT 100
[2024-04-04 06:41] LABS: GLUCOMETER DEV NAME(LOC) 5S.1C; GLUCOSE,POINT OF CARE 86 MG/DL (70-110)
[2024-04-04 07:34] LABS: BASOPHILS % (AUTO) 0.5 % (0.0-2.0); EOSINOPHILS % (AUTO) 0.4 % (1.0-6.0); HEMATOCRIT 29.9 % (41-53); HEMOGLOBIN 10.3 g/dL (13.5-17.5); LYMPHOCYTES # (AUTO) 1.5 K/uL (1.0-4.8); LYMPHOCYTES % (AUTO) 19.6 % (22.0-44.0); MEAN CORPUSCULAR HEMOGLOBIN 34.7 pg (26.0-34.0); MEAN CORPUSCULAR HGB CONC 34.4 G/dL (31.0-37.0); MEAN CORPUSCULAR VOLUME 101 fL (80-100); MONOCYTES # (AUTO) 0.5 K/uL (0.1-1.0); MONOCYTES % (AUTO) 7.1 % (2.0-9.0); NEUTROPHILS # (AUTO) 5.5 K/uL (1.8-7.7); NEUTROPHILS % (AUTO) 72.4 % (40.0-70.0); PLATELET COUNT (AUTO) 347 K/uL (150-450); RED BLOOD CELL COUNT(AUTO) 2.97 MIL/uL (4.50-5.90); RED CELL DISTRIBUTION WIDTH 16.2 % (11.5-14.5); WHITE BLOOD COUNT (AUTO) 7.5 K/uL (4.5-11.0)
[2024-04-04 07:39] LABS: ANION GAP 8 mmol/L (8-16); CALCIUM, TOTAL 8.2 mg/dL (8.8-10.5); CARBON DIOXIDE 24 mmol/L (22-29); CHLORIDE 105 mmol/L (98-107); CREATININE 0.47 mg/dL (0.60-1.30); GLOMERULAR FILTR. RATE CALC > 60 mL/min (>60); GLUCOSE,RANDOM 83 mg/dL (70-110); POTASSIUM 3.5 mmol/L (3.5-5.1); SODIUM SERUM 137 mmol/L (136-145); UREA NITROGEN, BLOOD 7 mg/dL (7-18)
[2024-04-04] MEDS ORDERED: SODIUM CHLORIDE 0.9% 250 ML IV ONE (07:57)
[2024-04-04 08:00] VITALS: BP 108/70; PULSE 91; RESP 18; TEMP 97.8; O2SAT 100
[2024-04-04] MEDS: THIAMINE 100 MG TABLET PO SCH (08:30)
[2024-04-04] MEDS: PANTOPRAZOLE SODIUM 40 MG DR TABLET PO SCH (08:31)
[2024-04-04] MEDS ORDERED: PANTOPRAZOLE SODIUM 40 MG DR TABLET PO SCH (09:00)
[2024-04-04 09:11] LABS: RBC MORPHOLOGY COMMENT ABNORMAL RBC MORPH
[2024-04-04] MEDS: INSULIN LISPRO 100 UNITS/ML SQ PRN (11:49)
[2024-04-04 12:00] VITALS: BP 110/70; PULSE 90; RESP 17; TEMP 97.7; O2SAT 100
[2024-04-04 16:00] VITALS: BP 121/93; PULSE 93; RESP 18; TEMP 97.6; O2SAT 100
[2024-04-04] MEDS ORDERED: INSU100V SQ (16:16)
[2024-04-04 17:00] LABS: GLUCOMETER DEV NAME(LOC) 5S.1C; GLUCOSE,POINT OF CARE 131 MG/DL (70-110)
[2024-04-04 20:06] VITALS: BP 125/91; PULSE 95; RESP 18; TEMP 97.8; O2SAT 93
[2024-04-04 20:41] LABS: GLUCOMETER DEV NAME(LOC) 5S.1C; GLUCOSE,POINT OF CARE 183 MG/DL (70-110)
[2024-04-04 20:46] LABS: GLUCOMETER DEV NAME(LOC) 5S.1C; GLUCOSE,POINT OF CARE 188 MG/DL (70-110)
[2024-04-05 00:14] VITALS: BP 116/66; PULSE 104; RESP 18; TEMP 97.7; O2SAT 100
[2024-04-05] MEDS: HYDROCODONE/ACETAMINOPHEN 5-325 MG TABLET PO PRN (02:09)
[2024-04-05 05:14] VITALS: BP 125/79; PULSE 107; RESP 17; TEMP 98.1; O2SAT 98
[2024-04-05] MEDS ORDERED: SODIUM CHLORIDE 0.9% 1,000 ML ONE (06:49)
[2024-04-05 07:34] LABS: BASOPHILS % (AUTO) 0.8 % (0.0-2.0); EOSINOPHILS % (AUTO) 0.4 % (1.0-6.0); HEMATOCRIT 29.5 % (41-53); LYMPHOCYTES # (AUTO) 1.4 K/uL (1.0-4.8); LYMPHOCYTES % (AUTO) 26.2 % (22.0-44.0); MEAN CORPUSCULAR HEMOGLOBIN 34.4 pg (26.0-34.0); MEAN CORPUSCULAR HGB CONC 34.1 G/dL (31.0-37.0); MEAN CORPUSCULAR VOLUME 101 fL (80-100); MONOCYTES # (AUTO) 0.3 K/uL (0.1-1.0); NEUTROPHILS # (AUTO) 3.7 K/uL (1.8-7.7); NEUTROPHILS % (AUTO) 66.6 % (40.0-70.0); PLATELET COUNT (AUTO) 377 K/uL (150-450); RED BLOOD CELL COUNT(AUTO) 2.92 MIL/uL (4.50-5.90); RED CELL DISTRIBUTION WIDTH 15.9 % (11.5-14.5); WHITE BLOOD COUNT (AUTO) 5.5 K/uL (4.5-11.0)
[2024-04-05 07:44] LABS: ANION GAP 10 mmol/L (8-16); CALCIUM, TOTAL 8.3 mg/dL (8.8-10.5); CARBON DIOXIDE 21 mmol/L (22-29); CHLORIDE 104 mmol/L (98-107); GLOMERULAR FILTR. RATE CALC > 60 mL/min (>60); POTASSIUM 3.5 mmol/L (3.5-5.1); SODIUM SERUM 135 mmol/L (136-145); UREA NITROGEN, BLOOD 5 mg/dL (7-18)
[2024-04-05 08:08] LABS: GLUCOSE,RANDOM 37 mg/dL (70-110)
[2024-04-05 08:31] LABS: GLUCOMETER DEV NAME(LOC) 5S.2D; GLUCOSE,POINT OF CARE 87 MG/DL (70-110)
[2024-04-05 09:10] VITALS: BP 111/74; PULSE 89; RESP 17; TEMP 97.6; O2SAT 100
[2024-04-05 09:46] LABS: GLUCOMETER DEV NAME(LOC) 5S.1C; GLUCOSE,POINT OF CARE 41 MG/DL (70-110)
[2024-04-05 12:00] VITALS: BP 134/92; PULSE 80; RESP 18; TEMP 97.7; O2SAT 100
[2024-04-05 12:16] LABS: GLUCOMETER DEV NAME(LOC) 5S.1C; GLUCOSE,POINT OF CARE 125 MG/DL (70-110)
[2024-04-05 14:20] LABS: GLUCOMETER DEV NAME(LOC) 5S.1C; GLUCOSE,POINT OF CARE 109 MG/DL (70-110)
[2024-04-05] MEDS ORDERED: MetFORMIN HCL 500 MG TABLET PO SCH (18:00)
== END 2024-04-05 13:50 | disposition home or self-care (01) | DRG 425 ==
LOC: EMS 04:49 → EDH 10:08 → 5S 11:50
PROVIDERS: ADMIT Internal Medicine; ATTEND Internal Medicine
DX: E87.6 Hypokalemia (principal); E11.40 Type 2 diabetes mellitus with diabetic neuropathy, unspecified; F10.129 Alcohol abuse with intoxication, unspecified; I10 Essential (primary) hypertension; F17.210 Nicotine dependence, cigarettes, uncomplicated; Y90.6 Blood alcohol level of 120-199 mg/100 ml; E78.5 Hyperlipidemia, unspecified; Z79.4 Long term (current) use of insulin; Z79.84 Long term (current) use of oral hypoglycemic drugs; Z79.899 Other long term (current) drug therapy; Z86.73 Personal history of transient ischemic attack (TIA), and cerebral infarction without residual deficits
CPT/HCPCS: 70450; 80048; 80053; 80307; 81001; 82009; 82948; 82962; 83735; 85025; 97162; 99285; G0378; G0480; J1644; J1815; J2270; J3411; J3475; J3490; J7030; J7050

== ENCOUNTER 2024-04-12 18:29 | Emergency (ER) | payer MEDICAID ==
[~2024-04-12] VITALS: Ht 162.6 cm; Wt 43.6 kg
[2024-04-12 20:09] LABS: BASOPHILS % (AUTO) 0.8 % (0.0-2.0); EOSINOPHILS % (AUTO) 0.5 % (1.0-6.0); HEMATOCRIT 33.3 % (41-53); HEMOGLOBIN 11.2 g/dL (13.5-17.5); LYMPHOCYTES # (AUTO) 2.4 K/uL (1.0-4.8); MEAN CORPUSCULAR HEMOGLOBIN 33.4 pg (26.0-34.0); MEAN CORPUSCULAR HGB CONC 33.6 G/dL (31.0-37.0); MEAN CORPUSCULAR VOLUME 99 fL (80-100); MONOCYTES # (AUTO) 0.3 K/uL (0.1-1.0); MONOCYTES % (AUTO) 5.1 % (2.0-9.0); NEUTROPHILS # (AUTO) 2.8 K/uL (1.8-7.7); NEUTROPHILS % (AUTO) 49.6 % (40.0-70.0); PLATELET COUNT (AUTO) 334 K/uL (150-450); RED BLOOD CELL COUNT(AUTO) 3.35 MIL/uL (4.50-5.90); RED CELL DISTRIBUTION WIDTH 14.3 % (11.5-14.5); WHITE BLOOD COUNT (AUTO) 5.5 K/uL (4.5-11.0)
[2024-04-12 20:16] LABS: ACETONE,BLOOD NEGATIVE (NEGATIVE)
[2024-04-12 20:21] LABS: ANION GAP 17 mmol/L (8-16); CALCIUM, TOTAL 7.8 mg/dL (8.8-10.5); CARBON DIOXIDE 18 mmol/L (22-29); CHLORIDE 102 mmol/L (98-107); CREATININE 0.53 mg/dL (0.60-1.30); GLOMERULAR FILTR. RATE CALC > 60 mL/min (>60); GLUCOSE,RANDOM 205 mg/dL (70-110); LIPASE < 10 U/L (16-77); POTASSIUM 3.3 mmol/L (3.5-5.1); SODIUM SERUM 137 mmol/L (136-145); UREA NITROGEN, BLOOD 10 mg/dL (7-18)
[2024-04-12 20:31] LABS: LACTIC ACID 3.2 mmol/L (0.4-2.0)
[2024-04-12 20:38] LABS: ALCOHOL, BLOOD (SERUM) 403 mg/dL (0-10)
[2024-04-12 22:00] VITALS: BP 116/77; PULSE 103; RESP 19; TEMP 98.3; O2SAT 100
[2024-04-12] MEDS: POTASSIUM CHL 20 MEQ/0.9% NS 1,000 ML IV ONE (22:43)
== END 2024-04-13 05:08 | disposition home or self-care (01) ==
LOC: EMS 18:32
DX: F10.129 Alcohol abuse with intoxication, unspecified (principal); G89.29 Other chronic pain; M54.50 Low back pain, unspecified; E87.6 Hypokalemia; F17.210 Nicotine dependence, cigarettes, uncomplicated; E11.9 Type 2 diabetes mellitus without complications; Z79.4 Long term (current) use of insulin
CPT/HCPCS: 99284; 96365; 80048; 82009; 83605; 83690; 85025; 36415; G0480; J3480

== ENCOUNTER 2024-07-12 16:30 | Emergency (ER) | payer MEDICAID ==
[~2024-07-12] VITALS: Ht 162.6 cm; Wt 42.5 kg
[~2024-07-12 16:30] MED LIST changes: -CHLO25CA6 PO; +DOXY-354 PO; +EMPA10TA3 PO; +LEVE-71 PO; +MAGN400T57 PO; -MULT-1239 PO; +MULT-248 PO; +QUET300T19 PO; -QUET300T2 PO
[2024-07-12 17:18] LABS: EOSINOPHILS % (AUTO) 0.5 % (1.0-6.0); HEMATOCRIT 31.9 % (41-53); HEMOGLOBIN 10.6 g/dL (13.5-17.5); LYMPHOCYTES # (AUTO) 1.8 K/uL (1.0-4.8); LYMPHOCYTES % (AUTO) 31.5 % (22.0-44.0); MEAN CORPUSCULAR HEMOGLOBIN 33.4 pg (26.0-34.0); MEAN CORPUSCULAR HGB CONC 33.1 G/dL (31.0-37.0); MEAN CORPUSCULAR VOLUME 101 fL (80-100); MONOCYTES # (AUTO) 0.6 K/uL (0.1-1.0); MONOCYTES % (AUTO) 10.9 % (2.0-9.0); NEUTROPHILS # (AUTO) 3.1 K/uL (1.8-7.7); NEUTROPHILS % (AUTO) 56.1 % (40.0-70.0); PLATELET COUNT (AUTO) 404 K/uL (150-450); RED BLOOD CELL COUNT(AUTO) 3.16 MIL/uL (4.50-5.90); RED CELL DISTRIBUTION WIDTH 14.1 % (11.5-14.5); WHITE BLOOD COUNT (AUTO) 5.6 K/uL (4.5-11.0)
[2024-07-12 17:29] LABS: ALCOHOL, BLOOD (SERUM) 194 mg/dL (0-10)
[2024-07-12 17:30] LABS: ANION GAP 8 mmol/L (8-16); CALCIUM, TOTAL 8.4 mg/dL (8.8-10.5); CARBON DIOXIDE 26 mmol/L (22-29); CHLORIDE 99 mmol/L (98-107); CREATININE 0.67 mg/dL (0.60-1.30); GLOMERULAR FILTR. RATE CALC > 60 mL/min (>60); GLUCOSE,RANDOM 372 mg/dL (70-110); POTASSIUM 4.2 mmol/L (3.5-5.1); SODIUM SERUM 133 mmol/L (136-145); UREA NITROGEN, BLOOD 5 mg/dL (7-18)
[2024-07-12 17:31] VITALS: TEMP 99
[2024-07-12 17:31] LABS: LIPASE < 10 U/L (16-77)
[2024-07-12 17:40] LABS: APPEARANCE,URINE CLEAR (CLEAR); BILIRUBIN,URINE NEGATIVE (NEGATIVE); COLOR,URINE LIGHT YELLOW (YELLOW); GLUCOSE, URINE (UA) >=1000 mg/dL (NEGATIVE); KETONES,URINE NEGATIVE (NEGATIVE); LEUKOCYTE ESTERASE ,URINE NEGATIVE (NEGATIVE); NITRATE,URINE NEGATIVE (NEGATIVE); OCCULT BLOOD,URINE NEGATIVE (NEGATIVE); PH,URINE 6.5 (5.0-8.0); PROTEIN,URINE NEGATIVE (NEGATIVE); SPECIFIC GRAVITIY, URINE 1.023 (1.003-1.030); UROBILINOGEN,URINE <=1.0 mg/dL (<=1.0)
[2024-07-12 17:41] LABS: ACETONE,BLOOD NEGATIVE (NEGATIVE)
[2024-07-12 17:53] LABS: TROPONIN I-HIGH SENSITIVITY Less Than 4 ng/L (<76)
[2024-07-12 18:01] LABS: BACTERIA,URINE Few /HPF (None Seen); RBC,URINE 0-2 /HPF (0-2); SQUAMOUS EPITHELIAL CELL,UR Few /LPF (None Seen); WBC,URINE 0-2 /HPF (0-5)
[2024-07-12] MEDS: INSULIN REGULAR, HUMAN 100 UNITS/ML IVP ONE (18:51)
[2024-07-12 19:05] VITALS: BP 110/80; PULSE 83; RESP 15; O2SAT 100
== END 2024-07-12 20:29 | disposition home or self-care (01) ==
LOC: EMS 16:30
DX: F10.229 Alcohol dependence with intoxication, unspecified (principal); K70.30 Alcoholic cirrhosis of liver without ascites; E11.65 Type 2 diabetes mellitus with hyperglycemia; F17.210 Nicotine dependence, cigarettes, uncomplicated; Z79.84 Long term (current) use of oral hypoglycemic drugs; Z91.148 Patient's other noncompliance with medication regimen for other reason; Y90.9 Presence of alcohol in blood, level not specified; R07.89 Other chest pain
CPT/HCPCS: 99285; 96374; 71045; 80048; 81001; 82009; 82962; 83690; 84484; 85025; 36415; 93005; G0480; J1815